=== PATIENT | male | born 1925 | race Caucasian/White ===

== ENCOUNTER 2016-03-18 15:04 | Inpatient (IN) | payer MEDICARE, OTHER ==
[~2016-03-18 15:04] MED LIST: ALLO300T; BABY81CH; LISI20TA5; METAMUCIL; NAMENDA
[2016-03-18 16:02] LABS: ABG DEVICE NASAL CANN; ABG HCO3 23.5 MEQ/L (22.0-26.0); ABG PARTIAL PRESSURE CO2 38.4 mmHg (35.0-45.0); ABG PARTIAL PRESSURE O2 69.5 mmHg (75.0-100.0); ABG STANDARD HCO3 23.6 MEQ/L (22.0-26.0); ABG TOTAL CO2 24.7 MEQ/L (23.0-31.0); ABG pH (ARTERIAL) 7.405 UNITS (7.350-7.450)
[2016-03-18 16:05] LABS: BASO % 0.5 % (0.0-1.0); EOS # 0.5 K/mm3 (0.0-0.50); EOS % 6.6 % (0.0-3.0); LARGE UNSTAINED CELL # 0.1 K/mm3 (0.0-0.4); LARGE UNSTAINED CELL % 1.5 % (0.0-4.0); LYMPH # 1.1 K/mm3 (1.5-4.5); LYMPH % 11.6 % (24.0-44.0); MEAN CORPUSCULAR HEMOGLOBIN 32.9 pg (27.0-33.0); MEAN CORPUSCULAR HGB CONC 31.8 g/dl (32.0-36.5); MEAN CORPUSCULAR VOLUME 103.4 fl (80.0-96.0); MONO # 0.4 K/mm3 (0.0-0.8); MONO % 4.9 % (0.0-5.0); NEUTROPHILS # 6.2 K/mm3 (1.8-7.7); PLATELET COUNT, AUTOMATED 210 k/mm3 (150-450); RED CELL DISTRIBUTION WIDTH 13.7 % (11.5-14.5); WHITE BLOOD COUNT 8.3 K/mm3 (4.0-10.0)
--- NOTE | 2016-03-18 16:06 | REP ---
PORTABLE CHEST: AP portable view of the chest is performed and compared to prior study of 09/15/2011. I see no evidence of acute infiltrate or pulmonary edema. There is mild left ventricular prominence. The mediastinal silhouette is unchanged. There appeared to mild interstitial fibrotic change in the lung bases. IMPRESSION: No acute pulmonary disease. Signed by Saul Plasencia MD 03/19/2016 04:48 P
--- NOTE | 2016-03-18 16:15 | REP ---
Head CT without contrast: History: Altered mental status. Comparison head CT study is from 08/02/2015. CT findings: Digital lateral supply chain design manager view is unremarkable. Bone window settings demonstrate an intact bony calvarium. No intraorbital abnormality is seen. Visualized paranasal sinuses are clear. There is mild vascular calcification. There is advanced diffuse cerebral atrophy and concordant ventricular enlargement. Moderate small vessel atherosclerotic changes are seen in the periventricular white matter bilaterally unchanged in pattern from the prior study. No evidence of infarct, hemorrhage, mass, extra-axial fluid collection or midline shift is seen. Impression: Advanced diffuse atrophy and small vessel changes. Mild vascular calcification. No acute intracranial lesion. Signed by Otto Bustamante MD 03/18/2016 05:12 P
[2016-03-18 16:28] LABS: ALBUMIN 2.8 GM/DL (3.2-5.2); ALBUMIN/GLOBULIN RATIO 0.78 (1.00-1.93); ALKALINE PHOSPHATASE 130 U/L (45-117); ALT/SGPT 34 U/L (12-78); ANION GAP 11 MEQ/L (8-16); AST/SGOT 42 U/L (15-37); BILIRUBIN,DIRECT < 0.1 MG/DL (0.0-0.2); BILIRUBIN,TOTAL 0.2 MG/DL (0.2-1.0); BLOOD UREA NITROGEN 31 MG/DL (7-18); CALCIUM LEVEL 8.6 MG/DL (8.8-10.2); CARBON DIOXIDE LEVEL 27 MEQ/L (21-32); CHLORIDE LEVEL 118 MEQ/L (98-107); GLOMERULAR FILTRATION RATE > 60.0 (>35); GLUCOSE, FASTING 125 MG/DL (83-110); POTASSIUM SERUM 4.1 MEQ/L (3.5-5.1); SODIUM LEVEL 156 MEQ/L (136-145); TOTAL PROTEIN 6.4 GM/DL (6.4-8.2)
[2016-03-18] MEDS ORDERED: NS 1,000 ML IV SCH (17:51)
[2016-03-18] MEDS ORDERED: [UNRECOGNIZED DRUG - CODE] PO (18:16)
[2016-03-18] MEDS ORDERED: ALLO100T PO (18:16)
[2016-03-18] MEDS ORDERED: COLA100C PO (18:16)
[2016-03-18] MEDS ORDERED: ASPI1TAB PO (18:16)
[2016-03-18] MEDS ORDERED: SERO1TAB PO (18:16)
[2016-03-18] MEDS ORDERED: SENN8.6T17 PO (18:16)
[2016-03-18] MEDS ORDERED: ACET650T2 PO (18:16)
[2016-03-18] MEDS ORDERED: NAME10TA PO (18:16)
[2016-03-18] MEDS ORDERED: VITMTA PO (18:16)
[2016-03-18] MEDS ORDERED: PANT40TA2 PO (18:16)
--- NOTE | 2016-03-18 18:44 | HPEPDOC ---
General Date of Admission 03-18-16 Primary Care Physician: AMIE GARDINER MD Chief Complaint The patient is a 89-year-old male admitted with a reason for visit of Weakness. Source: other (caregiver) Exam Limitations: Other (pt will not open his eyes or answer questions, seems very irritated after placement of moy cath., arousable to verbal and painful stimuli ) Severity: Mild History of Present Illness Mr. Rivera is an 89 y/o male with past medical history of advanced dementia, GERD, Gout and HTN, who presents to the ED this evening after his caregiver noticed that he had an episode of acute coughing and SOB when he "turned blue" in the face and became acutely very anxious, as per caregiver. Note that the pt., is unwilling to answer my questions, as he is very irritated about having the moy placed minutes prior to being seen, the caregiver said he is "being stubborn" and will not answer questions, thus she provided most of the information. As per child care centre manager, the patient has not been complaining of SOB , cough, CP, palpitations, abdominal pain, blurred vision, h/a, n/v, changes in BM or urinary habits, she has not noted any blood in his urine either, the pt has been eating well, no history of fevers, muscle aches or chills. The caregiver states that the pt., receives 24 hour nursing care with a caregiver. She also reports that two days ago another caregiver told her that the pt was acting strange, he was slumping over in his chair and bed, was having gait difficulty, decreased muscle tone b/l in his hands so that he could not hold his coffee cup or eating utensils and also had garbled speech. However, the caregiver tonight denies seeing any of these aforementioned symptioms and states that his cognition currently is baseline, she has not noticed a decline his his mental status. The pt does have an extensive alcohol history but has not drank alcohol as per caregiver in 8-9 years. Of note, the patient apparently has no family locally, his health care proxy is located in [place]. The pt does have documentation of advanced directive stating he wishes to be DNR. We don't have a MOLST form on file currently. Allergies Coded Allergies: No Known Drug Allergy (Verified Allergy, Unknown, 06/23/12) Past Medical History Medical History GERD advanced dementia HTN gout Surgical History none Family History Significant Family History: No pertinent family hx Social History * Smoker: non-smoker Alcohol: denies (past history of heavy alcohol use, stopped 8-9 years ago) Drugs: denies Recent Travel/Sick Contacts: Reports: Recent travel Psychosocial History: Dementia (advanced) Social History pt lives at home and has 24 hour caregiver Review of Symptoms General: Reports: ROS Unobtainable (pt is unwilling to answer questions at bedside, keeps his eyes closed, seems irritated at having moy cath placed minutes earlier. Thus ROS comes from health care provider at bedside. Pt will open eyes to verbal and painful stimuli but will not answer questions in interview. ), Denies: Chills, Fatigue, Night Sweats Constitutional: Denies: Chills, Fever, Malaise, Night Sweats Eyes: Denies: Conjunctivae inflammation, Eyelid inflammation, Pain, Vision change ENT: Denies: Head Aches Skin: Denies: Jaundice, Lesions, Rash Pulmonary: Denies: Cough, Dyspnea, Pleuritic Chest Pain Cardiovascular: Denies: Chest Pain, Orthopnea, Palpitations Gastrointestinal: Denies: Abdominal Pain, Constipation, Diarrhea, Nausea, Vomiting Genitourinary: Denies: Dysuria Neurological: Denies: Incoordination, Numbness, Weakness Psych: Reports: Other Psych (advanced dementia) Physical Examination Eye Exam: Positive: Conjunctiva & lids normal, PERRLA, Negative: Ptosis, Sclera icteric ENT Exam: Positive: Atraumatic, Mucous membr. moist/pink, Pharynx Normal, Tongue Midline Neck Exam: Positive: Supple Chest Exam: Positive: Clear to auscultation, Normal air movement, Negative: Rales, Rhonchi, Wheezing Heart Exam: Positive: Normal S1, Normal S2, Rate Normal, Negative: Gallops, Murmurs, Rubs Abdomen Exam: Positive: Normal bowel sounds, Soft, Negative: Hepatospenomegaly, Tenderness Extremity Exam: Negative: Clubbing, Cyanosis, Edema Skin Exam: Positive: Nl turgor and temperature, Negative: Breakdown, Rash Vital Signs bp 113/66 hr 76 rr 18 97% on room air temp 97.2 F Laboratory Data Labs 24H Laboratory Tests 2 03/18/16 15:49: Aspartate Amino Transf (AST/SGOT) 42H, Alanine Aminotransferase (ALT/SGPT) 34, Alkaline Phosphatase 130H, Total Bilirubin 0.2, Direct Bilirubin < 0.1, Albumin 2.8L, Albumin/Globulin Ratio 0.78L, Anion Gap 11, Calcium Level 8.6L, Creatine Kinase MB 1.4, Creatine Kinase MB Relative Index 1.50, Glomerular Filtration Rate > 60.0, Thyroid Stimulating Hormone (TSH) 1.200, Total Creatine Kinase 93, Total Protein 6.4, Troponin I 0.28H 03/18/16 15:50: Arterial Blood pH 7.405, Arterial Blood Partial Pressure CO2 38.4, Arterial Blood Partial Pressure O2 69.5L, Arterial Blood Total CO2 24.7, Arterial Blood HCO3 23.5, Arterial Blood Base Excess -1.0, Arterial Blood Oxygen Saturation 93.4L, White Blood Count 8.3, Red Blood Count 3.77L, Hemoglobin 12.4L, Hematocrit 39.0L, Mean Corpuscular Volume 103.4H, Mean Corpuscular Hemoglobin 32.9, Mean Corpuscular Hemoglobin Concent 31.8L, Red Cell Distribution Width 13.7, Platelet Count 210, Neutrophils (%) (Auto) 75.0H, Lymphocytes (%) (Auto) 11.6L, Monocytes (%) (Auto) 4.9, Eosinophils (%) (Auto) 6.6H, Basophils (%) ( Auto) 0.5, Neutrophils # (Auto) 6.2, Lymphocytes # (Auto) 1.1L, Monocytes # ( Auto) 0.4, Eosinophils # (Auto) 0.5, Basophils # (Auto) 0.0, Blood Gas Bicarbonate Standard 23.6, Lactic Acid Level 2.0, Large Unclassified Cells # 0.1 , Large Unclassified Cells % 1.5, Oxygen Delivery Device NASAL SABRINA CBC/BMP Laboratory Tests 03/18/16 15:49 03/18/16 15:50 Red Blood Count 3.77 L, Mean Corpuscular Volume 103.4 H, Mean Corpuscular Hemoglobin 32.9, Mean Corpuscular Hemoglobin Concent 31.8 L, Red Cell Distribution Width 13.7, Neutrophils (%) (Auto) 75.0 H, Lymphocytes (%) (Auto) 11.6 L, Monocytes (%) (Auto) 4.9, Eosinophils (%) (Auto) 6.6 H, Basophils (%) ( Auto) 0.5, Neutrophils # (Auto) 6.2, Lymphocytes # (Auto) 1.1 L, Monocytes # ( Auto) 0.4, Eosinophils # (Auto) 0.5, Basophils # (Auto) 0.0 Microbiology Microbiology 03/18/16 Blood Culture, Received Pending 03/18/16 Blood Culture, Received Pending Assessment/Plan Problems: (1) Generalized weakness Status: Acute Response to Treatment: Stable Problem Text: will consult PT continue to monitor will obtain quetiapine level begin gentle fluid hydration (2) Hypotension Status: Acute Response to Treatment: Stable Problem Text: will begin gentle fluid hydration continue to monitor (3) Elevated troponin Status: Acute Response to Treatment: Stable Problem Text: Will r/o ACS possibly 2/2 demand ischemia or hypotension will trend troponin repeat EKG in AM pt not complaining of CP EKG in ED does not show signs of infarct or ischemic changes (4) DVT prophylaxis Status: Chronic Response to Treatment: Stable Problem Text: Lovenox therapy Plan / VTE VTE Prophylaxis Ordered?: Yes GME ATTESTATION GME ATTESTATION My preceptor for this patient encounter was physically present in the building during the encounter and was fully available. As needed, all aspects of the patient interview, examination, medical decision making process, and medical care plan development were reviewed and approved by the preceptor. Preceptor is aware and concurs with the plan as stated in the body of this note and will attest to such by his/her cosignature. SARAH OTT DO Mar 18, 2016 18:44
[2016-03-18 20:03] LABS: ANION GAP 9 MEQ/L (8-16); BLOOD UREA NITROGEN 30 MG/DL (7-18); CALCIUM LEVEL 8.6 MG/DL (8.8-10.2); CARBON DIOXIDE LEVEL 27 MEQ/L (21-32); CHLORIDE LEVEL 121 MEQ/L (98-107); CREATININE FOR GFR 1.15 MG/DL (0.70-1.30); GLOMERULAR FILTRATION RATE > 60.0 (>35); GLUCOSE, FASTING 92 MG/DL (83-110); POTASSIUM SERUM 4.3 MEQ/L (3.5-5.1); SODIUM LEVEL 157 MEQ/L (136-145)
--- NOTE | 2016-03-18 20:19 | EDDOCDS ---
Physician Documentation [facility] Name: Pierre Rivera Age: 89 yrs Sex: Male : 1925 Arrival Date: 03/18/2016 Time: 15:04 Bed 10 Private MD: Disposition: 03/18/16 17:16 Hospitalization ordered by Marquise Pathak for Inpatient Admission. Preliminary diagnosis are Altered mental status, unspecified, Hyperosmolality and hypernatremia, Dehydration. - Bed requested for 4 [place]. - Status is Inpatient Admission. [id number] - Condition is Stable. - Problem is new. - Symptoms are unchanged. Historical: - Allergies: no known allergies; - Home Meds: 1. allopurinol 100 mg Oral tab once daily 2. aspirin 81 mg Oral cpDR 1 tab once daily 3. Namenda 10 mg oral tab 1 tab 2 times per day 4. Prilosec 40 mg Oral cpDR 1 cap once daily 5. Razadyne ER 8 mg oral TbER once daily 6. Seroquel 50 mg Oral tab 1 tab 2 times per day - PMHx: Alzheimers; GERD; Gout; - PSHx: none; - Social history: Smoking status: Patient states was never smoker of tobacco. Patient is speech impaired. - Family history: Not pertinent. - : The pt / caregiver states he / she is not on anticoagulants. Home medication list is obtained from the caregiver. - Exposure Risk Screening:: None identified. Vital Signs: 03/18 15:16 BP 90 / 57 RA Sitting (auto/reg); Pulse 76; Resp 18; Temp 97.2(O); Pulse Ox 97% on R/A; rs6 Weight 58.06 kg / 128 lbs (R); 16:58 BP 113 / 66 (auto/); nr1 16:58 Pulse 68 MON; Resp 18; Pulse Ox 95% on R/A; nr1 15:16 unable to obtain height and pain scale from patient. rs6 MDM: 15:25 Doughnut Maker/Pulse Ox/q 15 min VS ordered. le 15:25 Accucheck ordered. le 15:25 IV Saline Lock ordered. le 15:25 Oxygen at 4L/Min NC or Home dosage ordered. le 15:25 Rhythm Strip to chart ordered. le 15:25 -Blood Culture (Adults Only), peripheral from different site, or from device/port/PICC le etc. if present ordered. 15:25 -Blood Culture (Adults Only), peripheral from different site, or from device/port/PICC nazario etc. if present complete. 15:25 Call Respiratory ordered. le 15:26 Chest, 1 View Ordered. EDMS 15:26 CBC with Diff Ordered. EDMS 15:26 Cardiac Injury Profile Ordered. EDMS 15:26 Liver Profile Ordered. EDMS 15:26 MED Profile Ordered. EDMS 15:26 Thyroid Stimulating Hormone Ordered. EDMS 15:26 Troponin Ordered. EDMS 15:26 Urinalysis Ordered. EDMS 15:26 Urine Culture Ordered. EDMS 15:26 -Blood Culture Ordered. EDMS 15:26 CT Head Without Contrast Ordered. EDMS 15:26 ECG WITH READING ER PHYS+CARDIAG ordered. EDMS 15:26 Call Respiratory complete. nazario 15:27 Lactic Acid (Plasencia tube on ice) Ordered. EDMS 15:27 -Arterial Blood Gas Ordered. EDMS 15:27 BLOOD CULTURES Ordered. EDMS 16:42 CBC with Diff Reviewed. le 16:42 Liver Profile Reviewed. le 16:42 MED Profile Reviewed. le 16:42 Troponin Reviewed. le 16:42 -Arterial Blood Gas Reviewed. le 16:42 Cardiac Injury Profile Reviewed. le 16:42 Thyroid Stimulating Hormone Reviewed. le 16:42 Lactic Acid (Plasencia tube on ice) Reviewed. le 16:42 CT Head Without Contrast Reviewed. le 16:42 Chest, 1 View Reviewed. le 16:44 Redraw CIP &Troponin (put time in details section) ordered. le 16:50 Redraw CIP &Troponin (put time in details section) complete. mt4 16:51 NS 0.45 % 1000 ml IV at 190 mL/hr once ordered. le 16:51 Redraw Labs ordered. le 16:54 Mane ordered. le 16:54 Intake and Output Hourly ordered. le 16:54 Financial registration complete. gjb 17:06 Redraw Labs complete. mt4 17:07 BASIC METABOLIC PROFILE Ordered. EDMS 17:24 [facility] Payment Agreement was scanned into [employer] and attached to record. gjb 18:01 Admission / Observation Status ordered. EDMS 18:02 REGULAR DIET ordered. EDMS 18:03 PHYSICAL THERAPY EVAL & TREAT ordered. EDMS 18:12 TROPONIN Ordered. EDMS 18:35 CT Head Without Contrast Reviewed. le 18:48 ELECTROCARDIOGRAM ADULT ordered. EDMS 19:31 QUETIAPINE LEVEL (SEROQUEL) Ordered. EDMS 19:31 COMPLETE COMPHRENSIVE METABOLI Ordered. EDMS 19:32 CBC WITH DIFFERENTIAL Ordered. EDMS 19:32 TROPONIN Ordered. EDMS Administered Medications: 17:03 Drug: NS 1000 ml [sodium chloride 0.45 % intravenous solution] Route: IV; Rate: 190 nr1 mL/hr; Site: left antecubital; Signatures: Dispatcher [employer] EDMA Miley Benavides, Noemi Oden mt4 Linda Mahmood, BEST WORKER BEST WORKER Melany Alvarado, RN RN sls2 Marta Sadler,RN RN js15 Zohreh Gutierres,RN RN nr1 Jeanne Marsh The chart was reviewed and I authenticate all verbal orders and agree with the evaluation and treatment provided.Corrections: (The following items were deleted from the chart) 16:54 16:53 Straight cath ordered. le le 19:25 16:50 CARDIAC MARKER PANEL ordered. EDMS EDMS Attachments: 17:24 [facility] Payment Agreement mel MTDD
--- NOTE | 2016-03-18 20:19 | EDDOCDS ---
Nurse's Notes [facility] Name: Pierre Rivera Age: 89 yrs Sex: Male : 1925 Arrival Date: 03/18/2016 Time: 15:04 Bed 10 Private MD: Diagnosis: Altered mental status, unspecified;Hyperosmolality and hypernatremia;Dehydration Presentation: 03/18 15:12 Presenting complaint: EMS states: Per EMS "child care teacher called stating patient in nr1 respiratory distress." Caregiver believes patient might have had a mini stroke yesterday. 150cc bolus given by EMS. Per caregiver "patient is more non-verbal than yesterday. ". 17:07 The last date and time the patient was known to be well was was at an unknown time on nr1 an unknown date. No acute neurological deficit is noted. Pre-hospital glucose is not applicable to this patient. Adult Sepsis Screening: Patient has new or worsening altered mentation (1 point). Patient's respiratory rate is less than 22. Systolic blood pressure is greater than 100. Patient has a qSOFA score of 1- Negative Sepsis Screen. Suicide/Homicide risk assessment- the patient denies having any suicidal and/or homicidal ideations and does not present with any other emotional, behavioral or mental health complaints. Status: Patient is not a director of food and nutrition services or dependent. Transition of care: patient was not received from another setting of care. 17:07 Acuity: MICHELLE Level 3 nr1 17:07 Method Of Arrival: Ambulance nr1 Triage Assessment: 15:32 The onset of the patients symptoms was less than three hours ago. General: Appears in nr1 no apparent distress, comfortable, Behavior is cooperative, see history. Pain: Denies pain. The patient is triaged at the bedside. See Assessment in Nurses Notes section of ED record. Neurological: Level of Consciousness is awake, obeys commands, Oriented to person. Derm: Skin is pink, warm & dry. Historical: - Allergies: no known allergies; - Home Meds: 1. allopurinol 100 mg Oral tab once daily 2. aspirin 81 mg Oral cpDR 1 tab once daily 3. Namenda 10 mg oral tab 1 tab 2 times per day 4. Prilosec 40 mg Oral cpDR 1 cap once daily 5. Razadyne ER 8 mg oral TbER once daily 6. Seroquel 50 mg Oral tab 1 tab 2 times per day - PMHx: Alzheimers; GERD; Gout; - PSHx: none; - Social history: Smoking status: Patient states was never smoker of tobacco. Patient is speech impaired. - Family history: Not pertinent. - : The pt / caregiver states he / she is not on anticoagulants. Home medication list is obtained from the caregiver. - Exposure Risk Screening:: None identified. Screenin:00 Screening information is obtained from the caregiver. Fall risk: At risk due to age, js15 confusion, weakness. The following interventions are performed due to a positive Fall Risk Screen: Fall Risk is added to Special Handling on the patient Summary Screen. A Fall Risk Bracelet was applied to the patient. Side Rails are placed in the up position. A Call Matos is given with instruction to call for help when getting out of bed. Assistance ADL's: Requires assistance with bathing, assistance is provided by dressing, assistance is provided by toileting, assistance is provided by ambulation, assistance is provided by. Abuse/DV Screen: The patient / caregiver reports he/she is: not in a situation that causes fear, pain or injury. Nutritional screening: No deficits noted. Advance Directives:. home support is adequate. Assessment: 17:11 General: Attempted to obtain blood sugar. Patient became highly agitated, punching at nr1 air. Unable to obtain blood sugar. MD made aware. . Neurological: Level of Consciousness is confused, Oriented to person. Respiratory: Airway is patent Respiratory effort is even, unlabored, Respiratory pattern is regular, symmetrical. : Reports incontinence. Derm: Skin is intact, Skin is pink, warm & dry. 18:04 Reassessment: Mane catheter placed. Patient extremely agitated attempting to kick at nr1 staff and caregiver. Mane placed. No urine return. Will re-assess. . 19:00 General: Appears to be sleeping. Respiratory: Airway is patent Respiratory effort is js15 even, unlabored, Respiratory pattern is regular, symmetrical. Derm: Skin is pink, warm & dry. 20:00 Reassessment: Patient appears in no apparent distress at this time. Pt resting on js15 stretcher with eyes closed; caregiver at bedside; respirations even and unlabored; skin pink, warm, dry. Vital Signs: 15:16 BP 90 / 57 RA Sitting (auto/reg); Pulse 76; Resp 18; Temp 97.2(O); Pulse Ox 97% on R/A; rs6 Weight 58.06 kg (R); 16:58 BP 113 / 66 (auto/); nr1 16:58 Pulse 68 MON; Resp 18; Pulse Ox 95% on R/A; nr1 15:16 unable to obtain height and pain scale from patient. rs6 Vitals: 15:16 Log In Time N/A - ambulance arrival. rs6 ED Course: 15:05 Patient visited by Linda Mahmood PCA. nazario 15:05 Zohreh Gutierres,RN is Primary Nurse. nazario 15:05 Patient moved to Waiting nazario 15:05 Patient moved to 10 nazario 15:15 Patient visited by Zohreh Gutierres,PETE. nr1 15:16 Pt greeted and oriented to ED. Patient advised of names of staff involved in care, rs6 location of call matos, wait times and NPO status. Accompanied by Caregiver, Patient has correct armband on for positive identification. Placed in gown. Bed in low position. Call light in reach. Side rails up X2. senior test analyst on. Pulse ox on. NIBP on. 15:17 Patient visited by Maryanne Montalvo PCA. rs6 15:23 Miley Benavides FNP is PHCP. le 15:35 Patient visited by Zohreh Gutierres RN. nr1 15:53 Patient visited by Miley Benavides FNP. le 15:57 Patient visited by Miley Benavides FNP. le 15:58 -Arterial Blood Gas Sent. ac1 16:40 Chest, 1 View Returned. EDMS 16:40 CT Head Without Contrast Returned. EDMS 17:08 Triage Initiated nr1 17:12 Kristie Paul air dispatcher. ys2 17:16 Kristie Paul is Hospitalizing Provider. le 17:24 Patient visited by Jeanne Marsh. gjb 17:24 [facility] Payment Agreement was scanned into [employer] and attached to record. gjb 17:35 CT Head Without Contrast Returned. EDMS 18:25 Marquise Pathak is Hospitalizing Provider. sls2 20:00 The patient / caregiver is instructed regarding the plan of care and ED course. js15 20:16 Maintain field IV. maintain IV from previous shift in LAC. No procedures done that js15 require assistance. Administered Medications: 17:03 Drug: NS 1000 ml [sodium chloride 0.45 % intravenous solution] Route: IV; Rate: 190 nr1 mL/hr; Site: left antecubital; RT: 15:59 ABG's drawn from left radial artery allens test done and positive pressure held for 5 ac1 minutes no bleeding noted pressure bandage applied specimen sent pt. tolerated well. Order Results: Lab Order: CBC with Diff; SPEC'M 03/18/16 15:50 Test: WHITE BLOOD COUNT; Value: 8.3; Range: 4.0-10.0; Units: K/mm3; Status: F Test: RED BLOOD COUNT; Value: 3.77; Range: 4.30-6.10; Abnormal: Below low normal; Units: M/mm3; Status: F Test: HEMOGLOBIN; Value: 12.4; Range: 14.0-18.0; Abnormal: Below low normal; Units: g/dl; Status: F Test: HEMATOCRIT; Value: 39.0; Range: 42.0-52.0; Abnormal: Below low normal; Units: %; Status: F Test: MEAN CORPUSCULAR VOLUME; Value: 103.4; Range: 80.0-96.0; Abnormal: Above high normal; Units: fl; Status: F Test: MEAN CORPUSCULAR HEMOGLOBIN; Value: 32.9; Range: 27.0-33.0; Units: pg; Status: F Test: MEAN CORPUSCULAR HGB CONC; Value: 31.8; Range: 32.0-36.5; Abnormal: Below low normal; Units: g/dl; Status: F Test: RED CELL DISTRIBUTION WIDTH; Value: 13.7; Range: 11.5-14.5; Units: %; Status: F Test: PLATELET COUNT, AUTOMATED; Value: 210; Range: 150-450; Units: k/mm3; Status: F Test: NEUTROPHILS %; Value: 75.0; Range: 36.0-66.0; Abnormal: Above high normal; Units: %; Status: F Test: LYMPH %; Value: 11.6; Range: 24.0-44.0; Abnormal: Below low normal; Units: %; Status: F Test: MONO %; Value: 4.9; Range: 0.0-5.0; Units: %; Status: F Test: EOS %; Value: 6.6; Range: 0.0-3.0; Abnormal: Above high normal; Units: %; Status: F Test: BASO %; Value: 0.5; Range: 0.0-1.0; Units: %; Status: F Test: LARGE UNSTAINED CELL %; Value: 1.5; Range: 0.0-4.0; Units: %; Status: F Test: NEUTROPHILS #; Value: 6.2; Range: 1.8-7.7; Units: K/mm3; Status: F Test: LYMPH #; Value: 1.1; Range: 1.5-4.5; Abnormal: Below low normal; Units: K/mm3; Status: F Test: MONO #; Value: 0.4; Range: 0.0-0.8; Units: K/mm3; Status: F Test: EOS #; Value: 0.5; Range: 0.0-0.50; Units: K/mm3; Status: F Test: BASO #; Value: 0.0; Range: 0.0-0.2; Units: K/mm3; Status: F Test: LARGE UNSTAINED CELL #; Value: 0.1; Range: 0.0-0.4; Units: K/mm3; Status: F Lab Order: Cardiac Injury Profile; [facility]' 03/18/16 15:49 Test: CPK CREATINE PHOSPHOKINASE; Value: 93; Range: 39-308; Units: U/L; Status: F Test: CK-MB VALUE MASS; Value: 1.4; Range: 0.0-3.6; Units: NG/ML; Status: F Test: MB/CK RELATIVE INDEX; Value: 1.50; Range: < OR =4; Status: F Test Note: ; DIAGNOSIS CRITERIA MMB ng/ml Relative Index (RI) NON-AMI < or = 5 N/A PLASENCIA ZONE > 5 < or = 4 AMI > 5 > 4 Lab Order: Liver Profile; SPEC'M 03/18/16 15:49 Test: AST/SGOT; Value: 42; Range: 15-37; Abnormal: Above high normal; Units: U/L; Status: F Test: ALT/SGPT; Value: 34; Range: 12-78; Units: U/L; Status: F Test: ALKALINE PHOSPHATASE; Value: 130; Range: 45-117; Abnormal: Above high normal; Units: U/L; Status: F Test: BILIRUBIN,TOTAL; Value: 0.2; Range: 0.2-1.0; Units: MG/DL; Status: F Test: BILIRUBIN,DIRECT; Value: < 0.1; Range: 0.0-0.2; Units: MG/DL; Status: F Test: TOTAL PROTEIN; Value: 6.4; Range: 6.4-8.2; Units: GM/DL; Status: F Test: ALBUMIN; Value: 2.8; Range: 3.2-5.2; Abnormal: Below low normal; Units: GM/DL; Status: F Test: ALBUMIN/GLOBULIN RATIO; Value: 0.78; Range: 1.00-1.93; Abnormal: Below low normal; Status: F Lab Order: MED Profile; [facility] 03/18/16 15:49 Test: GLUCOSE, FASTING; Value: 125; Range: 83-110; Abnormal: Above high normal; Units: MG/DL; Status: F Test: BLOOD UREA NITROGEN; Value: 31; Range: 7-18; Abnormal: Above high normal; Units: MG/DL; Status: F Test: CREATININE FOR GFR; Value: 1.20; Range: 0.70-1.30; Units: MG/DL; Status: F Test: GLOMERULAR FILTRATION RATE; Value: > 60.0; Range: >35; Status: F Test: SODIUM LEVEL; Value: 156; Range: 136-145; Abnormal: Above high normal; Units: MEQ/L; Status: F Test: POTASSIUM SERUM; Value: 4.1; Range: 3.5-5.1; Units: MEQ/L; Status: F Test: CHLORIDE LEVEL; Value: 118; Range: 98-107; Abnormal: Above high normal; Units: MEQ/L; Status: F Test: CARBON DIOXIDE LEVEL; Value: 27; Range: 21-32; Units: MEQ/L; Status: F Test: ANION GAP; Value: 11; Range: 8-16; Units: MEQ/L; Status: F Test: CALCIUM LEVEL; Value: 8.6; Range: 8.8-10.2; Abnormal: Below low normal; Units: MG/DL; Status: F Test Note: ; Units are mL/min/1.73 m2 Chronic Kidney Disease Staging per NKF: Stage I & II GFR >=60 Normal to Mildly Decreased Stage III GFR 30-59 Moderately Decreased Stage IV GFR 15-29 Severely Decreased Stage V GFR <15 Very Little GFR Left ESRD GFR <15 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 0.10-1.50 ng/ml Increased Risk for Adverse Clinical Events. Evaluation of additional criterion and/or repeat testing in 2-6 hours is suggested to rule out myocardial damage. >= 1.50 ng/ml Indicative of Myocardial Injury. Lab Order: Lactic Acid (Plasencia tube on ice); [facility] 03/18/16 15:50 Test: LACTIC ACID LEVEL, LACTATE; Value: 2.0; Range: 0.4-2.0; Units: MMOL/L; Status: F Lab Order: -Arterial Blood Gas; [facility] 03/18/16 15:50 Test: ABG pH (ARTERIAL); Value: 7.405; Range: 7.350-7.450; Units: UNITS; Status: F Test: ABG PARTIAL PRESSURE CO2; Value: 38.4; Range: 35.0-45.0; Units: mmHg; Status: F Test: ABG PARTIAL PRESSURE O2; Value: 69.5; Range: 75.0-100.0; Abnormal: Below low normal; Units: mmHg; Status: F Test: ABG TOTAL CO2; Value: 24.7; Range: 23.0-31.0; Units: MEQ/L; Status: F Test: ABG HCO3; Value: 23.5; Range: 22.0-26.0; Units: MEQ/L; Status: F Test: ABG BASE EXCESS; Value: -1.0; Range: -2.0-2.0; Status: F Test: ABG STANDARD HCO3; Value: 23.6; Range: 22.0-26.0; Units: MEQ/L; Status: F Test: ABG O2 SATURATION; Value: 93.4; Range: 95.0-99.0; Abnormal: Below low normal; Units: %; Status: F Test: ABG DEVICE; Value: NASAL SABRINA; Status: F Lab Order: BASIC METABOLIC PROFILE; SPEC'M 03/18/16 19:27 Test: GLUCOSE, FASTING; Value: 92; Range: 83-110; Units: MG/DL; Status: F Test: BLOOD UREA NITROGEN; Value: 30; Range: 7-18; Abnormal: Above high normal; Units: MG/DL; Status: F Test: CREATININE FOR GFR; Value: 1.15; Range: 0.70-1.30; Units: MG/DL; Status: F Test: GLOMERULAR FILTRATION RATE; Value: > 60.0; Range: >35; Status: F Test: SODIUM LEVEL; Value: 157; Range: 136-145; Abnormal: Above high normal; Units: MEQ/L; Status: F Test: POTASSIUM SERUM; Value: 4.3; Range: 3.5-5.1; Units: MEQ/L; Status: F Test: CHLORIDE LEVEL; Value: 121; Range: 98-107; Abnormal: Above high normal; Units: MEQ/L; Status: F Test: CARBON DIOXIDE LEVEL; Value: 27; Range: 21-32; Units: MEQ/L; Status: F Test: ANION GAP; Value: 9; Range: 8-16; Units: MEQ/L; Status: F Test: CALCIUM LEVEL; Value: 8.6; Range: 8.8-10.2; Abnormal: Below low normal; Units: MG/DL; Status: F Test Note: ; Units are mL/min/1.73 m2 Chronic Kidney Disease Staging per NKF: Stage I & II GFR >=60 Normal to Mildly Decreased Stage III GFR 30-59 Moderately Decreased Stage IV GFR 15-29 Severely Decreased Stage V GFR <15 Very Little GFR Left ESRD GFR <15 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 Bone window settings; demonstrate an intact bony calvarium. No intraorbital abnormality is seen.; Visualized paranasal sinuses are clear. There is mild vascular calcification.; There is advanced diffuse cerebral atrophy and concordant ventricular; enlargement. Moderate small vessel atherosclerotic changes are seen in the; periventricular white matter bilaterally unchanged in pattern from the prior; study. No evidence of infarct, hemorrhage, mass, extra-axial fluid collection or; midline shift is seen.; ; Impression:; ; Advanced diffuse atrophy and small vessel changes. Mild vascular calcification.; No acute intracranial lesion.; ; ; Signed by; Otto Butsamante MD 03/18/2016 05:12 P; Radiology Order: Chest, 1 View Test: Chest, 1 View REASON FOR EXAMINATION: altered mental status; PORTABLE CHEST:; ; AP portable view of the chest is performed and compared to prior study of; 09/15/2011. I see no evidence of acute infiltrate or pulmonary edema. There is; mild left ventricular prominence. The mediastinal silhouette is unchanged. There; appeared to mild interstitial fibrotic change in the lung bases.; ; IMPRESSION:; No acute pulmonary disease.; ; Unreviewed; Outcome: 17:16 Decision to Hospitalize by Provider. le 20:16 Discharge Assessment: Patient drowsy but arouses easily. patient administered narcotics js15 - no. The following High Risk Discharge criteria are identified: None. Admitted to Med/Surg accompanied by tech, family with patient, via stretcher, with chart. Condition: unchanged. Property :Personal belongings accompany Pt. 20:17 CT Study completed. js15 20:18 Patient left the ED. js15 Signatures: Dispatcher [employer] EDMS Becky Segura,RT RT ac1 Miley Benavides, SEAMER ELASTIC BAND SEAMER ELASTIC BAND Linda Srinivasan, CLINICAL REVIEWER CLINICAL REVIEWER Melany Alvarado RN RN sls2 Maryanne Montalvo, CLINICAL REVIEWER CLINICAL REVIEWER rs6 Marta Sadler RN RN js15 Zohreh Gutierres,PETE RN [facility] Jeanne Marsh Yu 2 MTDD
[2016-03-18 20:30] VITALS: BP 131/72
[2016-03-18] MEDS: QUEtiapine FUMARATE 50 MG TAB PO SCH (21:13)
[2016-03-18] MEDS: MEMANTINE 5MG TABLET (NAMENDA) PO SCH (21:13)
[2016-03-18 22:00] VITALS: BP 135/73
[2016-03-19 06:00] VITALS: BP 125/60
[2016-03-19 06:06] LABS: BASO % 0.1 % (0.0-1.0); EOS # 0.7 K/mm3 (0.0-0.50); EOS % 7.8 % (0.0-3.0); LARGE UNSTAINED CELL # 0.1 K/mm3 (0.0-0.4); LARGE UNSTAINED CELL % 1.4 % (0.0-4.0); LYMPH # 0.9 K/mm3 (1.5-4.5); LYMPH % 9.7 % (24.0-44.0); MEAN CORPUSCULAR HEMOGLOBIN 32.7 pg (27.0-33.0); MEAN CORPUSCULAR HGB CONC 31.4 g/dl (32.0-36.5); MONO # 0.4 K/mm3 (0.0-0.8); MONO % 3.8 % (0.0-5.0); NEUTROPHILS # 7.1 K/mm3 (1.8-7.7); NEUTROPHILS % 77.2 % (36.0-66.0); PLATELET COUNT, AUTOMATED 182 k/mm3 (150-450); RED CELL DISTRIBUTION WIDTH 12.8 % (11.5-14.5); WHITE BLOOD COUNT 9.2 K/mm3 (4.0-10.0)
[2016-03-19 06:20] LABS: ALBUMIN 2.7 GM/DL (3.2-5.2); ALBUMIN/GLOBULIN RATIO 0.69 (1.00-1.93); ALKALINE PHOSPHATASE 130 U/L (45-117); ALT/SGPT 33 U/L (12-78); ANION GAP 7 MEQ/L (8-16); AST/SGOT 34 U/L (15-37); BILIRUBIN,TOTAL 0.4 MG/DL (0.2-1.0); BLOOD UREA NITROGEN 25 MG/DL (7-18); CALCIUM LEVEL 8.6 MG/DL (8.8-10.2); CARBON DIOXIDE LEVEL 26 MEQ/L (21-32); CHLORIDE LEVEL 117 MEQ/L (98-107); CREATININE FOR GFR 1.03 MG/DL (0.70-1.30); GLOMERULAR FILTRATION RATE > 60.0 (>35); GLUCOSE, FASTING 87 MG/DL (83-110); POTASSIUM SERUM 3.9 MEQ/L (3.5-5.1); SODIUM LEVEL 150 MEQ/L (136-145); TOTAL PROTEIN 6.6 GM/DL (6.4-8.2)
[2016-03-19] MEDS ORDERED: NS 0.45% 1,000 ML IV SCH (08:15)
[2016-03-19] MEDS ORDERED: NS 1,000 ML IV SCH (08:15)
[2016-03-19] MEDS ORDERED: LISINOPRIL 20 MG TAB PO SCH (09:00)
[2016-03-19] MEDS ORDERED: ALLOPURINOL 100 MG TAB PO SCH (09:00)
[2016-03-19] MEDS ORDERED: ASPIRIN 81 MG CHEW TABLET PO SCH (09:00)
[2016-03-19] MEDS ORDERED: ENOXAPARIN 40 MG/0.4 ML SYRINGE (J1650) SC SCH (09:00)
[2016-03-19] MEDS: MEMANTINE 5MG TABLET (NAMENDA) PO SCH ×3 (09:40→21:01)
[2016-03-19] MEDS: QUEtiapine FUMARATE 50 MG TAB PO SCH ×3 (09:40→21:01)
[2016-03-19] MEDS ORDERED: ACETAMINOPHEN TAB 650MG DOSE (2X325MG) PO PRN (11:15)
[2016-03-19 12:30] VITALS: BP 82/60
--- NOTE | 2016-03-19 12:30 | REP ---
MRI STUDY OF THE BRAIN WITHOUT CONTRAST: HISTORY: Question CVA. Comparison CT study March 18, 2016. Comparison MRI study September 16, 2011. TECHNIQUE: Axial and sagittal imaging planes are utilized for T1- and T2-weighted scans. Sequences include spin-echo, fast spin echo, FLAIR, and diffusion weighted sequences. MRI FINDINGS: Diffusion weighted scans show no evidence to suggest acute ischemia. There is no evidence of intracranial hemorrhage. Moderate diffuse atrophy and small vessel changes are noted. Concordant ventricular enlargement is seen as on CT. There is no evidence of intracranial mass lesion, extra-axial fluid collection, or midline shift. Craniocervical junction and upper cervical cord are normal in appearance. There is mild mucosal thickening in the ethmoid air cells and maxillary sinuses bilaterally. No intraorbital abnormality is seen. IMPRESSION: Diffuse moderate atrophy and small vessel changes. These findings are somewhat more pronounced than on the September 16, 2011 prior study but unchanged from the current CT. No acute intracranial abnormality. No evidence of infarct, hemorrhage or mass. Signed by Otto Bustamante MD 03/19/2016 03:14 P
[2016-03-19] MEDS: PIPERACILLIN/TAZOBACTAM SOD 3.375 GM in D5W MINI-BAG PLUS 50 ML IV SCH ×2 (13:14→18:13)
[2016-03-19 13:21] LABS: ABG pH (ARTERIAL) 7.494 UNITS (7.350-7.450)
[2016-03-19 13:22] LABS: ABG BASE EXCESS -2.8 (-2.0-2.0); ABG HCO3 19.1 MEQ/L (22.0-26.0); ABG PARTIAL PRESSURE CO2 25.4 mmHg (35.0-45.0); ABG PARTIAL PRESSURE O2 125.7 mmHg (75.0-100.0); ABG STANDARD HCO3 22.2 MEQ/L (22.0-26.0); ABG TOTAL CO2 19.9 MEQ/L (23.0-31.0)
[2016-03-19] MEDS ORDERED: FUROSEMIDE 40 MG/4 ML VIAL (J1940) IV ONE (13:45)
[2016-03-19 14:00] VITALS: BP 82/60
--- NOTE | 2016-03-19 14:33 | REP ---
PORTABLE CHEST: AP portable view of the chest is performed and compared to a prior study of 03/18/2016. There is no evidence of acute infiltrate or pulmonary edema. There is mild cardiomegaly. There is some tortuosity of the thoracic aorta. The mediastinal silhouette is unchanged. IMPRESSION: Cardiomegaly with no evidence of acute infiltrate. Signed by Saul Plasencia MD 03/19/2016 04:54 P
[2016-03-19] MEDS ORDERED: SODIUM CHLORIDE 0.9% 1000 ML IV ONE (15:00)
[2016-03-19] MEDS ORDERED: MORPHINE 2 MG/ML 1ML SYRINGE IV PRN (15:15)
--- NOTE | 2016-03-19 15:24 | ECGEPIP ---
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 Increased heart rate compared with 09/15/2011. Electronically Signed On 03-19-2016 15:23:30 EST by Paul Ivy
--- NOTE | 2016-03-19 17:15 | IPNPDOC ---
Text Note Date of Service The patient was seen on 03/19/16 at 1300. NOTE Subjective: Patient is very lethargic this morning. His baseline advanced dementia is noted, and his caregiver states that occasionally he has limited verbal communications. The patient was febrile this am and was started on Zosyn , with a UA pending as there was concern for a urinary source. I was called by nurse around noon, noting the patient has become increasingly hypoxic requiring a nonrebreather. Further workup is notable for sepsis likely secondary to a urinary tract infection as well as aspiration. The patient has previous been started on Zosyn which has been continued. Between noon and at 3 PM patient has been increasingly hypotensive and hypoxic. I spoke to the health proxy, Madelin Urban (health proxy at [phone], who was adamant that the patient would have wanted to be comfort care in the case that has clinical condition has deteriorated. She stated that the patient would not have wanted CPR/ intubation, and that he would not have wanted pressors. She also states that she does not want any aggressive treatments and that since he is deteriorating, she would like to make him comfort measures only. This was witnessed by nurse. MOLST form was updated. Objective: Vitals: (see below) General: No acute distress, laying comfortably in bed. HEENT: Moist mucous membranes. Neck: No JVD or lymphadenopathy Cardiac: RRR, No murmurs Pulm: Diminished breath sounds at the bases b/l. No wheezing, rhonchi Abd: NT/ND + BS Ext: No edema or cyanosis Not following commands. Responds to painful stimuli. GCS 11. Labs (see below) Images: MRI brain 03/19/16 IMPRESSION: Diffuse moderate atrophy and small vessel changes. These findings are somewhat more pronounced than on the September 16, 2011 prior study but unchanged from the current CT. No acute intracranial abnormality. No evidence of infarct, hemorrhage or mass. CXR 03/19/16 IMPRESSION: Cardiomegaly with no evidence of acute infiltrate. Assessment/Plan 1. Severe Sepsis secondary to urinary source as well as aspiration. The patient was started on Zosyn as well as IV fluids. Blood cultures were drawn. Urine cultures been drawn. Patient is hypotensive/hypoxic. Lactic acid of 4.1. Elevated troponin likely secondary to sepsis. 2. Acute hypoxic resp. failure on NRB 2/ to #1. Pt is a DNR 3. Hypernatremia on admission - Initiially treated with 1/2 NS 4. Baseline severe Alzheimer's dementia 5. GERD As per the healthcare proxy's request, which reflect the patient's advanced directive, the patient has been made comfort measures only. Friends and caregiver are bedside. VS,Fishbone, I+O VS, Fishbone, I+O Laboratory Tests 03/18/16 19:27 Calcium Level 8.6 L 03/19/16 05:35 Calcium Level 8.6 L, Aspartate Amino Transf (AST/SGOT) 34, Alanine Aminotransferase (ALT/SGPT) 33, Alkaline Phosphatase 130 H, Total Bilirubin 0.4 #, Total Protein 6.6, Albumin 2.7 L, Red Blood Count 3.52 L, Mean Corpuscular Volume 104.0 H, Mean Corpuscular Hemoglobin 32.7, Mean Corpuscular Hemoglobin Concent 31.4 L, Red Cell Distribution Width 12.8, Neutrophils (%) (Auto) 77.2 H , Lymphocytes (%) (Auto) 9.7 L, Monocytes (%) (Auto) 3.8, Eosinophils (%) (Auto ) 7.8 H, Basophils (%) (Auto) 0.1, Neutrophils # (Auto) 7.1, Lymphocytes # (Auto ) 0.9 L, Monocytes # (Auto) 0.4, Eosinophils # (Auto) 0.7 H, Basophils # (Auto) 0.0 Vital Signs Date Time Temp Pulse Resp B/P Pulse Ox O2 Delivery O2 Flow Rate FiO2 03/19/16 14:00 100.5 91 20 82/60 87 Non-Rebreather 03/19/16 12:30 2.0 I&O- Last 24 Hours up to 6 AM 03/19/16 05:59 Intake Total 720 ml Output Total 0 ml Balance 720 ml ZEHRA TUCKER MD Mar 19, 2016 17:15
--- NOTE | 2016-03-19 18:45 | ECGEPIP ---
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
[2016-03-20] VITALS (28 sets, daily range): BP systolic 58–98; BP diastolic 34–66
[2016-03-20] MEDS: PIPERACILLIN/TAZOBACTAM SOD 3.375 GM in D5W MINI-BAG PLUS 50 ML IV SCH ×2 (00:13→05:51)
[2016-03-20] MEDS ORDERED: SODIUM CHLORIDE 0.9% 1000 ML IV ONE ×5 (11:30→20:45)
[2016-03-20 11:49] LABS: VENOUS BASE EXCESS -2.8 (-2.0-2.0); VENOUS O2 SATURATION 98.5 % (60.0-80.0); VENOUS PARTIAL PRESSURE CO2 29.5 mmHg (38.0-50.0); VENOUS PARTIAL PRESSURE O2 134.9 mmHg (30.0-50.0); VENOUS STANDARD HCO3 22.2 MEQ/L
[2016-03-20 11:50] LABS: MEAN CORPUSCULAR HEMOGLOBIN 33.7 pg (27.0-33.0); MEAN CORPUSCULAR HGB CONC 33.5 g/dl (32.0-36.5); MEAN CORPUSCULAR VOLUME 100.6 fl (80.0-96.0)
[2016-03-20 11:57] LABS: WHITE BLOOD COUNT 21.3 K/mm3 (4.0-10.0)
[2016-03-20] MEDS ORDERED: PIPERACILLIN/TAZOBACTAM SOD 3.375 GM in D5W MINI-BAG PLUS 50 ML IV SCH (12:00)
[2016-03-20 12:14] LABS: ALBUMIN 2.2 GM/DL (3.2-5.2); ALBUMIN/GLOBULIN RATIO 0.56 (1.00-1.93); BILIRUBIN,TOTAL 0.6 MG/DL (0.2-1.0); CREATININE FOR GFR 2.42 MG/DL (0.70-1.30); POTASSIUM SERUM 4.2 MEQ/L (3.5-5.1); TOTAL PROTEIN 6.1 GM/DL (6.4-8.2)
[2016-03-20 12:21] LABS: BANDS 15 % (< 11)
[2016-03-20 12:22] LABS: TOXIC GRANULATION 1+
[2016-03-20 12:23] LABS: ANISOCYTOSIS 1+
--- NOTE | 2016-03-20 13:32 | IPNPDOC ---
Text Note Date of Service The patient was seen on 03/20/16 at 13:28. NOTE Subjective: Patient is more awake today. Improved oxygenation. 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 No pressors. Restart IVF and Abx. Will move pt to PCU. 2L NS bolus. Restarted Zosyn. Health proxy understands that the prognosis is very poor, and if no improvement, will decide on PINKING SEWING MACHINE OPERATOR again. Objective: Vitals: (see below) General: No acute distress, laying comfortably in bed. HEENT: Moist mucous membranes. Neck: No JVD or lymphadenopathy Cardiac: RRR, No murmurs Pulm: Diminished breath sounds at the bases b/l. No wheezing, rhonchi Abd: NT/ND + BS Ext: No edema or cyanosis Not following commands. Responds to painful stimuli. GCS 11. Labs (see below) Images: MRI brain 03/19/16 IMPRESSION: Diffuse moderate atrophy and small vessel changes. These findings are somewhat more pronounced than on the September 16, 2011 prior study but unchanged from the current CT. No acute intracranial abnormality. No evidence of infarct, hemorrhage or mass. CXR 03/19/16 IMPRESSION: Cardiomegaly with no evidence of acute infiltrate. Assessment/Plan 1. Severe Sepsis secondary to GNR bacteremia. Leukocytosis and hypoxia noted. The patient was restarted on Zosyn as well as IV fluids. 2L NS bolus, followed by maintenance fluids. Goal MAP >65. Blood cultures with GNR. Urine cultures been drawn. Patient is hypotensive/hypoxic. Lactic acid of 4.1-->2.2. Elevated troponin likely secondary to sepsis. 2. Acute hypoxic resp. failure on NRB 2/ to #1. Pt is a DNR 3. Hypernatremia on admission - 4. Baseline severe Alzheimer's dementia 5. 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 VS,Fishbone, I+O VS, Fishbone, I+O Laboratory Tests 03/20/16 11:40 Calcium Level 8.0 L, Aspartate Amino Transf (AST/SGOT) 55 H, Alanine Aminotransferase (ALT/SGPT) 39, Alkaline Phosphatase 100, Total Bilirubin 0.6, Total Protein 6.1 L, Albumin 2.2 L Vital Signs Date Time Temp Pulse Resp B/P Pulse Ox O2 Delivery O2 Flow Rate FiO2 03/20/16 12:30 85 18 77/53 100 Non-Rebreather 100 03/20/16 12:20 98.1 03/20/16 09:30 15.0 I&O- Last 24 Hours up to 6 AM 03/20/16 06:00 Intake Total 1370 ml Output Total 100 ml Balance 1270 ml ZEHRA TUCKER MD Mar 20, 2016 13:32
[2016-03-20] MEDS: ENOXAPARIN 40 MG/0.4 ML SYRINGE (J1650) SC SCH (13:35)
[2016-03-20] MEDS: NS 1,000 ML IV SCH ×2 (13:35→19:17)
[2016-03-20] MEDS: PIPERACILLIN/TAZOBACTAM SOD 2.25 GM in D5W MINI-BAG PLUS 50 ML IV SCH ×2 (13:35→18:10)
--- NOTE | 2016-03-20 21:19 | EDDOCDS ---
Physician Documentation [facility] Name: Pierre Rivera Age: 89 yrs Sex: Male : 1925 Arrival Date: 03/18/2016 Time: 15:04 Bed 10 Private MD: Disposition: 03/18/16 17:16 Hospitalization ordered by Marquise Pathak for Inpatient Admission. Preliminary diagnosis are Altered mental status, unspecified, Hyperosmolality and hypernatremia, Dehydration. - Bed requested for 4 [place]. - Status is Inpatient Admission. js15 - Condition is Stable. - Problem is new. - Symptoms are unchanged. Historical: - Allergies: no known allergies; - Home Meds: 1. allopurinol 100 mg Oral tab once daily 2. aspirin 81 mg Oral cpDR 1 tab once daily 3. Namenda 10 mg oral tab 1 tab 2 times per day 4. Prilosec 40 mg Oral cpDR 1 cap once daily 5. Razadyne ER 8 mg oral TbER once daily 6. Seroquel 50 mg Oral tab 1 tab 2 times per day - PMHx: Alzheimers; GERD; Gout; - PSHx: none; - Social history: Smoking status: Patient states was never smoker of tobacco. Patient is speech impaired. - Family history: Not pertinent. - : The pt / caregiver states he / she is not on anticoagulants. Home medication list is obtained from the caregiver. - Exposure Risk Screening:: None identified. Vital Signs: 03/18 15:16 BP 90 / 57 RA Sitting (auto/reg); Pulse 76; Resp 18; Temp 97.2(O); Pulse Ox 97% on R/A; rs6 Weight 58.06 kg / 128 lbs (R); 16:58 BP 113 / 66 (auto/); nr1 16:58 Pulse 68 MON; Resp 18; Pulse Ox 95% on R/A; nr1 15:16 unable to obtain height and pain scale from patient. rs6 MDM: 15:25 Management Tech/Pulse Ox/q 15 min VS ordered. le 15:25 Accucheck ordered. le 15:25 IV Saline Lock ordered. le 15:25 Oxygen at 4L/Min NC or Home dosage ordered. le 15:25 Rhythm Strip to chart ordered. le 15:25 -Blood Culture (Adults Only), peripheral from different site, or from device/port/PICC le etc. if present ordered. 15:25 -Blood Culture (Adults Only), peripheral from different site, or from device/port/PICC nazario etc. if present complete. 15:25 Call Respiratory ordered. le 15:26 Chest, 1 View Ordered. EDMS 15:26 CBC with Diff Ordered. EDMS 15:26 Cardiac Injury Profile Ordered. EDMS 15:26 Liver Profile Ordered. EDMS 15:26 MED Profile Ordered. EDMS 15:26 Thyroid Stimulating Hormone Ordered. EDMS 15:26 Troponin Ordered. EDMS 15:26 Urinalysis Ordered. EDMS 15:26 Urine Culture Ordered. EDMS 15:26 -Blood Culture Ordered. EDMS 15:26 CT Head Without Contrast Ordered. EDMS 15:26 ECG WITH READING ER PHYS+CARDIAG ordered. EDMS 15:26 Call Respiratory complete. nazario 15:27 Lactic Acid (Plasencia tube on ice) Ordered. EDMS 15:27 -Arterial Blood Gas Ordered. EDMS 15:27 BLOOD CULTURES Ordered. EDMS 16:42 CBC with Diff Reviewed. le 16:42 Liver Profile Reviewed. le 16:42 MED Profile Reviewed. le 16:42 Troponin Reviewed. le 16:42 -Arterial Blood Gas Reviewed. le 16:42 Cardiac Injury Profile Reviewed. le 16:42 Thyroid Stimulating Hormone Reviewed. le 16:42 Lactic Acid (Plasencia tube on ice) Reviewed. le 16:42 CT Head Without Contrast Reviewed. le 16:42 Chest, 1 View Reviewed. le 16:44 Redraw CIP &Troponin (put time in details section) ordered. le 16:50 Redraw CIP &Troponin (put time in details section) complete. mt4 16:51 NS 0.45 % 1000 ml IV at 190 mL/hr once ordered. le 16:51 Redraw Labs ordered. le 16:54 Mane ordered. le 16:54 Intake and Output Hourly ordered. le 16:54 Financial registration complete. gjb 17:06 Redraw Labs complete. mt4 17:07 BASIC METABOLIC PROFILE Ordered. EDMS 17:24 [facility] Payment Agreement was scanned into [employer] and attached to record. gjb 18:01 Admission / Observation Status ordered. EDMS 18:02 REGULAR DIET ordered. EDMS 18:03 PHYSICAL THERAPY EVAL & TREAT ordered. EDMS 18:12 TROPONIN Ordered. EDMS 18:35 CT Head Without Contrast Reviewed. le 18:48 ELECTROCARDIOGRAM ADULT ordered. EDMS 19:31 QUETIAPINE LEVEL (SEROQUEL) Ordered. EDMS 19:31 COMPLETE COMPHRENSIVE METABOLI Ordered. EDMS 19:32 CBC WITH DIFFERENTIAL Ordered. EDMS 19:32 TROPONIN Ordered. EDMS 03/19 03:20 T-Sheet-- Draft Copy was scanned into [employer] and attached to record. hs2 11:33 ECG/EKG was scanned into [employer] and attached to record. gb Administered Medications: 03/18 17:03 Drug: NS 1000 ml [sodium chloride 0.45 % intravenous solution] Route: IV; Rate: 190 nr1 mL/hr; Site: left antecubital; Signatures: Dispatcher [employer] EDMS Shereen Taylor, Reg Reg gb Miley Benavides, CSR CSR Noemi Boyce mt4 Linda aMhmood, EVANS BRANCH RENTAL MANAGER Melany Alvarado RN RN sls2 Marta SadlerRN RN js15 Zohreh GutierresRN RN nr1 Jeanne Marsh gjb Megan Martinez, Reg Reg hs2 The chart was reviewed and I authenticate all verbal orders and agree with the evaluation and treatment provided.Corrections: (The following items were deleted from the chart) 16:54 16:53 Straight cath ordered. ginna chacko 19:25 16:50 CARDIAC MARKER PANEL ordered. EDDC EDMS Attachments: 17:24 [facility] [place] banner 03/19 03:20 T-Sheet-- Draft Copy hs2 11:33 ECG/EKG gb Chart Complete MTDD
--- NOTE | 2016-03-20 21:19 | EDDOCDS ---
Nurse's Notes [facility] Name: Pierre Rivera Age: 89 yrs Sex: Male : 1925 Arrival Date: 03/18/2016 Time: 15:04 Bed 10 Private MD: Diagnosis: Altered mental status, unspecified;Hyperosmolality and hypernatremia;Dehydration Presentation: 03/18 15:12 Presenting complaint: EMS states: Per EMS "childcare worker called stating patient in nr1 respiratory distress." Caregiver believes patient might have had a mini stroke yesterday. 150cc bolus given by EMS. Per caregiver "patient is more non-verbal than yesterday. ". 17:07 The last date and time the patient was known to be well was was at an unknown time on nr1 an unknown date. No acute neurological deficit is noted. Pre-hospital glucose is not applicable to this patient. Adult Sepsis Screening: Patient has new or worsening altered mentation (1 point). Patient's respiratory rate is less than 22. Systolic blood pressure is greater than 100. Patient has a qSOFA score of 1- Negative Sepsis Screen. Suicide/Homicide risk assessment- the patient denies having any suicidal and/or homicidal ideations and does not present with any other emotional, behavioral or mental health complaints. Status: Patient is not a support services coordinator or dependent. Transition of care: patient was not received from another setting of care. 17:07 Acuity: MICHELLE Level 3 nr1 17:07 Method Of Arrival: Ambulance nr1 Triage Assessment: 15:32 The onset of the patients symptoms was less than three hours ago. General: Appears in nr1 no apparent distress, comfortable, Behavior is cooperative, see history. Pain: Denies pain. The patient is triaged at the bedside. See Assessment in Nurses Notes section of ED record. Neurological: Level of Consciousness is awake, obeys commands, Oriented to person. Derm: Skin is pink, warm & dry. Historical: - Allergies: no known allergies; - Home Meds: 1. allopurinol 100 mg Oral tab once daily 2. aspirin 81 mg Oral cpDR 1 tab once daily 3. Namenda 10 mg oral tab 1 tab 2 times per day 4. Prilosec 40 mg Oral cpDR 1 cap once daily 5. Razadyne ER 8 mg oral TbER once daily 6. Seroquel 50 mg Oral tab 1 tab 2 times per day - PMHx: Alzheimers; GERD; Gout; - PSHx: none; - Social history: Smoking status: Patient states was never smoker of tobacco. Patient is speech impaired. - Family history: Not pertinent. - : The pt / caregiver states he / she is not on anticoagulants. Home medication list is obtained from the caregiver. - Exposure Risk Screening:: None identified. Screenin:00 Screening information is obtained from the caregiver. Fall risk: At risk due to age, js15 confusion, weakness. The following interventions are performed due to a positive Fall Risk Screen: Fall Risk is added to Special Handling on the patient Summary Screen. A Fall Risk Bracelet was applied to the patient. Side Rails are placed in the up position. A Call Matos is given with instruction to call for help when getting out of bed. Assistance ADL's: Requires assistance with bathing, assistance is provided by dressing, assistance is provided by toileting, assistance is provided by ambulation, assistance is provided by. Abuse/DV Screen: The patient / caregiver reports he/she is: not in a situation that causes fear, pain or injury. Nutritional screening: No deficits noted. Advance Directives:. home support is adequate. Assessment: 17:11 General: Attempted to obtain blood sugar. Patient became highly agitated, punching at nr1 air. Unable to obtain blood sugar. MD made aware. . Neurological: Level of Consciousness is confused, Oriented to person. Respiratory: Airway is patent Respiratory effort is even, unlabored, Respiratory pattern is regular, symmetrical. : Reports incontinence. Derm: Skin is intact, Skin is pink, warm & dry. 18:04 Reassessment: Mane catheter placed. Patient extremely agitated attempting to kick at nr1 staff and caregiver. Mane placed. No urine return. Will re-assess. . 19:00 General: Appears to be sleeping. Respiratory: Airway is patent Respiratory effort is js15 even, unlabored, Respiratory pattern is regular, symmetrical. Derm: Skin is pink, warm & dry. 20:00 Reassessment: Patient appears in no apparent distress at this time. Pt resting on js15 stretcher with eyes closed; caregiver at bedside; respirations even and unlabored; skin pink, warm, dry. Vital Signs: 15:16 BP 90 / 57 RA Sitting (auto/reg); Pulse 76; Resp 18; Temp 97.2(O); Pulse Ox 97% on R/A; rs6 Weight 58.06 kg (R); 16:58 BP 113 / 66 (auto/); nr1 16:58 Pulse 68 MON; Resp 18; Pulse Ox 95% on R/A; nr1 15:16 unable to obtain height and pain scale from patient. rs6 Vitals: 15:16 Log In Time N/A - ambulance arrival. rs6 ED Course: 15:05 Patient visited by Linda Mahmood PCA. nazario 15:05 Zohreh Gutierres,RN is Primary Nurse. nazario 15:05 Patient moved to Waiting nazario 15:05 Patient moved to 10 nazario 15:15 Patient visited by Zohreh Gutierres,PETE. nr1 15:16 Pt greeted and oriented to ED. Patient advised of names of staff involved in care, rs6 location of call matos, wait times and NPO status. Accompanied by Caregiver, Patient has correct armband on for positive identification. Placed in gown. Bed in low position. Call light in reach. Side rails up X2. classified advertising supervisor on. Pulse ox on. NIBP on. 15:17 Patient visited by Maryanne Montalvo PCA. rs6 15:23 Miley Benavides FNP is PHCP. le 15:35 Patient visited by Zohreh Gutierres RN. nr1 15:53 Patient visited by Miley Benavides FNP. le 15:57 Patient visited by Miley Benavides FNP. le 15:58 -Arterial Blood Gas Sent. ac1 16:40 Chest, 1 View Returned. EDMS 16:40 CT Head Without Contrast Returned. EDMS 17:08 Triage Initiated nr1 17:12 Kristie Paul research nutritionist. ys2 17:16 Kristie Paul is Hospitalizing Provider. le 17:24 Patient visited by Jeanne Marsh. gjb 17:24 [facility] Payment Agreement was scanned into [employer] and attached to record. gjb 17:35 CT Head Without Contrast Returned. EDMS 18:25 Marquise Pathak is Hospitalizing Provider. sls2 20:00 The patient / caregiver is instructed regarding the plan of care and ED course. js15 20:16 Maintain field IV. maintain IV from previous shift in LAC. No procedures done that js15 require assistance. 03/19 03:20 T-Sheet-- Draft Copy was scanned into [employer] and attached to record. hs2 11:33 ECG/EKG was scanned into [employer] and attached to record. gb Administered Medications: 03/18 17:03 Drug: NS 1000 ml [sodium chloride 0.45 % intravenous solution] Route: IV; Rate: 190 nr1 mL/hr; Site: left antecubital; RT: 15:59 ABG's drawn from left radial artery allens test done and positive pressure held for 5 ac1 minutes no bleeding noted pressure bandage applied specimen sent pt. tolerated well. Order Results: Lab Order: CBC with Diff; SPEC'M 03/18/16 15:50 Test: WHITE BLOOD COUNT; Value: 8.3; Range: 4.0-10.0; Units: K/mm3; Status: F Test: RED BLOOD COUNT; Value: 3.77; Range: 4.30-6.10; Abnormal: Below low normal; Units: M/mm3; Status: F Test: HEMOGLOBIN; Value: 12.4; Range: 14.0-18.0; Abnormal: Below low normal; Units: g/dl; Status: F Test: HEMATOCRIT; Value: 39.0; Range: 42.0-52.0; Abnormal: Below low normal; Units: %; Status: F Test: MEAN CORPUSCULAR VOLUME; Value: 103.4; Range: 80.0-96.0; Abnormal: Above high normal; Units: fl; Status: F Test: MEAN CORPUSCULAR HEMOGLOBIN; Value: 32.9; Range: 27.0-33.0; Units: pg; Status: F Test: MEAN CORPUSCULAR HGB CONC; Value: 31.8; Range: 32.0-36.5; Abnormal: Below low normal; Units: g/dl; Status: F Test: RED CELL DISTRIBUTION WIDTH; Value: 13.7; Range: 11.5-14.5; Units: %; Status: F Test: PLATELET COUNT, AUTOMATED; Value: 210; Range: 150-450; Units: k/mm3; Status: F Test: NEUTROPHILS %; Value: 75.0; Range: 36.0-66.0; Abnormal: Above high normal; Units: %; Status: F Test: LYMPH %; Value: 11.6; Range: 24.0-44.0; Abnormal: Below low normal; Units: %; Status: F Test: MONO %; Value: 4.9; Range: 0.0-5.0; Units: %; Status: F Test: EOS %; Value: 6.6; Range: 0.0-3.0; Abnormal: Above high normal; Units: %; Status: F Test: BASO %; Value: 0.5; Range: 0.0-1.0; Units: %; Status: F Test: LARGE UNSTAINED CELL %; Value: 1.5; Range: 0.0-4.0; Units: %; Status: F Test: NEUTROPHILS #; Value: 6.2; Range: 1.8-7.7; Units: K/mm3; Status: F Test: LYMPH #; Value: 1.1; Range: 1.5-4.5; Abnormal: Below low normal; Units: K/mm3; Status: F Test: MONO #; Value: 0.4; Range: 0.0-0.8; Units: K/mm3; Status: F Test: EOS #; Value: 0.5; Range: 0.0-0.50; Units: K/mm3; Status: F Test: BASO #; Value: 0.0; Range: 0.0-0.2; Units: K/mm3; Status: F Test: LARGE UNSTAINED CELL #; Value: 0.1; Range: 0.0-0.4; Units: K/mm3; Status: F Lab Order: Cardiac Injury Profile; SPEC' 03/18/16 15:49 Test: CPK CREATINE PHOSPHOKINASE; Value: 93; Range: 39-308; Units: U/L; Status: F Test: CK-MB VALUE MASS; Value: 1.4; Range: 0.0-3.6; Units: NG/ML; Status: F Test: MB/CK RELATIVE INDEX; Value: 1.50; Range: < OR =4; Status: F Test Note: ; DIAGNOSIS CRITERIA MMB ng/ml Relative Index (RI) NON-AMI < or = 5 N/A PLASENCIA ZONE > 5 < or = 4 AMI > 5 > 4 Lab Order: Liver Profile; SPEC' 03/18/16 15:49 Test: AST/SGOT; Value: 42; Range: 15-37; Abnormal: Above high normal; Units: U/L; Status: F Test: ALT/SGPT; Value: 34; Range: 12-78; Units: U/L; Status: F Test: ALKALINE PHOSPHATASE; Value: 130; Range: 45-117; Abnormal: Above high normal; Units: U/L; Status: F Test: BILIRUBIN,TOTAL; Value: 0.2; Range: 0.2-1.0; Units: MG/DL; Status: F Test: BILIRUBIN,DIRECT; Value: < 0.1; Range: 0.0-0.2; Units: MG/DL; Status: F Test: TOTAL PROTEIN; Value: 6.4; Range: 6.4-8.2; Units: GM/DL; Status: F Test: ALBUMIN; Value: 2.8; Range: 3.2-5.2; Abnormal: Below low normal; Units: GM/DL; Status: F Test: ALBUMIN/GLOBULIN RATIO; Value: 0.78; Range: 1.00-1.93; Abnormal: Below low normal; Status: F Lab Order: MED Profile; [facility] 03/18/16 15:49 Test: GLUCOSE, FASTING; Value: 125; Range: 83-110; Abnormal: Above high normal; Units: MG/DL; Status: F Test: BLOOD UREA NITROGEN; Value: 31; Range: 7-18; Abnormal: Above high normal; Units: MG/DL; Status: F Test: CREATININE FOR GFR; Value: 1.20; Range: 0.70-1.30; Units: MG/DL; Status: F Test: GLOMERULAR FILTRATION RATE; Value: > 60.0; Range: >35; Status: F Test: SODIUM LEVEL; Value: 156; Range: 136-145; Abnormal: Above high normal; Units: MEQ/L; Status: F Test: POTASSIUM SERUM; Value: 4.1; Range: 3.5-5.1; Units: MEQ/L; Status: F Test: CHLORIDE LEVEL; Value: 118; Range: 98-107; Abnormal: Above high normal; Units: MEQ/L; Status: F Test: CARBON DIOXIDE LEVEL; Value: 27; Range: 21-32; Units: MEQ/L; Status: F Test: ANION GAP; Value: 11; Range: 8-16; Units: MEQ/L; Status: F Test: CALCIUM LEVEL; Value: 8.6; Range: 8.8-10.2; Abnormal: Below low normal; Units: MG/DL; Status: F Test Note: ; Units are mL/min/1.73 m2 Chronic Kidney Disease Staging per NKF: Stage I & II GFR >=60 Normal to Mildly Decreased Stage III GFR 30-59 Moderately Decreased Stage IV GFR 15-29 Severely Decreased Stage V GFR <15 Very Little GFR Left ESRD GFR <15 on BILLET BED OPERATOR Lab Order: Thyroid Stimulating Hormone; [facility] 03/18/16 15:49 Test: THYROID STIMULATING HORMONE; Value: 1.200; Range: 0.358-3.740; Units: uIU/ML; Status: F Lab Order: Troponin; [facility] 03/18/16 15:49 Test: TROPONIN I; Value: 0.28; Range: < 0.10; Abnormal: Above high normal; Units: NG/ML; Status: F Test Note: ; Troponin I Reference Interval for [place] LOCI: 99th Percentile= 0.00-0.045 ng/ml Risk Stratification: <= 0.10 ng/ml Decreased Risk for Adverse Clinical Events. 0.10-1.50 ng/ml Increased Risk for Adverse Clinical Events. Evaluation of additional criterion and/or repeat testing in 2-6 hours is suggested to rule out myocardial damage. >= 1.50 ng/ml Indicative of Myocardial Injury. Lab Order: Lactic Acid (Plasencia tube on ice); [facility] 03/18/16 15:50 Test: LACTIC ACID LEVEL, LACTATE; Value: 2.0; Range: 0.4-2.0; Units: MMOL/L; Status: F Lab Order: -Arterial Blood Gas; [facility] 03/18/16 15:50 Test: ABG pH (ARTERIAL); Value: 7.405; Range: 7.350-7.450; Units: UNITS; Status: F Test: ABG PARTIAL PRESSURE CO2; Value: 38.4; Range: 35.0-45.0; Units: mmHg; Status: F Test: ABG PARTIAL PRESSURE O2; Value: 69.5; Range: 75.0-100.0; Abnormal: Below low normal; Units: mmHg; Status: F Test: ABG TOTAL CO2; Value: 24.7; Range: 23.0-31.0; Units: MEQ/L; Status: F Test: ABG HCO3; Value: 23.5; Range: 22.0-26.0; Units: MEQ/L; Status: F Test: ABG BASE EXCESS; Value: -1.0; Range: -2.0-2.0; Status: F Test: ABG STANDARD HCO3; Value: 23.6; Range: 22.0-26.0; Units: MEQ/L; Status: F Test: ABG O2 SATURATION; Value: 93.4; Range: 95.0-99.0; Abnormal: Below low normal; Units: %; Status: F Test: ABG DEVICE; Value: NASAL SABRINA; Status: F Lab Order: BASIC METABOLIC PROFILE; SPEC'M 03/18/16 19:27 Test: GLUCOSE, FASTING; Value: 92; Range: 83-110; Units: MG/DL; Status: F Test: BLOOD UREA NITROGEN; Value: 30; Range: 7-18; Abnormal: Above high normal; Units: MG/DL; Status: F Test: CREATININE FOR GFR; Value: 1.15; Range: 0.70-1.30; Units: MG/DL; Status: F Test: GLOMERULAR FILTRATION RATE; Value: > 60.0; Range: >35; Status: F Test: SODIUM LEVEL; Value: 157; Range: 136-145; Abnormal: Above high normal; Units: MEQ/L; Status: F Test: POTASSIUM SERUM; Value: 4.3; Range: 3.5-5.1; Units: MEQ/L; Status: F Test: CHLORIDE LEVEL; Value: 121; Range: 98-107; Abnormal: Above high normal; Units: MEQ/L; Status: F Test: CARBON DIOXIDE LEVEL; Value: 27; Range: 21-32; Units: MEQ/L; Status: F Test: ANION GAP; Value: 9; Range: 8-16; Units: MEQ/L; Status: F Test: CALCIUM LEVEL; Value: 8.6; Range: 8.8-10.2; Abnormal: Below low normal; Units: MG/DL; Status: F Test Note: ; Units are mL/min/1.73 m2 Chronic Kidney Disease Staging per NKF: Stage I & II GFR >=60 Normal to Mildly Decreased Stage III GFR 30-59 Moderately Decreased Stage IV GFR 15-29 Severely Decreased Stage V GFR <15 Very Little GFR Left ESRD GFR <15 on BILLET BED OPERATOR Radiology Order: CT Head Without Contrast Test: CT Head Without Contrast REASON FOR EXAMINATION: altered mental status; Head CT without contrast:; ; History: Altered mental status.; ; Comparison head CT study is from 08/02/2015.; ; CT findings: Digital lateral bleach maker view is unremarkable. Bone window settings; demonstrate an intact bony calvarium. No intraorbital abnormality is seen.; Visualized paranasal sinuses are clear. There is mild vascular calcification.; There is advanced diffuse cerebral atrophy and concordant ventricular; enlargement. Moderate small vessel atherosclerotic changes are seen in the; periventricular white matter bilaterally unchanged in pattern from the prior; study. No evidence of infarct, hemorrhage, mass, extra-axial fluid collection or; midline shift is seen.; ; Impression:; ; Advanced diffuse atrophy and small vessel changes. Mild vascular calcification.; No acute intracranial lesion.; ; ; Signed by; Otto Bustamante MD 03/18/2016 05:12 P; Radiology Order: Chest, 1 View Test: Chest, 1 View REASON FOR EXAMINATION: altered mental status; PORTABLE CHEST:; ; AP portable view of the chest is performed and compared to prior study of; 09/15/2011. I see no evidence of acute infiltrate or pulmonary edema. There is; mild left ventricular prominence. The mediastinal silhouette is unchanged. There; appeared to mild interstitial fibrotic change in the lung bases.; ; IMPRESSION:; No acute pulmonary disease.; ; Unreviewed; Outcome: 17:16 Decision to Hospitalize by Provider. le 20:16 Discharge Assessment: Patient drowsy but arouses easily. patient administered narcotics js15 - no. The following High Risk Discharge criteria are identified: None. Admitted to Med/Surg accompanied by tech, family with patient, via stretcher, with chart. Condition: unchanged. Property :Personal belongings accompany Pt. 20:17 CT Study completed. 15 20:18 Patient left the ED. js15 Signatures: Dispatcher [employer] EDMS Shereen Taylor, Reg Reg gb Imelda,Becky,RT RT ac1 Miley Benavides, PROGRAM OR PROJECT ADMINISTRATOR PROGRAM OR PROJECT ADMINISTRATOR Linda Srinivasan, EVANS ACCT EXEC Melany Alvarado RN RN sls2 Maryanne Montalvo, ACCT EXEC ACCT EXEC rs6 Marta Sadler,RN RN js15 Zohreh Gutierres,RN RN nr1 Jeanne Marshb Humberto, Flowers ys2 Megan Martinez, Reg Reg hs2 Chart Complete MTDD
--- NOTE | 2016-03-20 21:19 | EDDOCDS ---
Physician Documentation [facility] Name: Pierre Rivera Age: 89 yrs Sex: Male : 1925 Arrival Date: 03/18/2016 Time: 15:04 Bed 10 Private MD: Disposition: 03/18/16 17:16 Hospitalization ordered by Marquise Pathak for Inpatient Admission. Preliminary diagnosis are Altered mental status, unspecified, Hyperosmolality and hypernatremia, Dehydration. - Bed requested for 4 [place]. - Status is Inpatient Admission. [id number] - Condition is Stable. - Problem is new. - Symptoms are unchanged. Historical: - Allergies: no known allergies; - Home Meds: 1. allopurinol 100 mg Oral tab once daily 2. aspirin 81 mg Oral cpDR 1 tab once daily 3. Namenda 10 mg oral tab 1 tab 2 times per day 4. Prilosec 40 mg Oral cpDR 1 cap once daily 5. Razadyne ER 8 mg oral TbER once daily 6. Seroquel 50 mg Oral tab 1 tab 2 times per day - PMHx: Alzheimers; GERD; Gout; - PSHx: none; - Social history: Smoking status: Patient states was never smoker of tobacco. Patient is speech impaired. - Family history: Not pertinent. - : The pt / caregiver states he / she is not on anticoagulants. Home medication list is obtained from the caregiver. - Exposure Risk Screening:: None identified. Vital Signs: 03/18 15:16 BP 90 / 57 RA Sitting (auto/reg); Pulse 76; Resp 18; Temp 97.2(O); Pulse Ox 97% on R/A; rs6 Weight 58.06 kg / 128 lbs (R); 16:58 BP 113 / 66 (auto/); nr1 16:58 Pulse 68 MON; Resp 18; Pulse Ox 95% on R/A; nr1 15:16 unable to obtain height and pain scale from patient. rs6 MDM: 15:25 Caustic Mixer/Pulse Ox/q 15 min VS ordered. le 15:25 Accucheck ordered. le 15:25 IV Saline Lock ordered. le 15:25 Oxygen at 4L/Min NC or Home dosage ordered. le 15:25 Rhythm Strip to chart ordered. le 15:25 -Blood Culture (Adults Only), peripheral from different site, or from device/port/PICC le etc. if present ordered. 15:25 -Blood Culture (Adults Only), peripheral from different site, or from device/port/PICC nazario etc. if present complete. 15:25 Call Respiratory ordered. le 15:26 Chest, 1 View Ordered. EDMS 15:26 CBC with Diff Ordered. EDMS 15:26 Cardiac Injury Profile Ordered. EDMS 15:26 Liver Profile Ordered. EDMS 15:26 MED Profile Ordered. EDMS 15:26 Thyroid Stimulating Hormone Ordered. EDMS 15:26 Troponin Ordered. EDMS 15:26 Urinalysis Ordered. EDMS 15:26 Urine Culture Ordered. EDMS 15:26 -Blood Culture Ordered. EDMS 15:26 CT Head Without Contrast Ordered. EDMS 15:26 ECG WITH READING ER PHYS+CARDIAG ordered. EDMS 15:26 Call Respiratory complete. nazario 15:27 Lactic Acid (Plasencia tube on ice) Ordered. EDMS 15:27 -Arterial Blood Gas Ordered. EDMS 15:27 BLOOD CULTURES Ordered. EDMS 16:42 CBC with Diff Reviewed. le 16:42 Liver Profile Reviewed. le 16:42 MED Profile Reviewed. le 16:42 Troponin Reviewed. le 16:42 -Arterial Blood Gas Reviewed. le 16:42 Cardiac Injury Profile Reviewed. le 16:42 Thyroid Stimulating Hormone Reviewed. le 16:42 Lactic Acid (Plasencia tube on ice) Reviewed. le 16:42 CT Head Without Contrast Reviewed. le 16:42 Chest, 1 View Reviewed. le 16:44 Redraw CIP &Troponin (put time in details section) ordered. le 16:50 Redraw CIP &Troponin (put time in details section) complete. mt4 16:51 NS 0.45 % 1000 ml IV at 190 mL/hr once ordered. le 16:51 Redraw Labs ordered. le 16:54 Mane ordered. le 16:54 Intake and Output Hourly ordered. le 16:54 Financial registration complete. gjb 17:06 Redraw Labs complete. mt4 17:07 BASIC METABOLIC PROFILE Ordered. EDMS 17:24 [facility] Payment Agreement was scanned into H2020 and attached to record. gjb 18:01 Admission / Observation Status ordered. EDMS 18:02 REGULAR DIET ordered. EDMS 18:03 PHYSICAL THERAPY EVAL & TREAT ordered. EDMS 18:12 TROPONIN Ordered. EDMS 18:35 CT Head Without Contrast Reviewed. le 18:48 ELECTROCARDIOGRAM ADULT ordered. EDMS 19:31 QUETIAPINE LEVEL (SEROQUEL) Ordered. EDMS 19:31 COMPLETE COMPHRENSIVE METABOLI Ordered. EDMS 19:32 CBC WITH DIFFERENTIAL Ordered. EDMS 19:32 TROPONIN Ordered. EDMS 03/19 03:20 T-Sheet-- Draft Copy was scanned into H2020 and attached to record. hs2 11:33 ECG/EKG was scanned into [employer] and attached to record. gb Administered Medications: 03/18 17:03 Drug: NS 1000 ml [sodium chloride 0.45 % intravenous solution] Route: IV; Rate: 190 nr1 mL/hr; Site: left antecubital; Signatures: Dispatcher [employer] EDMS Shereen Taylor, Reg Reg gb Miley Benavides, DISTRICT EXTENSION SERVICE AGENT DISTRICT EXTENSION SERVICE AGENT Noemi Boyce mt4 Linda Mahmood, EVANS MANAGER OF ORGANIZATIONAL DEVELOPMENT Melany Alvarado RN RN sls2 Marta SadlerRN RN js15 Zohreh GutierresRN RN nr1 Jeanne Marsh gjb Megan Martinez, Reg Reg hs2 The chart was reviewed and I authenticate all verbal orders and agree with the evaluation and treatment provided.Corrections: (The following items were deleted from the chart) 16:54 16:53 Straight cath ordered. ginna chacko 19:25 16:50 CARDIAC MARKER PANEL ordered. EDNE EDMS Attachments: 17:24 [facility] Payment Agreement [facility] 03/19 03:20 T-Sheet-- Draft Copy hs2 11:33 ECG/EKG gb Chart Complete MTDD
[2016-03-21] VITALS (32 sets, daily range): BP systolic 84–123; BP diastolic 50–75
[2016-03-21] MEDS: NS 1,000 ML IV SCH (04:02)
[2016-03-21 04:36] LABS: VENOUS BASE EXCESS -8.2 (-2.0-2.0); VENOUS O2 SATURATION 73.4 % (60.0-80.0); VENOUS PARTIAL PRESSURE CO2 38.7 mmHg (38.0-50.0); VENOUS PARTIAL PRESSURE O2 43.2 mmHg (30.0-50.0); VENOUS STANDARD HCO3 17.4 MEQ/L
[2016-03-21 04:47] LABS: MEAN CORPUSCULAR HEMOGLOBIN 33.7 pg (27.0-33.0); MEAN CORPUSCULAR HGB CONC 32.5 g/dl (32.0-36.5); MEAN CORPUSCULAR VOLUME 103.6 fl (80.0-96.0); RED CELL DISTRIBUTION WIDTH 14.1 % (11.5-14.5); WHITE BLOOD COUNT 23.7 K/mm3 (4.0-10.0)
[2016-03-21 04:57] LABS: ALBUMIN 1.9 GM/DL (3.2-5.2); ALBUMIN/GLOBULIN RATIO 0.53 (1.00-1.93); BILIRUBIN,TOTAL 0.5 MG/DL (0.2-1.0); CALCIUM LEVEL 7.2 MG/DL (8.8-10.2); CREATININE FOR GFR 1.82 MG/DL (0.70-1.30); GLOMERULAR FILTRATION RATE 37.5 (>35); POTASSIUM SERUM 3.8 MEQ/L (3.5-5.1); TOTAL PROTEIN 5.5 GM/DL (6.4-8.2)
[2016-03-21] MEDS: PIPERACILLIN/TAZOBACTAM SOD 2.25 GM in D5W MINI-BAG PLUS 50 ML IV SCH ×6 (05:18→23:31)
[2016-03-21 05:24] LABS: BANDS 2 % (< 11)
[2016-03-21] MEDS: ENOXAPARIN 40 MG/0.4 ML SYRINGE (J1650) SC SCH (09:39)
[2016-03-21] MEDS: D5W/0.9% SODIUM CHLORIDE 1,000 ML IV SCH ×3 (10:40→23:31)
[2016-03-21] MEDS ORDERED: DEXTROSE 50% 50 ML SYRINGE IV PRN (10:45)
[2016-03-21] MEDS ORDERED: GLUCAGON FOR INJ 1 MG VIAL (J1610) SC PRN (10:45)
[2016-03-21] MEDS ORDERED: GLUCOSE 4 GM CHEW TABLET PO PRN (10:45)
--- NOTE | 2016-03-21 11:23 | IPNPDOC ---
Text Note Date of Service The patient was seen on 03/21/16 at 11:21. NOTE Subjective: Patient's mentation has improved this morning. No acute changes overnight. Objective: Vitals: (see below) General: No acute distress, laying comfortably in bed. Baseline advanced dementia and not oriented, however is more awake today and attempts to be conversive. States he is doing well. HEENT: Moist mucous membranes. Neck: No JVD or lymphadenopathy Cardiac: RRR, No murmurs Pulm: Diminished breath sounds at the bases b/l. No wheezing, rhonchi Abd: NT/ND + BS Ext: No edema or cyanosis Labs (see below) Images: MRI brain 03/19/16 IMPRESSION: Diffuse moderate atrophy and small vessel changes. These findings are somewhat more pronounced than on the September 16, 2011 prior study but unchanged from the current CT. No acute intracranial abnormality. No evidence of infarct, hemorrhage or mass. CXR 03/19/16 IMPRESSION: Cardiomegaly with no evidence of acute infiltrate. Assessment/Plan 1. Severe Sepsis secondary to GNR bacteremia. Leukocytosis and hypoxia noted. Hypoxia is much improved. The patient was restarted on Zosyn as well as IV fluids. 2L NS bolus, followed by maintenance fluids. Goal MAP >65. Blood cultures with GNR. Blood pressure is much improved. Lactic acid of 4.1-->2.2--> 2.1. Elevated troponin likely secondary to sepsis. 2. Acute hypoxic resp. failure on NRB 2/2 to #1. Pt is a DNR 3. Hypernatremia on admission - on IVF 4. ARF - 2/2 #1, improving with IVF. 4. Baseline severe Alzheimer's dementia 5. GERD DVT prophylaxis heparin subcutaneous VS,Fishbone, I+O VS, Fishbone, I+O Laboratory Tests 03/20/16 11:40 Calcium Level 8.0 L, Aspartate Amino Transf (AST/SGOT) 55 H, Alanine Aminotransferase (ALT/SGPT) 39, Alkaline Phosphatase 100, Total Bilirubin 0.6, Total Protein 6.1 L, Albumin 2.2 L 03/21/16 04:13 Calcium Level 7.2 L, Aspartate Amino Transf (AST/SGOT) 48 H, Alanine Aminotransferase (ALT/SGPT) 33, Alkaline Phosphatase 74, Total Bilirubin 0.5, Total Protein 5.5 L, Albumin 1.9 L Vital Signs Date Time Temp Pulse Resp B/P Pulse Ox O2 Delivery O2 Flow Rate FiO2 03/21/16 10:30 74 16 92/53 86 Nasal Cannula 2.0 03/21/16 08:00 96.6 03/20/16 12:30 100 I&O- Last 24 Hours up to 6 AM 03/21/16 06:00 Intake Total 7095 ml Output Total 1605 ml Balance 5490 ml ZEHRA TUCKER MD Mar 21, 2016 11:23
[2016-03-22] VITALS (11 sets, daily range): BP systolic 110–131; BP diastolic 63–93
--- NOTE | 2016-03-22 03:30 | REPUSA ---
CLINICAL HISTORY: PUPIL CHANGES, TECHNIQUE: Multiple axial CT images were obtained through the brain without IV contrast material. COMMENTS: There is normal configuration of sella turcica. There are no intra or extra-axial collections. There is no mass effect or midline shift. There is no evidence of hematoma formation. No hydrocephalus is p resent. The ventricles are symmetrical. No abnormal calcifications are present. There is diffuse age-appropriate cerebellar and cerebral atrophy with proportionally dilated ventricl es and cortical sulci. There are bilateral confluent periventricular and subcortical white matter hypolucencies compatible w ith severe chronic microvascular disease. Otherwise, no significant focal abnormalities are seen either in the posterior fossa or supratentoria l compartment. IMPRESSION: 1. Severe cerebellar and cerebral atrophy. 2. Severe chronic microvascular disease. 3. No evidence of acute intracranial pathology. Thank you for your kind referral of this patient.
[2016-03-22 05:05] LABS: MEAN CORPUSCULAR HEMOGLOBIN 33.6 pg (27.0-33.0); MEAN CORPUSCULAR HGB CONC 32.6 g/dl (32.0-36.5); MEAN CORPUSCULAR VOLUME 103.1 fl (80.0-96.0); RED CELL DISTRIBUTION WIDTH 13.1 % (11.5-14.5); WHITE BLOOD COUNT 14.2 K/mm3 (4.0-10.0)
[2016-03-22] MEDS: HEPARIN SOD (PORCINE) 5000 UNITS/ML VIAL SQ SCH ×3 (05:05→13:45)
[2016-03-22] MEDS: PIPERACILLIN/TAZOBACTAM SOD 2.25 GM in D5W MINI-BAG PLUS 50 ML IV SCH ×4 (05:05→23:34)
[2016-03-22 05:12] LABS: ALBUMIN 1.8 GM/DL (3.2-5.2); ALBUMIN/GLOBULIN RATIO 0.51 (1.00-1.93); ALKALINE PHOSPHATASE 90 U/L (45-117); ALT/SGPT 31 U/L (12-78); ANION GAP 9 MEQ/L (8-16); AST/SGOT 55 U/L (15-37); BILIRUBIN,TOTAL 0.3 MG/DL (0.2-1.0); BLOOD UREA NITROGEN 34 MG/DL (7-18); CALCIUM LEVEL 7.4 MG/DL (8.8-10.2); CARBON DIOXIDE LEVEL 21 MEQ/L (21-32); CHLORIDE LEVEL 122 MEQ/L (98-107); CREATININE FOR GFR 1.18 MG/DL (0.70-1.30); GLOMERULAR FILTRATION RATE > 60.0 (>35); GLUCOSE, FASTING 128 MG/DL (83-110); POTASSIUM SERUM 3.8 MEQ/L (3.5-5.1); SODIUM LEVEL 152 MEQ/L (136-145); TOTAL PROTEIN 5.3 GM/DL (6.4-8.2)
[2016-03-22 06:03] LABS: BANDS 1 % (< 11)
[2016-03-22 06:04] LABS: POIKILOCYTOSIS 1+
--- NOTE | 2016-03-22 08:54 | REP ---
Clinical: Congestion. Comparison: 03/19/2016. Findings: Increased interstitial markings mild pulmonary vascular prominence along with trace right basilar atelectasis may reflect underlying congestion. Cardiac silhouette is upper limits of normal for portable technique. No definite effusion. No pneumothorax. Skeletal structures demonstrate age-related changes. Impression: Cannot exclude mild pulmonary vascular congestion. Signed by Teddy Jean Baptiste MD 03/22/2016 08:45 A
[2016-03-22] MEDS: D5W/0.9% SODIUM CHLORIDE 1,000 ML IV SCH ×3 (09:34→19:52)
--- NOTE | 2016-03-22 14:12 | IPNPDOC ---
Text Note Date of Service The patient was seen on 03/22/16 at 14:10. NOTE Subjective: Patient is awake and watching TV this am. No acute changes overnight. Objective: Vitals: (see below) General: No acute distress, laying comfortably in bed. Baseline advanced dementia and not oriented, however is more awake today and attempts to be conversive. States he is doing well. HEENT: Moist mucous membranes. Neck: No JVD or lymphadenopathy Cardiac: RRR, No murmurs Pulm: Diminished breath sounds at the bases b/l. No wheezing, rhonchi Abd: NT/ND + BS Ext: No edema or cyanosis Labs (see below) Images: MRI brain 03/19/16 IMPRESSION: Diffuse moderate atrophy and small vessel changes. These findings are somewhat more pronounced than on the September 16, 2011 prior study but unchanged from the current CT. No acute intracranial abnormality. No evidence of infarct, hemorrhage or mass. CXR 03/19/16 IMPRESSION: Cardiomegaly with no evidence of acute infiltrate. Assessment/Plan 1. Severe Sepsis secondary to GNR bacteremia. Leukocytosis and hypoxia noted. Hypoxia is much improved. Continue on Zosyn as well as NS IV fluids. Goal MAP > 65. Blood cultures with E.coli. Blood pressure is much improved. Lactic acid improving. Elevated troponin likely secondary to sepsis. 2. Acute hypoxic resp. failure on NRB 2/2 to #1. Pt is a DNR 3. Hypernatremia on admission - on IVF 4. ARF - 2/2 #1, improving with IVF. 4. Baseline severe Alzheimer's dementia 5. GERD 6. thrombocytopenia - likely 2/2 sepsis. Hold Heparin SQ. VS,Fishbone, I+O VS, Fishbone, I+O Laboratory Tests 03/22/16 04:26 Calcium Level 7.4 L, Aspartate Amino Transf (AST/SGOT) 55 H, Alanine Aminotransferase (ALT/SGPT) 31, Alkaline Phosphatase 90, Total Bilirubin 0.3, Total Protein 5.3 L, Albumin 1.8 L Vital Signs Date Time Temp Pulse Resp B/P Pulse Ox O2 Delivery O2 Flow Rate FiO2 03/22/16 13:41 Room Air 03/22/16 09:43 97.9 64 18 116/79 100 03/22/16 02:00 2.0 03/20/16 12:30 100 I&O- Last 24 Hours up to 6 AM 03/22/16 06:00 Intake Total 5510 ml Output Total 1395 ml Balance 4115 ml ZEHRA TUCKER MD Mar 22, 2016 14:12
[2016-03-22 14:44] LABS: VENOUS BASE EXCESS -6.4 (-2.0-2.0); VENOUS O2 SATURATION 99.3 % (60.0-80.0); VENOUS PARTIAL PRESSURE CO2 31.1 mmHg (38.0-50.0); VENOUS PARTIAL PRESSURE O2 202.4 mmHg (30.0-50.0); VENOUS STANDARD HCO3 19.2 MEQ/L; VENOUS TOTAL CO2 18.7 MEQ/L (24.0-28.0)
[2016-03-23 05:20] VITALS: BP 114/74
[2016-03-23] MEDS: D5W/0.9% SODIUM CHLORIDE 1,000 ML IV SCH (05:23)
[2016-03-23] MEDS: PIPERACILLIN/TAZOBACTAM SOD 2.25 GM in D5W MINI-BAG PLUS 50 ML IV SCH ×4 (05:24→23:31)
[2016-03-23 06:21] LABS: MEAN CORPUSCULAR HEMOGLOBIN 34.1 pg (27.0-33.0); MEAN CORPUSCULAR HGB CONC 33.4 g/dl (32.0-36.5); MEAN CORPUSCULAR VOLUME 102.1 fl (80.0-96.0); RED CELL DISTRIBUTION WIDTH 13.3 % (11.5-14.5); WHITE BLOOD COUNT 9.2 K/mm3 (4.0-10.0)
[2016-03-23 06:34] LABS: ALBUMIN 1.7 GM/DL (3.2-5.2); ALKALINE PHOSPHATASE 102 U/L (45-117); ALT/SGPT 33 U/L (12-78); ANION GAP 10 MEQ/L (8-16); AST/SGOT 46 U/L (15-37); BILIRUBIN,TOTAL 0.3 MG/DL (0.2-1.0); BLOOD UREA NITROGEN 24 MG/DL (7-18); CALCIUM LEVEL 7.5 MG/DL (8.8-10.2); CARBON DIOXIDE LEVEL 19 MEQ/L (21-32); CHLORIDE LEVEL 121 MEQ/L (98-107); CREATININE FOR GFR 0.95 MG/DL (0.70-1.30); GLOMERULAR FILTRATION RATE > 60.0 (>35); GLUCOSE, FASTING 104 MG/DL (83-110); POTASSIUM SERUM 3.4 MEQ/L (3.5-5.1); SODIUM LEVEL 150 MEQ/L (136-145); TOTAL PROTEIN 5.1 GM/DL (6.4-8.2)
[2016-03-23 07:06] LABS: EOSINOPHILS 3 % (0-5)
[2016-03-23] MEDS ORDERED: POTASSIUM CHLORIDE 10 MEQ SR TABLET PO ONE (08:15)
[2016-03-23] MEDS: D5W 1,000 ML IV SCH ×2 (09:20→18:01)
[2016-03-23 14:00] VITALS: BP 112/70
--- NOTE | 2016-03-23 14:15 | IPNPDOC ---
Text Note Date of Service The patient was seen on 03/23/16 at 14:14. NOTE Subjective: Patient is awake and watching TV this am. No acute changes overnight. Denies any complaints Objective: Vitals: (see below) General: No acute distress, laying comfortably in bed. Baseline advanced dementia and not oriented, however is more awake today and attempts to be conversive. States he is doing well. HEENT: Moist mucous membranes. Neck: No JVD or lymphadenopathy Cardiac: RRR, No murmurs Pulm: Diminished breath sounds at the bases b/l. No wheezing, rhonchi Abd: NT/ND + BS Ext: No edema or cyanosis Labs (see below) Images: MRI brain 03/19/16 IMPRESSION: Diffuse moderate atrophy and small vessel changes. These findings are somewhat more pronounced than on the September 16, 2011 prior study but unchanged from the current CT. No acute intracranial abnormality. No evidence of infarct, hemorrhage or mass. CXR 03/19/16 IMPRESSION: Cardiomegaly with no evidence of acute infiltrate. Assessment/Plan 1. Severe Sepsis secondary to GNR bacteremia. Leukocytosis and hypoxia noted. Hypoxia is much improved. Continue on Zosyn as well as NS IV fluids. Goal MAP > 65. Blood cultures with E.coli. Blood pressure is much improved. 2. Acute hypoxic resp. failure on NRB 2/2 to #1. Pt is a DNR 3. Hypernatremia on admission - on IVF, which have been changed to D5W. 4. ARF - 2/2 #1, improving with IVF. 4. Baseline severe Alzheimer's dementia 5. GERD 6. thrombocytopenia - likely 2/2 sepsis. Hold Heparin SQ. Cont to monitor. No bleeding noted. Updated Madelin Urban (PRINCESS) on status. VS,Fishbone, I+O VS, Fishbone, I+O Laboratory Tests 03/23/16 05:16 Calcium Level 7.5 L, Aspartate Amino Transf (AST/SGOT) 46 H, Alanine Aminotransferase (ALT/SGPT) 33, Alkaline Phosphatase 102, Total Bilirubin 0.3, Total Protein 5.1 L, Albumin 1.7 L Vital Signs Date Time Temp Pulse Resp B/P Pulse Ox O2 Delivery O2 Flow Rate FiO2 03/23/16 10:43 Room Air 03/23/16 05:20 97.9 60 18 114/74 97 03/22/16 02:00 2.0 03/20/16 12:30 100 I&O- Last 24 Hours up to 6 AM 03/23/16 05:59 Intake Total 3325 ml Output Total 1345 ml Balance 1980 ml ZEHRA TUCKER MD Mar 23, 2016 14:15
[2016-03-23 22:00] VITALS: BP 117/85
[2016-03-24] MEDS: D5W 1,000 ML IV SCH ×2 (04:15→15:21)
[2016-03-24] MEDS: PIPERACILLIN/TAZOBACTAM SOD 2.25 GM in D5W MINI-BAG PLUS 50 ML IV SCH ×3 (05:04→17:34)
[2016-03-24 06:00] VITALS: BP 135/74
[2016-03-24 06:03] LABS: MEAN CORPUSCULAR HEMOGLOBIN 32.6 pg (27.0-33.0); MEAN CORPUSCULAR HGB CONC 32.3 g/dl (32.0-36.5); RED CELL DISTRIBUTION WIDTH 13.9 % (11.5-14.5); WHITE BLOOD COUNT 7.3 K/mm3 (4.0-10.0)
[2016-03-24 06:17] LABS: ALBUMIN 1.9 GM/DL (3.2-5.2); ALBUMIN/GLOBULIN RATIO 0.56 (1.00-1.93); ALKALINE PHOSPHATASE 106 U/L (45-117); ALT/SGPT 35 U/L (12-78); ANION GAP 6 MEQ/L (8-16); AST/SGOT 42 U/L (15-37); BILIRUBIN,TOTAL 0.6 MG/DL (0.2-1.0); BLOOD UREA NITROGEN 16 MG/DL (7-18); CALCIUM LEVEL 7.8 MG/DL (8.8-10.2); CARBON DIOXIDE LEVEL 24 MEQ/L (21-32); CHLORIDE LEVEL 117 MEQ/L (98-107); CREATININE FOR GFR 0.87 MG/DL (0.70-1.30); GLOMERULAR FILTRATION RATE > 60.0 (>35); GLUCOSE, FASTING 93 MG/DL (83-110); POTASSIUM SERUM 3.5 MEQ/L (3.5-5.1); SODIUM LEVEL 147 MEQ/L (136-145); TOTAL PROTEIN 5.3 GM/DL (6.4-8.2)
[2016-03-24 07:12] LABS: EOSINOPHILS 9 % (0-5)
--- NOTE | 2016-03-24 12:09 | IPNPDOC ---
Text Note Date of Service The patient was seen on 03/24/16 at 11:59. NOTE Subjective: Patient is an 89 year old male with a PMHx of advanced dementia, GERD , Gout, and HTN who presented to the ER with confusion and lethargy. He was found to have sepsis 2/2 E. coli bacteremia from a urinary tract infection. 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 Patient is still a DNR / DNI. Patient was seen and examined at the bedside. Clinically he is awake and alert. However not oriented and not able to make any comprehendible sentences. No acute events overnight. Objective: Vitals: (see below) General: No acute distress, laying comfortably in bed, Awake + Alert, Oriented x 0 (appears to be baseline_ HEENT: NC, AT CVS: RRR, +S1S2 Lungs: Fair air entry b/l, -w/r/r Abdomen: Soft, ND, NT, +BSx4 Extremities: - edema, - calf tenderness Assessment and plan: 1. Severe Sepsis 2/2 Gram negative bacteremia 2/2 Urinary tract infection - Clinically his mental status appears to have returned back to baseline - Remains hemodynamically stable - Leukocytosis has resolved; CRP has trended down - Blood cultures 03/19 positive for E. Coli - Urine cultures 03/19 positive for E. coli - All sensitive to Levaquin - Will repeat blood cultures today; if negative in 24 hours will discharge home with levaquin PO - c/w Zosyn and IV fluid hydration 2. Acute hypoxic respiratory failure - likely 2/2 #1 - Patient is a DNR / DNI 3. Hypernatremia - Sodium of 147; continues to trend down with D5W - Free water deficit of 1.9 Liters (Target of 140) - will c/w D5W 4. s/p Acute kidney failure 5. Severe Alzheimer's dementia 6. Thrombocytopenia - likely 2/2 sepsis - Platelet count remains stable 6. GERD 7. DVT prophylaxis - c/w SCD VS,Fishbone, I+O VS, Fishbone, I+O Laboratory Tests 03/24/16 05:19 Calcium Level 7.8 L, Aspartate Amino Transf (AST/SGOT) 42 H, Alanine Aminotransferase (ALT/SGPT) 35, Alkaline Phosphatase 106, Total Bilirubin 0.6 # , Total Protein 5.3 L, Albumin 1.9 L Vital Signs Date Time Temp Pulse Resp B/P Pulse Ox O2 Delivery O2 Flow Rate FiO2 03/24/16 09:30 Room Air 03/24/16 06:00 97.3 62 16 135/74 97 03/22/16 02:00 2.0 03/20/16 12:30 100 I&O- Last 24 Hours up to 6 AM 03/24/16 06:00 Intake Total 1540 ml Output Total 2175 ml Balance -635 ml EVELYN HOWARD MD Mar 24, 2016 12:09
[2016-03-24 14:00] VITALS: BP 117/76
[2016-03-24 22:00] VITALS: BP 142/80
[2016-03-25] MEDS: PIPERACILLIN/TAZOBACTAM SOD 2.25 GM in D5W MINI-BAG PLUS 50 ML IV SCH ×4 (00:03→17:37)
[2016-03-25] MEDS: D5W 1,000 ML IV SCH ×2 (01:15→10:15)
[2016-03-25 06:00] VITALS: BP 122/76
[2016-03-25 06:27] LABS: BASO % 0.3 % (0.0-1.0); EOS # 0.3 K/mm3 (0.0-0.50); EOS % 4.6 % (0.0-3.0); LARGE UNSTAINED CELL # 0.3 K/mm3 (0.0-0.4); LARGE UNSTAINED CELL % 3.9 % (0.0-4.0); LYMPH # 1.1 K/mm3 (1.5-4.5); LYMPH % 16.1 % (24.0-44.0); MEAN CORPUSCULAR HEMOGLOBIN 33.2 pg (27.0-33.0); MEAN CORPUSCULAR VOLUME 100.7 fl (80.0-96.0); MONO # 0.5 K/mm3 (0.0-0.8); MONO % 7.9 % (0.0-5.0); NEUTROPHILS # 4.6 K/mm3 (1.8-7.7); NEUTROPHILS % 67.3 % (36.0-66.0); RED CELL DISTRIBUTION WIDTH 12.8 % (11.5-14.5); WHITE BLOOD COUNT 6.9 K/mm3 (4.0-10.0)
[2016-03-25 06:32] LABS: PLATELET COUNT, AUTOMATED 85 k/mm3 (150-450)
[2016-03-25 06:43] LABS: ALBUMIN/GLOBULIN RATIO 0.51 (1.00-1.93); ALKALINE PHOSPHATASE 104 U/L (45-117); ALT/SGPT 39 U/L (12-78); ANION GAP 9 MEQ/L (8-16); AST/SGOT 50 U/L (15-37); BILIRUBIN,TOTAL 0.6 MG/DL (0.2-1.0); BLOOD UREA NITROGEN 12 MG/DL (7-18); CALCIUM LEVEL 7.9 MG/DL (8.8-10.2); CARBON DIOXIDE LEVEL 21 MEQ/L (21-32); CHLORIDE LEVEL 115 MEQ/L (98-107); CREATININE FOR GFR 0.97 MG/DL (0.70-1.30); GLOMERULAR FILTRATION RATE > 60.0 (>35); GLUCOSE, FASTING 98 MG/DL (83-110); POTASSIUM SERUM 3.6 MEQ/L (3.5-5.1); SODIUM LEVEL 145 MEQ/L (136-145); TOTAL PROTEIN 5.9 GM/DL (6.4-8.2)
[2016-03-25] MEDS ORDERED: LEVA750T PO ×2 (10:30→16:58)
--- NOTE | 2016-03-25 17:39 | DSES ---
DATE OF ADMISSION: 03/19/2016 DATE OF DISCHARGE: 03/25/2016 PRIMARY CARE PROVIDER: Unknown CURRENT PHYSICIANS: None. CONSULTING PHYSICIANS: None. CONDITION ON DISCHARGE: Guarded. FINAL DIAGNOSIS: Severe sepsis secondary to Gram-negative bacteremia secondary to urinary tract infection. PROCEDURES: None. HISTORY OF PRESENT ILLNESS: The patient is an 89-year-old male with a past medical history of advanced Alzheimer's dementia, gastroesophageal reflux disease (GERD), gout, and hypertension who presented to the emergency room with confusion and lethargy. He was found to have sepsis secondary to Escherichia (E) coli bacteremia and a urinary tract infection. 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 However, it was reversed and aggressive measures were instituted. The patient still is DO NOT RESUSCITATE (DNR)/DO NOT INTUBATE (DNI). HOSPITAL COURSE: 1. Acute metabolic encephalopathy, likely secondary to severe sepsis, secondary to Gram-negative bacteremia, secondary to urinary tract infection. Clinically, his mental status appears to be returned back to baseline. Baseline is awake and alert, not oriented at all. He remains hemodynamically stable. Leukocytosis has resolved. C-reactive protein (CRP) has trended down. Blood cultures on 03/19/2016 were positive for Escherichia coli and urine cultures from 03/19/2016 were positive for Escherichia coli. Blood cultures on 03/24/2016 have been negative. All blood cultures were sensitive to Levaquin. The patient will be discharged home with Levaquin by mouth for the completion over the next five days. The patient was initially put on Zosyn and IV fluid hydration. However, that has been discontinued upon discharge. The patient has 24-hour care at home. He is being discharged home with hospital bed rental and air mattress for home. 2. Acute hypoxic respiratory failure, likely secondary to number one. The patient is DO NOT RESUSCITATE/DO NOT INTUBATE. 3. Hypernatremia. Sodium 147. Continue to trend down with D5W. Target around 140. Continue with D5W. 4. Status post acute kidney failure. 5. Severe Alzheimer's dementia. 6. Thrombocytopenia, likely secondary to sepsis. Platelet count remains stable and has improved. 7. Gastroesophageal reflux disease (GERD). 8. Deep vein thrombosis (DVT) prophylaxis. Sequential compression devices. DISCHARGE MEDICATIONS: The patient will be discharged home with: - acetaminophen 650 mg by mouth every eight hours as needed for pain - allopurinol 100 mg by mouth daily - aspirin 81 mg by mouth daily - docusate sodium 100 mg by mouth daily - galantamine 8 mg by mouth daily - memantine 10 mg by mouth twice a day - multivitamin one tablet by mouth daily - Protonix 40 mg by mouth daily New medications include: Levofloxacin 750 mg by mouth daily for the next five days. DISCHARGE INSTRUCTIONS: The patient has been advised to followup with his primary care provider within the next seven days. He has been advised to remain compliant with the treatment plan and medications. He has been advised to call and confirm/schedule appointment. He has been advised to remain compliant with his antibiotic regimen and take it to completion. He has been advised to return to the emergency room if he experiences any difficulties. CODE STATUS: DO NOT RESUSCITATE (DNR)/DO NOT INTUBATE (DNI).
== END 2016-03-25 17:59 | disposition home health service (06) | DRG 871 ==
LOC: M ED 15:04 → M ED INP 17:58 → M MSPAV 20:30 → OBSVTOIN 03-19 16:11 → M ICU 03-20 12:14 → M MSPAV 03-22 09:53
PROVIDERS: ADMIT Internal Medicine; ATTEND Internal Medicine
DX: A41.51 Sepsis due to Escherichia coli [E. coli] (principal); G93.41 Metabolic encephalopathy; J96.01 Acute respiratory failure with hypoxia; N39.0 Urinary tract infection, site not specified; N17.9 Acute kidney failure, unspecified; E87.0 Hyperosmolality and hypernatremia; Z66 Do not resuscitate; R65.20 Severe sepsis without septic shock; B96.20 Unspecified Escherichia coli [E. coli] as the cause of diseases classified elsewhere; I95.9 Hypotension, unspecified; R53.1 Weakness; G30.9 Alzheimer's disease, unspecified; F02.80 Dementia in other diseases classified elsewhere, unspecified severity, without behavioral disturbance, psychotic disturbance, mood disturbance, and anxiety; D69.6 Thrombocytopenia, unspecified; K21.9 Gastro-esophageal reflux disease without esophagitis; Z79.82 Long term (current) use of aspirin; Z79.899 Other long term (current) drug therapy; Z74.3 Need for continuous supervision

== ENCOUNTER 2016-04-09 14:20 | Inpatient (IN) | payer MEDICARE, OTHER ==
[~2016-04-09] VITALS: Ht 165.1 cm; Wt 55.4 kg
[~2016-04-09 14:20] MED LIST changes: +ACET650T2 PO; +ALLO100T PO; +ASPI1TAB PO; +COLA100C PO; +LEVA750T PO; +NAME10TA PO; +PANT40TA2 PO; +SENN8.6T17 PO; +SERO1TAB PO; +VITMTA PO; +[UNRECOGNIZED DRUG - CODE] PO
[2016-04-09 16:21] LABS: BASO % 0.6 % (0.0-1.0); EOS # 0.3 K/mm3 (0.0-0.50); EOS % 2.9 % (0.0-3.0); LARGE UNSTAINED CELL # 0.1 K/mm3 (0.0-0.4); LARGE UNSTAINED CELL % 1.6 % (0.0-4.0); LYMPH # 1.4 K/mm3 (1.5-4.5); LYMPH % 13.1 % (24.0-44.0); MEAN CORPUSCULAR HEMOGLOBIN 31.7 pg (27.0-33.0); MEAN CORPUSCULAR HGB CONC 30.1 g/dl (32.0-36.5); MEAN CORPUSCULAR VOLUME 105.2 fl (80.0-96.0); MONO # 0.4 K/mm3 (0.0-0.8); MONO % 4.2 % (0.0-5.0); NEUTROPHILS # 7.2 K/mm3 (1.8-7.7); NEUTROPHILS % 77.7 % (36.0-66.0); PLATELET COUNT, AUTOMATED 158 k/mm3 (150-450); WHITE BLOOD COUNT 9.2 K/mm3 (4.0-10.0)
--- NOTE | 2016-04-09 16:28 | REP ---
ABDOMEN, FLAT UPRIGHT PA CHEST, THREE VIEWS: HISTORY: Right lower quadrant mass. Air is present in the small and large intestine. Several air fluid levels are present. There are no dilated loops of intestine. There is no pneumoperitoneum. The lungs are clear. The cardiac silhouette is enlarged. IMPRESSION: Nonspecific bowel gas pattern. Signed by Tony Clay MD 04/09/2016 04:38 P
[2016-04-09 16:40] LABS: ALBUMIN 2.4 GM/DL (3.2-5.2); ALBUMIN/GLOBULIN RATIO 0.56 (1.00-1.93); BILIRUBIN,DIRECT 0.1 MG/DL (0.0-0.2); BILIRUBIN,TOTAL 0.2 MG/DL (0.2-1.0); CALCIUM LEVEL 8.6 MG/DL (8.8-10.2); CREATININE FOR GFR 4.72 MG/DL (0.70-1.30); GLOMERULAR FILTRATION RATE 12.5 (>35); TOTAL PROTEIN 6.7 GM/DL (6.4-8.2)
[2016-04-09 16:42] LABS: POTASSIUM SERUM 5.4 MEQ/L (3.5-5.1)
[2016-04-09] MEDS ORDERED: GASTROGRAFIN SOLUTION 30ML (Q9963) As Ordered ONE (17:18)
[2016-04-09] MEDS ORDERED: SOD POLYSTYRENE SULFONATE SUSP 15 GM/60 ML UD As Ordered ONE (17:59)
[2016-04-09] MEDS ORDERED: AMOX500C PO (18:19)
--- NOTE | 2016-04-09 20:00 | REPUSA ---
CLINICAL HISTORY: ? Large obstructive mass right lower quadrant. TECHNIQUE: Multiple axial CT images were obtained through the abdomen and pelvis after administratio n of oral contrast material only. COMMENTS: The liver is of uniform attenuation without mass or defect. There is no intra or extrahepatic biliar y ductal dilatation. The spleen is normal. The gallbladder is distended. No evidence of gallstones . The pancreas is of normal contour and attenuation characteristics. There is no evidence of adrena l mass. The kidneys are normal in size, shape and configuration. No renal or ureteral calculi are identified . There is moderate bilateral hydroureteronephrosis likely due to bladder distention. There is no evidence for appendicitis. Diffuse sigmoid diverticulosis is present. There is no bowel wall thickening. No evidence for small or large bowel obstruction. There is no evidence of abdomina l ascites or lymphadenopathy. There is evidence of mid abdominal aortic aneurysm which measures up t o 5.5 cm in cross-section. The bladder is massively distended. There are several bladder diverticula noted. There is no pelvic ascites or lymphadenopathy. Prostate gland is mildly enalrged containing calcifications. Bladder distention is probably due to b ladder outlet obstruction. There is a smal left inguinal henia containing fat and fluid. Images of the lung bases show no evidence of pleural or parenchymal mass. There are no pleural effus ions. Small right pleural effusion is seen. Scarring is seen at both lung bases. Heart is enlarged . There is pericardial effusion noted. The bony structures are free of lytic or blastic lesions. Multilevel degenerative changes are seen i nvolving the thoracolumbar spine. There are moderate compression fracture deformities noted involvin g T12, L1 and L2 vertebral body. Scattered calcifications are seen involving the aorta and major branches compatible with atherosclero sis. IMPRESSION: 1. Small right pleural effusion is seen. Scarring is seen at both lung bases. 2. Heart is enlarged. There is pericardial effusion noted. 3. The gallbladder is distended. 4. There is evidence of mid abdominal aortic aneurysm which measures up to 5.5 cm in cross-section. 5. The bladder is massively distended probably due to bladder outlet obstruction. . There are sever al bladder diverticula noted. 6. There is moderate bilateral hydroureteronephrosis likely due to bladder distention. 7. Prostate gland is mildly enalrged containing calcifications. 8. There is a smal left inguinal henia containing fat and fluid. 9. There are moderate compression fracture deformities noted involving T12, L1 and L2 vertebral body . Thank you for your kind referral of this patient. We appreciate the opportunity to participate in thi s patient's care.
[2016-04-09] MEDS ORDERED: ONDANSETRON 4MG/2ML VIAL (J2405) IV PRN (21:00)
[2016-04-09] MEDS ORDERED: ACETAMINOPHEN TAB 650MG DOSE (2X325MG) PO PRN (21:00)
--- NOTE | 2016-04-09 21:27 | ECGEPIP ---
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
--- NOTE | 2016-04-09 23:27 | EDDOCDS ---
Nurse's Notes [facility] Name: Pierre Rodríguez Age: 89 yrs Sex: Male : 1925 Arrival Date: 04/09/2016 Time: 14:20 Bed 6 Private MD: Diagnosis: Acute kidney failure;Retention of urine;Hyperosmolality and hypernatremia Presentation: 04/09 14:26 Presenting complaint: EMS states: swelling to right side abdomen since this morning kc3 noticed by home health aid. Aid also reports pt with mild fever at home of 99.5. Aid also reports pt with bilateral feet swelling x 1 week. Adult Sepsis Screening: The patient does not have new or worsening altered mentation. Patient has a respiratory rate of greater than or equal to 22 (1 point). Systolic blood pressure is greater than 100. Patient has a qSOFA score of 1- Negative Sepsis Screen. Suicide/Homicide risk assessment- the patient denies having any suicidal and/or homicidal ideations and does not present with any other emotional, behavioral or mental health complaints. Status: Patient is not a servicenow administrator or dependent. Transition of care: patient was not received from another setting of care. 14:26 Acuity: MICHELLE Level 3 kc3 14:26 Method Of Arrival: Ambulance kc3 Triage Assessment: 14:46 General: Appears in no apparent distress, comfortable, Behavior is appropriate for age, kc3 cooperative. General: Behavior is drowsy. Pain: Unable to use pain scale. does not understand r/t alzheimers. The patient is triaged at the bedside. See Assessment in Nurses Notes section of ED record. Neurological: Level of Consciousness is awake. Cardiovascular: Capillary refill < 3 seconds. Respiratory: Respiratory effort is even, unlabored. GI: Abdomen is distended, noted to have ascites, Bowel sounds present X 4 quads. Abd is rigid in right upper quadrant and right lower quadrant. Derm: Skin is pink, warm & dry. Derm: Swollen area noted on right foot and left foot. Musculoskeletal: Circulation, motion, and sensation intact. Historical: - Allergies: no known allergies; - Home Meds: 1. allopurinol 100 mg Oral tab once daily 2. aspirin 81 mg Oral cpDR 1 tab once daily 3. Namenda 10 mg oral tab 1 tab 2 times per day 4. Razadyne ER 8 mg oral TbER once daily 5. Colace 100 mg oral cap 1 cap once daily 6. Protonix 40 mg Oral TbEC 1 tab once daily 7. acetaminophen 325 mg Oral tab 2 tabs every 4 hours as needed 8. multivitamin Oral tab daily - PMHx: Alzheimers; GERD; Gout; Aortic Valve Disorder; AV block 1st degree; Hypertension; - Social history: Smoking status: Patient states former smoker of tobacco. No barriers to communication noted, The patient speaks fluent Congolese, Speaks appropriately for age. - Family history: Not pertinent. - : The pt / caregiver states he / she is not on anticoagulants. Home medication list is obtained from the caregiver. - Exposure Risk Screening:: None identified. Screenin:49 Screening information is obtained from the caregiver. Fall risk: At risk due to gait kc3 disturbance, The following interventions are performed due to a positive Fall Risk Screen: Fall Risk is added to Special Handling on the patient Summary Screen. A Fall Risk Bracelet was applied to the patient. Side Rails are placed in the up position. A Call Matos is given with instruction to call for help when getting out of bed. Fall Alert bracelet is placed on the patient. Assistance ADL's: Requires assistance with meal preparation, this assistance is provided by Home Health Aides, bathing, assistance is provided by Home Health Aides, dressing, assistance is provided by Home Health Aides, toileting, assistance is provided by Home Health Aides, ambulation, assistance is provided by Home Health Aides, housework, assistance is provided by Home Health Aides, medication administration, assistance is provided by Public Health nurses. Abuse/DV Screen: The patient / caregiver reports he/she is: not in a situation that causes fear, pain or injury. Nutritional screening: No deficits noted. Advance Directives: Currently, there is a health care proxy, nghia Rodriguezsin. There is an active DNR order and the pt has a copy here at this time. home support is adequate. Assessment: 14:51 General: See triage for initial assessment. . kc3 16:18 General: Appears in no apparent distress, comfortable, Behavior is cooperative. Pain: jf3 Unable to use pain scale. Does not appear to understand pain scale. r/t alzheimers. Neurological: Level of Consciousness is awake, alert. Cardiovascular: Capillary refill < 3 seconds Heart tones S1 S2 present. Respiratory: Airway is patent Respiratory effort is even, unlabored, Respiratory pattern is regular, symmetrical, Breath sounds are diminished bilaterally. GI: Abdomen is distended on RLQ. abdomen is firm in this location, soft in other quadrants. Pt does not appear to be in pain when palpating firm area of abdomen or other areas of abdomen. : Parent/caregiver report the patient having incontinence Pt with large rash covering entire genital area. Several small open areas noted around and on genitals. Derm: Skin is pale. Musculoskeletal: 17:11 General: Appears in no apparent distress, comfortable, Behavior is cooperative, Pt jf3 resting supine on stretcher with caregiver at bedside. incontinent with stool x1, cleaned and changed. Stool brown, formed, hard, moderate size. 18:15 General: Appears in no apparent distress, comfortable, Behavior is cooperative, Pt jf3 resting supine on stretcher with caregiver at bedside. Respirations easy and unlabored. Will continue to monitor. 19:30 General: Appears in no apparent distress, comfortable, Behavior is cooperative, Pt jf3 resting side lying on stretcher. Incontinent of stool. Large soft BM. Respirations easy and unlabored. manager film at bedside. Will continue to monitor. 20:30 General: Appears in no apparent distress, comfortable, Behavior is cooperative. jf3 Neurological: Level of Consciousness is awake, alert. Cardiovascular: Capillary refill < 3 seconds. Respiratory: Airway is patent Respiratory effort is even, unlabored, Respiratory pattern is regular, symmetrical. 21:23 General: Appears in no apparent distress, comfortable, Behavior is agitated, Pt jf3 becoming agitated and uncooperative when attempting any type of nursing care. Neurological: Level of Consciousness is awake, alert. Cardiovascular: Capillary refill < 3 seconds. Respiratory: Airway is patent Respiratory effort is even, unlabored, Respiratory pattern is regular, symmetrical. GI: other Pt with copius amount of soft and liquid stool, incontinent. Derm: Skin is pale. 22:30 General: Appears in no apparent distress, comfortable, Behavior is cooperative, Pt jf3 resting supine on stretcher with caregiver at bedside. respirations easy and unlabored. Will continue to monitor. 23:22 General: Appears in no apparent distress, comfortable, Behavior is agitated, jf3 incontinent with copius liquid stool. Neurological: Level of Consciousness is awake, alert. Cardiovascular: Capillary refill < 3 seconds. Respiratory: Airway is patent Respiratory effort is even, unlabored, Respiratory pattern is regular, symmetrical. GI: Abdomen is abdomen is now soft and non distended after release of urine. Derm: Skin is pale. Vital Signs: 14:33 BP 139 / 92; Pulse 74; Resp 24; Temp 97.8(TE); Pulse Ox 96% on R/A; Weight 58.97 kg; kc3 Height 5 ft. 5 in. (165.10 cm); 15:01 Pulse 74 MON; Pulse Ox 91% ; jf3 15:02 BP 124 / 79 (auto/); jf3 15:31 Pulse 74 MON; Pulse Ox 99% ; jf3 15:32 BP 149 / 83 (auto/); jf3 16:09 Pulse 80 MON; Pulse Ox 97% ; jf3 16:10 BP 143 / 89 (auto/); jf3 16:16 Pulse 78 MON; Pulse Ox 97% ; jf3 16:17 BP 150 / 92 (auto/); jf3 16:31 Pulse 78 MON; Pulse Ox 97% ; jf3 16:32 BP 149 / 92 (auto/); jf3 16:46 Pulse 80 MON; Pulse Ox 93% ; jf3 16:47 BP 147 / 99 (auto/); jf3 17:02 BP 148 / 80 (auto/); jf3 17:07 Pulse 84 MON; Pulse Ox 95% ; jf3 17:17 BP 149 / 93 (auto/); jf3 17:22 Pulse 76 MON; Pulse Ox 94% ; jf3 17:29 Pulse 80 MON; Pulse Ox 96% ; jf3 17:32 BP 138 / 81 (auto/); jf3 17:41 Pulse 106 MON; Pulse Ox 91% ; jf3 17:47 BP 129 / 99 (auto/); jf3 17:53 Pulse 84 MON; Pulse Ox 91% ; jf3 18:02 BP 136 / 91 (auto/); jf3 18:17 BP 141 / 111 (auto/); jf3 18:32 BP 131 / 89 (auto/); jf3 18:32 Pulse 86 MON; Pulse Ox 95% ; jf3 18:45 Pulse 82 MON; Pulse Ox 98% ; jf3 18:47 BP 139 / 87 (auto/); jf3 19:02 BP 174 / 84 (auto/); jf3 19:02 Pulse 80 MON; jf3 19:17 BP 139 / 92 (auto/); jf3 19:36 Pulse 86 MON; Pulse Ox 98% ; jf3 19:42 BP 136 / 92 (auto/); jf3 19:42 Pulse 80 MON; Pulse Ox 98% ; jf3 19:47 BP 128 / 96 (auto/); jf3 19:47 Pulse 82 MON; Pulse Ox 97% ; jf3 20:02 BP 149 / 97 (auto/); jf3 20:02 Pulse 82 MON; Pulse Ox 95% ; jf3 20:16 Pulse 82 MON; Pulse Ox 98% ; jf3 20:17 BP 140 / 94 (auto/); jf3 20:31 Pulse 76 MON; Pulse Ox 100% ; jf3 20:32 BP 156 / 101 (auto/); jf3 20:47 BP 150 / 93 (auto/); jf3 20:47 Pulse 84 MON; Pulse Ox 99% ; jf3 21:22 BP 157 / 93; Pulse 96; Resp 18; Temp 98.3; Pulse Ox 96% on R/A; jf3 23:22 BP 150 / 90; Pulse 82; Resp 18; Temp 98.2(TE); Pulse Ox 97% on R/A; jf3 14:33 Body Mass Index 21.63 (58.97 kg, 165.10 cm) 3 Vitals: 14:33 Log In Time N/A - ambulance arrival. 3 ED Course: 14:21 Patient visited by Janet Sharp, Government Sales Manager. deg 14:21 Patient moved to Waiting deg 14:22 Patient moved to 6 deg 14:33 Triage Initiated kc3 14:51 The patient / caregiver is instructed regarding the plan of care and ED course. kc3 14:56 [facility] Benavides FNP [facility]. le 15:06 Patient visited by Miley Benavides FNP. le 15:18 Patient visited by Miley Benavides FNP. le 16:17 Patient visited by Alexander Jennings PCA. jl 16:18 Inserted saline lock: 20 gauge in right forearm placed by Casandra Urbina RN. No jf3 procedures done that require assistance. 16:53 Patient visited by Alexander Jennings PCA. jlf 16:58 Straight cath inserted 16 Fr. returned lyndsey urine. Patient tolerated well. jf3 17:13 Patient visited by Timothy Thomas RN. jf3 17:14 Abdomen, Flat\E\Upright,PA Chest Returned. EDMS 18:27 Patient visited by Alexander Jennings PCA. jlf 18:27 Patient visited by Alexander Jennings PCA. jlf 18:27 EKG done. (by ED staff). Reviewed by Miley BENAVIDEZ. jlf 18:30 [facility] Payment Agreement was scanned into [employer] and attached to record. gjb 18:39 Patient visited by Timothy Thomas RN. jf3 19:58 Patient visited by Timothy Thomas RN. jf3 20:06 CT ABD & PELVIS: Oral Contrast Only Returned. EDMS 20:10 Patient visited by Timothy Thomas RN. jf3 20:15 Paul Wright MD is Hospitalizing Provider. le 21:22 Patient visited by Brittney Conner, Government Sales Manager. jlm 21:23 Mane cath inserted 16 Fr. Balloon inflated. To gravity drainage. returned bloody jf3 urine. Patient tolerated well. 21:58 EKG-ADULT Returned. EDMS 22:31 Patient visited by Timothy Thomas RN. jf3 Administered Medications: 16:15 Drug: NS 0.9% 1000 ml [sodium chloride 0.9 % injection solution] Route: IV; Rate: 100 jf3 mL/hr; Site: right forearm; 17:20 Drug: Diatrizoate Meglumine & Sodium 10 ml [diatrizoate meglumine and diat.sodium 66 jf3 %-10 % oral solution (10 mL)] Route: PO; 17:28 CANCELLED (Other Intervention Used): NS 0.9% 1000 ml IV at bolus once le 17:50 Drug: Diatrizoate Meglumine & Sodium 10 ml [diatrizoate meglumine and diat.sodium 66 jf3 %-10 % oral solution (10 mL)] Route: PO; 18:07 Drug: Polystyrene 30 grams [sodium polystyrene sulfonate 15 gram/60 mL oral suspension jf3 (120 mL)] Route: PO; 18:48 Drug: D5W 1000 ml [dextrose 5 % in water (D5W) intravenous solution] Route: IV; Rate: rs3 120 mL/hr; Site: right forearm; Output: 22:30 Urine: 2475.00ml (Mane); Total: 2475.00ml. jf3 Order Results: Lab Order: Basic Metabolic Profile; SPEC'M 04/09/16 16:08 Test: GLUCOSE, FASTING; Value: 99; Range: 83-110; Units: MG/DL; Status: F Test: BLOOD UREA NITROGEN; Value: 61; Range: 7-18; Abnormal: Above high normal; Units: MG/DL; Status: F Test: CREATININE FOR GFR; Value: 4.72; Range: 0.70-1.30; Abnormal: Above high normal; Units: MG/DL; Status: F Test: GLOMERULAR FILTRATION RATE; Value: 12.5; Range: >35; Abnormal: Below low normal; Status: F Test: SODIUM LEVEL; Value: 155; Range: 136-145; Abnormal: Above high normal; Units: MEQ/L; Status: F Test: POTASSIUM SERUM; Value: 5.4; Range: 3.5-5.1; Abnormal: Above high normal; Units: MEQ/L; Status: F Test: CHLORIDE LEVEL; Value: 125; Range: 98-107; Abnormal: Above high normal; Units: MEQ/L; Status: F Test: CARBON DIOXIDE LEVEL; Value: 22; Range: 21-32; Units: MEQ/L; Status: F Test: ANION GAP; Value: 8; Range: 8-16; Units: MEQ/L; Status: F Test: CALCIUM LEVEL; Value: 8.6; Range: 8.8-10.2; Abnormal: Below low normal; Units: MG/DL; Status: F Test Note: ; Units are mL/min/1.73 m2 Chronic Kidney Disease Staging per NKF: Stage I & II GFR >=60 Normal to Mildly Decreased Stage III GFR 30-59 Moderately Decreased Stage IV GFR 15-29 Severely Decreased Stage V GFR <15 Very Little GFR Left ESRD GFR <15 on ENVIRONMENTAL ENGINEER Lab Order: CBC with Diff; SPEC'M 04/09/16 16:08 Test: WHITE BLOOD COUNT; Value: 9.2; Range: 4.0-10.0; Units: K/mm3; Status: F Test: RED BLOOD COUNT; Value: 3.43; Range: 4.30-6.10; Abnormal: Below low normal; Units: M/mm3; Status: F Test: HEMOGLOBIN; Value: 10.9; Range: 14.0-18.0; Abnormal: Below low normal; Units: g/dl; Status: F Test: HEMATOCRIT; Value: 36.1; Range: 42.0-52.0; Abnormal: Below low normal; Units: %; Status: F Test: MEAN CORPUSCULAR VOLUME; Value: 105.2; Range: 80.0-96.0; Abnormal: Above high normal; Units: fl; Status: F Test: MEAN CORPUSCULAR HEMOGLOBIN; Value: 31.7; Range: 27.0-33.0; Units: pg; Status: F Test: MEAN CORPUSCULAR HGB CONC; Value: 30.1; Range: 32.0-36.5; Abnormal: Below low normal; Units: g/dl; Status: F Test: RED CELL DISTRIBUTION WIDTH; Value: 14.0; Range: 11.5-14.5; Units: %; Status: F Test: PLATELET COUNT, AUTOMATED; Value: 158; Range: 150-450; Units: k/mm3; Status: F Test: NEUTROPHILS %; Value: 77.7; Range: 36.0-66.0; Abnormal: Above high normal; Units: %; Status: F Test: LYMPH %; Value: 13.1; Range: 24.0-44.0; Abnormal: Below low normal; Units: %; Status: F Test: MONO %; Value: 4.2; Range: 0.0-5.0; Units: %; Status: F Test: EOS %; Value: 2.9; Range: 0.0-3.0; Units: %; Status: F Test: BASO %; Value: 0.6; Range: 0.0-1.0; Units: %; Status: F Test: LARGE UNSTAINED CELL %; Value: 1.6; Range: 0.0-4.0; Units: %; Status: F Test: NEUTROPHILS #; Value: 7.2; Range: 1.8-7.7; Units: K/mm3; Status: F Test: LYMPH #; Value: 1.4; Range: 1.5-4.5; Abnormal: Below low normal; Units: K/mm3; Status: F Test: MONO #; Value: 0.4; Range: 0.0-0.8; Units: K/mm3; Status: F Test: EOS #; Value: 0.3; Range: 0.0-0.50; Units: K/mm3; Status: F Test: BASO #; Value: 0.0; Range: 0.0-0.2; Units: K/mm3; Status: F Test: LARGE UNSTAINED CELL #; Value: 0.1; Range: 0.0-0.4; Units: K/mm3; Status: F Lab Order: Lipase; SPEC' 04/09/16 16:08 Test: LIPASE; Value: 109; Range: 73-393; Units: U/L; Status: F Lab Order: Liver Profile; SPEC' 04/09/16 16:08 Test: AST/SGOT; Value: 25; Range: 15-37; Units: U/L; Status: F Test: ALT/SGPT; Value: 18; Range: 12-78; Units: U/L; Status: F Test: ALKALINE PHOSPHATASE; Value: 106; Range: 45-117; Units: U/L; Status: F Test: BILIRUBIN,TOTAL; Value: 0.2; Range: 0.2-1.0; Units: MG/DL; Status: F Test: BILIRUBIN,DIRECT; Value: 0.1; Range: 0.0-0.2; Units: MG/DL; Status: F Test: TOTAL PROTEIN; Value: 6.7; Range: 6.4-8.2; Units: GM/DL; Status: F Test: ALBUMIN; Value: 2.4; Range: 3.2-5.2; Abnormal: Below low normal; Units: GM/DL; Status: F Test: ALBUMIN/GLOBULIN RATIO; Value: 0.56; Range: 1.00-1.93; Abnormal: Below low normal; Status: F Lab Order: Urinalysis; SPEC' 04/09/16 16:08 Test: APPEARANCE, URINE; Value: HAZY; Range: CLEAR; Status: F Test: COLOR, URINE; Value: YELLOW; Range: YELLOW; Status: F Test: PH,URINE; Value: 6.0; Range: 5.0-9.0; Units: UNITS; Status: F Test: SPECIFIC GRAVITY URINE AUTO; Value: 1.010; Range: 1.002-1.035; Status: F Test: PROTEIN, URINE AUTO; Value: NEGATIVE; Range: NEGATIVE; Units: mg/dL; Status: F Test: GLUCOSE, URINE (UA) AUTO; Value: NEGATIVE; Range: NEGATIVE; Units: mg/dL; Status: F Test: KETONE, URINE AUTO; Value: NEGATIVE; Range: NEGATIVE; Units: mg/dL; Status: F Test: UROBILINOGEN, URINE AUTO; Value: 0.2; Range: 0.0-2.0; Units: mg/dL; Status: F Test: BILIRUBIN, URINE AUTO; Value: NEGATIVE; Range: NEGATIVE; Status: F Test: NITRITE, URINE AUTO; Value: NEGATIVE; Range: NEGATIVE; Status: F Test: LEUKOCYTE ESTERASE, URINE AUTO; Value: NEGATIVE; Range: NEGATIVE; Status: F Test: BLOOD, URINE BLOOD; Value: 3+; Range: NEGATIVE; Abnormal: Above high normal; Status: F Test: WBC, URINE AUTO; Value: 16; Range: 0-3; Abnormal: Above high normal; Units: /HPF; Status: F Test: RBC, URINE AUTO; Value: TNTC; Range: 0-3; Abnormal: Above high normal; Units: /HPF; Status: F Test: BACTERIA, URINE AUTO; Value: NEGATIVE; Range: NEGATIVE; Status: F Test: SQUAMOUS EPITHELIAL CELL UR AU; Value: 0; Range: 0-6; Units: /HPF; Status: F Test: MUCUS, URINE; Value: SMALL; Range: NEGATIVE; Status: F Test: HYALINE CAST, URINE AUTO; Value: 0; Range: 0-1; Units: /LPF; Status: F Test: AMORPHOUS SEDIMENT; Value: SMALL; Range: NEGATIVE; Abnormal: Above high normal; Status: F Radiology Order: Abdomen, Flat\E\Upright,PA Chest Test: Abdomen, Flat\E\Upright,PA Chest REASON FOR EXAMINATION: large mass RLQ, ? stool burden; ABDOMEN, FLAT UPRIGHT PA CHEST, THREE VIEWS:; ; HISTORY: Right lower quadrant mass.; ; Air is present in the small and large intestine. Several air fluid levels are; present. There are no dilated loops of intestine. There is no pneumoperitoneum.; The lungs are clear. The cardiac silhouette is enlarged.; ; IMPRESSION:; ; Nonspecific bowel gas pattern.; ; ; Signed by; Tony Clay MD 04/09/2016 04:38 P; Radiology Order: EKG-ADULT Test: EKG-ADULT REASON FOR EXAMINATION: hyperkalemia; Stationary ECG Study; [facility] - ED; ; Test Date: 2016-04-09; Pat Name: PIERRE RODRÍGUEZ Department:; Room: -; Gender: M Carpenter Prototype: alisa; : 1925 Requested By: MILEY BENAVIDEZ; Order Number: [id number] Reading MD: Adria Long; Measurements; Intervals [place]; Rate: 86 P:; CO: 0 QRS: -86; QRSD: 120 T: 60; QT: 369; QTc: 444; Interpretive Statements; REGULAR RHYTHM, SUSPECT SINUS WITH SINUS ARRHYTHMIA; BASELINE ARTIFACT AFFECTS INTERPRETATION; RIGHT BUNDLE BRANCH BLOCK; ; Electronically Signed On 04-09-2016 21:27:37 EST by Adria Long; Radiology Order: CT ABD & PELVIS: Oral Contrast Only Test: CT ABD & PELVIS: Oral Contrast Only REASON FOR EXAMINATION: ? large obstructive mass RLQ; ; CLINICAL HISTORY: ? Large obstructive mass right lower quadrant.; ; TECHNIQUE: Multiple axial CT images were obtained through the abdomen and pelvis after administratio; n of oral contrast material only.; ; COMMENTS:; The liver is of uniform attenuation without mass or defect. There is no intra or extrahepatic biliar; y ductal dilatation. The spleen is normal. The gallbladder is distended. No evidence of gallstones; . The pancreas is of normal contour and attenuation characteristics. There is no evidence of adrena; l mass.; ; The kidneys are normal in size, shape and configuration. No renal or ureteral calculi are identified; . There is moderate bilateral hydroureteronephrosis likely due to bladder distention.; ; There is no evidence for appendicitis. Diffuse sigmoid diverticulosis is present. There is no bowel; wall thickening. No evidence for small or large bowel obstruction. There is no evidence of abdomina; l ascites or lymphadenopathy. There is evidence of mid abdominal aortic aneurysm which measures up t; o 5.5 cm in cross-section.; ; The bladder is massively distended. There are several bladder diverticula noted. There is no pelvic; ascites or lymphadenopathy.; ; Prostate gland is mildly enalrged containing calcifications. Bladder distention is probably due to b; ladder outlet obstruction. There is a smal left inguinal henia containing fat and fluid.; ; Images of the lung bases show no evidence of pleural or parenchymal mass. There are no pleural effus; ions. Small right pleural effusion is seen. Scarring is seen at both lung bases. Heart is enlarged; . There is pericardial effusion noted.; ; The bony structures are free of lytic or blastic lesions. Multilevel degenerative changes are seen i; nvolving the thoracolumbar spine. There are moderate compression fracture deformities noted involvin; g T12, L1 and L2 vertebral body.; ; Scattered calcifications are seen involving the aorta and major branches compatible with atherosclero; sis.; ; IMPRESSION:; 1. Small right pleural effusion is seen. Scarring is seen at both lung bases.; 2. Heart is enlarged. There is pericardial effusion noted.; 3. The gallbladder is distended.; 4. There is evidence of mid abdominal aortic aneurysm which measures up to 5.5 cm in cross-section.; 5. The bladder is massively distended probably due to bladder outlet obstruction. . There are sever; al bladder diverticula noted.; 6. There is moderate bilateral hydroureteronephrosis likely due to bladder distention.; 7. Prostate gland is mildly enalrged containing calcifications.; 8. There is a smal left inguinal henia containing fat and fluid.; 9. There are moderate compression fracture deformities noted involving T12, L1 and L2 vertebral body; .; ; ; Thank you for your kind referral of this patient. We appreciate the opportunity to participate in [facility]; s patient's care.; ; ; Outcome: 20:16 Decision to Hospitalize by Provider. le 23:24 Discharge Assessment: patient administered narcotics - no. The following High Risk jf3 Discharge criteria are identified: None. Admitted to PCU accompanied by nurse, accompanied by tech, via stretcher, on monitor, with chart. Condition: good. CT Study completed. Property :Personal belongings accompany Pt. 23:26 Patient left the ED. jf3 Signatures: Dispatcher [employer] EDJanet Shelby, Government Sales Manager Unit deg Miley Benavides, INTEGRATED CIRCUIT LAYOUT DESIGNER INTEGRATED CIRCUIT LAYOUT DESIGNERKavya Haridn RN RN rs3 Alexander Jennings, SECRET CODE EXPERT SECRET CODE EXPERT jlf Brittney Conner, Government Sales Manager Unit jlm Heide UrbinaRN RN kc3 Timothy Thomas,RN RN jf3 Jeanne Marsh Corrections: (The following items were deleted from the chart) 16:18 : Parent/caregiver report the patient having incontinence jf3 jf3 21:22 Temp 98.3F; jorge jf3 MTDD
--- NOTE | 2016-04-09 23:27 | EDDOCDS ---
Physician Documentation [facility] Name: Pierre Rivera Age: 89 yrs Sex: Male : 1925 Arrival Date: 04/09/2016 Time: 14:20 Bed 6 Private MD: Disposition: 04/09/16 20:16 Hospitalization ordered by Paul Wright for Inpatient Admission. Preliminary diagnosis are Acute kidney failure, Retention of urine, Hyperosmolality and hypernatremia. - [facility] - Status is Inpatient Admission. jf3 - Condition is Stable. - Problem is new. - Symptoms are unchanged. Historical: - Allergies: no known allergies; - Home Meds: 1. allopurinol 100 mg Oral tab once daily 2. aspirin 81 mg Oral cpDR 1 tab once daily 3. Namenda 10 mg oral tab 1 tab 2 times per day 4. Razadyne ER 8 mg oral TbER once daily 5. Colace 100 mg oral cap 1 cap once daily 6. Protonix 40 mg Oral TbEC 1 tab once daily 7. acetaminophen 325 mg Oral tab 2 tabs every 4 hours as needed 8. multivitamin Oral tab daily - PMHx: Alzheimers; GERD; Gout; Aortic Valve Disorder; AV block 1st degree; Hypertension; - Social history: Smoking status: Patient states former smoker of tobacco. No barriers to communication noted, The patient speaks fluent Ukrainian, Speaks appropriately for age. - Family history: Not pertinent. - : The pt / caregiver states he / she is not on anticoagulants. Home medication list is obtained from the caregiver. - Exposure Risk Screening:: None identified. Vital Signs: 04/09 14:33 BP 139 / 92; Pulse 74; Resp 24; Temp 97.8(TE); Pulse Ox 96% on R/A; Weight 58.97 kg / kc3 130.01 lbs; Height 5 ft. 5 in. (165.10 cm); 15:01 Pulse 74 MON; Pulse Ox 91% ; jf3 15:02 BP 124 / 79 (auto/); jf3 15:31 Pulse 74 MON; Pulse Ox 99% ; jf3 15:32 BP 149 / 83 (auto/); jf3 16:09 Pulse 80 MON; Pulse Ox 97% ; jf3 16:10 BP 143 / 89 (auto/); jf3 16:16 Pulse 78 MON; Pulse Ox 97% ; jf3 16:17 BP 150 / 92 (auto/); jf3 16:31 Pulse 78 MON; Pulse Ox 97% ; jf3 16:32 BP 149 / 92 (auto/); jf3 16:46 Pulse 80 MON; Pulse Ox 93% ; jf3 16:47 BP 147 / 99 (auto/); jf3 17:02 BP 148 / 80 (auto/); jf3 17:07 Pulse 84 MON; Pulse Ox 95% ; jf3 17:17 BP 149 / 93 (auto/); jf3 17:22 Pulse 76 MON; Pulse Ox 94% ; jf3 17:29 Pulse 80 MON; Pulse Ox 96% ; jf3 17:32 BP 138 / 81 (auto/); jf3 17:41 Pulse 106 MON; Pulse Ox 91% ; jf3 17:47 BP 129 / 99 (auto/); jf3 17:53 Pulse 84 MON; Pulse Ox 91% ; jf3 18:02 BP 136 / 91 (auto/); jf3 18:17 BP 141 / 111 (auto/); jf3 18:32 BP 131 / 89 (auto/); jf3 18:32 Pulse 86 MON; Pulse Ox 95% ; jf3 18:45 Pulse 82 MON; Pulse Ox 98% ; jf3 18:47 BP 139 / 87 (auto/); jf3 19:02 BP 174 / 84 (auto/); jf3 19:02 Pulse 80 MON; jf3 19:17 BP 139 / 92 (auto/); jf3 19:36 Pulse 86 MON; Pulse Ox 98% ; jf3 19:42 BP 136 / 92 (auto/); jf3 19:42 Pulse 80 MON; Pulse Ox 98% ; jf3 19:47 BP 128 / 96 (auto/); jf3 19:47 Pulse 82 MON; Pulse Ox 97% ; jf3 20:02 BP 149 / 97 (auto/); jf3 20:02 Pulse 82 MON; Pulse Ox 95% ; jf3 20:16 Pulse 82 MON; Pulse Ox 98% ; jf3 20:17 BP 140 / 94 (auto/); jf3 20:31 Pulse 76 MON; Pulse Ox 100% ; jf3 20:32 BP 156 / 101 (auto/); jf3 20:47 BP 150 / 93 (auto/); jf3 20:47 Pulse 84 MON; Pulse Ox 99% ; jf3 21:22 BP 157 / 93; Pulse 96; Resp 18; Temp 98.3; Pulse Ox 96% on R/A; jf3 23:22 BP 150 / 90; Pulse 82; Resp 18; Temp 98.2(TE); Pulse Ox 97% on R/A; jf3 14:33 Body Mass Index 21.63 (58.97 kg, 165.10 cm) kc3 MDM: 15:14 NS 0.9% 1000 ml IV at 100 mL/hr continuous ordered. le 15:14 IV Saline Lock ordered. le 15:14 Undress patient appropriately for examination ordered. le 15:15 Basic Metabolic Profile Ordered. EDMS 15:15 CBC with Diff Ordered. EDMS 15:15 Lipase Ordered. EDMS 15:15 Liver Profile Ordered. EDMS 15:15 Urinalysis Ordered. EDMS 15:15 Urine Culture Ordered. EDMS 15:15 Abdomen, Flat\E\Upright,PA Chest Ordered. EDMS 15:15 NOTHING BY MOUTH+DIET ordered. EDMS 16:40 CBC with Diff Reviewed. le 17:21 Basic Metabolic Profile Reviewed. le 17:21 Liver Profile Reviewed. le 17:21 Urinalysis Reviewed. le 17:21 Lipase Reviewed. le 17:21 Abdomen, Flat\E\Upright,PA Chest Reviewed. le 17:24 Polystyrene Suspension 30 grams PO once ordered. le 17:25 BED REQUEST+ADM ordered. EDMS 17:27 Diatrizoate Meglumine & Sodium Liquid 10 ml PO once; mix in 290cc of water \T\ 1720 jf3 ordered. 17:27 Diatrizoate Meglumine & Sodium Liquid 10 ml PO once; mix in 290cc of water \T\ 1750 jf3 ordered. 17:29 D5W 1000 ml IV at 120 mL/hr once ordered. le 17:29 Misc. Nursing Order ordered. le 17:59 ECG WITH READING ER PHYS+CARDIAG ordered. EDMS 18:30 [facility] was scanned into [employer] and attached to record. gjb 18:30 Financial registration complete. gjb 18:44 CT ABD & PELVIS: Oral Contrast Only Ordered. EDMS 20:01 Mane ordered. le 20:50 URINALYSIS Ordered. EDMS 20:50 COMPLETE BLOOD COUNT Ordered. EDMS 20:50 RENAL PROFILE Ordered. EDMS 20:51 Admission / Observation Status ordered. EDMS 21:29 ELECTROCARDIOGRAM ADULT ordered. EDMS 21:29 CLEAR LIQUIDS DIET ordered. EDMS 21:33 CDIFF PCR Ordered. EDMS Administered Medications: 16:15 Drug: NS 0.9% 1000 ml [sodium chloride 0.9 % injection solution] Route: IV; Rate: 100 jf3 mL/hr; Site: right forearm; 17:20 Drug: Diatrizoate Meglumine & Sodium 10 ml [diatrizoate meglumine and diat.sodium 66 jf3 %-10 % oral solution (10 mL)] Route: PO; 17:28 CANCELLED (Other Intervention Used): NS 0.9% 1000 ml IV at bolus once le 17:50 Drug: Diatrizoate Meglumine & Sodium 10 ml [diatrizoate meglumine and diat.sodium 66 jf3 %-10 % oral solution (10 mL)] Route: PO; 18:07 Drug: Polystyrene 30 grams [sodium polystyrene sulfonate 15 gram/60 mL oral suspension jf3 (120 mL)] Route: PO; 18:48 Drug: D5W 1000 ml [dextrose 5 % in water (D5W) intravenous solution] Route: IV; Rate: rs3 120 mL/hr; Site: right forearm; Signatures: Dispatcher [employer] EDMS Miley Benavides, POLYMERIZATION HELPER POLYMERIZATION HELPER Natalie London, ELECTRICAL LINE WORKER ELECTRICAL LINE WORKER tmm1 Heide Urbina,RN RN kc3 Timothy ThomasRN RN jf3 Jeanne Marsh Lisa RN RN lmg Kavya Mina RN rs3 The chart was reviewed and I authenticate all verbal orders and agree with the evaluation and treatment provided.Corrections: (The following items were deleted from the chart) 17:28 17:24 NS 0.9% 1000 ml IV at bolus once ordered. le le 18:57 16:41 CT ABD & PELVIS WITH CONTRAST+CT ordered. EDMS EDMS 21:29 20:51 NPO DIET ordered. EDMS EDMS Attachments: 18:30 [facility] [place] Agreement mel MTDD
[2016-04-09 23:45] VITALS: BP 126/80
[2016-04-09] MEDS: D5W/0.45% SODIUM CHLORIDE 1,000 ML IV SCH (23:59)
[2016-04-10] MEDS ORDERED: HALOPERIDOL 5 MG/ML VIAL (J1630) IV PRN (01:30)
[2016-04-10 04:00] VITALS: BP 103/45
[2016-04-10 06:17] LABS: MEAN CORPUSCULAR HEMOGLOBIN 32.1 pg (27.0-33.0); MEAN CORPUSCULAR HGB CONC 30.4 g/dl (32.0-36.5); MEAN CORPUSCULAR VOLUME 105.4 fl (80.0-96.0); RED CELL DISTRIBUTION WIDTH 14.3 % (11.5-14.5); WHITE BLOOD COUNT 7.3 K/mm3 (4.0-10.0)
[2016-04-10 06:33] LABS: ALBUMIN 2.1 GM/DL (3.2-5.2); CALCIUM LEVEL 8.1 MG/DL (8.8-10.2); CREATININE FOR GFR 3.15 MG/DL (0.70-1.30); GLOMERULAR FILTRATION RATE 19.9 (>35); MAGNESIUM LEVEL 1.7 MG/DL (1.8-2.4); PHOSPHORUS LEVEL 3.1 MG/DL (2.5-4.9); POTASSIUM SERUM 3.9 MEQ/L (3.5-5.1)
[2016-04-10] MEDS ORDERED: MAG SULF 1GM/100ML (MAG RUN) 1 GM in APPROPRIATE DILUENT 1 EA IV ONE (07:30)
[2016-04-10 08:00] VITALS: BP 123/72
[2016-04-10] MEDS: NYSTATIN 100,000 UNITS/GM TOPICAL PWD 15 GM TOP SCH ×2 (09:17→20:00)
[2016-04-10] MEDS: MULTIVITAMINS/MINERALS THERAP 1 TAB PO SCH (09:18)
[2016-04-10] MEDS: PANTOPRAZOLE 40MG TAB (PROTONIX) PO SCH (09:18)
[2016-04-10] MEDS: MEMANTINE 5MG TABLET (NAMENDA) PO SCH ×2 (09:18→20:00)
[2016-04-10] MEDS: D5W/0.45% SODIUM CHLORIDE 1,000 ML IV SCH ×2 (11:54→19:59)
[2016-04-10] MEDS ORDERED: POTASSIUM CHLORIDE 10% LIQ 20 MEQ/15 ML UDC PO ONE (12:00)
[2016-04-10 13:12] LABS: BASO # 0.1 K/mm3 (0.0-0.2); BASO % 1.4 % (0.0-1.0); EOS # 0.3 K/mm3 (0.0-0.50); EOS % 4.2 % (0.0-3.0); LARGE UNSTAINED CELL # 0.1 K/mm3 (0.0-0.4); LARGE UNSTAINED CELL % 1.6 % (0.0-4.0); LYMPH # 1.3 K/mm3 (1.5-4.5); LYMPH % 14.2 % (24.0-44.0); MEAN CORPUSCULAR HEMOGLOBIN 32.6 pg (27.0-33.0); MEAN CORPUSCULAR HGB CONC 30.9 g/dl (32.0-36.5); MEAN CORPUSCULAR VOLUME 105.6 fl (80.0-96.0); MONO # 0.4 K/mm3 (0.0-0.8); MONO % 5.1 % (0.0-5.0); NEUTROPHILS % 73.5 % (36.0-66.0); PLATELET COUNT, AUTOMATED 155 k/mm3 (150-450); RED CELL DISTRIBUTION WIDTH 14.3 % (11.5-14.5); WHITE BLOOD COUNT 8.2 K/mm3 (4.0-10.0)
[2016-04-10] MEDS: KCL 10MEQ IN 100ML SWI (KRUN) 10 MEQ in APPROPRIATE DILUENT 1 EA IV SCH ×8 (13:13→16:52)
--- NOTE | 2016-04-10 13:25 | IPNPDOC ---
Text Note Date of Service The patient was seen on 04/10/16 at 13:09. NOTE Subjective: Patient is an 89 year old male with PMHx of Advanced dementia, HTN, Diverticulosis, Schatzki rings, Gout, and GERD who presented to the ED with abdominal distension and pain. Patient was recently at [facility] for urinary tract infection and bacteremia. In the ER the family was concerned for constipation, but patient was found to have urinary retention, GAUDENCIO and hyperkalemia. Patient was seen and examined at the bedside. Clinically he is non-verbal. He does appear to be comfortable. Objective: Vitals (See below) General: Lying in bed, no acute distress, comfortable, Awake + alert HEENT: NC, AT CVS: RRR, +S1S2 Lungs: Fair air entry b/l, -w/r/r Abdomen: Soft, ND, NT, +BSx4 Extremities: -edema, -calf tenderness Assessment and plan: 1. Acute renal failure - likely 2/2 post-renal etiology 2/2 obstruction - Presented with abdominal pain - Found to have distended bladder, large volume diuresis after urinary catheter was placed - Cr baseline of 0.8-1.0 - c/w IV hydration with D5 1/2 NS (re: Hypernatremia + GAUDENCIO) - Has had some hematuria - possibly 2/2 bladder over distention vs traumatic Mane insertion - Will consult urology for hematuria and bladder irrigation - Nephrology (Dr. Maldonado) has been consulted - appreciate their input 2. s/p Hyperkalemia with EKG changes - EKG with initial peaked T waves - s/p Kayexylate 30 grams 3. Hypernatremia - Free water defecit of 3.7 liters (Assuming target of 140) - Fluids have been changed to D5 1/2 NS from NS - Nephrology (Dr. Maldonado) has been consulted - appreciate their input 4. Thrombocytopenia - unknown etiology at this time - will continue to monitor 5. Macrocytic anemia - will check B12, Foalte and reticulocyte count - Will follow Hg 6. Hypomagnesemia - will supplement 7. Gout - allopurinol on hold 8. Advanced dementia - c/w Memantine 9. GI prophylaxis - c/w protonix 10. DVT prophylaxis - c/w SCD VS,Fishbone, I+O VS, Fishbone, I+O Laboratory Tests 04/09/16 16:08 Red Blood Count 3.43 L, Mean Corpuscular Volume 105.2 H, Mean Corpuscular Hemoglobin 31.7, Mean Corpuscular Hemoglobin Concent 30.1 L, Red Cell Distribution Width 14.0, Neutrophils (%) (Auto) 77.7 H, Lymphocytes (%) (Auto) 13.1 L, Monocytes (%) (Auto) 4.2, Eosinophils (%) (Auto) 2.9, Basophils (%) ( Auto) 0.6, Neutrophils # (Auto) 7.2, Lymphocytes # (Auto) 1.4 L, Monocytes # ( Auto) 0.4, Eosinophils # (Auto) 0.3, Basophils # (Auto) 0.0 04/10/16 06:01 Red Blood Count 2.90 L, Mean Corpuscular Volume 105.4 H, Mean Corpuscular Hemoglobin 32.1, Mean Corpuscular Hemoglobin Concent 30.4 L, Red Cell Distribution Width 14.3, Anion Gap 9 Vital Signs Date Time Temp Pulse Resp B/P Pulse Ox O2 Delivery O2 Flow Rate FiO2 04/10/16 12:00 95.9 04/10/16 08:00 86 20 123/72 98 Room Air I&O- Last 24 Hours up to 6 AM 04/10/16 06:00 Intake Total 480 ml Output Total 1100 ml Balance -620 ml EVELYN HOWARD MD Apr 10, 2016 13:25
[2016-04-10 13:57] LABS: RETIC HEMOGLOBIN CONTENT CHr 34.5 PG (24-36); RETICULOCYTE % ADVIA2120 1.5 % (0.5-1.5)
[2016-04-10] MEDS ORDERED: LIDOCAINE 2% 5ML JELLY UROJET TOP PRN (14:00)
[2016-04-10 14:42] LABS: FOLATE 23.4 NG/ML (>5.4)
--- NOTE | 2016-04-10 14:53 | CR.PDOC ---
[facility] Consultation Consultation DATE OF ADMISSION: 04/09/2016 DATE OF CONSULTATION: 04/10/2016 REQUESTING PROVIDER: Dr. Paul Wright ATTENDING PHYSICIAN: Dr. Suze Ivan REASON FOR CONSULTATION/CHIEF COMPLAINT: Acute renal failure HISTORY OF PRESENT ILLNESS: Mr. Rivera is an 89-year-old male with past medical history significant for hypertension, GERD, advanced dementia, gout , diverticulosis, Schatzki's ring, and recent urinary tract infection with sepsis and bacteremia admitted to [facility] from March 19 to March 25 who presents to the hospital once again due to concern of him not having regular bowel movements and increased abdominal distention. Patient is nonverbal and no history could be obtained. Most of the history was obtained from his records. During evaluation in the emergency department, patient was found to have markedly distended bladder with acute renal failure and hyperkalemia. He was admitted into the hospital and started on IV fluids. Nephrology was consulted for assistance in management. PAST MEDICAL HISTORY: 1. Recent admission for sepsis and bacteremia secondary to urinary tract infection 2. Hypertension 3. Gastroesophageal reflux disease 4. Advanced dementia 5. History of gout 6. History of diverticulosis 7. History of Schatzki's ring PAST SURGICAL HISTORY: None ALLERGIES: No known drug allergies HOME MEDICATIONS: Please see below. FAMILY HISTORY: Unobtainable. SOCIAL HISTORY: Per records, he is nonsmoker. Stopped using alcohol several years ago. No illicit drugs. He lives at home and has a 24-hour caregiver. REVIEW OF SYSTEMS: Unobtainable due to patient being nonverbal. PHYSICAL EXAMINATION: VITAL SIGNS: Temperature 96.0, pulse 86, respiratory rate 20, blood pressure 123 /72, pulse ox 98% on room air, weight 57.7 kg, height 65.1 cm GENERAL APPEARANCE: Patient is awake and alert. Does not appear to be in any acute distress. HEENT: Normocephalic, atraumatic. Extraocular muscles are intact. Pupils are unequal but reactive to light. NECK: Supple. No thyromegaly. Trachea is midline. No jugular venous distention appreciated. HEART: Normal S1, S2. Heart sounds regular. Positive for systolic ejection murmur. LUNGS: Clear to auscultation bilaterally. No rales, rhonchi or wheezing. ABDOMEN: Soft. Nontender. Bowel sounds are present. No rebound, guarding or rigidity. EXTREMITIES: No cyanosis or edema. Positive pedal pulses bilaterally. NEUROLOGICAL: No gross focal deficit. Moving all extremities. LABORATORY DATA: 04/10/16 06:01 Red Blood Count 2.90 L, Mean Corpuscular Volume 105.4 H, Mean Corpuscular Hemoglobin 32.1, Mean Corpuscular Hemoglobin Concent 30.4 L, Red Cell Distribution Width 14.3, Anion Gap 9, Albumin 2.1L, Magnesium Level 1.7L, Phosphorus Level 3.1 MICROBIOLOGY: Urine culture pending. IMAGING: Abdominal xray on 04/09 revealed nonspecific bowel gas pattern. Abdomen/ pelvis CT done on 04/09 revealed massively distended bladder probably due to bladder outlet obstruction, several bladder diverticula, moderate bilateral hydroureteronephrosis, prostate gland is mildly enlarged containing calcifications, small left inguinal hernia, small right pleural effusion, enlarged heart, pericardial effusion noted, gallbladder is distended, made abdominal aortic aneurysm which measures up to 5.5 cm, moderate compression fracture deformity. ASSESSMENT/PLAN: 1. Acute renal failure with moderate bilateral hydroureteronephrosis secondary to likely bladder outlet obstruction. His creatinine on March 25 was 0.97. Patient had a Mane inserted and produced a significant amount of urinary output. He was started on D5/half-normal saline at a rate of 80 mL/h. We have increased the rate to 125 mL/h. His creatinine has already improved and we anticipate continued improvement. Given his postobstructive diuresis, it is anticipated that potassium will continue to decrease and supplementation has been provided. 2. Hypernatremia. Patient's sodium increased to 158. This is likely due to postobstructive diuresis. We have already increased the rate of his fluids. His electrolytes will continue to be monitored. 3. Hypomagnesemia. This has already been repleted. 4. Hematuria. He had bladder obstruction causing significant distention of the bladder which is probably the reason for his hematuria. Order has been placed for continuous bladder irrigations. It appears that primary team has already consulted urology. 5. Epistaxis. Patient had one episode this morning which resolved with pressure. This needs to be monitored. 6. Macrocytic anemia. Continue to monitor given hematuria. It is currently 9.3. 7. Hypertension. Blood pressure is currently stable. He does not appear to be on any antihypertensives at home. 8. History of gout. Allopurinol was held on admission secondary to his acute kidney injury. 9. Advanced dementia. Patient is on Namenda. He also takes Razadyne at home. 10. GERD. Continue with Protonix. Thank you for the consultation and allowing us to participate in the care of Mr. Rivera. We will continue to follow along with you. Allergies Coded Allergies: No Known Drug Allergy (Verified Allergy, Unknown, 06/23/12) Home Medications Scheduled Allopurinol (Allopurinol) 100 Mg Tab 100 MG PO DAILY (Reported) Amoxicillin (Amoxicillin) 500 Mg Cap 500 MG PO BID (Reported) STARTED 04/02/16 FOR 7 DAYS Aspirin (Aspirin 81) 81 Mg Tab 81 MG PO DAILY (Reported) Docusate Sodium (Colace) 100 Mg Cap 100 MG PO QHS (Reported) Galantamine Hydrobromide (Razadyne ER) 8 Mg Cap 8 MG PO DAILY (Reported) Memantine Hydrochloride (Namenda) 10 Mg Tab 10 MG PO BID (Reported) Multivitamins *[facility]C STOCKED* (Thera M Plus *[facility] STOCKED*) 1 Tab Tab 1 TAB PO DAILY (Reported) Pantoprazole Sodium (Pantoprazole Sodium) 40 Mg Tab 40 MG PO DAILY (Reported) Scheduled PRN Acetaminophen (Acetaminophen ER) 650 Mg Tab 650 MG PO Q8H PRN PRN PAIN (Reported ) GME ATTESTATION GME ATTESTATION My preceptor for this patient encounter was physically present in the building during the encounter and was fully available. As needed, all aspects of the patient interview, examination, medical decision making process, and medical care plan development were reviewed and approved by the preceptor. Preceptor is aware and concurs with the plan as stated in the body of this note and will attest to such by his/her cosignature. ATTENDING NOTE Nephrology: Pt was seen and examined with the resident this AM. Cont D5 0.45% @125ml/hr for post obstructive diuresis. Will monitor the urine output and adjust the IV fluid rate accordingly. Renal function is improving. Hematuria to be managed by Urology. RAMIRO GARCIA DO Apr 10, 2016 14:53 ALONA LAWSON MD Apr 10, 2016 20:36
[2016-04-10 16:00] VITALS: BP 121/77
[2016-04-10] MEDS: DOCUSATE SODIUM 100 MG CAP PO SCH (20:00)
[2016-04-10 20:24] VITALS: BP 122/79
[2016-04-11] VITALS (8 sets, daily range): BP systolic 94–149; BP diastolic 56–79
[2016-04-11] MEDS: D5W/0.45% SODIUM CHLORIDE 1,000 ML IV SCH ×2 (01:56→08:08)
[2016-04-11 05:18] LABS: MEAN CORPUSCULAR HEMOGLOBIN 32.2 pg (27.0-33.0); MEAN CORPUSCULAR VOLUME 107.2 fl (80.0-96.0); RED CELL DISTRIBUTION WIDTH 14.4 % (11.5-14.5); WHITE BLOOD COUNT 10.8 K/mm3 (4.0-10.0)
[2016-04-11 05:31] LABS: ALBUMIN 2.1 GM/DL (3.2-5.2); CALCIUM LEVEL 7.7 MG/DL (8.8-10.2); CREATININE FOR GFR 1.68 MG/DL (0.70-1.30); GLOMERULAR FILTRATION RATE 41.2 (>35); POTASSIUM SERUM 3.9 MEQ/L (3.5-5.1)
[2016-04-11 05:57] LABS: PHOSPHORUS LEVEL 2.4 MG/DL (2.5-4.9)
[2016-04-11] MEDS: NYSTATIN 100,000 UNITS/GM TOPICAL PWD 15 GM TOP SCH ×2 (08:07→21:39)
[2016-04-11] MEDS: MEMANTINE 5MG TABLET (NAMENDA) PO SCH ×2 (08:07→21:40)
[2016-04-11] MEDS: MULTIVITAMINS/MINERALS THERAP 1 TAB PO SCH (08:07)
[2016-04-11] MEDS: PANTOPRAZOLE 40MG TAB (PROTONIX) PO SCH (08:07)
[2016-04-11 08:15] LABS: MAGNESIUM LEVEL 1.5 MG/DL (1.8-2.4)
--- NOTE | 2016-04-11 09:01 | ECGEPIP ---
Stationary ECG Study [facility] Test Date: 2016-04-10 Pat Name: ISAAC RODRÍGUEZ Department: Room: [place] [address] Gender: M [employer]: : 1925 Requested By: FELIX Howell Order Number: [id number] Reading MD: Dmitry Pace Measurements Intervals [place] Rate: 77 P: [place]: 0 QRS: 268 QRSD: 136 T: 120 QT: 390 QTc: 441 Interpretive Statements Atrial fibrillation with controlled ventricular response Left anterior fascicular block Right bundle branch block Nonspecific T wave abnormality Consider prior anterolateral WI, age indeterminate No significant change when compared to prior tracing of 04/09/2016 Electronically Signed On 04-11-2016 9:01:13 EST by Dmitry Pace
[2016-04-11] MEDS ORDERED: MAG SULF 1GM/100ML (MAG RUN) 1 GM in APPROPRIATE DILUENT 1 EA IV ONE (10:00)
--- NOTE | 2016-04-11 10:46 | CR ---
DATE OF CONSULTATION: 04/11/2016 REASON FOR CONSULTATION: Acute renal failure secondary to urinary obstruction complicated by gross hematuria. HISTORY OF PRESENT ILLNESS: The patient is an 89-year-old gentleman who was admitted to [facility] on 04/09/2016 after his caregivers noticed an abdominal mass. He had been hospitalized from March 19 to March 25 with E. coli sepsis. After going home, he had been walking, eating, and drinking normally, but there was some concern that he was not moving his bowels. He does have fairly advanced dementia and has 24-hour 7-day care at home by caregivers. I was able to obtain most of the history by one of his caregivers today. Prior to the E. coli urosepsis the caregiver does not believe that he has had any urinary issues except for a prostate problem many years ago. I was able to find a urology consultation from 2010 where he had an elevated PSA level of 5.36 and it sounds as though he had several prostate biopsies which were negative. He denied any significant irritative or obstructive voiding symptoms. On good days he is able to urinate in the bathroom when he feels the need to urinate, but he always wears a diaper. On the days where his dementia is very bad, he just urinates into the diaper. He is quite thin and they have never noticed suprapubic distension prior. During his admission, a Mane catheter was placed and according to the nurses there was some gross hematuria and this is why I was called. They started him on continuous bladder irrigation and today the urine is completely clear. It sounds like when he was having gross hematuria that he was also having bleeding from the nose and mouth of questionable etiology. The caregiver denies any previous history of gross hematuria. PAST MEDICAL HISTORY: Advanced dementia. Gastroesophageal reflux disease (GERD). High blood pressure. Gout. Recent urosepsis with E. Coli. History of an elevated PSA level with negative prostate biopsies back in 2010. Diverticulosis. Schatzki's ring. PAST SURGICAL HISTORY: None. FAMILY HISTORY: Not pertinent. SOCIAL HISTORY: He is a nonsmoker. He stopped using alcohol several years ago. He lives at home and has 24-hour caregivers. He has a cousin who lives far away who makes medical decisions for him and no family nearby, but one of his caregivers has been a very close friend for a long time. REVIEW OF SYSTEMS: Not obtainable because the patient is dementia, but what was gotten from the caregiver is in the history of present illness. MEDICATIONS AT HOME: aspirin, allopurinol, Namenda, Colace, Protonix, Razadyne, multivitamin and Tylenol. ALLERGIES: No known drug allergies are listed. PHYSICAL EXAMINATION: This is an elderly gentleman lying in a hospital bed in no apparent respiratory distress. He is not alert to person, place or time, but he does follow some instructions. He is afebrile at 96.1. His pulse was 70. His respiratory rate is 18. His blood pressure is 115/59. His pulse oximetry is 98%. His head is normocephalic, atraumatic. His neck was supple. His lungs were clear to auscultation and percussion. His heart had a regular rate and rhythm. He had no CVA tenderness. His abdomen at this time was soft and nontender. He had a Mane catheter in place and was off continuous bladder irrigation, and it was now completely yellow. He does have significant erythema , especially on his right lower side, which appears to be a yeast infection, but this is not affecting the penis at this point and his testicles are bilaterally descended. His extremities show no cyanosis, clubbing or edema. LABORATORY DATA: His white blood count is 10.8 today. Hemoglobin and hematocrit is 9.8/32.5. His platelets are 152. They were as low as 139. A urinalysis from 04/09 [id number] white blood cells per high powered field and too numerous to count red blood cells. His urine culture showed no growth. His BUN is 10 and his creatinine is 1.68. His creatinine was 4.72 on this admission, but on his previous admission it was 0.97. A CT scan from 04/09/2016 showed a massively distended bladder with mildly enlarged prostate gland with calcifications. Other findings were an enlarged heart. A 5.5 cm triple abdominal aortic aneurysm (AAA) and a small left inguinal hernia with compression fractures in his spine. IMPRESSION 1. Recent episode of E. coli urosepsis followed by external yeast and severe irritation, discharged from the hospital on 03/25, now found to be in acute renal failure with an admission creatinine of 4.72 secondary to urinary retention which was complicated after a Mane catheter was placed with gross hematuria. Creatinine is now 1.68 with Mane catheter drainage. 2. Advanced dementia in a patient who lives at home with 24-hour caregivers. 3. History of an elevated PSA level back in 05/30 of 5.36 with a negative prostate biopsy and CT scan does show a mildly enlarged prostate gland with calcifications, but the caregivers deny any significant irritative or obstructive voiding symptoms that they know of prior to this episode of retention. PLAN: 1. Discontinue CBI at this time since the urine is completely clear and we will restart as needed. 2. Send a PSA level just to make sure that it is not very significantly elevated since this could be the reason for his urinary retention. 3. Continue Mane catheter drainage for at least 7-10 days and then at some point a voiding trial can probably be restarted. 4. Recommend an outpatient cystoscopy to rule out any other significant abnormalities for the bleeding, but at the time he was also having bleeding from the nose and mouth so most likely this was just catheter irritation and some sort of coagulopathy. Thank you for allowing me to participate in the care of this patient. Please let me know if I can be of any further assistance in the future. BENJAMÍN
--- NOTE | 2016-04-11 12:37 | IPNPDOC ---
Date/Time Seen The patient was seen on 04/11/16 at 12:24. Progress Note DATE OF ENCOUNTER: 04/11/2016 SUBJECTIVE: Mr. Rivera was seen this morning at bedside. No acute overnight issues. His friend and caregiver were present in the room and all questions were addressed. His friend was feeding him some apple sauce. He appeared comfortable. Review of systems is unobtainable secondary to patient having advanced dementia. OBJECTIVE: Vital Signs Date Time Temp Pulse Resp B/P Pulse Ox O2 Delivery O2 Flow Rate FiO2 04/11/16 12:00 96.0 72 18 98/60 95 Room Air I&O- Last 24 Hours up to 6 AM 04/11/16 06:00 Intake Total 4380 ml Output Total 3385 ml Balance 995 ml PHYSICAL EXAMINATION: GENERAL: Patient is awake and alert. Does not appear to be in any acute distress. HEENT: Normocephalic, atraumatic. Extraocular muscles are intact. Moist mucosa. NECK: Supple. No thyromegaly. Trachea is midline. No jugular venous distention appreciated. HEART: Normal S1, S2. Heart sounds regular. Positive for systolic ejection murmur. LUNGS: Clear to auscultation bilaterally. No rales, rhonchi or wheezing. ABDOMEN: Soft. Nontender. Bowel sounds are present. No rebound, guarding or rigidity. EXTREMITIES: No cyanosis or edema. Positive pedal pulses bilaterally. NEUROLOGICAL: No focal deficit. Moving all extremities. LABORATORY DATA: 04/11/16 04:46 Red Blood Count 3.03 L, Mean Corpuscular Volume 107.2 H, Mean Corpuscular Hemoglobin 32.2, Mean Corpuscular Hemoglobin Concentration 30.0 L, Red Cell Distribution Width 14.4, Anion Gap 10, Albumin 2.1L, Anion Gap 10, Calcium Level 7.7L, Glomerular Filtration Rate 41.2, Magnesium Level 1.5L, Phosphorus Level 2.4L MICROBIOLOGY: Urine culture negative. IMAGING: Abdominal xray on 04/09 revealed nonspecific bowel gas pattern. Abdomen/ pelvis CT done on 04/09 revealed massively distended bladder probably due to bladder outlet obstruction, several bladder diverticula, moderate bilateral hydroureteronephrosis, prostate gland is mildly enlarged containing calcifications, small left inguinal hernia, small right pleural effusion, enlarged heart, pericardial effusion noted, gallbladder is distended, made abdominal aortic aneurysm which measures up to 5.5 cm, moderate compression fracture deformity. ASSESSMENT/PLAN: 1. Acute renal failure with moderate bilateral hydroureteronephrosis secondary to bladder outlet obstruction. His creatinine on March 25 was 0.97. Patient had a Mane inserted and produced a significant amount of urine. His creatinine has significantly improved. Fluids have been changed to D5W at 100 mL/h. Given his postobstructive diuresis, potassium was added to his fluids. Repeat renal profile at 1600. 2. Hypernatremia, likely secondary to postobstructive diuresis. Patient's sodium has improved to 152. We anticipate continued improvement with changing his fluids over to D5W. 3. Hypomagnesemia. This is being repleted. 4. Hyperchloremic metabolic acidosis. Patient has been initiated on Bicitra three times daily to assist with resolution of his acidosis. 5. Hematuria. Patient's urine has cleared up. Urology was consulted and they have recommended to continue with his Mane catheter and he will need outpatient cystoscopy. They have also check a PSA level. 6. Epistaxis. Had one episode yesterday. No recurrence. 7. Macrocytic anemia. Hemoglobin is currently stable. No intervention needed at this time. 8. Hypertension. Blood pressure is currently stable. He does not appear to be on any antihypertensives at home. 9. History of gout. Allopurinol was held on admission secondary to his acute kidney injury. 10. Advanced dementia. Patient is on Namenda and [place]. GME ATTESTATION GME ATTESTATION My preceptor for this patient encounter was physically present in the building during the encounter and was fully available. As needed, all aspects of the patient interview, examination, medical decision making process, and medical care plan development were reviewed and approved by the preceptor. Preceptor is aware and concurs with the plan as stated in the body of this note and will attest to such by his/her cosignature. ATTENDING NOTE Nephrology: Pt examined at bedside during rounds. IV D5W for Hypernatremia. cont to encourage oral intake. Renal function improving. Hematuria improved.Pt to go home with Mane and follow up with urology as outpatient. RAMIRO GARCIA DO Apr 11, 2016 12:37 ALONA LAWSON MD Apr 12, 2016 12:07
[2016-04-11] MEDS: POTASSIUM CHLORIDE INJ 40 MEQ in D5W 1,000 ML IV SCH (12:56)
[2016-04-11] MEDS: BICITRA 30ML SOLN UDC PO SCH ×3 (12:57→21:39)
--- NOTE | 2016-04-11 13:22 | IPNPDOC ---
Text Note Date of Service The patient was seen on 04/11/16 at 13:16. NOTE Subjective: Patient is an 89 year old male with PMHx of Advanced dementia, HTN, Diverticulosis, Schatzki rings, Gout, and GERD who presented to the ED with abdominal distension and pain. Patient was recently at [facility] for urinary tract infection and bacteremia. In the ER the family was concerned for constipation, but patient was found to have urinary retention, GAUDENCIO and hyperkalemia. Patient was seen and examined at the bedside. He is able to make a few understandable words. Objective: Vitals (See below) General: Lying in bed, no acute distress, comfortable, Awake + alert HEENT: NC, AT CVS: RRR, +S1S2 Lungs: Fair air entry b/l, -w/r/r Abdomen: Soft, ND, NT, +BSx4 Extremities: -edema, -calf tenderness Assessment and plan: 1. Acute renal failure - likely 2/2 post-renal etiology 2/2 obstruction - possibly 2/2 BPH - Presented with abdominal pain - Found to have distended bladder, large volume diuresis after urinary catheter was placed - Cr baseline of 0.8-1.0 - CT abdomen: 04/09: small R pleural effusion, mid AAA at 5.5 cm, bladder distention, b/l hydroureteronephrosis, prostate enlargement with calcification - c/w IV hydration - Urology following - will discontinue bladder irrigation, check PSA, voiding trial in 7-10 days from admission, outpatient cystoscopy - Nephrology (Dr. Maldonado) has been consulted - appreciate their input 2. Hematuria - possibly 2/2 bladder over distention vs traumatic Mane insertion - resolved - s/p bladder irrigation - will monitor for now 3. s/p Hyperkalemia with EKG changes - EKG with initial peaked T waves - s/p Kayexylate 30 grams 4. Hypernatremia - Free water defect of 2.4 liters (Assuming target of 140) - Fluids have been changed to D5 1/2 NS from NS - Nephrology (Dr. Maldonado) has been consulted - appreciate their input 5. s/p Thrombocytopenia - will continue to monitor 6. AAA - Size of 5.[address] abdomen 04/09 - Will discuss with primary care provider about prior imaging - Will need outpatient referral to vascular surgery 7. Macrocytic anemia - Reticulocyte index of 0.8 - hypoproliferative - B12 and Folate normal - Will follow Hg 8. Hypomagnesemia - s/p supplementation 9. Gout - allopurinol on hold 10. Advanced dementia - c/w Memantine 11. GI prophylaxis - c/w protonix 12. DVT prophylaxis - c/w SCD VS,Fishbone, I+O VS, Fishbone, I+O Laboratory Tests 04/11/16 04:46 Anion Gap 10, Red Blood Count 3.03 L, Mean Corpuscular Volume 107.2 H, Mean Corpuscular Hemoglobin 32.2, Mean Corpuscular Hemoglobin Concent 30.0 L, Red Cell Distribution Width 14.4 Vital Signs Date Time Temp Pulse Resp B/P Pulse Ox O2 Delivery O2 Flow Rate FiO2 04/11/16 12:00 96.0 72 18 98/60 95 Room Air I&O- Last 24 Hours up to 6 AM 04/11/16 06:00 Intake Total 4380 ml Output Total 3385 ml Balance 995 ml EVELYN HOWARD MD Apr 11, 2016 13:22
[2016-04-11 16:38] LABS: ALBUMIN 2.1 GM/DL (3.2-5.2); CALCIUM LEVEL 7.6 MG/DL (8.8-10.2); CREATININE FOR GFR 1.32 MG/DL (0.70-1.30); GLOMERULAR FILTRATION RATE 54.4 (>35); PHOSPHORUS LEVEL 2.1 MG/DL (2.5-4.9); POTASSIUM SERUM 3.7 MEQ/L (3.5-5.1)
[2016-04-11] MEDS: DOCUSATE SODIUM 100 MG CAP PO SCH (21:40)
--- NOTE | 2016-04-12 00:27 | EDDOCDS ---
Nurse's Notes [facility] Name: Pierre Rodríguez Age: 89 yrs Sex: Male : 1925 Arrival Date: 04/09/2016 Time: 14:20 Bed 6 Private MD: Diagnosis: Acute kidney failure;Retention of urine;Hyperosmolality and hypernatremia Presentation: 04/09 14:26 Presenting complaint: EMS states: swelling to right side abdomen since this morning kc3 noticed by home health aid. Aid also reports pt with mild fever at home of 99.5. Aid also reports pt with bilateral feet swelling x 1 week. Adult Sepsis Screening: The patient does not have new or worsening altered mentation. Patient has a respiratory rate of greater than or equal to 22 (1 point). Systolic blood pressure is greater than 100. Patient has a qSOFA score of 1- Negative Sepsis Screen. Suicide/Homicide risk assessment- the patient denies having any suicidal and/or homicidal ideations and does not present with any other emotional, behavioral or mental health complaints. 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 Transition of care: patient was not received from another setting of care. 14:26 Acuity: MICHELLE Level 3 kc3 14:26 Method Of Arrival: Ambulance kc3 Triage Assessment: 14:46 General: Appears in no apparent distress, comfortable, Behavior is appropriate for age, kc3 cooperative. General: Behavior is drowsy. Pain: Unable to use pain scale. does not understand r/t alzheimers. The patient is triaged at the bedside. See Assessment in Nurses Notes section of ED record. Neurological: Level of Consciousness is awake. Cardiovascular: Capillary refill < 3 seconds. Respiratory: Respiratory effort is even, unlabored. GI: Abdomen is distended, noted to have ascites, Bowel sounds present X 4 quads. Abd is rigid in right upper quadrant and right lower quadrant. Derm: Skin is pink, warm & dry. Derm: Swollen area noted on right foot and left foot. Musculoskeletal: Circulation, motion, and sensation intact. Historical: - Allergies: no known allergies; - Home Meds: 1. allopurinol 100 mg Oral tab once daily 2. aspirin 81 mg Oral cpDR 1 tab once daily 3. Namenda 10 mg oral tab 1 tab 2 times per day 4. Razadyne ER 8 mg oral TbER once daily 5. Colace 100 mg oral cap 1 cap once daily 6. Protonix 40 mg Oral TbEC 1 tab once daily 7. acetaminophen 325 mg Oral tab 2 tabs every 4 hours as needed 8. multivitamin Oral tab daily - PMHx: Alzheimers; GERD; Gout; Aortic Valve Disorder; AV block 1st degree; Hypertension; - Social history: Smoking status: Patient states former smoker of tobacco. No barriers to communication noted, The patient speaks fluent [place]araguan, Speaks appropriately for age. - Family history: Not pertinent. - : The pt / caregiver states he / she is not on anticoagulants. Home medication list is obtained from the caregiver. - Exposure Risk Screening:: None identified. Screenin:49 Screening information is obtained from the caregiver. Fall risk: At risk due to gait kc3 disturbance, The following interventions are performed due to a positive Fall Risk Screen: Fall Risk is added to Special Handling on the patient Summary Screen. A Fall Risk Bracelet was applied to the patient. Side Rails are placed in the up position. A Call Matos is given with instruction to call for help when getting out of bed. Fall Alert bracelet is placed on the patient. Assistance ADL's: Requires assistance with meal preparation, this assistance is provided by Home Health Aides, bathing, assistance is provided by Home Health Aides, dressing, assistance is provided by Home Health Aides, toileting, assistance is provided by Home Health Aides, ambulation, assistance is provided by Home Health Aides, housework, assistance is provided by Home Health Aides, medication administration, assistance is provided by Public Health nurses. Abuse/DV Screen: The patient / caregiver reports he/she is: not in a situation that causes fear, pain or injury. Nutritional screening: No deficits noted. Advance Directives: Currently, there is a health care proxy, nghia Rodriguezsin. There is an active DNR order and the pt has a copy here at this time. home support is adequate. Assessment: 14:51 General: See triage for initial assessment. . kc3 16:18 General: Appears in no apparent distress, comfortable, Behavior is cooperative. Pain: jf3 Unable to use pain scale. Does not appear to understand pain scale. r/t alzheimers. Neurological: Level of Consciousness is awake, alert. Cardiovascular: Capillary refill < 3 seconds Heart tones S1 S2 present. Respiratory: Airway is patent Respiratory effort is even, unlabored, Respiratory pattern is regular, symmetrical, Breath sounds are diminished bilaterally. GI: Abdomen is distended on RLQ. abdomen is firm in this location, soft in other quadrants. Pt does not appear to be in pain when palpating firm area of abdomen or other areas of abdomen. : Parent/caregiver report the patient having incontinence Pt with large rash covering entire genital area. Several small open areas noted around and on genitals. Derm: Skin is pale. Musculoskeletal: 17:11 General: Appears in no apparent distress, comfortable, Behavior is cooperative, Pt jf3 resting supine on stretcher with caregiver at bedside. incontinent with stool x1, cleaned and changed. Stool brown, formed, hard, moderate size. 18:15 General: Appears in no apparent distress, comfortable, Behavior is cooperative, Pt jf3 resting supine on stretcher with caregiver at bedside. Respirations easy and unlabored. Will continue to monitor. 19:30 General: Appears in no apparent distress, comfortable, Behavior is cooperative, Pt jf3 resting side lying on stretcher. Incontinent of stool. Large soft BM. Respirations easy and unlabored. personal caregiver at bedside. Will continue to monitor. 20:30 General: Appears in no apparent distress, comfortable, Behavior is cooperative. jf3 Neurological: Level of Consciousness is awake, alert. Cardiovascular: Capillary refill < 3 seconds. Respiratory: Airway is patent Respiratory effort is even, unlabored, Respiratory pattern is regular, symmetrical. 21:23 General: Appears in no apparent distress, comfortable, Behavior is agitated, Pt jf3 becoming agitated and uncooperative when attempting any type of nursing care. Neurological: Level of Consciousness is awake, alert. Cardiovascular: Capillary refill < 3 seconds. Respiratory: Airway is patent Respiratory effort is even, unlabored, Respiratory pattern is regular, symmetrical. GI: other Pt with copius amount of soft and liquid stool, incontinent. Derm: Skin is pale. 22:30 General: Appears in no apparent distress, comfortable, Behavior is cooperative, Pt jf3 resting supine on stretcher with caregiver at bedside. respirations easy and unlabored. Will continue to monitor. 23:22 General: Appears in no apparent distress, comfortable, Behavior is agitated, jf3 incontinent with copius liquid stool. Neurological: Level of Consciousness is awake, alert. Cardiovascular: Capillary refill < 3 seconds. Respiratory: Airway is patent Respiratory effort is even, unlabored, Respiratory pattern is regular, symmetrical. GI: Abdomen is abdomen is now soft and non distended after release of urine. Derm: Skin is pale. Vital Signs: 14:33 BP 139 / 92; Pulse 74; Resp 24; Temp 97.8(TE); Pulse Ox 96% on R/A; Weight 58.97 kg; kc3 Height 5 ft. 5 in. (165.10 cm); 15:01 Pulse 74 MON; Pulse Ox 91% ; jf3 15:02 BP 124 / 79 (auto/); jf3 15:31 Pulse 74 MON; Pulse Ox 99% ; jf3 15:32 BP 149 / 83 (auto/); jf3 16:09 Pulse 80 MON; Pulse Ox 97% ; jf3 16:10 BP 143 / 89 (auto/); jf3 16:16 Pulse 78 MON; Pulse Ox 97% ; jf3 16:17 BP 150 / 92 (auto/); jf3 16:31 Pulse 78 MON; Pulse Ox 97% ; jf3 16:32 BP 149 / 92 (auto/); jf3 16:46 Pulse 80 MON; Pulse Ox 93% ; jf3 16:47 BP 147 / 99 (auto/); jf3 17:02 BP 148 / 80 (auto/); jf3 17:07 Pulse 84 MON; Pulse Ox 95% ; jf3 17:17 BP 149 / 93 (auto/); jf3 17:22 Pulse 76 MON; Pulse Ox 94% ; jf3 17:29 Pulse 80 MON; Pulse Ox 96% ; jf3 17:32 BP 138 / 81 (auto/); jf3 17:41 Pulse 106 MON; Pulse Ox 91% ; jf3 17:47 BP 129 / 99 (auto/); jf3 17:53 Pulse 84 MON; Pulse Ox 91% ; jf3 18:02 BP 136 / 91 (auto/); jf3 18:17 BP 141 / 111 (auto/); jf3 18:32 BP 131 / 89 (auto/); jf3 18:32 Pulse 86 MON; Pulse Ox 95% ; jf3 18:45 Pulse 82 MON; Pulse Ox 98% ; jf3 18:47 BP 139 / 87 (auto/); jf3 19:02 BP 174 / 84 (auto/); jf3 19:02 Pulse 80 MON; jf3 19:17 BP 139 / 92 (auto/); jf3 19:36 Pulse 86 MON; Pulse Ox 98% ; jf3 19:42 BP 136 / 92 (auto/); jf3 19:42 Pulse 80 MON; Pulse Ox 98% ; jf3 19:47 BP 128 / 96 (auto/); jf3 19:47 Pulse 82 MON; Pulse Ox 97% ; jf3 20:02 BP 149 / 97 (auto/); jf3 20:02 Pulse 82 MON; Pulse Ox 95% ; jf3 20:16 Pulse 82 MON; Pulse Ox 98% ; jf3 20:17 BP 140 / 94 (auto/); jf3 20:31 Pulse 76 MON; Pulse Ox 100% ; jf3 20:32 BP 156 / 101 (auto/); jf3 20:47 BP 150 / 93 (auto/); jf3 20:47 Pulse 84 MON; Pulse Ox 99% ; jf3 21:22 BP 157 / 93; Pulse 96; Resp 18; Temp 98.3; Pulse Ox 96% on R/A; jf3 23:22 BP 150 / 90; Pulse 82; Resp 18; Temp 98.2(TE); Pulse Ox 97% on R/A; jf3 14:33 Body Mass Index 21.63 (58.97 kg, 165.10 cm) 3 Vitals: 14:33 Log In Time N/A - ambulance arrival. 3 ED Course: 14:21 Patient visited by Janet Sharp, Web Applications Administrator. deg 14:21 Patient moved to Waiting deg 14:22 Patient moved to 6 deg 14:33 Triage Initiated kc3 14:51 The patient / caregiver is instructed regarding the plan of care and ED course. kc3 14:56 [facility] Benavides FNP is [facility]. le 15:06 Patient visited by Miley Benavides FNP. le 15:18 Patient visited by Miley Benavides FNP. le 16:17 Patient visited by Alexander Jennings PCA. jl 16:18 Inserted saline lock: 20 gauge in right forearm placed by Casandra Urbina RN. No jf3 procedures done that require assistance. 16:53 Patient visited by Alexander Jennings PCA. jlf 16:58 Straight cath inserted 16 Fr. returned lyndsey urine. Patient tolerated well. jf3 17:13 Patient visited by Timothy Thomas RN. jf3 17:14 Abdomen, Flat\E\Upright,PA Chest Returned. EDMS 18:27 Patient visited by Alexander Jennings PCA. jlf 18:27 Patient visited by Alexander Jennings PCA. jlf 18:27 EKG done. (by ED staff). Reviewed by Miley BENAVIDEZ. jlf 18:30 [facility] [place] Agreement was scanned into [employer] and attached to record. gjb 18:39 Patient visited by Timothy Thomas RN. jf3 19:58 Patient visited by Timothy Thomas RN. jf3 20:06 CT ABD & PELVIS: Oral Contrast Only Returned. EDMS 20:10 Patient visited by Timothy Thomas RN. jf3 20:15 Paul Wright MD is Hospitalizing Provider. le 21:22 Patient visited by Brittney Conner, Web Applications Administrator. jlm 21:23 Mane cath inserted 16 Fr. Balloon inflated. To gravity drainage. returned bloody jf3 urine. Patient tolerated well. 21:58 EKG-ADULT Returned. EDMS 22:31 Patient visited by Timothy Thomas RN. jf3 04/10 10:36 T-Sheet-- Draft Copy was scanned into [employer] and attached to record. gb 10:36 ECG/EKG was scanned into [employer] and attached to record. gb 10:37 Radiology Report was scanned into [employer] and attached to record. gb 10:37 Other: MOLST was scanned into [employer] and attached to record. gb Administered Medications: 04/09 16:15 Drug: NS 0.9% 1000 ml [sodium chloride 0.9 % injection solution] Route: IV; Rate: 100 jf3 mL/hr; Site: right forearm; 17:20 Drug: Diatrizoate Meglumine & Sodium 10 ml [diatrizoate meglumine and diat.sodium 66 jf3 %-10 % oral solution (10 mL)] Route: PO; 17:28 CANCELLED (Other Intervention Used): NS 0.9% 1000 ml IV at bolus once le 17:50 Drug: Diatrizoate Meglumine & Sodium 10 ml [diatrizoate meglumine and diat.sodium 66 jf3 %-10 % oral solution (10 mL)] Route: PO; 18:07 Drug: Polystyrene 30 grams [sodium polystyrene sulfonate 15 gram/60 mL oral suspension jf3 (120 mL)] Route: PO; 18:48 Drug: D5W 1000 ml [dextrose 5 % in water (D5W) intravenous solution] Route: IV; Rate: rs3 120 mL/hr; Site: right forearm; Output: 22:30 Urine: 2475.00ml (Mane); Total: 2475.00ml. jf3 Order Results: Lab Order: Basic Metabolic Profile; SPEC'M 04/09/16 16:08 Test: GLUCOSE, FASTING; Value: 99; Range: 83-110; Units: MG/DL; Status: F Test: BLOOD UREA NITROGEN; Value: 61; Range: 7-18; Abnormal: Above high normal; Units: MG/DL; Status: F Test: CREATININE FOR GFR; Value: 4.72; Range: 0.70-1.30; Abnormal: Above high normal; Units: MG/DL; Status: F Test: GLOMERULAR FILTRATION RATE; Value: 12.5; Range: >35; Abnormal: Below low normal; Status: F Test: SODIUM LEVEL; Value: 155; Range: 136-145; Abnormal: Above high normal; Units: MEQ/L; Status: F Test: POTASSIUM SERUM; Value: 5.4; Range: 3.5-5.1; Abnormal: Above high normal; Units: MEQ/L; Status: F Test: CHLORIDE LEVEL; Value: 125; Range: 98-107; Abnormal: Above high normal; Units: MEQ/L; Status: F Test: CARBON DIOXIDE LEVEL; Value: 22; Range: 21-32; Units: MEQ/L; Status: F Test: ANION GAP; Value: 8; Range: 8-16; Units: MEQ/L; Status: F Test: CALCIUM LEVEL; Value: 8.6; Range: 8.8-10.2; Abnormal: Below low normal; Units: MG/DL; Status: F Test Note: ; Units are mL/min/1.73 m2 Chronic Kidney Disease Staging per NKF: Stage I & II GFR >=60 Normal to Mildly Decreased Stage III GFR 30-59 Moderately Decreased Stage IV GFR 15-29 Severely Decreased Stage V GFR <15 Very Little GFR Left ESRD GFR <15 on CAR FRAMER Lab Order: CBC with Diff; SPEC'M 01/19/17 16:08 Test: WHITE BLOOD COUNT; Value: 9.2; Range: 4.0-10.0; Units: K/mm3; Status: F Test: RED BLOOD COUNT; Value: 3.43; Range: 4.30-6.10; Abnormal: Below low normal; Units: M/mm3; Status: F Test: HEMOGLOBIN; Value: 10.9; Range: 14.0-18.0; Abnormal: Below low normal; Units: g/dl; Status: F Test: HEMATOCRIT; Value: 36.1; Range: 42.0-52.0; Abnormal: Below low normal; Units: %; Status: F Test: MEAN CORPUSCULAR VOLUME; Value: 105.2; Range: 80.0-96.0; Abnormal: Above high normal; Units: fl; Status: F Test: MEAN CORPUSCULAR HEMOGLOBIN; Value: 31.7; Range: 27.0-33.0; Units: pg; Status: F Test: MEAN CORPUSCULAR HGB CONC; Value: 30.1; Range: 32.0-36.5; Abnormal: Below low normal; Units: g/dl; Status: F Test: RED CELL DISTRIBUTION WIDTH; Value: 14.0; Range: 11.5-14.5; Units: %; Status: F Test: PLATELET COUNT, AUTOMATED; Value: 158; Range: 150-450; Units: k/mm3; Status: F Test: NEUTROPHILS %; Value: 77.7; Range: 36.0-66.0; Abnormal: Above high normal; Units: %; Status: F Test: LYMPH %; Value: 13.1; Range: 24.0-44.0; Abnormal: Below low normal; Units: %; Status: F Test: MONO %; Value: 4.2; Range: 0.0-5.0; Units: %; Status: F Test: EOS %; Value: 2.9; Range: 0.0-3.0; Units: %; Status: F Test: BASO %; Value: 0.6; Range: 0.0-1.0; Units: %; Status: F Test: LARGE UNSTAINED CELL %; Value: 1.6; Range: 0.0-4.0; Units: %; Status: F Test: NEUTROPHILS #; Value: 7.2; Range: 1.8-7.7; Units: K/mm3; Status: F Test: LYMPH #; Value: 1.4; Range: 1.5-4.5; Abnormal: Below low normal; Units: K/mm3; Status: F Test: MONO #; Value: 0.4; Range: 0.0-0.8; Units: K/mm3; Status: F Test: EOS #; Value: 0.3; Range: 0.0-0.50; Units: K/mm3; Status: F Test: BASO #; Value: 0.0; Range: 0.0-0.2; Units: K/mm3; Status: F Test: LARGE UNSTAINED CELL #; Value: 0.1; Range: 0.0-0.4; Units: K/mm3; Status: F Lab Order: Lipase; [facility] 04/09/16 16:08 Test: LIPASE; Value: 109; Range: 73-393; Units: U/L; Status: F Lab Order: Liver Profile; [facility] 04/09/16 16:08 Test: AST/SGOT; Value: 25; Range: 15-37; Units: U/L; Status: F Test: ALT/SGPT; Value: 18; Range: 12-78; Units: U/L; Status: F Test: ALKALINE PHOSPHATASE; Value: 106; Range: 45-117; Units: U/L; Status: F Test: BILIRUBIN,TOTAL; Value: 0.2; Range: 0.2-1.0; Units: MG/DL; Status: F Test: BILIRUBIN,DIRECT; Value: 0.1; Range: 0.0-0.2; Units: MG/DL; Status: F Test: TOTAL PROTEIN; Value: 6.7; Range: 6.4-8.2; Units: GM/DL; Status: F Test: ALBUMIN; Value: 2.4; Range: 3.2-5.2; Abnormal: Below low normal; Units: GM/DL; Status: F Test: ALBUMIN/GLOBULIN RATIO; Value: 0.56; Range: 1.00-1.93; Abnormal: Below low normal; Status: F Lab Order: Urinalysis; [facility] 04/09/16 16:08 Test: APPEARANCE, URINE; Value: HAZY; Range: CLEAR; Status: F Test: COLOR, URINE; Value: YELLOW; Range: YELLOW; Status: F Test: PH,URINE; Value: 6.0; Range: 5.0-9.0; Units: UNITS; Status: F Test: SPECIFIC GRAVITY URINE AUTO; Value: 1.010; Range: 1.002-1.035; Status: F Test: PROTEIN, URINE AUTO; Value: NEGATIVE; Range: NEGATIVE; Units: mg/dL; Status: F Test: GLUCOSE, URINE (UA) AUTO; Value: NEGATIVE; Range: NEGATIVE; Units: mg/dL; Status: F Test: KETONE, URINE AUTO; Value: NEGATIVE; Range: NEGATIVE; Units: mg/dL; Status: F Test: UROBILINOGEN, URINE AUTO; Value: 0.2; Range: 0.0-2.0; Units: mg/dL; Status: F Test: BILIRUBIN, URINE AUTO; Value: NEGATIVE; Range: NEGATIVE; Status: F Test: NITRITE, URINE AUTO; Value: NEGATIVE; Range: NEGATIVE; Status: F Test: LEUKOCYTE ESTERASE, URINE AUTO; Value: NEGATIVE; Range: NEGATIVE; Status: F Test: BLOOD, URINE BLOOD; Value: 3+; Range: NEGATIVE; Abnormal: Above high normal; Status: F Test: WBC, URINE AUTO; Value: 16; Range: 0-3; Abnormal: Above high normal; Units: /HPF; Status: F Test: RBC, URINE AUTO; Value: TNTC; Range: 0-3; Abnormal: Above high normal; Units: /HPF; Status: F Test: BACTERIA, URINE AUTO; Value: NEGATIVE; Range: NEGATIVE; Status: F Test: SQUAMOUS EPITHELIAL CELL UR AU; Value: 0; Range: 0-6; Units: /HPF; Status: F Test: MUCUS, URINE; Value: SMALL; Range: NEGATIVE; Status: F Test: HYALINE CAST, URINE AUTO; Value: 0; Range: 0-1; Units: /LPF; Status: F Test: AMORPHOUS SEDIMENT; Value: SMALL; Range: NEGATIVE; Abnormal: Above high normal; Status: F Radiology Order: Abdomen, Flat\E\Upright,PA Chest Test: Abdomen, Flat\E\Upright,PA Chest REASON FOR EXAMINATION: large mass RLQ, ? stool burden; ABDOMEN, FLAT UPRIGHT PA CHEST, THREE VIEWS:; ; HISTORY: Right lower quadrant mass.; ; Air is present in the small and large intestine. Several air fluid levels are; present. There are no dilated loops of intestine. There is no pneumoperitoneum.; The lungs are clear. 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 large obstructive mass RLQ; ; CLINICAL HISTORY: ? Large obstructive mass right lower quadrant.; ; TECHNIQUE: Multiple axial CT images were obtained through the abdomen and pelvis after administratio; n of oral contrast material only.; ; COMMENTS:; The liver is of uniform attenuation without mass or defect. There is no intra or extrahepatic biliar; y ductal dilatation. The spleen is normal. The gallbladder is distended. No evidence of gallstones; . The pancreas is of normal contour and attenuation characteristics. There is no evidence of adrena; l mass.; ; The kidneys are normal in size, shape and configuration. No renal or ureteral calculi are identified; . There is moderate bilateral hydroureteronephrosis likely due to bladder distention.; ; There is no evidence for appendicitis. Diffuse sigmoid diverticulosis is present. There is no bowel; wall thickening. No evidence for small or large bowel obstruction. There is no evidence of abdomina; l ascites or lymphadenopathy. There is evidence of mid abdominal aortic aneurysm which measures up t; o 5.5 cm in cross-section.; ; The bladder is massively distended. There are several bladder diverticula noted. There is no pelvic; ascites or lymphadenopathy.; ; Prostate gland is mildly enalrged containing calcifications. Bladder distention is probably due to b; ladder outlet obstruction. There is a smal left inguinal henia containing fat and fluid.; ; Images of the lung bases show no evidence of pleural or parenchymal mass. There are no pleural effus; ions. Small right pleural effusion is seen. Scarring is seen at both lung bases. Heart is enlarged; . There is pericardial effusion noted.; ; The bony structures are free of lytic or blastic lesions. Multilevel degenerative changes are seen i; nvolving the thoracolumbar spine. There are moderate compression fracture deformities noted involvin; g T12, L1 and L2 vertebral body.; ; Scattered calcifications are seen involving the aorta and major branches compatible with atherosclero; sis.; ; IMPRESSION:; 1. Small right pleural effusion is seen. Scarring is seen at both lung bases.; 2. Heart is enlarged. There is pericardial effusion noted.; 3. The gallbladder is distended.; 4. There is evidence of mid abdominal aortic aneurysm which measures up to 5.5 cm in cross-section.; 5. The bladder is massively distended probably due to bladder outlet obstruction. . There are sever; al bladder diverticula noted.; 6. There is moderate bilateral hydroureteronephrosis likely due to bladder distention.; 7. Prostate gland is mildly enalrged containing calcifications.; 8. There is a smal left inguinal henia containing fat and fluid.; 9. There are moderate compression fracture deformities noted involving T12, L1 and L2 vertebral body; .; ; ; Thank you for your kind referral of this patient. We appreciate the opportunity to participate in [facility]; s patient's care.; ; ; Outcome: 20:16 Decision to Hospitalize by Provider. le 23:24 Discharge Assessment: patient administered narcotics - no. The following High Risk jf3 Discharge criteria are identified: None. Admitted to PCU accompanied by nurse, accompanied by tech, via stretcher, on monitor, with chart. Condition: good. CT Study completed. Property :Personal belongings accompany Pt. 23:26 Patient left the ED. jf3 Signatures: Dispatcher [employer] EDMS Janet Sharp, Web Applications Administrator Unit deg Shereen Taylor, Reg Reg gb Miley Benavides, VETERINARY MEDICAL OFFICER VETERINARY MEDICAL OFFICER Kavya Bloom,RN RN rs3 Alexander Jennings, COMMUNICATION SPEC COMMUNICATION SPEC jlf Brittney Conner, Web Applications Administrator Unit jlm Heide Urbina,RN RN kc3 Timothy Thomas RN RN jf3 Jeanne Marsh Corrections: (The following items were deleted from the chart) 21: 16:18 : Parent/caregiver report the patient having incontinence jf3 jf3 21:28 21:22 Temp 98.3F; jorge jf3 Chart Complete MTDD
--- NOTE | 2016-04-12 00:27 | EDDOCDS ---
Physician Documentation [facility] Name: Pierre Rivera Age: 89 yrs Sex: Male : 1925 Arrival Date: 04/09/2016 Time: 14:20 Bed 6 Private MD: Disposition: 04/09/16 20:16 Hospitalization ordered by Paul Wright for Inpatient Admission. Preliminary diagnosis are Acute kidney failure, Retention of urine, Hyperosmolality and hypernatremia. - [facility] - Status is Inpatient Admission. jf3 - Condition is Stable. - Problem is new. - Symptoms are unchanged. Historical: - Allergies: no known allergies; - Home Meds: 1. allopurinol 100 mg Oral tab once daily 2. aspirin 81 mg Oral cpDR 1 tab once daily 3. Namenda 10 mg oral tab 1 tab 2 times per day 4. Razadyne ER 8 mg oral TbER once daily 5. Colace 100 mg oral cap 1 cap once daily 6. Protonix 40 mg Oral TbEC 1 tab once daily 7. acetaminophen 325 mg Oral tab 2 tabs every 4 hours as needed 8. multivitamin Oral tab daily - PMHx: Alzheimers; GERD; Gout; Aortic Valve Disorder; AV block 1st degree; Hypertension; - Social history: Smoking status: Patient states former smoker of tobacco. No barriers to communication noted, The patient speaks fluent Italian, Speaks appropriately for age. - Family history: Not pertinent. - : The pt / caregiver states he / she is not on anticoagulants. Home medication list is obtained from the caregiver. - Exposure Risk Screening:: None identified. Vital Signs: 04/09 14:33 BP 139 / 92; Pulse 74; Resp 24; Temp 97.8(TE); Pulse Ox 96% on R/A; Weight 58.97 kg / kc3 130.01 lbs; Height 5 ft. 5 in. (165.10 cm); 15:01 Pulse 74 MON; Pulse Ox 91% ; jf3 15:02 BP 124 / 79 (auto/); jf3 15:31 Pulse 74 MON; Pulse Ox 99% ; jf3 15:32 BP 149 / 83 (auto/); jf3 16:09 Pulse 80 MON; Pulse Ox 97% ; jf3 16:10 BP 143 / 89 (auto/); jf3 16:16 Pulse 78 MON; Pulse Ox 97% ; jf3 16:17 BP 150 / 92 (auto/); jf3 16:31 Pulse 78 MON; Pulse Ox 97% ; jf3 16:32 BP 149 / 92 (auto/); jf3 16:46 Pulse 80 MON; Pulse Ox 93% ; jf3 16:47 BP 147 / 99 (auto/); jf3 17:02 BP 148 / 80 (auto/); jf3 17:07 Pulse 84 MON; Pulse Ox 95% ; jf3 17:17 BP 149 / 93 (auto/); jf3 17:22 Pulse 76 MON; Pulse Ox 94% ; jf3 17:29 Pulse 80 MON; Pulse Ox 96% ; jf3 17:32 BP 138 / 81 (auto/); jf3 17:41 Pulse 106 MON; Pulse Ox 91% ; jf3 17:47 BP 129 / 99 (auto/); jf3 17:53 Pulse 84 MON; Pulse Ox 91% ; jf3 18:02 BP 136 / 91 (auto/); jf3 18:17 BP 141 / 111 (auto/); jf3 18:32 BP 131 / 89 (auto/); jf3 18:32 Pulse 86 MON; Pulse Ox 95% ; jf3 18:45 Pulse 82 MON; Pulse Ox 98% ; jf3 18:47 BP 139 / 87 (auto/); jf3 19:02 BP 174 / 84 (auto/); jf3 19:02 Pulse 80 MON; jf3 19:17 BP 139 / 92 (auto/); jf3 19:36 Pulse 86 MON; Pulse Ox 98% ; jf3 19:42 BP 136 / 92 (auto/); jf3 19:42 Pulse 80 MON; Pulse Ox 98% ; jf3 19:47 BP 128 / 96 (auto/); jf3 19:47 Pulse 82 MON; Pulse Ox 97% ; jf3 20:02 BP 149 / 97 (auto/); jf3 20:02 Pulse 82 MON; Pulse Ox 95% ; jf3 20:16 Pulse 82 MON; Pulse Ox 98% ; jf3 20:17 BP 140 / 94 (auto/); jf3 20:31 Pulse 76 MON; Pulse Ox 100% ; jf3 20:32 BP 156 / 101 (auto/); jf3 20:47 BP 150 / 93 (auto/); jf3 20:47 Pulse 84 MON; Pulse Ox 99% ; jf3 21:22 BP 157 / 93; Pulse 96; Resp 18; Temp 98.3; Pulse Ox 96% on R/A; jf3 23:22 BP 150 / 90; Pulse 82; Resp 18; Temp 98.2(TE); Pulse Ox 97% on R/A; jf3 14:33 Body Mass Index 21.63 (58.97 kg, 165.10 cm) kc3 MDM: 15:14 NS 0.9% 1000 ml IV at 100 mL/hr continuous ordered. le 15:14 IV Saline Lock ordered. le 15:14 Undress patient appropriately for examination ordered. le 15:15 Basic Metabolic Profile Ordered. EDMS 15:15 CBC with Diff Ordered. EDMS 15:15 Lipase Ordered. EDMS 15:15 Liver Profile Ordered. EDMS 15:15 Urinalysis Ordered. EDMS 15:15 Urine Culture Ordered. EDMS 15:15 Abdomen, Flat\E\Upright,PA Chest Ordered. EDMS 15:15 NOTHING BY MOUTH+DIET ordered. EDMS 16:40 CBC with Diff Reviewed. le 17:21 Basic Metabolic Profile Reviewed. le 17:21 Liver Profile Reviewed. le 17:21 Urinalysis Reviewed. le 17:21 Lipase Reviewed. le 17:21 Abdomen, Flat\E\Upright,PA Chest Reviewed. le 17:24 Polystyrene Suspension 30 grams PO once ordered. le 17:25 BED REQUEST+ADM ordered. EDMS 17:27 Diatrizoate Meglumine & Sodium Liquid 10 ml PO once; mix in 290cc of water \T\ 1720 jf3 ordered. 17:27 Diatrizoate Meglumine & Sodium Liquid 10 ml PO once; mix in 290cc of water \T\ 1750 jf3 ordered. 17:29 D5W 1000 ml IV at 120 mL/hr once ordered. le 17:29 Misc. Nursing Order ordered. le 17:59 ECG WITH READING ER PHYS+CARDIAG ordered. EDMS 18:30 [facility] [place] Agreement was scanned into [employer] and attached to record. gjb 18:30 Financial registration complete. gjb 18:44 CT ABD & PELVIS: Oral Contrast Only Ordered. EDMS 20:01 Mane ordered. le 20:50 URINALYSIS Ordered. EDMS 20:50 COMPLETE BLOOD COUNT Ordered. EDMS 20:50 RENAL PROFILE Ordered. EDMS 20:51 Admission / Observation Status ordered. EDMS 21:29 ELECTROCARDIOGRAM ADULT ordered. EDMS 21:29 CLEAR LIQUIDS DIET ordered. EDMS 21:33 CDIFF PCR Ordered. EDMS 04/10 10:36 T-Sheet-- Draft Copy was scanned into [employer] and attached to record. gb 10:36 ECG/EKG was scanned into [employer] and attached to record. gb 10:37 Radiology Report was scanned into [employer] and attached to record. gb 10:37 Other: MOLST was scanned into [employer] and attached to record. gb Administered Medications: 04/09 16:15 Drug: NS 0.9% 1000 ml [sodium chloride 0.9 % injection solution] Route: IV; Rate: 100 jf3 mL/hr; Site: right forearm; 17:20 Drug: Diatrizoate Meglumine & Sodium 10 ml [diatrizoate meglumine and diat.sodium 66 jf3 %-10 % oral solution (10 mL)] Route: PO; 17:28 CANCELLED (Other Intervention Used): NS 0.9% 1000 ml IV at bolus once le 17:50 Drug: Diatrizoate Meglumine & Sodium 10 ml [diatrizoate meglumine and diat.sodium 66 jf3 %-10 % oral solution (10 mL)] Route: PO; 18:07 Drug: Polystyrene 30 grams [sodium polystyrene sulfonate 15 gram/60 mL oral suspension jf3 (120 mL)] Route: PO; 18:48 Drug: D5W 1000 ml [dextrose 5 % in water (D5W) intravenous solution] Route: IV; Rate: rs3 120 mL/hr; Site: right forearm; Signatures: Dispatcher [employer] EDMS Shereen Taylor, Reg Reg gb Miley Benavides, CASE AIDE CASE AIDE le McLsiri, Natalie, FORENSIC DNA ANALYST FORENSIC DNA ANALYST tmm1 Heide UrbinaRN RN kc3 Timothy Thomas,PETE RN jf3 Jeanne Marshb Miley Wright RN RN Kavya Major RN rs3 The chart was reviewed and I authenticate all verbal orders and agree with the evaluation and treatment provided.Corrections: (The following items were deleted from the chart) 17:28 17:24 NS 0.9% 1000 ml IV at bolus once ordered. le le 18:57 16:41 CT ABD & PELVIS WITH CONTRAST+CT ordered. EDMS EDMS : 20:51 NPO DIET ordered. EDMS EDMS Attachments: 18:30 [facility] [place] Agreement gjb 04/10 10:36 T-Sheet-- Draft Copy gb 10:36 ECG/EKG gb Chart Complete MTDD
--- NOTE | 2016-04-12 00:27 | EDDOCDS ---
Physician Documentation [facility] Name: Pierre Rivera Age: 89 yrs Sex: Male : 1925 Arrival Date: 04/09/2016 Time: 14:20 Bed 6 Private MD: Disposition: 04/09/16 20:16 Hospitalization ordered by Paul Wright for Inpatient Admission. Preliminary diagnosis are Acute kidney failure, Retention of urine, Hyperosmolality and hypernatremia. - [facility] - Status is Inpatient Admission. jf3 - Condition is Stable. - Problem is new. - Symptoms are unchanged. Historical: - Allergies: no known allergies; - Home Meds: 1. allopurinol 100 mg Oral tab once daily 2. aspirin 81 mg Oral cpDR 1 tab once daily 3. Namenda 10 mg oral tab 1 tab 2 times per day 4. Razadyne ER 8 mg oral TbER once daily 5. Colace 100 mg oral cap 1 cap once daily 6. Protonix 40 mg Oral TbEC 1 tab once daily 7. acetaminophen 325 mg Oral tab 2 tabs every 4 hours as needed 8. multivitamin Oral tab daily - PMHx: Alzheimers; GERD; Gout; Aortic Valve Disorder; AV block 1st degree; Hypertension; - Social history: Smoking status: Patient states former smoker of tobacco. No barriers to communication noted, The patient speaks fluent Bulgarian, Speaks appropriately for age. - Family history: Not pertinent. - : The pt / caregiver states he / she is not on anticoagulants. Home medication list is obtained from the caregiver. - Exposure Risk Screening:: None identified. Vital Signs: 04/09 14:33 BP 139 / 92; Pulse 74; Resp 24; Temp 97.8(TE); Pulse Ox 96% on R/A; Weight 58.97 kg / kc3 130.01 lbs; Height 5 ft. 5 in. (165.10 cm); 15:01 Pulse 74 MON; Pulse Ox 91% ; jf3 15:02 BP 124 / 79 (auto/); jf3 15:31 Pulse 74 MON; Pulse Ox 99% ; jf3 15:32 BP 149 / 83 (auto/); jf3 16:09 Pulse 80 MON; Pulse Ox 97% ; jf3 16:10 BP 143 / 89 (auto/); jf3 16:16 Pulse 78 MON; Pulse Ox 97% ; jf3 16:17 BP 150 / 92 (auto/); jf3 16:31 Pulse 78 MON; Pulse Ox 97% ; jf3 16:32 BP 149 / 92 (auto/); jf3 16:46 Pulse 80 MON; Pulse Ox 93% ; jf3 16:47 BP 147 / 99 (auto/); jf3 17:02 BP 148 / 80 (auto/); jf3 17:07 Pulse 84 MON; Pulse Ox 95% ; jf3 17:17 BP 149 / 93 (auto/); jf3 17:22 Pulse 76 MON; Pulse Ox 94% ; jf3 17:29 Pulse 80 MON; Pulse Ox 96% ; jf3 17:32 BP 138 / 81 (auto/); jf3 17:41 Pulse 106 MON; Pulse Ox 91% ; jf3 17:47 BP 129 / 99 (auto/); jf3 17:53 Pulse 84 MON; Pulse Ox 91% ; jf3 18:02 BP 136 / 91 (auto/); jf3 18:17 BP 141 / 111 (auto/); jf3 18:32 BP 131 / 89 (auto/); jf3 18:32 Pulse 86 MON; Pulse Ox 95% ; jf3 18:45 Pulse 82 MON; Pulse Ox 98% ; jf3 18:47 BP 139 / 87 (auto/); jf3 19:02 BP 174 / 84 (auto/); jf3 19:02 Pulse 80 MON; jf3 19:17 BP 139 / 92 (auto/); jf3 19:36 Pulse 86 MON; Pulse Ox 98% ; jf3 19:42 BP 136 / 92 (auto/); jf3 19:42 Pulse 80 MON; Pulse Ox 98% ; jf3 19:47 BP 128 / 96 (auto/); jf3 19:47 Pulse 82 MON; Pulse Ox 97% ; jf3 20:02 BP 149 / 97 (auto/); jf3 20:02 Pulse 82 MON; Pulse Ox 95% ; jf3 20:16 Pulse 82 MON; Pulse Ox 98% ; jf3 20:17 BP 140 / 94 (auto/); jf3 20:31 Pulse 76 MON; Pulse Ox 100% ; jf3 20:32 BP 156 / 101 (auto/); jf3 20:47 BP 150 / 93 (auto/); jf3 20:47 Pulse 84 MON; Pulse Ox 99% ; jf3 21:22 BP 157 / 93; Pulse 96; Resp 18; Temp 98.3; Pulse Ox 96% on R/A; jf3 23:22 BP 150 / 90; Pulse 82; Resp 18; Temp 98.2(TE); Pulse Ox 97% on R/A; jf3 14:33 Body Mass Index 21.63 (58.97 kg, 165.10 cm) kc3 MDM: 15:14 NS 0.9% 1000 ml IV at 100 mL/hr continuous ordered. le 15:14 IV Saline Lock ordered. le 15:14 Undress patient appropriately for examination ordered. le 15:15 Basic Metabolic Profile Ordered. EDMS 15:15 CBC with Diff Ordered. EDMS 15:15 Lipase Ordered. EDMS 15:15 Liver Profile Ordered. EDMS 15:15 Urinalysis Ordered. EDMS 15:15 Urine Culture Ordered. EDMS 15:15 Abdomen, Flat\E\Upright,PA Chest Ordered. EDMS 15:15 NOTHING BY MOUTH+DIET ordered. EDMS 16:40 CBC with Diff Reviewed. le 17:21 Basic Metabolic Profile Reviewed. le 17:21 Liver Profile Reviewed. le 17:21 Urinalysis Reviewed. le 17:21 Lipase Reviewed. le 17:21 Abdomen, Flat\E\Upright,PA Chest Reviewed. le 17:24 Polystyrene Suspension 30 grams PO once ordered. le 17:25 BED REQUEST+ADM ordered. EDMS 17:27 Diatrizoate Meglumine & Sodium Liquid 10 ml PO once; mix in 290cc of water \T\ 1720 jf3 ordered. 17:27 Diatrizoate Meglumine & Sodium Liquid 10 ml PO once; mix in 290cc of water \T\ 1750 jf3 ordered. 17:29 D5W 1000 ml IV at 120 mL/hr once ordered. le 17:29 Misc. Nursing Order ordered. le 17:59 ECG WITH READING ER PHYS+CARDIAG ordered. EDMS 18:30 [facility] Payment Agreement was scanned into [employer] and attached to record. gjb 18:30 Financial registration complete. gjb 18:44 CT ABD & PELVIS: Oral Contrast Only Ordered. EDMS 20:01 Mane ordered. le 20:50 URINALYSIS Ordered. EDMS 20:50 COMPLETE BLOOD COUNT Ordered. EDMS 20:50 RENAL PROFILE Ordered. EDMS 20:51 Admission / Observation Status ordered. EDMS 21:29 ELECTROCARDIOGRAM ADULT ordered. EDMS 21:29 CLEAR LIQUIDS DIET ordered. EDMS 21:33 CDIFF PCR Ordered. EDMS 04/10 10:36 T-Sheet-- Draft Copy was scanned into [employer] and attached to record. gb 10:36 ECG/EKG was scanned into [employer] and attached to record. gb 10:37 Radiology Report was scanned into [employer] and attached to record. gb 10:37 Other: MOLST was scanned into [employer] and attached to record. gb Administered Medications: 04/09 16:15 Drug: NS 0.9% 1000 ml [sodium chloride 0.9 % injection solution] Route: IV; Rate: 100 jf3 mL/hr; Site: right forearm; 17:20 Drug: Diatrizoate Meglumine & Sodium 10 ml [diatrizoate meglumine and diat.sodium 66 jf3 %-10 % oral solution (10 mL)] Route: PO; 17:28 CANCELLED (Other Intervention Used): NS 0.9% 1000 ml IV at bolus once le 17:50 Drug: Diatrizoate Meglumine & Sodium 10 ml [diatrizoate meglumine and diat.sodium 66 jf3 %-10 % oral solution (10 mL)] Route: PO; 18:07 Drug: Polystyrene 30 grams [sodium polystyrene sulfonate 15 gram/60 mL oral suspension jf3 (120 mL)] Route: PO; 18:48 Drug: D5W 1000 ml [dextrose 5 % in water (D5W) intravenous solution] Route: IV; Rate: rs3 120 mL/hr; Site: right forearm; Signatures: Dispatcher MedHo EDMS Shereen Taylor, Reg Reg gb Miley Benavides, PHYSICIAN OFFICE ASSISTANT PHYSICIAN OFFICE ASSISTANT le McLsiri, Natalie, PREP COOK PREP COOK tmm1 Heide UrbinaRN RN kc3 Timothy Thomas,PETE RN jf3 Jeanne Marshb Miley Wright RN RN Kavya Major RN rs3 The chart was reviewed and I authenticate all verbal orders and agree with the evaluation and treatment provided.Corrections: (The following items were deleted from the chart) 17:28 17:24 NS 0.9% 1000 ml IV at bolus once ordered. le le 18:57 16:41 CT ABD & PELVIS WITH CONTRAST+CT ordered. EDMS EDMS : 20:51 NPO DIET ordered. EDMS EDMS Attachments: 18:30 [facility] Payment Agreement gjb 04/10 10:36 T-Sheet-- Draft Copy gb 10:36 ECG/EKG gb Chart Complete MTDD
[2016-04-12] MEDS: POTASSIUM CHLORIDE INJ 40 MEQ in D5W 1,000 ML IV SCH (02:30)
[2016-04-12 05:01] VITALS: BP 108/68
[2016-04-12 05:40] LABS: MEAN CORPUSCULAR HEMOGLOBIN 32.6 pg (27.0-33.0); MEAN CORPUSCULAR VOLUME 105.3 fl (80.0-96.0); RED CELL DISTRIBUTION WIDTH 14.4 % (11.5-14.5); WHITE BLOOD COUNT 7.9 K/mm3 (4.0-10.0)
[2016-04-12 05:48] LABS: ALBUMIN 2.1 GM/DL (3.2-5.2); ANION GAP 8 MEQ/L (8-16); BLOOD UREA NITROGEN 12 MG/DL (7-18); CALCIUM LEVEL 7.8 MG/DL (8.8-10.2); CARBON DIOXIDE LEVEL 23 MEQ/L (21-32); CHLORIDE LEVEL 112 MEQ/L (98-107); CREATININE FOR GFR 1.15 MG/DL (0.70-1.30); GLOMERULAR FILTRATION RATE > 60.0 (>35); GLUCOSE, FASTING 83 MG/DL (83-110); POTASSIUM SERUM 3.8 MEQ/L (3.5-5.1); SODIUM LEVEL 143 MEQ/L (136-145)
[2016-04-12 08:00] VITALS: BP 119/55
[2016-04-12] MEDS: NYSTATIN 100,000 UNITS/GM TOPICAL PWD 15 GM TOP SCH ×2 (09:00→22:02)
[2016-04-12] MEDS: MULTIVITAMINS/MINERALS THERAP 1 TAB PO SCH (09:00)
[2016-04-12] MEDS: MEMANTINE 5MG TABLET (NAMENDA) PO SCH ×2 (09:00→22:02)
[2016-04-12] MEDS ORDERED: PREVNAR 13 VACCINE SYRINGE (CPT CODE:90670) IM ONE (09:00)
[2016-04-12] MEDS ORDERED: SODIUM PHOSPHATE INJ 20 MMOL in D5W 250 ML IV ONE (09:00)
[2016-04-12] MEDS: PANTOPRAZOLE 40MG TAB (PROTONIX) PO SCH (09:00)
[2016-04-12] MEDS: BICITRA 30ML SOLN UDC PO SCH (09:00)
[2016-04-12 09:06] LABS: MAGNESIUM LEVEL 1.5 MG/DL (1.8-2.4)
[2016-04-12] MEDS ORDERED: MAG SULF 1GM/100ML (MAG RUN) 1 GM in APPROPRIATE DILUENT 1 EA IV ONE (10:00)
[2016-04-12 12:00] VITALS: BP 110/68
[2016-04-12] MEDS: GALANTAMINE 8 MG PO SCH (12:14)
--- NOTE | 2016-04-12 13:54 | IPNPDOC ---
Text Note Date of Service The patient was seen on 04/12/16 at 13:49. NOTE Subjective: Patient is an 89 year old male with PMHx of Advanced dementia, HTN, Diverticulosis, Schatzki rings, Gout, and GERD who presented to the ED with abdominal distension and pain. Patient was recently at [facility] for urinary tract infection and bacteremia. In the ER the family was concerned for constipation, but patient was found to have urinary retention, GAUDENCIO and hyperkalemia. Patient was seen and examined at the bedside. He is awake and alert. Objective: Vitals (See below) General: Lying in bed, no acute distress, comfortable, Awake + Alert HEENT: NC, AT CVS: RRR, +S1S2 Lungs: Fair air entry b/l, -w/r/r Abdomen: Soft, ND, NT, +BSx4 Extremities: -edema, -calf tenderness Assessment and plan: 1. Acute renal failure - likely 2/2 post-renal etiology 2/2 obstruction - possibly 2/2 BPH - Presented with abdominal pain and found to have distended bladder, large volume diuresis after urinary catheter was placed - Cr baseline of 0.8-1.0 - CT abdomen: 04/09: small R pleural effusion, mid AAA at 5.5 cm, bladder distention, b/l hydroureteronephrosis, prostate enlargement with calcification - Urology (Dr. Leyva) following - recommend outpatient cystoscopy - Nephrology (Dr. Maldonado) has been consulted - appreciate their input - PSA pending - c/w IV hydration 2. Hematuria - possibly 2/2 bladder over distention vs traumatic Mane insertion - resolved - s/p bladder irrigation - will monitor for now 3. s/p Hyperkalemia with EKG changes - EKG with initial peaked T waves - s/p Kayexylate 30 grams 4. s/p Hypernatremia - Nephrology (Dr. Maldonado) has been consulted - appreciate their input 5. s/p Thrombocytopenia - will continue to monitor 6. AAA - Size of 5.[address] abdomen 04/09 - Will discuss with primary care provider about prior imaging - Will need outpatient referral to vascular surgery 7. Macrocytic anemia - Reticulocyte index of 0.8 - hypoproliferative - B12 and Folate normal - Hg stable 8. Hypomagnesemia - s/p supplementation 9. Gout - allopurinol on hold 10. Advanced dementia - c/w Memantine 11. GI prophylaxis - c/w protonix 12. DVT prophylaxis - c/w SCD VS,Fishbone, I+O VS, Fishbone, I+O Laboratory Tests 04/11/16 15:53 Anion Gap 8 04/12/16 04:53 Anion Gap 8, Red Blood Count 2.88 L, Mean Corpuscular Volume 105.3 H, Mean Corpuscular Hemoglobin 32.6, Mean Corpuscular Hemoglobin Concent 31.0 L, Red Cell Distribution Width 14.4 Vital Signs Date Time Temp Pulse Resp B/P Pulse Ox O2 Delivery O2 Flow Rate FiO2 04/12/16 12:00 96.4 67 18 110/68 100 Room Air I&O- Last 24 Hours up to 6 AM 04/12/16 06:00 Intake Total 3590 ml Output Total 2075 ml Balance 1515 ml EVELYN HOWARD MD Apr 12, 2016 13:50
[2016-04-12 16:00] VITALS: BP 101/52
[2016-04-12] MEDS: ALLOPURINOL 100 MG TAB PO SCH (16:38)
[2016-04-12 21:03] VITALS: BP 134/70
[2016-04-12] MEDS: DOCUSATE SODIUM 100 MG CAP PO SCH (22:02)
[2016-04-13 00:30] VITALS: BP 115/73
[2016-04-13 05:19] VITALS: BP 101/57
[2016-04-13 05:43] LABS: MEAN CORPUSCULAR HEMOGLOBIN 33.3 pg (27.0-33.0); MEAN CORPUSCULAR HGB CONC 32.6 g/dl (32.0-36.5); MEAN CORPUSCULAR VOLUME 102.1 fl (80.0-96.0); RED CELL DISTRIBUTION WIDTH 13.4 % (11.5-14.5); WHITE BLOOD COUNT 8.2 K/mm3 (4.0-10.0)
[2016-04-13 06:07] LABS: ALBUMIN 2.3 GM/DL (3.2-5.2); ANION GAP 8 MEQ/L (8-16); BLOOD UREA NITROGEN 13 MG/DL (7-18); CALCIUM LEVEL 7.9 MG/DL (8.8-10.2); CARBON DIOXIDE LEVEL 23 MEQ/L (21-32); CHLORIDE LEVEL 112 MEQ/L (98-107); CREATININE FOR GFR 1.11 MG/DL (0.70-1.30); GLOMERULAR FILTRATION RATE > 60.0 (>35); GLUCOSE, FASTING 76 MG/DL (83-110); PHOSPHORUS LEVEL 2.4 MG/DL (2.5-4.9); POTASSIUM SERUM 3.8 MEQ/L (3.5-5.1); SODIUM LEVEL 143 MEQ/L (136-145)
--- NOTE | 2016-04-13 06:51 | IPN ---
DATE: 04/12/2016 SUBJECTIVE: The patient was seen and examined at the bedside today in the morning. He is awake. He is pleasant. Caregiver was also present at the bedside. His sodium level is improved. His renal function is almost close to normal as well. However, he does have hypophosphatemia and hypomagnesemia at this time which is being managed. REVIEW OF SYSTEMS: Patient unable to provide any review of systems. He has dementia and he is unable to communicate with us. OBJECTIVE: VITAL SIGNS: Temperature 96.4 degrees Fahrenheit. Blood pressure 110/68. Pulse 67. Respiratory rate 18. Saturating 100% on room air. INTAKE AND OUTPUT: Urine output recorded as 2.2 liters yesterday and 1 liter so far today since overnight. PHYSICAL EXAMINATION: GENERAL: Patient is awake and alert. Has pleasant dementia, laying in bed. No apparent distress. HEAD AND NECK EXAM: Extraocular muscles intact. Pupils equally round and reactive to light. Mucous membranes are moist. Neck is supple. There is no jugular venous distention (JVD). CARDIOVASCULAR: S1, S2. Regular rate. No murmur, rub or gallop. RESPIRATORY: Chest is clear to auscultation bilaterally. Bilateral equal air entry. No rales or rhonchi. ABDOMEN: Soft. Positive bowel sounds. Nontender. No ascites. The patient has an indwelling Mane catheter with clear urine in the bag. EXTREMITIES: No clubbing or cyanosis. Trace pedal edema of the bilateral lower extremities. CENTRAL NERVOUS SYSTEM (BAG HANGER): Patient moves all extremities on painful stimuli. Otherwise, he is unable to communicate with us. He follows very few commands. LAB REVIEW: CBC showed a WBC of 7.9, hemoglobin 9.4, and platelets of 156. BMP showed sodium 143, potassium 3.8, chloride 112, bicarbonate 23, BUN 12, creatinine 1.15, phosphorus 2, magnesium 1.5. CURRENT MEDICATIONS: Patient's medications were all reviewed by me. His IV fluids have been stopped. His Bicitra has also been stopped at this time. ASSESSMENT: 89-year-old male with normal renal function who has baseline admitted at this time because of acute renal failure secondary to urinary retention status post Mane catheterization, nephrology service following the patient for management of acute renal failure and electrolyte abnormalities. PLAN: 1. Acute renal failure secondary to bladder outlet obstruction. Patient continues to have Mane catheter as recommended by urology. He needs to be discharged with the Mane catheter and he will need to followup as an outpatient for a voiding trial. His renal function has improved back to baseline. I have stopped the IV fluids today. 2. Metabolic acidosis. The patient's acidosis has improved. His renal function is back to normal. I have stopped the Bicitra as well. 3. Hyponatremia. Hyponatremia is improved to a sodium of 143 today. 4. Patient has dementia. He is unable to ask for water. Continue to offer water with food. Caregiver was instructed about giving water to the patient. 5. Hypophosphatemia. The patient was given a dose of sodium phosphate 20 mmol IV today. 6. Hypomagnesemia. Magnesium sulfate 1 gram IV ordered today morning. 7. Hematuria. Hematuria has improved. At this time urine is clear. 8. History of gout. Continue home dose of allopurinol.
[2016-04-13 08:00] VITALS: BP 105/57
[2016-04-13] MEDS: ALLOPURINOL 100 MG TAB PO SCH (09:14)
[2016-04-13] MEDS: MEMANTINE 5MG TABLET (NAMENDA) PO SCH (09:14)
[2016-04-13] MEDS: MULTIVITAMINS/MINERALS THERAP 1 TAB PO SCH (09:14)
[2016-04-13] MEDS: NYSTATIN 100,000 UNITS/GM TOPICAL PWD 15 GM TOP SCH (09:14)
[2016-04-13] MEDS: PANTOPRAZOLE 40MG TAB (PROTONIX) PO SCH (09:14)
[2016-04-13] MEDS: GALANTAMINE 8 MG PO SCH (09:15)
[2016-04-13 09:23] LABS: MAGNESIUM LEVEL 1.7 MG/DL (1.8-2.4)
--- NOTE | 2016-04-13 11:06 | IPN ---
DATE: 04/13/2016 SUBJECTIVE: The patient is lying in a hospital bed. He is still not alert and oriented. He is wearing a urine bag and has clear yellow urine. He is off continuous bladder irrigation (CBI). OBJECTIVE: He is afebrile. His blood pressure is 105/57. His pulse is 69. His respiratory rate is 18. He does not seem to have costovertebral angle (CVA) tenderness and his abdomen feels soft and nontender. Again, the Mane catheter had clear yellow urine off continuous bladder irrigation. LABORATORY DATA: His creatinine today is down to 1.11 and his BUN is 13. His hemoglobin and hematocrit (H and H) is 9.6 over 29.6, which is fairly stable for him and his white blood count is 8.2. Urine cultures have been negative to date. A total PSA level is still pending. IMPRESSION: 1. Acute urinary retention leading to acute renal failure, now with a Mane catheter in place and creatinine is down to 1.21. 2. Gross hematuria with catheterization, but he was also bleeding from his nose and his mout. 3. History of an elevated PSA level in the past, so we are going to need to repeat this just to make sure that this is not an issue. 4. Recent E-coli urosepsis followed by an external yeast infection with severe irritation, discharged from the hospital on 03/25/2016. 5. Advanced dementia in a patient who lives at home with 24-hour caregivers. PLAN: Continue Mane catheter. We will plan a voiding trial since it is possible this retention was after an episode of urosepsis with E-coli last month and then an external yeast infection with severe irritation. Await final PSA level.
[2016-04-13] MEDS ORDERED: MAG SULF 1GM/100ML (MAG RUN) 1 GM in APPROPRIATE DILUENT 1 EA IV ONE (11:30)
--- NOTE | 2016-04-13 11:39 | IPNPDOC ---
Date/Time Seen The patient was seen on 04/13/16 at 11:29. Progress Note DATE OF ENCOUNTER: 04/13/2016 SUBJECTIVE: Mr. Rivera was seen this morning at bedside. No acute overnight issues. His caregiver was present in the front. She states that he had a good day yesterday. He did not sleep very much last night. He did respond no when asked him if he was tired. She feed him some apple sauce and ben ken this morning without any issues. He appears comfortable. Review of systems is unobtainable and unreliable secondary to patient having advanced dementia. OBJECTIVE: Vital Signs Date Time Temp Pulse Resp B/P Pulse Ox O2 Delivery O2 Flow Rate FiO2 04/13/16 08:00 96.0 69 18 105/57 98 Room Air I&O- Last 24 Hours up to 6 AM 04/13/16 06:00 Intake Total 1436 ml Output Total 2675 ml Balance -1239 ml PHYSICAL EXAMINATION: GENERAL: Patient is awake and alert. Does not appear to be in any acute distress. HEENT: Normocephalic, atraumatic. Extraocular muscles are intact. Moist mucosa. NECK: Supple. No thyromegaly. Trachea is midline. No jugular venous distention appreciated. HEART: Normal S1, S2. Heart sounds regular. Positive for systolic ejection murmur. LUNGS: Clear to auscultation bilaterally. No rales, rhonchi or wheezing. ABDOMEN: Soft. Nontender. Bowel sounds are present. No rebound, guarding or rigidity. Mane catheter in place draining clear urine. EXTREMITIES: No cyanosis or edema. Positive pedal pulses bilaterally. NEUROLOGICAL: No focal deficit. Moving all extremities. LABORATORY DATA: 04/13/16 04:57 MICROBIOLOGY: Urine culture negative. ASSESSMENT/PLAN: 1. Acute renal failure with moderate bilateral hydroureteronephrosis secondary to bladder outlet obstruction. Patient's renal function has normalized. He continues to have a Mane in place and will need outpatient urology follow-up for voiding trial, PSA level and any further workup that is deemed necessary. The choice are stable. 2. Hypernatremia secondary to postobstructive diuresis, now resolved. Sodium level is within normal at 143. 3. Hypomagnesemia, improved. Another mag run being given today. 4. Hypophosphatemia, improved with a dose of sodium phosphate. 5. Metabolic acidosis, resolved. Bicitra has been discontinued. 6. Hematuria, resolved. He will have outpatient follow-up with urology for voiding trial and repeat PSA level. 7. Anemia. Hemoglobin is currently stable. No intervention needed at this time. 8. Hypertension. Blood pressure is currently stable. He does not appear to be on any antihypertensives at home. 9. History of gout. His home medication allopurinol was resumed. 10. Advanced dementia. Patient is on Namenda and Razadyne. DISPOSITION: On a renal standpoint, he is stable. He will need follow-up with urology. 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 GME ATTESTATION GME ATTESTATION My preceptor for this patient encounter was physically present in the building during the encounter and was fully available. As needed, all aspects of the patient interview, examination, medical decision making process, and medical care plan development were reviewed and approved by the preceptor. Preceptor is aware and concurs with the plan as stated in the body of this note and will attest to such by his/her cosignature. RAMIRO GARCIA DO Apr 13, 2016 11:39
[2016-04-13 12:00] VITALS: BP 104/65
[2016-04-13] MEDS ORDERED: PREVNAR 13 VACCINE SYRINGE (CPT CODE:90670) IM ONE (12:00)
--- NOTE | 2016-04-13 16:06 | DSES ---
DATE OF ADMISSION: 04/09/2016 DATE OF DISCHARGE: 04/13/2016 ATTENDING PHYSICIAN: Dr. Suze Ivan DICTATING PROVIDER: Dr. Suze Ivan PRIMARY CARE PHYSICIAN: Dr. Fabricio Chao REFERRING PHYSICIAN: None. CONSULTING PHYSICIAN: Dr. Joel Mary. CONDITION ON DISCHARGE: Stable. FINAL DIAGNOSIS: Acute renal failure, likely secondary to postobstructive etiology secondary to urinary retention, possibly from benign prostatic hypertrophy (BPH). PROCEDURES: None. HISTORY OF PRESENT ILLNESS: The patient is an 89-year-old male with a past medical history of advanced dementia, hypertension, diverticulosis, Schatzki ring, gout, gastroesophageal reflux disease (GERD) who presented to the emergency department with abdominal distention and pain. The patient was recently at [facility] for a urinary tract infection and bacteremia. In the emergency room, the family was concerned for constipation, but the patient was found to have urinary retention and acute kidney injury and hyperkalemia. HOSPITAL COURSE: 1. Acute renal failure, likely secondary to renal etiology secondary to obstruction, possibly secondary to benign prostatic hypertrophy (BPH), presented with abdominal pain and found to have a distended bladder, large volume diuresis after urinary catheter was placed, creatinine 0.8. CT abdomen on 04/09/2016 revealed a small right pleural effusion, mid abdominal aortic aneurysm at 5.7 cm, bladder distention, bilateral hydroureteronephrosis, prostate enlargement. Urology, Dr. Leyva, was consulted, who recommended outpatient cystoscopy. Nephrology, Dr. Maldonado, has been consulted. The patient's creatinine has been gradually trending down and is now back to baseline. KCL was ordered by urology. The patient will followup with urology as an outpatient to have Mane catheter removed. He will be discharged home with Mane catheter in place. Urology will follow the patient up and do a voiding trial. 2. Hematuria. Possibly secondary to bladder overdistention versus traumatic Mane insertion. Hematuria is resolved. He is status post bladder irrigation. 3. Status post hypokalemia with EKG changes. EKG initially revealed peaked T waves. He is status post Kayexalate. His potassium has remained within normal limits. 4. Status post hypernatremia. Nephrology, Dr. Maldonado, has been consulted. Hypernatremia is resolved with D5W. 5. Status post thrombocytopenia. 6. Abdominal aortic aneurysm, size of [address] of the abdomen on 04/09/2016. The patient will have outpatient referral to vascular surgery. 7. Microcytic anemia. Reticulocyte index was 0.8. Hypoproliferative, B12 and folate levels are normal. Hemoglobin is stable. 8. Hypomagnesemia, supplemented. 9. Gout. Allopurinol on hold. 10. Advanced dementia. Continue with amantadine. 11. GI prophylaxis. Continue Protonix. 12. Deep vein thrombosis (DVT) prophylaxis. Sequential compression device (SCD). DISCHARGE MEDICATIONS: The patient will be discharged home with the following medications: - acetaminophen 650 mg by mouth every 8 hours - allopurinol 100 mg by mouth daily - aspirin 81 mg by mouth daily - docusate sodium 100 mg by mouth at night - galantamine 8 mg by mouth daily - amantadine 10 mg by mouth twice a day - multivitamin one tablet by mouth daily - Protonix 40 mg by mouth daily Medications to be stopped include: - amoxicillin 500 mg by mouth twice a day DISCHARGE INSTRUCTIONS: The patient was advised to followup with his primary care provider, urology, and vascular surgery within the next 7 days. He has been advised to remain compliant with treatment plan and medications and return to the emergency room if he experiences any problems. Time spent on discharge: 30 minutes.
[2016-04-14 14:14] LABS: PSA % FREE 11.8 % (.); PSA FREE 0.71 ng/mL
== END 2016-04-13 13:49 | disposition home health service (06) | DRG 683 ==
LOC: M ED 14:20 → M ED INP 20:47 → M PCU 23:29
PROVIDERS: ADMIT Internal Medicine; ATTEND Internal Medicine
DX: N17.9 Acute kidney failure, unspecified (principal); E87.0 Hyperosmolality and hypernatremia; E87.2 Acidosis; N32.0 Bladder-neck obstruction; N40.0 Benign prostatic hyperplasia without lower urinary tract symptoms; E87.5 Hyperkalemia; E83.42 Hypomagnesemia; E83.39 Other disorders of phosphorus metabolism; K22.2 Esophageal obstruction; N13.1 Hydronephrosis with ureteral stricture, not elsewhere classified; M10.9 Gout, unspecified; F03.90 Unspecified dementia, unspecified severity, without behavioral disturbance, psychotic disturbance, mood disturbance, and anxiety; I71.4 Abdominal aortic aneurysm, without rupture; D69.6 Thrombocytopenia, unspecified; D50.9 Iron deficiency anemia, unspecified; R31.9 Hematuria, unspecified; Z79.82 Long term (current) use of aspirin; Z79.899 Other long term (current) drug therapy

== ENCOUNTER → 2016-04-21 | Outpatient (REF) | payer MEDICARE, OTHER ==
[~2016-04-21] MED LIST changes: +ACET25TA5 PO; +AMOX500C PO; +CEPH500C PO; +DOXY-278 PO; +FLOM5CAP PO; +HYDR10T PO
== END ==
LOC: EEVIPCON 16:52 → M SMT 16:52
PROVIDERS: ATTEND Nurse Practitioner Family
DX: R33.9 Retention of urine, unspecified (principal)
CPT/HCPCS: 51703; 87088; 87186; G0463

== ENCOUNTER → 2016-05-05 | Outpatient (REF) | payer MEDICARE ==
[~2016-05-05] MED LIST changes: -DOXY-278 PO
== END | disposition home or self-care (01) ==
LOC: M SMT 13:24
PROVIDERS: ATTEND Nurse Practitioner Family
DX: R33.9 Retention of urine, unspecified (principal)

== ENCOUNTER 2016-05-09 14:19 | Emergency (ER) | payer MEDICARE, OTHER ==
[~2016-05-09 14:19] MED LIST changes: -ACET25TA5 PO; -CEPH500C PO; -FLOM5CAP PO; -HYDR10T PO
[2016-05-09] MEDS ORDERED: LIDOCAINE 2% JELLY 30 ML As Ordered ONE (14:54)
[2016-05-09 15:33] LABS: YEAST LIKE CELL URINE AUTO LARGE
[2016-05-09] MEDS ORDERED: CEPHALEXIN 250 MG CAP As Ordered ONE (16:00)
[2016-05-09] MEDS ORDERED: FLUCONAZOLE 100 MG TAB As Ordered ONE (16:01)
--- NOTE | 2016-05-09 16:24 | EDDOCDS ---
Physician Documentation [facility] Name: Pierre Rivera Age: 89 yrs Sex: Male : 1925 Arrival Date: 05/09/2016 Time: 14:19 Bed 9 Private MD: Fabricio Chao P. Disposition: 05/09/16 15:59 Discharged to Home/Self Care. Impression: Breakdown (mechanical) of urinary (indwelling) catheter, Urinary tract infection, site not specified. - Condition is Stable. - Discharge Instructions: Urinary Tract Infection, Antibiotic Medication. - Prescriptions for Keflex 500 mg Oral Capsule - take 1 capsule by ORAL route every 8 hours for 10 days; 30 capsule. - Medication Reconciliation, Local Pharmacy Hours form. - Follow up: Fabricio Chao; When: Call to arrange an appointment; Reason: Recheck today's complaints, Continuance of care. - Problem is new. - Symptoms have improved. - Notes: Continue to keep hydrated to clear up urine Return to the ED for worsening symptoms Historical: - Allergies: No known drug Allergies; - Home Meds: 1. allopurinol 100 mg Oral tab once daily 2. aspirin 81 mg Oral cpDR 1 tab once daily 3. Protonix 40 mg Oral TbEC 1 tab once daily 4. Razadyne ER 8 mg oral TbER once daily 5. multivitamin Oral tab daily 6. Namenda 10 mg oral tab 1 tab 2 times per day 7. Colace 100 mg oral cap 1 cap once daily 8. Flomax 0.4 mg Oral cp24 1 cap once daily 9. acetaminophen 325 mg Oral tab 2 tabs every 4 hours as needed 10. hydroxyzine HCl 10 mg Oral tab daily - PMHx: Alzheimers; AORTIC VALVE DISORDER; AV Block 1st Degree; GERD; Gout; Hypertension; Acute Renal Failure; - Social history: Smoking status: unknown if patient ever smoked tobacco. No barriers to communication noted, The patient speaks fluent Bulgarian, Speaks appropriately for age. - Family history: No immediate family members are acutely ill. - : The pt / caregiver states he / she is not on anticoagulants. Home medication list is obtained from the caregiver. - Exposure Risk Screening:: None identified. Vital Signs: 05/09 14:21 BP 131 / 76; Pulse 62; Resp 16; Temp 97.4(O); Pulse Ox 100% on R/A; Weight 59.42 kg / lr2 131 lbs (R); Height 5 ft. 6 in. (167.64 cm) (R); Pain 0/10; 16:17 BP 132 / 86; Pulse 64; Resp 16; Temp 97(O); Pulse Ox 95% on R/A; Pain 0/10; bcj 14:21 Body Mass Index 21.14 (59.42 kg, 167.64 cm) lr2 MDM: 14:31 Bladder Scan please ordered. le 15:01 UA Ordered. EDMS 15:49 Financial registration complete. gb 15:55 UA Reviewed. le 15:56 Fluconazole 200 mg PO once ordered. le 15:56 Cephalexin 500 mg PO once ordered. le 15:57 Urine Culture Ordered. EDVT 16:08 [facility] Payment Agreement was scanned into [employer] and attached to record. Administered Medications: 16:13 Drug: Fluconazole 200 mg [fluconazole 100 mg tablet (2 tabs)] Route: PO; ja5 16:13 Drug: Cephalexin 500 mg [cephalexin 250 mg capsule (2 caps)] Route: PO; ja5 Signatures: Dispatcher [employer] EDVT Sukhjinder Stewart RN RN Orin Cervantes, PETE RN srm Shereen Taylor, Reg Reg Miley Parsons, BRICKLAYER APPRENTICE BRICKLAYER APPRENTICEMelani Mcintosh RN5 The chart was reviewed and I authenticate all verbal orders and agree with the evaluation and treatment provided.Attachments: 16:08 [facility] Payment Agreement gb MTDD
--- NOTE | 2016-05-09 16:24 | EDDOCDS ---
Nurse's Notes [facility] Name: Pierre Rivera Age: 89 yrs Sex: Male : 1925 Arrival Date: 05/09/2016 Time: 14:19 Bed 9 Private MD: Fabricio Chao P. Diagnosis: Breakdown (mechanical) of urinary (indwelling) catheter;Urinary tract infection, site not specified Presentation: 05/09 14:24 Presenting complaint: Patient states: hasnt had any urine pass in 17 hours. home health srm aid came in a flushed cath- everything went in but nothing came out. Adult Sepsis Screening: The patient does not have new or worsening altered mentation. Patient's respiratory rate is less than 22. Systolic blood pressure is greater than 100. Patient has a qSOFA score of 0- Negative Sepsis Screen. Suicide/Homicide risk assessment- the patient denies having any suicidal and/or homicidal ideations and does not present with any other emotional, behavioral or mental health complaints. Status: Patient is not a field services director or dependent. Transition of care: patient was not received from another setting of care. 14:24 Acuity: MICHELLE Level 3 srm 14:24 Method Of Arrival: Wheelchair srm Triage Assessment: 14:29 General: Appears in no apparent distress, Behavior is appropriate for age, cooperative. srm Pain: Unable to use pain scale. Does not appear to understand pain scale. FLACC scale score is 0 out of 10. Historical: - Allergies: No known drug Allergies; - Home Meds: 1. allopurinol 100 mg Oral tab once daily 2. aspirin 81 mg Oral cpDR 1 tab once daily 3. Protonix 40 mg Oral TbEC 1 tab once daily 4. Razadyne ER 8 mg oral TbER once daily 5. multivitamin Oral tab daily 6. Namenda 10 mg oral tab 1 tab 2 times per day 7. Colace 100 mg oral cap 1 cap once daily 8. Flomax 0.4 mg Oral cp24 1 cap once daily 9. acetaminophen 325 mg Oral tab 2 tabs every 4 hours as needed 10. hydroxyzine HCl 10 mg Oral tab daily - PMHx: Alzheimers; AORTIC VALVE DISORDER; AV Block 1st Degree; GERD; Gout; Hypertension; Acute Renal Failure; - Social history: Smoking status: unknown if patient ever smoked tobacco. No barriers to communication noted, The patient speaks fluent Greenlandic, Speaks appropriately for age. - Family history: No immediate family members are acutely ill. - : The pt / caregiver states he / she is not on anticoagulants. Home medication list is obtained from the caregiver. - Exposure Risk Screening:: None identified. Screenin:21 Screening information is obtained from residence staff. Fall risk: At risk due to j apparent cognitive impairment, The following interventions are performed due to a positive Fall Risk Screen: Fall Risk is added to Special Handling on the patient Summary Screen. A Fall Risk Bracelet was applied to the patient. Side Rails are placed in the up position. A Call Matos is given with instruction to call for help when getting out of bed. Fall Alert bracelet is placed on the patient. Assistance ADL's: Requires assistance with medication administration, assistance is provided by Public Health nurses. Abuse/DV Screen: The patient / caregiver reports he/she is: not in a situation that causes fear, pain or injury. Nutritional screening: No deficits noted. Advance Directives: There is an active DNR order but there is no copy available at this time. home support is adequate. Assessment: 15:21 General: Appears in no apparent distress, comfortable, Behavior is cooperative. Pain: bcj Denies pain. : Mane in place to gravity drainage no drainage in bag. Derm: Skin is pink, warm & dry. 16:17 General: Appears in no apparent distress, comfortable, Behavior is cooperative. Pain: bcj Denies pain. : Mane in place to gravity drainage Urine is blood tinged. Derm: Skin is pink, warm & dry. Vital Signs: 14:21 BP 131 / 76; Pulse 62; Resp 16; Temp 97.4(O); Pulse Ox 100% on R/A; Weight 59.42 kg lr2 (R); Height 5 ft. 6 in. (167.64 cm) (R); Pain 0/10; 16:17 BP 132 / 86; Pulse 64; Resp 16; Temp 97(O); Pulse Ox 95% on R/A; Pain 0/10; bcj 14:21 Body Mass Index 21.14 (59.42 kg, 167.64 cm) lr2 Vitals: 14:21 Log In Time: May 09, 2016 at 14:19. lr2 ED Course: 14:20 Patient visited by Shanna Willis. lr2 14:20 Patient moved to Waiting lr2 14:21 Fabricio Chao is Private Physician. lr2 14:23 Patient moved to Pre RCE lr2 14:25 Triage Initiated srm 14:29 Melani Pineda,RN is Primary Nurse. srm 14:29 Patient moved to 9 srm 14:31 [facility] Benavides [facility] le 14:40 Patient visited by Duglas Mcgee. dem1 14:40 Patient has correct armband on for positive identification. Bed in low position. Call dem1 light in reach. Side rails up X2. 14:52 Patient visited by Miley Benavides FNP. le 14:52 Patient visited by Miley Benavides FNP. le 15:20 UA Sent. bcj 15:21 No apparent distress. Resting quietly. Awaiting disposition. bcj 15:21 The patient / caregiver is instructed regarding the plan of care and ED course. bcj 15:21 deflated ballon and reinserted catheter to hub with immediate return of dark brown / bcj blood tinged urine. pt. fredo. well. balloon. 15:24 Patient visited by Sukhjinder Stewart RN. bcj 15:27 Patient visited by Sukhjinder Stewart RN. bcj 15:27 Urine collected. Clean catch specimen. Urine specimen sent to lab. bcj 15:58 Fabricio Chao is Referral Physician. le 16:08 [facility] Payment Agreement was scanned into [employer] and attached to record. gb 16:17 No IV's were initiated during this patient's visit. No procedures done that require bcj assistance. 16:23 Patient visited by Sukhjinder Stewart RN. bcj Administered Medications: 16:13 Drug: Fluconazole 200 mg [fluconazole 100 mg tablet (2 tabs)] Route: PO; ja5 16:13 Drug: Cephalexin 500 mg [cephalexin 250 mg capsule (2 caps)] Route: PO; ja5 Order Results: Lab Order: UA; SPEC'M 05/09/16 15:17 Test: APPEARANCE, URINE; Value: TURBID; Range: CLEAR; Abnormal: Above high normal; Status: F Test: COLOR, URINE; Value: EULALIA; Range: YELLOW; Status: F Test: PH,URINE; Value: 5.0; Range: 5.0-9.0; Units: UNITS; Status: F Test: SPECIFIC GRAVITY URINE AUTO; Value: 1.014; Range: 1.002-1.035; Status: F Test: PROTEIN, URINE AUTO; Value: 2+; Range: NEGATIVE; Abnormal: Above high normal; Units: mg/dL; Status: F Test: GLUCOSE, URINE (UA) AUTO; Value: NEGATIVE; Range: NEGATIVE; Units: mg/dL; Status: F Test: KETONE, URINE AUTO; Value: NEGATIVE; Range: NEGATIVE; Units: mg/dL; Status: F Test: UROBILINOGEN, URINE AUTO; Value: 0.2; Range: 0.0-2.0; Units: mg/dL; Status: F Test: BILIRUBIN, URINE AUTO; Value: NEGATIVE; Range: NEGATIVE; Status: F Test: NITRITE, URINE AUTO; Value: NEGATIVE; Range: NEGATIVE; Status: F Test: LEUKOCYTE ESTERASE, URINE AUTO; Value: 3+; Range: NEGATIVE; Abnormal: Above high normal; Status: F Test: BLOOD, URINE BLOOD; Value: 3+; Range: NEGATIVE; Abnormal: Above high normal; Status: F Test: WBC, URINE AUTO; Value: TNTC; Range: 0-3; Abnormal: Above high normal; Units: /HPF; Status: F Test: RBC, URINE AUTO; Value: TNTC; Range: 0-3; Abnormal: Above high normal; Units: /HPF; Status: F Test: BACTERIA, URINE AUTO; Value: 2+; Range: NEGATIVE; Abnormal: Above high normal; Status: F Test: YEAST LIKE CELL URINE AUTO; Value: LARGE; Range: NONE; Abnormal: Above high normal; Status: F Test: SQUAMOUS EPITHELIAL CELL UR AU; Value: 0; Range: 0-6; Units: /HPF; Status: F Test: HYALINE CAST, URINE AUTO; Value: 0; Range: 0-1; Units: /LPF; Status: F Outcome: 15:59 Discharge ordered by Provider. le 16:17 Discharge Assessment: patient administered narcotics - no. The following High Risk j Discharge criteria are identified: None. Discharged to home via ambulance, with family. Condition: stable. Discharge instructions given to hand tire trimmer, Instructed on discharge instructions, follow up and referral plans. medication usage. No special radiology studies were completed. Property :Personal belongings accompany Pt. 16:23 Patient left the ED. bcj Signatures: Sukhjinder Stewart, RN RN bcOrin Mills, RN RN srm Shereen Taylor, Reg Reg gb Miley Benavides, TECHNICAL REP TECHNICAL REP Duglas Mehta JessicaRN RN [id number] Shanna Willis2 MTDD
--- NOTE | 2016-05-11 17:24 | EDDOCDS ---
Nurse's Notes [facility] Name: Pierre Rivera Age: 89 yrs Sex: Male : 1925 Arrival Date: 05/09/2016 Time: 14:19 Bed 9 Private MD: Fabricio Chao P. Diagnosis: Breakdown (mechanical) of urinary (indwelling) catheter;Urinary tract infection, site not specified Presentation: 05/09 14:24 Presenting complaint: Patient states: hasnt had any urine pass in 17 hours. home health srm aid came in a flushed cath- everything went in but nothing came out. Adult Sepsis Screening: The patient does not have new or worsening altered mentation. Patient's respiratory rate is less than 22. Systolic blood pressure is greater than 100. Patient has a qSOFA score of 0- Negative Sepsis Screen. Suicide/Homicide risk assessment- the patient denies having any suicidal and/or homicidal ideations and does not present with any other emotional, behavioral or mental health complaints. 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 Transition of care: patient was not received from another setting of care. 14:24 Acuity: MICHELLE Level 3 srm 14:24 Method Of Arrival: Wheelchair srm Triage Assessment: 14:29 General: Appears in no apparent distress, Behavior is appropriate for age, cooperative. srm Pain: Unable to use pain scale. Does not appear to understand pain scale. FLACC scale score is 0 out of 10. Historical: - Allergies: No known drug Allergies; - Home Meds: 1. allopurinol 100 mg Oral tab once daily 2. aspirin 81 mg Oral cpDR 1 tab once daily 3. Protonix 40 mg Oral TbEC 1 tab once daily 4. Razadyne ER 8 mg oral TbER once daily 5. multivitamin Oral tab daily 6. Namenda 10 mg oral tab 1 tab 2 times per day 7. Colace 100 mg oral cap 1 cap once daily 8. Flomax 0.4 mg Oral cp24 1 cap once daily 9. acetaminophen 325 mg Oral tab 2 tabs every 4 hours as needed 10. hydroxyzine HCl 10 mg Oral tab daily - PMHx: Alzheimers; AORTIC VALVE DISORDER; AV Block 1st Degree; GERD; Gout; Hypertension; Acute Renal Failure; - Social history: Smoking status: unknown if patient ever smoked tobacco. No barriers to communication noted, The patient speaks fluent Turkish, Speaks appropriately for age. - Family history: No immediate family members are acutely ill. - : The pt / caregiver states he / she is not on anticoagulants. Home medication list is obtained from the caregiver. - Exposure Risk Screening:: None identified. Screenin:21 Screening information is obtained from residence staff. Fall risk: At risk due to j apparent cognitive impairment, The following interventions are performed due to a positive Fall Risk Screen: Fall Risk is added to Special Handling on the patient Summary Screen. A Fall Risk Bracelet was applied to the patient. Side Rails are placed in the up position. A Call Matos is given with instruction to call for help when getting out of bed. Fall Alert bracelet is placed on the patient. Assistance ADL's: Requires assistance with medication administration, assistance is provided by Public Health nurses. Abuse/DV Screen: The patient / caregiver reports he/she is: not in a situation that causes fear, pain or injury. Nutritional screening: No deficits noted. Advance Directives: There is an active DNR order but there is no copy available at this time. home support is adequate. Assessment: 15:21 General: Appears in no apparent distress, comfortable, Behavior is cooperative. Pain: bcj Denies pain. : Mane in place to gravity drainage no drainage in bag. Derm: Skin is pink, warm & dry. 16:17 General: Appears in no apparent distress, comfortable, Behavior is cooperative. Pain: bcj Denies pain. : Mane in place to gravity drainage Urine is blood tinged. Derm: Skin is pink, warm & dry. Vital Signs: 14:21 BP 131 / 76; Pulse 62; Resp 16; Temp 97.4(O); Pulse Ox 100% on R/A; Weight 59.42 kg lr2 (R); Height 5 ft. 6 in. (167.64 cm) (R); Pain 0/10; 16:17 BP 132 / 86; Pulse 64; Resp 16; Temp 97(O); Pulse Ox 95% on R/A; Pain 0/10; bcj 14:21 Body Mass Index 21.14 (59.42 kg, 167.64 cm) lr2 Vitals: 14:21 Log In Time: May 09, 2016 at 14:19. lr2 ED Course: 14:20 Patient visited by Shanna Willis. lr2 14:20 Patient moved to Waiting lr2 14:21 Fabricio Chao is Private Physician. lr2 14:23 Patient moved to Pre RCE lr2 14:25 Triage Initiated srm 14:29 Melani Pineda,RN is Primary Nurse. srm 14:29 Patient moved to 9 srm 14:31 [facility]. le 14:40 Patient visited by Duglas Mcgee. dem1 14:40 Patient has correct armband on for positive identification. Bed in low position. Call dem1 light in reach. Side rails up X2. 14:52 Patient visited by Miley Benavides FNP. le 14:52 Patient visited by Miley Benavides FNP. le 15:20 UA Sent. bcj 15:21 No apparent distress. Resting quietly. Awaiting disposition. bcj 15:21 The patient / caregiver is instructed regarding the plan of care and ED course. bcj 15:21 deflated ballon and reinserted catheter to hub with immediate return of dark brown / bcj blood tinged urine. pt. frdeo. well. balloon. 15:24 Patient visited by Sukhjinder Stewart RN. bcj 15:27 Patient visited by Sukhjinder Stewart RN. bcj 15:27 Urine collected. Clean catch specimen. Urine specimen sent to lab. bcj 15:58 Fabricio Chao is Referral Physician. le 16:08 [facility] Payment Agreement was scanned into [employer] and attached to record. gb 16:17 No IV's were initiated during this patient's visit. No procedures done that require bcj assistance. 16:23 Patient visited by Sukhjinder Stewart RN. bcj 17:51 T-Sheet-- Draft Copy was scanned into [employer] and attached to record. klr 02 10:43 Lab / Xray Callback was scanned into [employer] and attached to record. mt4 Administered Medications: 05/09 16:13 Drug: Fluconazole 200 mg [fluconazole 100 mg tablet (2 tabs)] Route: PO; ja5 16:13 Drug: Cephalexin 500 mg [cephalexin 250 mg capsule (2 caps)] Route: PO; ja5 Order Results: Lab Order: UA; SPEC'M 05/09/16 15:17 Test: APPEARANCE, URINE; Value: TURBID; Range: CLEAR; Abnormal: Above high normal; Status: F Test: COLOR, URINE; Value: EULALIA; Range: YELLOW; Status: F Test: PH,URINE; Value: 5.0; Range: 5.0-9.0; Units: UNITS; Status: F Test: SPECIFIC GRAVITY URINE AUTO; Value: 1.014; Range: 1.002-1.035; Status: F Test: PROTEIN, URINE AUTO; Value: 2+; Range: NEGATIVE; Abnormal: Above high normal; Units: mg/dL; Status: F Test: GLUCOSE, URINE (UA) AUTO; Value: NEGATIVE; Range: NEGATIVE; Units: mg/dL; Status: F Test: KETONE, URINE AUTO; Value: NEGATIVE; Range: NEGATIVE; Units: mg/dL; Status: F Test: UROBILINOGEN, URINE AUTO; Value: 0.2; Range: 0.0-2.0; Units: mg/dL; Status: F Test: BILIRUBIN, URINE AUTO; Value: NEGATIVE; Range: NEGATIVE; Status: F Test: NITRITE, URINE AUTO; Value: NEGATIVE; Range: NEGATIVE; Status: F Test: LEUKOCYTE ESTERASE, URINE AUTO; Value: 3+; Range: NEGATIVE; Abnormal: Above high normal; Status: F Test: BLOOD, URINE BLOOD; Value: 3+; Range: NEGATIVE; Abnormal: Above high normal; Status: F Test: WBC, URINE AUTO; Value: TNTC; Range: 0-3; Abnormal: Above high normal; Units: /HPF; Status: F Test: RBC, URINE AUTO; Value: TNTC; Range: 0-3; Abnormal: Above high normal; Units: /HPF; Status: F Test: BACTERIA, URINE AUTO; Value: 2+; Range: NEGATIVE; Abnormal: Above high normal; Status: F Test: YEAST LIKE CELL URINE AUTO; Value: LARGE; Range: NONE; Abnormal: Above high normal; Status: F Test: SQUAMOUS EPITHELIAL CELL UR AU; Value: 0; Range: 0-6; Units: /HPF; Status: F Test: HYALINE CAST, URINE AUTO; Value: 0; Range: 0-1; Units: /LPF; Status: F Lab Order: Urine Culture; SPEC'M 05/09/16 15:17 Test: URINE CULTURE; Value: <EXTERNAL COMMENT eCWMed> FULL REPORT IN LAB NOTES (eCW and Medent).; Status: F Test: URINE CULTURE; Value: ORGANISM 1: STAPHYLOCOCCUS SPECIES; Status: F Test: URINE CULTURE; Value: STAPHYLOCOCCUS SPECIES; Status: F Test: URINE CULTURE; Value: COLONY COUNT CFU/ml >100,000; Status: F Test: URINE CULTURE; Value: YEAST LIKE ORGANISM; Status: F Test: URINE CULTURE; Value: COLONY COUNT CFU/ml >100,000; Status: F Test: URINE CULTURE; Value: ORGANISM 2: YEAST LIKE ORGANISM; Status: F Test: URINE CULTURE; Value: STAPHYLOCOCCUS SPECIES; Status: F Test: URINE CULTURE; Value: COLONY COUNT CFU/ml >100,000; Status: F Test: URINE CULTURE; Value: YEAST LIKE ORGANISM; Status: F Test: URINE CULTURE; Value: COLONY COUNT CFU/ml >100,000; Status: F Outcome: 15:59 Discharge ordered by Provider. le 16:17 Discharge Assessment: patient administered narcotics - no. The following High Risk [facility] Discharge criteria are identified: None. Discharged to home via ambulance, with family. Condition: stable. Discharge instructions given to lav crewman, Instructed on discharge instructions, follow up and referral plans. medication usage. No special radiology studies were completed. Property :Personal belongings accompany Pt. 16:23 Patient left the ED. [facility] 05/11 10:12 Lab/X-ray follow up: Urine culture results reviewed with Dr. Ortez and report to be kcs faxed to PCP. Signatures: Yajaira Barroso RN Sukhjinder Delgado RN RN bcj Michelson, Staci, RN RN srm Claudia, Shereen, Reg Reg gb Kennedy, Miley, SALES AND RETAIL MANAGEMENT RECRUITER SALES AND RETAIL MANAGEMENT RECRUITER Noemi Boyce Demeishia dem1 Redder, Kathie klr Anderson, Jessica, RN RN ja5 Ross, Laura lr2 Chart Complete MTDD
--- NOTE | 2016-05-11 17:24 | EDDOCDS ---
Physician Documentation [facility] Name: Pierre Rivera Age: 89 yrs Sex: Male : 1925 Arrival Date: 05/09/2016 Time: 14:19 Bed 9 Private MD: Fabricio Chao P. Disposition: 05/09/16 15:59 Discharged to Home/Self Care. Impression: Breakdown (mechanical) of urinary (indwelling) catheter, Urinary tract infection, site not specified. - Condition is Stable. - Discharge Instructions: Urinary Tract Infection, Antibiotic Medication. - Prescriptions for Keflex 500 mg Oral Capsule - take 1 capsule by ORAL route every 8 hours for 10 days; 30 capsule. - Medication Reconciliation, Local Pharmacy Hours form. - Follow up: Fabricio Chao; When: Call to arrange an appointment; Reason: Recheck today's complaints, Continuance of care. - Problem is new. - Symptoms have improved. - Notes: Continue to keep hydrated to clear up urine Return to the ED for worsening symptoms Historical: - Allergies: No known drug Allergies; - Home Meds: 1. allopurinol 100 mg Oral tab once daily 2. aspirin 81 mg Oral cpDR 1 tab once daily 3. Protonix 40 mg Oral TbEC 1 tab once daily 4. Razadyne ER 8 mg oral TbER once daily 5. multivitamin Oral tab daily 6. Namenda 10 mg oral tab 1 tab 2 times per day 7. Colace 100 mg oral cap 1 cap once daily 8. Flomax 0.4 mg Oral cp24 1 cap once daily 9. acetaminophen 325 mg Oral tab 2 tabs every 4 hours as needed 10. hydroxyzine HCl 10 mg Oral tab daily - PMHx: Alzheimers; AORTIC VALVE DISORDER; AV Block 1st Degree; GERD; Gout; Hypertension; Acute Renal Failure; - Social history: Smoking status: unknown if patient ever smoked tobacco. No barriers to communication noted, The patient speaks fluent Welsh, Speaks appropriately for age. - Family history: No immediate family members are acutely ill. - : The pt / caregiver states he / she is not on anticoagulants. Home medication list is obtained from the caregiver. - Exposure Risk Screening:: None identified. Vital Signs: 05/09 14:21 BP 131 / 76; Pulse 62; Resp 16; Temp 97.4(O); Pulse Ox 100% on R/A; Weight 59.42 kg / lr2 131 lbs (R); Height 5 ft. 6 in. (167.64 cm) (R); Pain 0/10; 16:17 BP 132 / 86; Pulse 64; Resp 16; Temp 97(O); Pulse Ox 95% on R/A; Pain 0/10; bcj 14:21 Body Mass Index 21.14 (59.42 kg, 167.64 cm) lr2 MDM: 14:31 Bladder Scan please ordered. le 15:01 UA Ordered. EDMS 15:49 Financial registration complete. gb 15:55 UA Reviewed. le 15:56 Fluconazole 200 mg PO once ordered. le 15:56 Cephalexin 500 mg PO once ordered. le 15:57 Urine Culture Ordered. EDMS 16:08 [facility] Payment Agreement was scanned into [employer] and attached to record. gb 17:51 T-Sheet-- Draft Copy was scanned into [employer] and attached to record. klr 05/11 10:43 Lab / Xray Callback was scanned into [employer] and attached to record. mt4 Administered Medications: 05/09 16:13 Drug: Fluconazole 200 mg [fluconazole 100 mg tablet (2 tabs)] Route: PO; ja5 16:13 Drug: Cephalexin 500 mg [cephalexin 250 mg capsule (2 caps)] Route: PO; ja5 Signatures: Dispatcher [employer] Sukhjinder Claros RN RN bcj Michelson, Staci, RN RN srm Shereen Taylor, Reg Reg Miley Parsons, RECRUITING AND SELECTION CONSULTANT RECRUITING AND SELECTION CONSULTANTNoemi Ybarra mt4 Mildred Joy Jessica RN ja5 The chart was reviewed and I authenticate all verbal orders and agree with the evaluation and treatment provided.Attachments: 16:08 [facility] Payment Agreement gb 17:51 T-Sheet-- Draft Copy klr Chart Complete MTDD
--- NOTE | 2016-05-11 17:24 | EDDOCDS ---
Physician Documentation [facility] Name: Pierre Rivera Age: 89 yrs Sex: Male : 1925 Arrival Date: 05/09/2016 Time: 14:19 Bed 9 Private MD: Fabricio Chao P. Disposition: 05/09/16 15:59 Discharged to Home/Self Care. Impression: Breakdown (mechanical) of urinary (indwelling) catheter, Urinary tract infection, site not specified. - Condition is Stable. - Discharge Instructions: Urinary Tract Infection, Antibiotic Medication. - Prescriptions for Keflex 500 mg Oral Capsule - take 1 capsule by ORAL route every 8 hours for 10 days; 30 capsule. - Medication Reconciliation, Local Pharmacy Hours form. - Follow up: Fabricio Chao; When: Call to arrange an appointment; Reason: Recheck today's complaints, Continuance of care. - Problem is new. - Symptoms have improved. - Notes: Continue to keep hydrated to clear up urine Return to the ED for worsening symptoms Historical: - Allergies: No known drug Allergies; - Home Meds: 1. allopurinol 100 mg Oral tab once daily 2. aspirin 81 mg Oral cpDR 1 tab once daily 3. Protonix 40 mg Oral TbEC 1 tab once daily 4. Razadyne ER 8 mg oral TbER once daily 5. multivitamin Oral tab daily 6. Namenda 10 mg oral tab 1 tab 2 times per day 7. Colace 100 mg oral cap 1 cap once daily 8. Flomax 0.4 mg Oral cp24 1 cap once daily 9. acetaminophen 325 mg Oral tab 2 tabs every 4 hours as needed 10. hydroxyzine HCl 10 mg Oral tab daily - PMHx: Alzheimers; AORTIC VALVE DISORDER; AV Block 1st Degree; GERD; Gout; Hypertension; Acute Renal Failure; - Social history: Smoking status: unknown if patient ever smoked tobacco. No barriers to communication noted, The patient speaks fluent Indonesian, Speaks appropriately for age. - Family history: No immediate family members are acutely ill. - : The pt / caregiver states he / she is not on anticoagulants. Home medication list is obtained from the caregiver. - Exposure Risk Screening:: None identified. Vital Signs: 05/09 14:21 BP 131 / 76; Pulse 62; Resp 16; Temp 97.4(O); Pulse Ox 100% on R/A; Weight 59.42 kg / lr2 131 lbs (R); Height 5 ft. 6 in. (167.64 cm) (R); Pain 0/10; 16:17 BP 132 / 86; Pulse 64; Resp 16; Temp 97(O); Pulse Ox 95% on R/A; Pain 0/10; bcj 14:21 Body Mass Index 21.14 (59.42 kg, 167.64 cm) lr2 MDM: 14:31 Bladder Scan please ordered. le 15:01 UA Ordered. EDMS 15:49 Financial registration complete. gb 15:55 UA Reviewed. le 15:56 Fluconazole 200 mg PO once ordered. le 15:56 Cephalexin 500 mg PO once ordered. le 15:57 Urine Culture Ordered. EDMS 16:08 [facility] Payment Agreement was scanned into [employer] and attached to record. gb 17:51 T-Sheet-- Draft Copy was scanned into [employer] and attached to record. klr 05/11 10:43 Lab / Xray Callback was scanned into [employer] and attached to record. mt4 Administered Medications: 05/09 16:13 Drug: Fluconazole 200 mg [fluconazole 100 mg tablet (2 tabs)] Route: PO; ja5 16:13 Drug: Cephalexin 500 mg [cephalexin 250 mg capsule (2 caps)] Route: PO; ja5 Signatures: Dispatcher [employer] Sukhjinder Claros RN RN bcj Michelson, Staci, RN RN srm Shereen Taylor, Reg Reg Miley Parsons, AEROGRAPHER AEROGRAPHERNoemi Ybarra mt4 Mildred Joy Jessica RN ja5 The chart was reviewed and I authenticate all verbal orders and agree with the evaluation and treatment provided.Attachments: 16:08 [facility] Payment Agreement gb 17:51 T-Sheet-- Draft Copy klr Chart Complete MTDD
--- NOTE | 2016-05-12 09:48 | EDDOCDS ---
Nurse's Notes [facility] Name: Pierre Rivera Age: 89 yrs Sex: Male : 1925 Arrival Date: 05/09/2016 Time: 14:19 Bed 9 Private MD: Fabricio Chao P. Diagnosis: Breakdown (mechanical) of urinary (indwelling) catheter;Urinary tract infection, site not specified Presentation: 05/09 14:24 Presenting complaint: Patient states: hasnt had any urine pass in 17 hours. home health srm aid came in a flushed cath- everything went in but nothing came out. Adult Sepsis Screening: The patient does not have new or worsening altered mentation. Patient's respiratory rate is less than 22. Systolic blood pressure is greater than 100. Patient has a qSOFA score of 0- Negative Sepsis Screen. Suicide/Homicide risk assessment- the patient denies having any suicidal and/or homicidal ideations and does not present with any other emotional, behavioral or mental health complaints. Status: Patient is not a commissioner of relocation services or dependent. Transition of care: patient was not received from another setting of care. 14:24 Acuity: MICHELLE Level 3 srm 14:24 Method Of Arrival: Wheelchair srm Triage Assessment: 14:29 General: Appears in no apparent distress, Behavior is appropriate for age, cooperative. srm Pain: Unable to use pain scale. Does not appear to understand pain scale. FLACC scale score is 0 out of 10. Historical: - Allergies: No known drug Allergies; - Home Meds: 1. allopurinol 100 mg Oral tab once daily 2. aspirin 81 mg Oral cpDR 1 tab once daily 3. Protonix 40 mg Oral TbEC 1 tab once daily 4. Razadyne ER 8 mg oral TbER once daily 5. multivitamin Oral tab daily 6. Namenda 10 mg oral tab 1 tab 2 times per day 7. Colace 100 mg oral cap 1 cap once daily 8. Flomax 0.4 mg Oral cp24 1 cap once daily 9. acetaminophen 325 mg Oral tab 2 tabs every 4 hours as needed 10. hydroxyzine HCl 10 mg Oral tab daily - PMHx: Alzheimers; AORTIC VALVE DISORDER; AV Block 1st Degree; GERD; Gout; Hypertension; Acute Renal Failure; - Social history: Smoking status: unknown if patient ever smoked tobacco. No barriers to communication noted, The patient speaks fluent Lao, Speaks appropriately for age. - Family history: No immediate family members are acutely ill. - : The pt / caregiver states he / she is not on anticoagulants. Home medication list is obtained from the caregiver. - Exposure Risk Screening:: None identified. Screenin:21 Screening information is obtained from residence staff. Fall risk: At risk due to j apparent cognitive impairment, The following interventions are performed due to a positive Fall Risk Screen: Fall Risk is added to Special Handling on the patient Summary Screen. A Fall Risk Bracelet was applied to the patient. Side Rails are placed in the up position. A Call Matos is given with instruction to call for help when getting out of bed. Fall Alert bracelet is placed on the patient. Assistance ADL's: Requires assistance with medication administration, assistance is provided by Public Health nurses. Abuse/DV Screen: The patient / caregiver reports he/she is: not in a situation that causes fear, pain or injury. Nutritional screening: No deficits noted. Advance Directives: There is an active DNR order but there is no copy available at this time. home support is adequate. Assessment: 15:21 General: Appears in no apparent distress, comfortable, Behavior is cooperative. Pain: bcj Denies pain. : Mane in place to gravity drainage no drainage in bag. Derm: Skin is pink, warm & dry. 16:17 General: Appears in no apparent distress, comfortable, Behavior is cooperative. Pain: bcj Denies pain. : Mane in place to gravity drainage Urine is blood tinged. Derm: Skin is pink, warm & dry. Vital Signs: 14:21 BP 131 / 76; Pulse 62; Resp 16; Temp 97.4(O); Pulse Ox 100% on R/A; Weight 59.42 kg lr2 (R); Height 5 ft. 6 in. (167.64 cm) (R); Pain 0/10; 16:17 BP 132 / 86; Pulse 64; Resp 16; Temp 97(O); Pulse Ox 95% on R/A; Pain 0/10; bcj 14:21 Body Mass Index 21.14 (59.42 kg, 167.64 cm) lr2 Vitals: 14:21 Log In Time: May 09, 2016 at 14:19. lr2 ED Course: 14:20 Patient visited by Shanna Willis. lr2 14:20 Patient moved to Waiting lr2 14:21 Fabricio Chao is Private Physician. lr2 14:23 Patient moved to Pre RCE lr2 14:25 Triage Initiated srm 14:29 Melani Pineda,RN is Primary Nurse. srm 14:29 Patient moved to 9 srm 14:31 [facility] le 14:40 Patient visited by Duglas Mcgee. dem1 14:40 Patient has correct armband on for positive identification. Bed in low position. Call dem1 light in reach. Side rails up X2. 14:52 Patient visited by Miley Benavides FNP. le 14:52 Patient visited by Miley Benavides FNP. le 15:20 UA Sent. bcj 15:21 No apparent distress. Resting quietly. Awaiting disposition. bcj 15:21 The patient / caregiver is instructed regarding the plan of care and ED course. bcj 15:21 deflated ballon and reinserted catheter to hub with immediate return of dark brown / bcj blood tinged urine. pt. fredo. well. balloon. 15:24 Patient visited by Sukhjinder Stewart RN. bcj 15:27 Patient visited by Sukhjinder tSewart RN. bcj 15:27 Urine collected. Clean catch specimen. Urine specimen sent to lab. bcj 15:58 Fabricio Chao is Referral Physician. le 16:08 [facility] Payment Agreement was scanned into [employer] and attached to record. gb 16:17 No IV's were initiated during this patient's visit. No procedures done that require bcj assistance. 16:23 Patient visited by Sukhjinder Stewart RN. bcj 17:51 T-Sheet-- Draft Copy was scanned into [employer] and attached to record. klr 02 10:43 Lab / Xray Callback was scanned into [employer] and attached to record. mt4 Administered Medications: 05/09 16:13 Drug: Fluconazole 200 mg [fluconazole 100 mg tablet (2 tabs)] Route: PO; ja5 16:13 Drug: Cephalexin 500 mg [cephalexin 250 mg capsule (2 caps)] Route: PO; ja5 Order Results: Lab Order: UA; SPEC'M 05/09/16 15:17 Test: APPEARANCE, URINE; Value: TURBID; Range: CLEAR; Abnormal: Above high normal; Status: F Test: COLOR, URINE; Value: EULALIA; Range: YELLOW; Status: F Test: PH,URINE; Value: 5.0; Range: 5.0-9.0; Units: UNITS; Status: F Test: SPECIFIC GRAVITY URINE AUTO; Value: 1.014; Range: 1.002-1.035; Status: F Test: PROTEIN, URINE AUTO; Value: 2+; Range: NEGATIVE; Abnormal: Above high normal; Units: mg/dL; Status: F Test: GLUCOSE, URINE (UA) AUTO; Value: NEGATIVE; Range: NEGATIVE; Units: mg/dL; Status: F Test: KETONE, URINE AUTO; Value: NEGATIVE; Range: NEGATIVE; Units: mg/dL; Status: F Test: UROBILINOGEN, URINE AUTO; Value: 0.2; Range: 0.0-2.0; Units: mg/dL; Status: F Test: BILIRUBIN, URINE AUTO; Value: NEGATIVE; Range: NEGATIVE; Status: F Test: NITRITE, URINE AUTO; Value: NEGATIVE; Range: NEGATIVE; Status: F Test: LEUKOCYTE ESTERASE, URINE AUTO; Value: 3+; Range: NEGATIVE; Abnormal: Above high normal; Status: F Test: BLOOD, URINE BLOOD; Value: 3+; Range: NEGATIVE; Abnormal: Above high normal; Status: F Test: WBC, URINE AUTO; Value: TNTC; Range: 0-3; Abnormal: Above high normal; Units: /HPF; Status: F Test: RBC, URINE AUTO; Value: TNTC; Range: 0-3; Abnormal: Above high normal; Units: /HPF; Status: F Test: BACTERIA, URINE AUTO; Value: 2+; Range: NEGATIVE; Abnormal: Above high normal; Status: F Test: YEAST LIKE CELL URINE AUTO; Value: LARGE; Range: NONE; Abnormal: Above high normal; Status: F Test: SQUAMOUS EPITHELIAL CELL UR AU; Value: 0; Range: 0-6; Units: /HPF; Status: F Test: HYALINE CAST, URINE AUTO; Value: 0; Range: 0-1; Units: /LPF; Status: F Lab Order: Urine Culture; SPEC'M 05/09/16 15:17 Test: URINE CULTURE; Value: <EXTERNAL COMMENT eCWMed> FULL REPORT IN LAB NOTES (eCW and Medent).; Status: F Test: URINE CULTURE; Value: ORGANISM 1: STAPHYLOCOCCUS EPIDERMIDIS; Status: F Test: URINE CULTURE; Value: STAPHYLOCOCCUS EPIDERMIDIS; Status: F Test: URINE CULTURE; Value: COLONY COUNT CFU/ml >100,000; Status: F Test: URINE CULTURE; Value: YEAST LIKE ORGANISM; Status: F Test: URINE CULTURE; Value: COLONY COUNT CFU/ml >100,000; Status: F Test: URINE CULTURE; Value: ORGANISM 2: YEAST LIKE ORGANISM; Status: F Test: URINE CULTURE; Value: STAPHYLOCOCCUS EPIDERMIDIS; Status: F Test: URINE CULTURE; Value: COLONY COUNT CFU/ml >100,000; Status: F Test: URINE CULTURE; Value: YEAST LIKE ORGANISM; Status: F Test: URINE CULTURE; Value: COLONY COUNT CFU/ml >100,000; Status: F Test: URINE CULTURE; Value: GRAM POS SENSI - VITEK 67; Status: F Test: URINE CULTURE; Value: Method: VIT2; Status: F Test: URINE CULTURE; Value: TETRACYCLINE 2 S; Status: F Test: URINE CULTURE; Value: PENICILLIN G 0.25 R; Status: F Test: URINE CULTURE; Value: TRIMETHOPRIM/SULFAMETHOXAZOLE 80 R; Status: F Test: URINE CULTURE; Value: ERYTHROMYCIN <=0.25 S; Status: F Test: URINE CULTURE; Value: GENTAMICIN 8 I; Status: F Test: URINE CULTURE; Value: CLINDAMYCIN <=0.25 S; Status: F Test: URINE CULTURE; Value: NITROFURANTOIN <=16 S; Status: F Test: URINE CULTURE; Value: OXACILLIN >=4 R; Status: F Test: URINE CULTURE; Value: VANCOMYCIN 2 S; Status: F Test: URINE CULTURE; Value: LINEZOLID (ZYVOX) 1 S; Status: F Outcome: 15:59 Discharge ordered by Provider. le 16:17 Discharge Assessment: patient administered narcotics - no. The following [facility] Discharge criteria are identified: None. Discharged to home via ambulance, with family. Condition: stable. 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 medication usage. No special radiology studies were completed. Property :Personal belongings accompany Pt. 16:23 Patient left the ED. j 05/11 10:12 Lab/X-ray follow up: Urine culture results reviewed with Dr. Ortez and report to be kcs faxed to PCP. Signatures: Yajaira Barroso, RN RN Sukhjinder Cuevas RN RN bcj Michelson, Staci, RN RN srm Shereen Taylor, Reg Reg Miley Parsons, DEPUTY PROGRAM MANAGER DEPUTY PROGRAM MANAGER ginna Armstrong, Noemi mt4 uDglas Mcgee1 Mildred Joy Jessica, RN RN ja5 Shanna Willis2 Chart Complete MTDD
--- NOTE | 2016-05-12 09:48 | EDDOCDS ---
Physician Documentation [facility] Name: Pierre Rivera Age: 89 yrs Sex: Male : 1925 Arrival Date: 05/09/2016 Time: 14:19 Bed 9 Private MD: Fabricio Chao P. Disposition: 05/09/16 15:59 Discharged to Home/Self Care. Impression: Breakdown (mechanical) of urinary (indwelling) catheter, Urinary tract infection, site not specified. - Condition is Stable. - Discharge Instructions: Urinary Tract Infection, Antibiotic Medication. - Prescriptions for Keflex 500 mg Oral Capsule - take 1 capsule by ORAL route every 8 hours for 10 days; 30 capsule. - Medication Reconciliation, Local Pharmacy Hours form. - Follow up: Fabricio Chao; When: Call to arrange an appointment; Reason: Recheck today's complaints, Continuance of care. - Problem is new. - Symptoms have improved. - Notes: Continue to keep hydrated to clear up urine Return to the ED for worsening symptoms Historical: - Allergies: No known drug Allergies; - Home Meds: 1. allopurinol 100 mg Oral tab once daily 2. aspirin 81 mg Oral cpDR 1 tab once daily 3. Protonix 40 mg Oral TbEC 1 tab once daily 4. Razadyne ER 8 mg oral TbER once daily 5. multivitamin Oral tab daily 6. Namenda 10 mg oral tab 1 tab 2 times per day 7. Colace 100 mg oral cap 1 cap once daily 8. Flomax 0.4 mg Oral cp24 1 cap once daily 9. acetaminophen 325 mg Oral tab 2 tabs every 4 hours as needed 10. hydroxyzine HCl 10 mg Oral tab daily - PMHx: Alzheimers; AORTIC VALVE DISORDER; AV Block 1st Degree; GERD; Gout; Hypertension; Acute Renal Failure; - Social history: Smoking status: unknown if patient ever smoked tobacco. No barriers to communication noted, The patient speaks fluent Belarusian, Speaks appropriately for age. - Family history: No immediate family members are acutely ill. - : The pt / caregiver states he / she is not on anticoagulants. Home medication list is obtained from the caregiver. - Exposure Risk Screening:: None identified. Vital Signs: 05/09 14:21 BP 131 / 76; Pulse 62; Resp 16; Temp 97.4(O); Pulse Ox 100% on R/A; Weight 59.42 kg / lr2 131 lbs (R); Height 5 ft. 6 in. (167.64 cm) (R); Pain 0/10; 16:17 BP 132 / 86; Pulse 64; Resp 16; Temp 97(O); Pulse Ox 95% on R/A; Pain 0/10; bcj 14:21 Body Mass Index 21.14 (59.42 kg, 167.64 cm) lr2 MDM: 14:31 Bladder Scan please ordered. le 15:01 UA Ordered. EDMS 15:49 Financial registration complete. gb 15:55 UA Reviewed. le 15:56 Fluconazole 200 mg PO once ordered. le 15:56 Cephalexin 500 mg PO once ordered. le 15:57 Urine Culture Ordered. EDMS 16:08 [facility] Payment Agreement was scanned into [employer] and attached to record. gb 17:51 T-Sheet-- Draft Copy was scanned into [employer] and attached to record. klr 05/11 10:43 Lab / Xray Callback was scanned into [employer] and attached to record. mt4 Administered Medications: 05/09 16:13 Drug: Fluconazole 200 mg [fluconazole 100 mg tablet (2 tabs)] Route: PO; ja5 16:13 Drug: Cephalexin 500 mg [cephalexin 250 mg capsule (2 caps)] Route: PO; ja5 Signatures: Dispatcher [employer] Sukhjinder Claros RN RN bcj Michelson, Staci, RN RN srm Shereen Taylor, Reg Reg Miley Parsons, SAND WORKER SAND WORKERNoemi Ybarra mt4 Mildred Joy Jessica RN ja5 The chart was reviewed and I authenticate all verbal orders and agree with the evaluation and treatment provided.Attachments: 16:08 [facility] Payment Agreement gb 17:51 T-Sheet-- Draft Copy klr Chart Complete MTDD
--- NOTE | 2016-05-12 09:48 | EDDOCDS ---
Physician Documentation [facility] Name: Pierre Rivera Age: 89 yrs Sex: Male : 1925 Arrival Date: 05/09/2016 Time: 14:19 Bed 9 Private MD: Fabricio Chao P. Disposition: 05/09/16 15:59 Discharged to Home/Self Care. Impression: Breakdown (mechanical) of urinary (indwelling) catheter, Urinary tract infection, site not specified. - Condition is Stable. - Discharge Instructions: Urinary Tract Infection, Antibiotic Medication. - Prescriptions for Keflex 500 mg Oral Capsule - take 1 capsule by ORAL route every 8 hours for 10 days; 30 capsule. - Medication Reconciliation, Local Pharmacy Hours form. - Follow up: Fabricio Chao; When: Call to arrange an appointment; Reason: Recheck today's complaints, Continuance of care. - Problem is new. - Symptoms have improved. - Notes: Continue to keep hydrated to clear up urine Return to the ED for worsening symptoms Historical: - Allergies: No known drug Allergies; - Home Meds: 1. allopurinol 100 mg Oral tab once daily 2. aspirin 81 mg Oral cpDR 1 tab once daily 3. Protonix 40 mg Oral TbEC 1 tab once daily 4. Razadyne ER 8 mg oral TbER once daily 5. multivitamin Oral tab daily 6. Namenda 10 mg oral tab 1 tab 2 times per day 7. Colace 100 mg oral cap 1 cap once daily 8. Flomax 0.4 mg Oral cp24 1 cap once daily 9. acetaminophen 325 mg Oral tab 2 tabs every 4 hours as needed 10. hydroxyzine HCl 10 mg Oral tab daily - PMHx: Alzheimers; AORTIC VALVE DISORDER; AV Block 1st Degree; GERD; Gout; Hypertension; Acute Renal Failure; - Social history: Smoking status: unknown if patient ever smoked tobacco. No barriers to communication noted, The patient speaks fluent Faroese, Speaks appropriately for age. - Family history: No immediate family members are acutely ill. - : The pt / caregiver states he / she is not on anticoagulants. Home medication list is obtained from the caregiver. - Exposure Risk Screening:: None identified. Vital Signs: 05/09 14:21 BP 131 / 76; Pulse 62; Resp 16; Temp 97.4(O); Pulse Ox 100% on R/A; Weight 59.42 kg / lr2 131 lbs (R); Height 5 ft. 6 in. (167.64 cm) (R); Pain 0/10; 16:17 BP 132 / 86; Pulse 64; Resp 16; Temp 97(O); Pulse Ox 95% on R/A; Pain 0/10; bcj 14:21 Body Mass Index 21.14 (59.42 kg, 167.64 cm) lr2 MDM: 14:31 Bladder Scan please ordered. le 15:01 UA Ordered. EDMS 15:49 Financial registration complete. gb 15:55 UA Reviewed. le 15:56 Fluconazole 200 mg PO once ordered. le 15:56 Cephalexin 500 mg PO once ordered. le 15:57 Urine Culture Ordered. EDMS 16:08 [facility] Payment Agreement was scanned into [employer] and attached to record. gb 17:51 T-Sheet-- Draft Copy was scanned into [employer] and attached to record. klr 05/11 10:43 Lab / Xray Callback was scanned into [employer] and attached to record. mt4 Administered Medications: 05/09 16:13 Drug: Fluconazole 200 mg [fluconazole 100 mg tablet (2 tabs)] Route: PO; ja5 16:13 Drug: Cephalexin 500 mg [cephalexin 250 mg capsule (2 caps)] Route: PO; ja5 Signatures: Dispatcher [employer] Sukhjinder Claros RN RN bcj Michelson, Staci, RN RN srm Shereen Taylor, Reg Reg Miley Parsons, SALES DIRECTOR SALES DIRECTORNoemi Ybarra mt4 Mildred Joy Jessica RN ja5 The chart was reviewed and I authenticate all verbal orders and agree with the evaluation and treatment provided.Attachments: 16:08 [facility] Payment Agreement gb 17:51 T-Sheet-- Draft Copy klr Chart Complete MTDD
--- NOTE | 2016-05-12 10:02 | EDDOCDS ---
Physician Documentation [facility] Name: Pierre Rivera Age: 89 yrs Sex: Male : 1925 Arrival Date: 05/09/2016 Time: 14:19 Bed 9 Private MD: Fabricio Chao P. Disposition: 05/09/16 15:59 Discharged to Home/Self Care. Impression: Breakdown (mechanical) of urinary (indwelling) catheter, Urinary tract infection, site not specified. - Condition is Stable. - Discharge Instructions: Urinary Tract Infection, Antibiotic Medication. - Prescriptions for Keflex 500 mg Oral Capsule - take 1 capsule by ORAL route every 8 hours for 10 days; 30 capsule. - Medication Reconciliation, Local Pharmacy Hours form. - Follow up: Fabricio Chao; When: Call to arrange an appointment; Reason: Recheck today's complaints, Continuance of care. - Problem is new. - Symptoms have improved. - Notes: Continue to keep hydrated to clear up urine Return to the ED for worsening symptoms Historical: - Allergies: No known drug Allergies; - Home Meds: 1. allopurinol 100 mg Oral tab once daily 2. aspirin 81 mg Oral cpDR 1 tab once daily 3. Protonix 40 mg Oral TbEC 1 tab once daily 4. Razadyne ER 8 mg oral TbER once daily 5. multivitamin Oral tab daily 6. Namenda 10 mg oral tab 1 tab 2 times per day 7. Colace 100 mg oral cap 1 cap once daily 8. Flomax 0.4 mg Oral cp24 1 cap once daily 9. acetaminophen 325 mg Oral tab 2 tabs every 4 hours as needed 10. hydroxyzine HCl 10 mg Oral tab daily - PMHx: Alzheimers; AORTIC VALVE DISORDER; AV Block 1st Degree; GERD; Gout; Hypertension; Acute Renal Failure; - Social history: Smoking status: unknown if patient ever smoked tobacco. No barriers to communication noted, The patient speaks fluent Malay, Speaks appropriately for age. - Family history: No immediate family members are acutely ill. - : The pt / caregiver states he / she is not on anticoagulants. Home medication list is obtained from the caregiver. - Exposure Risk Screening:: None identified. Vital Signs: 05/09 14:21 BP 131 / 76; Pulse 62; Resp 16; Temp 97.4(O); Pulse Ox 100% on R/A; Weight 59.42 kg / lr2 131 lbs (R); Height 5 ft. 6 in. (167.64 cm) (R); Pain 0/10; 16:17 BP 132 / 86; Pulse 64; Resp 16; Temp 97(O); Pulse Ox 95% on R/A; Pain 0/10; bcj 14:21 Body Mass Index 21.14 (59.42 kg, 167.64 cm) lr2 MDM: 14:31 Bladder Scan please ordered. le 15:01 UA Ordered. EDMS 15:49 Financial registration complete. gb 15:55 UA Reviewed. le 15:56 Fluconazole 200 mg PO once ordered. le 15:56 Cephalexin 500 mg PO once ordered. le 15:57 Urine Culture Ordered. EDMS 16:08 [facility] Payment Agreement was scanned into [employer] and attached to record. gb 17:51 T-Sheet-- Draft Copy was scanned into [employer] and attached to record. klr 05/11 10:43 Lab / Xray Callback was scanned into [employer] and attached to record. mt4 Administered Medications: 05/09 16:13 Drug: Fluconazole 200 mg [fluconazole 100 mg tablet (2 tabs)] Route: PO; ja5 16:13 Drug: Cephalexin 500 mg [cephalexin 250 mg capsule (2 caps)] Route: PO; ja5 Signatures: Dispatcher [employer] Sukhjinder Claros RN RN bcj Michelson, Staci, RN RN srm Shereen Taylor, Reg Reg Miley Parsons, ASSISTIVE TECHNOLOGY TRAINER ASSISTIVE TECHNOLOGY TRAINERNoemi Ybarra mt4 Mildred Joy Jessica RN ja5 The chart was reviewed and I authenticate all verbal orders and agree with the evaluation and treatment provided.Attachments: 16:08 [facility] Payment Agreement gb 17:51 T-Sheet-- Draft Copy klr MTDD
--- NOTE | 2016-05-12 10:02 | EDDOCDS ---
Nurse's Notes [facility] Name: Pierre Rivera Age: 89 yrs Sex: Male : 1925 Arrival Date: 05/09/2016 Time: 14:19 Bed 9 Private MD: Fabricio Chao P. Diagnosis: Breakdown (mechanical) of urinary (indwelling) catheter;Urinary tract infection, site not specified Presentation: 05/09 14:24 Presenting complaint: Patient states: hasnt had any urine pass in 17 hours. home health srm aid came in a flushed cath- everything went in but nothing came out. Adult Sepsis Screening: The patient does not have new or worsening altered mentation. Patient's respiratory rate is less than 22. Systolic blood pressure is greater than 100. Patient has a qSOFA score of 0- Negative Sepsis Screen. Suicide/Homicide risk assessment- the patient denies having any suicidal and/or homicidal ideations and does not present with any other emotional, behavioral or mental health complaints. Status: Patient is not a assessment services manager or dependent. Transition of care: patient was not received from another setting of care. 14:24 Acuity: MICHELLE Level 3 srm 14:24 Method Of Arrival: Wheelchair srm Triage Assessment: 14:29 General: Appears in no apparent distress, Behavior is appropriate for age, cooperative. srm Pain: Unable to use pain scale. Does not appear to understand pain scale. FLACC scale score is 0 out of 10. Historical: - Allergies: No known drug Allergies; - Home Meds: 1. allopurinol 100 mg Oral tab once daily 2. aspirin 81 mg Oral cpDR 1 tab once daily 3. Protonix 40 mg Oral TbEC 1 tab once daily 4. Razadyne ER 8 mg oral TbER once daily 5. multivitamin Oral tab daily 6. Namenda 10 mg oral tab 1 tab 2 times per day 7. Colace 100 mg oral cap 1 cap once daily 8. Flomax 0.4 mg Oral cp24 1 cap once daily 9. acetaminophen 325 mg Oral tab 2 tabs every 4 hours as needed 10. hydroxyzine HCl 10 mg Oral tab daily - PMHx: Alzheimers; AORTIC VALVE DISORDER; AV Block 1st Degree; GERD; Gout; Hypertension; Acute Renal Failure; - Social history: Smoking status: unknown if patient ever smoked tobacco. No barriers to communication noted, The patient speaks fluent Chinese, Speaks appropriately for age. - Family history: No immediate family members are acutely ill. - : The pt / caregiver states he / she is not on anticoagulants. Home medication list is obtained from the caregiver. - Exposure Risk Screening:: None identified. Screenin:21 Screening information is obtained from residence staff. Fall risk: At risk due to j apparent cognitive impairment, The following interventions are performed due to a positive Fall Risk Screen: Fall Risk is added to Special Handling on the patient Summary Screen. A Fall Risk Bracelet was applied to the patient. Side Rails are placed in the up position. A Call Matos is given with instruction to call for help when getting out of bed. Fall Alert bracelet is placed on the patient. Assistance ADL's: Requires assistance with medication administration, assistance is provided by Public Health nurses. Abuse/DV Screen: The patient / caregiver reports he/she is: not in a situation that causes fear, pain or injury. Nutritional screening: No deficits noted. Advance Directives: There is an active DNR order but there is no copy available at this time. home support is adequate. Assessment: 15:21 General: Appears in no apparent distress, comfortable, Behavior is cooperative. Pain: bcj Denies pain. : Mane in place to gravity drainage no drainage in bag. Derm: Skin is pink, warm & dry. 16:17 General: Appears in no apparent distress, comfortable, Behavior is cooperative. Pain: bcj Denies pain. : Mane in place to gravity drainage Urine is blood tinged. Derm: Skin is pink, warm & dry. Vital Signs: 14:21 BP 131 / 76; Pulse 62; Resp 16; Temp 97.4(O); Pulse Ox 100% on R/A; Weight 59.42 kg lr2 (R); Height 5 ft. 6 in. (167.64 cm) (R); Pain 0/10; 16:17 BP 132 / 86; Pulse 64; Resp 16; Temp 97(O); Pulse Ox 95% on R/A; Pain 0/10; bcj 14:21 Body Mass Index 21.14 (59.42 kg, 167.64 cm) lr2 Vitals: 14:21 Log In Time: May 09, 2016 at 14:19. lr2 ED Course: 14:20 Patient visited by Shanna Willis. lr2 14:20 Patient moved to Waiting lr2 14:21 Fabricio Chao is Private Physician. lr2 14:23 Patient moved to Pre RCE lr2 14:25 Triage Initiated srm 14:29 Melani Pineda,RN is Primary Nurse. srm 14:29 Patient moved to 9 srm 14:31 Miley Benavides FNP is [facility]. le 14:40 Patient visited by Duglas Mcgee. dem1 14:40 Patient has correct armband on for positive identification. Bed in low position. Call dem1 light in reach. Side rails up X2. 14:52 Patient visited by Miley Benavides FNP. le 14:52 Patient visited by Miley Benavides FNP. le 15:20 UA Sent. bcj 15:21 No apparent distress. Resting quietly. Awaiting disposition. bcj 15:21 The patient / caregiver is instructed regarding the plan of care and ED course. bcj 15:21 deflated ballon and reinserted catheter to hub with immediate return of dark brown / bcj blood tinged urine. pt. fredo. well. balloon. 15:24 Patient visited by Sukhjinder Stewart RN. bcj 15:27 Patient visited by Sukhjinder Stewart RN. bcj 15:27 Urine collected. Clean catch specimen. Urine specimen sent to lab. bcj 15:58 Fabricio Chao is Referral Physician. le 16:08 [facility] Payment Agreement was scanned into [employer] and attached to record. gb 16:17 No IV's were initiated during this patient's visit. No procedures done that require bcj assistance. 16:23 Patient visited by Sukhjinder Stewart RN. bcj 17:51 T-Sheet-- Draft Copy was scanned into [employer] and attached to record. klr 02 10:43 Lab / Xray Callback was scanned into [employer] and attached to record. mt4 Administered Medications: 05/09 16:13 Drug: Fluconazole 200 mg [fluconazole 100 mg tablet (2 tabs)] Route: PO; ja5 16:13 Drug: Cephalexin 500 mg [cephalexin 250 mg capsule (2 caps)] Route: PO; ja5 Order Results: Lab Order: UA; SPEC'M 05/09/16 15:17 Test: APPEARANCE, URINE; Value: TURBID; Range: CLEAR; Abnormal: Above high normal; Status: F Test: COLOR, URINE; Value: EULALIA; Range: YELLOW; Status: F Test: PH,URINE; Value: 5.0; Range: 5.0-9.0; Units: UNITS; Status: F Test: SPECIFIC GRAVITY URINE AUTO; Value: 1.014; Range: 1.002-1.035; Status: F Test: PROTEIN, URINE AUTO; Value: 2+; Range: NEGATIVE; Abnormal: Above high normal; Units: mg/dL; Status: F Test: GLUCOSE, URINE (UA) AUTO; Value: NEGATIVE; Range: NEGATIVE; Units: mg/dL; Status: F Test: KETONE, URINE AUTO; Value: NEGATIVE; Range: NEGATIVE; Units: mg/dL; Status: F Test: UROBILINOGEN, URINE AUTO; Value: 0.2; Range: 0.0-2.0; Units: mg/dL; Status: F Test: BILIRUBIN, URINE AUTO; Value: NEGATIVE; Range: NEGATIVE; Status: F Test: NITRITE, URINE AUTO; Value: NEGATIVE; Range: NEGATIVE; Status: F Test: LEUKOCYTE ESTERASE, URINE AUTO; Value: 3+; Range: NEGATIVE; Abnormal: Above high normal; Status: F Test: BLOOD, URINE BLOOD; Value: 3+; Range: NEGATIVE; Abnormal: Above high normal; Status: F Test: WBC, URINE AUTO; Value: TNTC; Range: 0-3; Abnormal: Above high normal; Units: /HPF; Status: F Test: RBC, URINE AUTO; Value: TNTC; Range: 0-3; Abnormal: Above high normal; Units: /HPF; Status: F Test: BACTERIA, URINE AUTO; Value: 2+; Range: NEGATIVE; Abnormal: Above high normal; Status: F Test: YEAST LIKE CELL URINE AUTO; Value: LARGE; Range: NONE; Abnormal: Above high normal; Status: F Test: SQUAMOUS EPITHELIAL CELL UR AU; Value: 0; Range: 0-6; Units: /HPF; Status: F Test: HYALINE CAST, URINE AUTO; Value: 0; Range: 0-1; Units: /LPF; Status: F Lab Order: Urine Culture; SPEC'M 05/09/16 15:17 Test: URINE CULTURE; Value: <EXTERNAL COMMENT eCWMed> FULL REPORT IN LAB NOTES (eCW and Medent).; Status: F Test: URINE CULTURE; Value: ORGANISM 1: STAPHYLOCOCCUS EPIDERMIDIS; Status: F Test: URINE CULTURE; Value: STAPHYLOCOCCUS EPIDERMIDIS; Status: F Test: URINE CULTURE; Value: COLONY COUNT CFU/ml >100,000; Status: F Test: URINE CULTURE; Value: YEAST LIKE ORGANISM; Status: F Test: URINE CULTURE; Value: COLONY COUNT CFU/ml >100,000; Status: F Test: URINE CULTURE; Value: ORGANISM 2: YEAST LIKE ORGANISM; Status: F Test: URINE CULTURE; Value: STAPHYLOCOCCUS EPIDERMIDIS; Status: F Test: URINE CULTURE; Value: COLONY COUNT CFU/ml >100,000; Status: F Test: URINE CULTURE; Value: YEAST LIKE ORGANISM; Status: F Test: URINE CULTURE; Value: COLONY COUNT CFU/ml >100,000; Status: F Test: URINE CULTURE; Value: GRAM POS SENSI - VITEK 67; Status: F Test: URINE CULTURE; Value: Method: VIT2; Status: F Test: URINE CULTURE; Value: TETRACYCLINE 2 S; Status: F Test: URINE CULTURE; Value: PENICILLIN G 0.25 R; Status: F Test: URINE CULTURE; Value: TRIMETHOPRIM/SULFAMETHOXAZOLE 80 R; Status: F Test: URINE CULTURE; Value: ERYTHROMYCIN <=0.25 S; Status: F Test: URINE CULTURE; Value: GENTAMICIN 8 I; Status: F Test: URINE CULTURE; Value: CLINDAMYCIN <=0.25 S; Status: F Test: URINE CULTURE; Value: NITROFURANTOIN <=16 S; Status: F Test: URINE CULTURE; Value: OXACILLIN >=4 R; Status: F Test: URINE CULTURE; Value: VANCOMYCIN 2 S; Status: F Test: URINE CULTURE; Value: LINEZOLID (ZYVOX) 1 S; Status: F Outcome: 15:59 Discharge ordered by Provider. le 16:17 Discharge Assessment: patient administered narcotics - no. The following High Risk [facility] Discharge criteria are identified: None. Discharged to home via ambulance, with family. Condition: stable. Discharge instructions given to director of coding, Instructed on discharge instructions, follow up and referral plans. medication usage. No special radiology studies were completed. Property :Personal belongings accompany Pt. 16:23 Patient left the ED. j 05/11 10:12 Lab/X-ray follow up: Urine culture results reviewed with Dr. Ortez and report to be kcs faxed to PCP. Addendum: 05/12/2016 10:00 Narrative: Urine culture results reviewed by Dr Ortez and results faxed to Dr Chao's mcp office. Signatures: Yajaira Barroso, RN RN Sukhjinder Cuevas, RN RN Orin Cervantes RN RN Kateryna Zapata, RN RN [facility] Shereen Taylor, Reg Reg gb Kennedy, Miley, CERTIFIED ALCOHOL DRUG COUNSELOR CERTIFIED ALCOHOL DRUG COUNSELOR Noemi Boyce mt4 Duglas Mcgee Kathie klr Anderson, Jessica, RN RN Shanna Morales2 MTDD
--- NOTE | 2016-05-12 10:02 | EDDOCDS ---
Physician Documentation [facility] Name: Pierre Rivera Age: 89 yrs Sex: Male : 1925 Arrival Date: 05/09/2016 Time: 14:19 Bed 9 Private MD: Fabricio Chao P. Disposition: 05/09/16 15:59 Discharged to Home/Self Care. Impression: Breakdown (mechanical) of urinary (indwelling) catheter, Urinary tract infection, site not specified. - Condition is Stable. - Discharge Instructions: Urinary Tract Infection, Antibiotic Medication. - Prescriptions for Keflex 500 mg Oral Capsule - take 1 capsule by ORAL route every 8 hours for 10 days; 30 capsule. - Medication Reconciliation, Local Pharmacy Hours form. - Follow up: Fabricio Chao; When: Call to arrange an appointment; Reason: Recheck today's complaints, Continuance of care. - Problem is new. - Symptoms have improved. - Notes: Continue to keep hydrated to clear up urine Return to the ED for worsening symptoms Historical: - Allergies: No known drug Allergies; - Home Meds: 1. allopurinol 100 mg Oral tab once daily 2. aspirin 81 mg Oral cpDR 1 tab once daily 3. Protonix 40 mg Oral TbEC 1 tab once daily 4. Razadyne ER 8 mg oral TbER once daily 5. multivitamin Oral tab daily 6. Namenda 10 mg oral tab 1 tab 2 times per day 7. Colace 100 mg oral cap 1 cap once daily 8. Flomax 0.4 mg Oral cp24 1 cap once daily 9. acetaminophen 325 mg Oral tab 2 tabs every 4 hours as needed 10. hydroxyzine HCl 10 mg Oral tab daily - PMHx: Alzheimers; AORTIC VALVE DISORDER; AV Block 1st Degree; GERD; Gout; Hypertension; Acute Renal Failure; - Social history: Smoking status: unknown if patient ever smoked tobacco. No barriers to communication noted, The patient speaks fluent Vietnamese, Speaks appropriately for age. - Family history: No immediate family members are acutely ill. - : The pt / caregiver states he / she is not on anticoagulants. Home medication list is obtained from the caregiver. - Exposure Risk Screening:: None identified. Vital Signs: 05/09 14:21 BP 131 / 76; Pulse 62; Resp 16; Temp 97.4(O); Pulse Ox 100% on R/A; Weight 59.42 kg / lr2 131 lbs (R); Height 5 ft. 6 in. (167.64 cm) (R); Pain 0/10; 16:17 BP 132 / 86; Pulse 64; Resp 16; Temp 97(O); Pulse Ox 95% on R/A; Pain 0/10; bcj 14:21 Body Mass Index 21.14 (59.42 kg, 167.64 cm) lr2 MDM: 14:31 Bladder Scan please ordered. le 15:01 UA Ordered. EDMS 15:49 Financial registration complete. gb 15:55 UA Reviewed. le 15:56 Fluconazole 200 mg PO once ordered. le 15:56 Cephalexin 500 mg PO once ordered. le 15:57 Urine Culture Ordered. EDMS 16:08 [facility] Payment Agreement was scanned into [employer] and attached to record. gb 17:51 T-Sheet-- Draft Copy was scanned into [employer] and attached to record. klr 05/11 10:43 Lab / Xray Callback was scanned into [employer] and attached to record. mt4 Administered Medications: 05/09 16:13 Drug: Fluconazole 200 mg [fluconazole 100 mg tablet (2 tabs)] Route: PO; ja5 16:13 Drug: Cephalexin 500 mg [cephalexin 250 mg capsule (2 caps)] Route: PO; ja5 Signatures: Dispatcher [employer] Sukhjinder Claros RN RN bcj Michelson, Staci, RN RN srm Shereen Taylor, Reg Reg Miley Parsons, CHEST PAINTING LEADER CHEST PAINTING LEADERNoemi Ybarra mt4 Mildred Joy Jessica RN ja5 The chart was reviewed and I authenticate all verbal orders and agree with the evaluation and treatment provided.Attachments: 16:08 [facility] Payment Agreement gb 17:51 T-Sheet-- Draft Copy klr MTDD
--- NOTE | 2016-05-12 10:03 | EDDOCDS ---
Nurse's Notes [facility] Name: Pierre Rivera Age: 89 yrs Sex: Male : 1925 Arrival Date: 05/09/2016 Time: 14:19 Bed 9 Private MD: Fabricio Chao P. Diagnosis: Breakdown (mechanical) of urinary (indwelling) catheter;Urinary tract infection, site not specified Presentation: 05/09 14:24 Presenting complaint: Patient states: hasnt had any urine pass in 17 hours. home health srm aid came in a flushed cath- everything went in but nothing came out. Adult Sepsis Screening: The patient does not have new or worsening altered mentation. Patient's respiratory rate is less than 22. Systolic blood pressure is greater than 100. Patient has a qSOFA score of 0- Negative Sepsis Screen. Suicide/Homicide risk assessment- the patient denies having any suicidal and/or homicidal ideations and does not present with any other emotional, behavioral or mental health complaints. Status: Patient is not a chief service dispatcher or dependent. Transition of care: patient was not received from another setting of care. 14:24 Acuity: MICHELLE Level 3 srm 14:24 Method Of Arrival: Wheelchair srm Triage Assessment: 14:29 General: Appears in no apparent distress, Behavior is appropriate for age, cooperative. srm Pain: Unable to use pain scale. Does not appear to understand pain scale. FLACC scale score is 0 out of 10. Historical: - Allergies: No known drug Allergies; - Home Meds: 1. allopurinol 100 mg Oral tab once daily 2. aspirin 81 mg Oral cpDR 1 tab once daily 3. Protonix 40 mg Oral TbEC 1 tab once daily 4. Razadyne ER 8 mg oral TbER once daily 5. multivitamin Oral tab daily 6. Namenda 10 mg oral tab 1 tab 2 times per day 7. Colace 100 mg oral cap 1 cap once daily 8. Flomax 0.4 mg Oral cp24 1 cap once daily 9. acetaminophen 325 mg Oral tab 2 tabs every 4 hours as needed 10. hydroxyzine HCl 10 mg Oral tab daily - PMHx: Alzheimers; AORTIC VALVE DISORDER; AV Block 1st Degree; GERD; Gout; Hypertension; Acute Renal Failure; - Social history: Smoking status: unknown if patient ever smoked tobacco. No barriers to communication noted, The patient speaks fluent Kinyarwanda, Speaks appropriately for age. - Family history: No immediate family members are acutely ill. - : The pt / caregiver states he / she is not on anticoagulants. Home medication list is obtained from the caregiver. - Exposure Risk Screening:: None identified. Screenin:21 Screening information is obtained from residence staff. Fall risk: At risk due to j apparent cognitive impairment, The following interventions are performed due to a positive Fall Risk Screen: Fall Risk is added to Special Handling on the patient Summary Screen. A Fall Risk Bracelet was applied to the patient. Side Rails are placed in the up position. A Call Matos is given with instruction to call for help when getting out of bed. Fall Alert bracelet is placed on the patient. Assistance ADL's: Requires assistance with medication administration, assistance is provided by Public Health nurses. Abuse/DV Screen: The patient / caregiver reports he/she is: not in a situation that causes fear, pain or injury. Nutritional screening: No deficits noted. Advance Directives: There is an active DNR order but there is no copy available at this time. home support is adequate. Assessment: 15:21 General: Appears in no apparent distress, comfortable, Behavior is cooperative. Pain: bcj Denies pain. : Mane in place to gravity drainage no drainage in bag. Derm: Skin is pink, warm & dry. 16:17 General: Appears in no apparent distress, comfortable, Behavior is cooperative. Pain: bcj Denies pain. : Mane in place to gravity drainage Urine is blood tinged. Derm: Skin is pink, warm & dry. Vital Signs: 14:21 BP 131 / 76; Pulse 62; Resp 16; Temp 97.4(O); Pulse Ox 100% on R/A; Weight 59.42 kg lr2 (R); Height 5 ft. 6 in. (167.64 cm) (R); Pain 0/10; 16:17 BP 132 / 86; Pulse 64; Resp 16; Temp 97(O); Pulse Ox 95% on R/A; Pain 0/10; bcj 14:21 Body Mass Index 21.14 (59.42 kg, 167.64 cm) lr2 Vitals: 14:21 Log In Time: May 09, 2016 at 14:19. lr2 ED Course: 14:20 Patient visited by Shanna Willis. lr2 14:20 Patient moved to Waiting lr2 14:21 Fabricio Chao is Private Physician. lr2 14:23 Patient moved to Pre RCE lr2 14:25 Triage Initiated srm 14:29 Melani Pineda,RN is Primary Nurse. srm 14:29 Patient moved to 9 srm 14:31 Miley Benavides FNP [facility]. le 14:40 Patient visited by Duglas Mcgee. dem1 14:40 Patient has correct armband on for positive identification. Bed in low position. Call dem1 light in reach. Side rails up X2. 14:52 Patient visited by Miley Benavides FNP. le 14:52 Patient visited by Miley Benavides FNP. le 15:20 UA Sent. bcj 15:21 No apparent distress. Resting quietly. Awaiting disposition. bcj 15:21 The patient / caregiver is instructed regarding the plan of care and ED course. bcj 15:21 deflated ballon and reinserted catheter to hub with immediate return of dark brown / bcj blood tinged urine. pt. fredo. well. balloon. 15:24 Patient visited by Sukhjinder Stewart RN. bcj 15:27 Patient visited by Sukhjinder Stewart RN. bcj 15:27 Urine collected. Clean catch specimen. Urine specimen sent to lab. bcj 15:58 Fabricio Chao is Referral Physician. le 16:08 [facility] Payment Agreement was scanned into [employer] and attached to record. gb 16:17 No IV's were initiated during this patient's visit. No procedures done that require bcj assistance. 16:23 Patient visited by Sukhjinder Stewart RN. bcj 17:51 T-Sheet-- Draft Copy was scanned into [employer] and attached to record. klr 02 10:43 Lab / Xray Callback was scanned into [employer] and attached to record. mt4 Administered Medications: 05/09 16:13 Drug: Fluconazole 200 mg [fluconazole 100 mg tablet (2 tabs)] Route: PO; ja5 16:13 Drug: Cephalexin 500 mg [cephalexin 250 mg capsule (2 caps)] Route: PO; ja5 Order Results: Lab Order: UA; SPEC'M 05/09/16 15:17 Test: APPEARANCE, URINE; Value: TURBID; Range: CLEAR; Abnormal: Above high normal; Status: F Test: COLOR, URINE; Value: EULALIA; Range: YELLOW; Status: F Test: PH,URINE; Value: 5.0; Range: 5.0-9.0; Units: UNITS; Status: F Test: SPECIFIC GRAVITY URINE AUTO; Value: 1.014; Range: 1.002-1.035; Status: F Test: PROTEIN, URINE AUTO; Value: 2+; Range: NEGATIVE; Abnormal: Above high normal; Units: mg/dL; Status: F Test: GLUCOSE, URINE (UA) AUTO; Value: NEGATIVE; Range: NEGATIVE; Units: mg/dL; Status: F Test: KETONE, URINE AUTO; Value: NEGATIVE; Range: NEGATIVE; Units: mg/dL; Status: F Test: UROBILINOGEN, URINE AUTO; Value: 0.2; Range: 0.0-2.0; Units: mg/dL; Status: F Test: BILIRUBIN, URINE AUTO; Value: NEGATIVE; Range: NEGATIVE; Status: F Test: NITRITE, URINE AUTO; Value: NEGATIVE; Range: NEGATIVE; Status: F Test: LEUKOCYTE ESTERASE, URINE AUTO; Value: 3+; Range: NEGATIVE; Abnormal: Above high normal; Status: F Test: BLOOD, URINE BLOOD; Value: 3+; Range: NEGATIVE; Abnormal: Above high normal; Status: F Test: WBC, URINE AUTO; Value: TNTC; Range: 0-3; Abnormal: Above high normal; Units: /HPF; Status: F Test: RBC, URINE AUTO; Value: TNTC; Range: 0-3; Abnormal: Above high normal; Units: /HPF; Status: F Test: BACTERIA, URINE AUTO; Value: 2+; Range: NEGATIVE; Abnormal: Above high normal; Status: F Test: YEAST LIKE CELL URINE AUTO; Value: LARGE; Range: NONE; Abnormal: Above high normal; Status: F Test: SQUAMOUS EPITHELIAL CELL UR AU; Value: 0; Range: 0-6; Units: /HPF; Status: F Test: HYALINE CAST, URINE AUTO; Value: 0; Range: 0-1; Units: /LPF; Status: F Lab Order: Urine Culture; SPEC'M 05/09/16 15:17 Test: URINE CULTURE; Value: <EXTERNAL COMMENT eCWMed> FULL REPORT IN LAB NOTES (eCW and Medent).; Status: F Test: URINE CULTURE; Value: ORGANISM 1: STAPHYLOCOCCUS EPIDERMIDIS; Status: F Test: URINE CULTURE; Value: STAPHYLOCOCCUS EPIDERMIDIS; Status: F Test: URINE CULTURE; Value: COLONY COUNT CFU/ml >100,000; Status: F Test: URINE CULTURE; Value: YEAST LIKE ORGANISM; Status: F Test: URINE CULTURE; Value: COLONY COUNT CFU/ml >100,000; Status: F Test: URINE CULTURE; Value: ORGANISM 2: YEAST LIKE ORGANISM; Status: F Test: URINE CULTURE; Value: STAPHYLOCOCCUS EPIDERMIDIS; Status: F Test: URINE CULTURE; Value: COLONY COUNT CFU/ml >100,000; Status: F Test: URINE CULTURE; Value: YEAST LIKE ORGANISM; Status: F Test: URINE CULTURE; Value: COLONY COUNT CFU/ml >100,000; Status: F Test: URINE CULTURE; Value: GRAM POS SENSI - VITEK 67; Status: F Test: URINE CULTURE; Value: Method: VIT2; Status: F Test: URINE CULTURE; Value: TETRACYCLINE 2 S; Status: F Test: URINE CULTURE; Value: PENICILLIN G 0.25 R; Status: F Test: URINE CULTURE; Value: TRIMETHOPRIM/SULFAMETHOXAZOLE 80 R; Status: F Test: URINE CULTURE; Value: ERYTHROMYCIN <=0.25 S; Status: F Test: URINE CULTURE; Value: GENTAMICIN 8 I; Status: F Test: URINE CULTURE; Value: CLINDAMYCIN <=0.25 S; Status: F Test: URINE CULTURE; Value: NITROFURANTOIN <=16 S; Status: F Test: URINE CULTURE; Value: OXACILLIN >=4 R; Status: F Test: URINE CULTURE; Value: VANCOMYCIN 2 S; Status: F Test: URINE CULTURE; Value: LINEZOLID (ZYVOX) 1 S; Status: F Outcome: 15:59 Discharge ordered by Provider. le 16:17 Discharge Assessment: patient administered narcotics - no. The following High Risk [facility] Discharge criteria are identified: None. Discharged to home via ambulance, with family. Condition: stable. Discharge instructions given to director on air, Instructed on discharge instructions, follow up and referral plans. medication usage. No special radiology studies were completed. Property :Personal belongings accompany Pt. 16:23 Patient left the ED. j 05/11 10:12 Lab/X-ray follow up: Urine culture results reviewed with Dr. Ortez and report to be kcs faxed to PCP. Addendum: 05/12/2016 10:00 Narrative: Urine culture results reviewed by Dr Ortez and results faxed to Dr Chao's mcp office. Signatures: Yajaira Barroso, RN RN Sukhjinder Cuevas, RN RN Orin Cervantes RN RN Kateryna Zapata, RN RN [facility] Shereen Taylor, Reg Reg blaine Benavides, Miley, DYE MACHINE OPERATOR DYE MACHINE OPERATOR Noemi Boyce mt4 Duglas Mcgee Kathie klr Anderson, Jessica, RN RN Shanna Morales2 Chart Complete MTDD
--- NOTE | 2016-05-12 10:03 | EDDOCDS ---
Physician Documentation [facility] Name: Pierre Rivera Age: 89 yrs Sex: Male : 1925 Arrival Date: 05/09/2016 Time: 14:19 Bed 9 Private MD: Fabricio Chao P. Disposition: 05/09/16 15:59 Discharged to Home/Self Care. Impression: Breakdown (mechanical) of urinary (indwelling) catheter, Urinary tract infection, site not specified. - Condition is Stable. - Discharge Instructions: Urinary Tract Infection, Antibiotic Medication. - Prescriptions for Keflex 500 mg Oral Capsule - take 1 capsule by ORAL route every 8 hours for 10 days; 30 capsule. - Medication Reconciliation, Local Pharmacy Hours form. - Follow up: Fabricio Chao; When: Call to arrange an appointment; Reason: Recheck today's complaints, Continuance of care. - Problem is new. - Symptoms have improved. - Notes: Continue to keep hydrated to clear up urine Return to the ED for worsening symptoms Historical: - Allergies: No known drug Allergies; - Home Meds: 1. allopurinol 100 mg Oral tab once daily 2. aspirin 81 mg Oral cpDR 1 tab once daily 3. Protonix 40 mg Oral TbEC 1 tab once daily 4. Razadyne ER 8 mg oral TbER once daily 5. multivitamin Oral tab daily 6. Namenda 10 mg oral tab 1 tab 2 times per day 7. Colace 100 mg oral cap 1 cap once daily 8. Flomax 0.4 mg Oral cp24 1 cap once daily 9. acetaminophen 325 mg Oral tab 2 tabs every 4 hours as needed 10. hydroxyzine HCl 10 mg Oral tab daily - PMHx: Alzheimers; AORTIC VALVE DISORDER; AV Block 1st Degree; GERD; Gout; Hypertension; Acute Renal Failure; - Social history: Smoking status: unknown if patient ever smoked tobacco. No barriers to communication noted, The patient speaks fluent Lithuanian, Speaks appropriately for age. - Family history: No immediate family members are acutely ill. - : The pt / caregiver states he / she is not on anticoagulants. Home medication list is obtained from the caregiver. - Exposure Risk Screening:: None identified. Vital Signs: 05/09 14:21 BP 131 / 76; Pulse 62; Resp 16; Temp 97.4(O); Pulse Ox 100% on R/A; Weight 59.42 kg / lr2 131 lbs (R); Height 5 ft. 6 in. (167.64 cm) (R); Pain 0/10; 16:17 BP 132 / 86; Pulse 64; Resp 16; Temp 97(O); Pulse Ox 95% on R/A; Pain 0/10; bcj 14:21 Body Mass Index 21.14 (59.42 kg, 167.64 cm) lr2 MDM: 14:31 Bladder Scan please ordered. le 15:01 UA Ordered. EDMS 15:49 Financial registration complete. gb 15:55 UA Reviewed. le 15:56 Fluconazole 200 mg PO once ordered. le 15:56 Cephalexin 500 mg PO once ordered. le 15:57 Urine Culture Ordered. EDMS 16:08 [facility] Payment Agreement was scanned into [employer] and attached to record. gb 17:51 T-Sheet-- Draft Copy was scanned into [employer] and attached to record. klr 05/11 10:43 Lab / Xray Callback was scanned into [employer] and attached to record. mt4 Administered Medications: 05/09 16:13 Drug: Fluconazole 200 mg [fluconazole 100 mg tablet (2 tabs)] Route: PO; ja5 16:13 Drug: Cephalexin 500 mg [cephalexin 250 mg capsule (2 caps)] Route: PO; ja5 Signatures: Dispatcher [employer] Sukhjinder Claros RN RN bcj Michelson, Staci, RN RN srm Shereen Taylor, Reg Reg Miley Parsons, MS SQL DEVELOPER MS SQL DEVELOPERNoemi Ybarra mt4 Mildred Joy Jessica RN ja5 The chart was reviewed and I authenticate all verbal orders and agree with the evaluation and treatment provided.Attachments: 16:08 [facility] Payment Agreement gb 17:51 T-Sheet-- Draft Copy klr Chart Complete MTDD
--- NOTE | 2016-05-12 10:03 | EDDOCDS ---
Physician Documentation [facility] Name: Pierre Rivera Age: 89 yrs Sex: Male : 1925 Arrival Date: 05/09/2016 Time: 14:19 Bed 9 Private MD: Fabricio Chao P. Disposition: 05/09/16 15:59 Discharged to Home/Self Care. Impression: Breakdown (mechanical) of urinary (indwelling) catheter, Urinary tract infection, site not specified. - Condition is Stable. - Discharge Instructions: Urinary Tract Infection, Antibiotic Medication. - Prescriptions for Keflex 500 mg Oral Capsule - take 1 capsule by ORAL route every 8 hours for 10 days; 30 capsule. - Medication Reconciliation, Local Pharmacy Hours form. - Follow up: Fabricio Chao; When: Call to arrange an appointment; Reason: Recheck today's complaints, Continuance of care. - Problem is new. - Symptoms have improved. - Notes: Continue to keep hydrated to clear up urine Return to the ED for worsening symptoms Historical: - Allergies: No known drug Allergies; - Home Meds: 1. allopurinol 100 mg Oral tab once daily 2. aspirin 81 mg Oral cpDR 1 tab once daily 3. Protonix 40 mg Oral TbEC 1 tab once daily 4. Razadyne ER 8 mg oral TbER once daily 5. multivitamin Oral tab daily 6. Namenda 10 mg oral tab 1 tab 2 times per day 7. Colace 100 mg oral cap 1 cap once daily 8. Flomax 0.4 mg Oral cp24 1 cap once daily 9. acetaminophen 325 mg Oral tab 2 tabs every 4 hours as needed 10. hydroxyzine HCl 10 mg Oral tab daily - PMHx: Alzheimers; AORTIC VALVE DISORDER; AV Block 1st Degree; GERD; Gout; Hypertension; Acute Renal Failure; - Social history: Smoking status: unknown if patient ever smoked tobacco. No barriers to communication noted, The patient speaks fluent Slovenian, Speaks appropriately for age. - Family history: No immediate family members are acutely ill. - : The pt / caregiver states he / she is not on anticoagulants. Home medication list is obtained from the caregiver. - Exposure Risk Screening:: None identified. Vital Signs: 05/09 14:21 BP 131 / 76; Pulse 62; Resp 16; Temp 97.4(O); Pulse Ox 100% on R/A; Weight 59.42 kg / lr2 131 lbs (R); Height 5 ft. 6 in. (167.64 cm) (R); Pain 0/10; 16:17 BP 132 / 86; Pulse 64; Resp 16; Temp 97(O); Pulse Ox 95% on R/A; Pain 0/10; bcj 14:21 Body Mass Index 21.14 (59.42 kg, 167.64 cm) lr2 MDM: 14:31 Bladder Scan please ordered. le 15:01 UA Ordered. EDMS 15:49 Financial registration complete. gb 15:55 UA Reviewed. le 15:56 Fluconazole 200 mg PO once ordered. le 15:56 Cephalexin 500 mg PO once ordered. le 15:57 Urine Culture Ordered. EDMS 16:08 [facility] Payment Agreement was scanned into [employer] and attached to record. gb 17:51 T-Sheet-- Draft Copy was scanned into [employer] and attached to record. klr 05/11 10:43 Lab / Xray Callback was scanned into [employer] and attached to record. mt4 Administered Medications: 05/09 16:13 Drug: Fluconazole 200 mg [fluconazole 100 mg tablet (2 tabs)] Route: PO; ja5 16:13 Drug: Cephalexin 500 mg [cephalexin 250 mg capsule (2 caps)] Route: PO; ja5 Signatures: Dispatcher [employer] Sukhjinder Claros RN RN bcj Michelson, Staci, RN RN srm Shereen Taylor, Reg Reg Miley Parsons, HOME DESIGNER HOME DESIGNERNoemi Ybarra mt4 Mildred Joy Jessica RN ja5 The chart was reviewed and I authenticate all verbal orders and agree with the evaluation and treatment provided.Attachments: 16:08 [facility] Payment Agreement gb 17:51 T-Sheet-- Draft Copy klr Chart Complete MTDD
== END 2016-05-09 16:23 | disposition home or self-care (01) ==
LOC: M ED 14:19
DX: T83.018A Breakdown (mechanical) of other urinary catheter, initial encounter (principal); I10 Essential (primary) hypertension; K21.9 Gastro-esophageal reflux disease without esophagitis; M10.9 Gout, unspecified; I44.0 Atrioventricular block, first degree; G30.9 Alzheimer's disease, unspecified; N17.9 Acute kidney failure, unspecified; I35.8 Other nonrheumatic aortic valve disorders; Z79.899 Other long term (current) drug therapy; Z79.82 Long term (current) use of aspirin

== ENCOUNTER 2016-05-13 11:17 | Inpatient (IN) | payer MEDICARE, OTHER ==
[~2016-05-13] VITALS: Ht 172.7 cm; Wt 56.2 kg
[2016-05-13 11:45] LABS: BASO % 0.2 % (0.0-1.0); EOS # 0.1 K/mm3 (0.0-0.50); EOS % 1.4 % (0.0-3.0); LARGE UNSTAINED CELL # 0.1 K/mm3 (0.0-0.4); LARGE UNSTAINED CELL % 1.3 % (0.0-4.0); LYMPH # 1.2 K/mm3 (1.5-4.5); LYMPH % 15.1 % (24.0-44.0); MEAN CORPUSCULAR HEMOGLOBIN 32.6 pg (27.0-33.0); MEAN CORPUSCULAR HGB CONC 31.8 g/dl (32.0-36.5); MEAN CORPUSCULAR VOLUME 102.5 fl (80.0-96.0); MONO # 0.5 K/mm3 (0.0-0.8); NEUTROPHILS # 5.3 K/mm3 (1.8-7.7); PLATELET COUNT, AUTOMATED 211 k/mm3 (150-450); RED CELL DISTRIBUTION WIDTH 13.8 % (11.5-14.5); WHITE BLOOD COUNT 7.1 K/mm3 (4.0-10.0)
[2016-05-13 11:57] LABS: ALBUMIN 2.5 GM/DL (3.2-5.2); ALBUMIN/GLOBULIN RATIO 0.66 (1.00-1.93); ALKALINE PHOSPHATASE 95 U/L (45-117); ALT/SGPT 20 U/L (12-78); AMYLASE 58 U/L (25-115); ANION GAP 7 MEQ/L (8-16); AST/SGOT 28 U/L (15-37); BILIRUBIN,DIRECT < 0.1 MG/DL (0.0-0.2); BILIRUBIN,TOTAL 0.1 MG/DL (0.2-1.0); BLOOD UREA NITROGEN 24 MG/DL (7-18); CALCIUM LEVEL 8.2 MG/DL (8.8-10.2); CARBON DIOXIDE LEVEL 25 MEQ/L (21-32); CHLORIDE LEVEL 115 MEQ/L (98-107); CREATININE FOR GFR 0.98 MG/DL (0.70-1.30); GLOMERULAR FILTRATION RATE > 60.0 (>35); GLUCOSE, FASTING 104 MG/DL (83-110); MAGNESIUM LEVEL 1.6 MG/DL (1.8-2.4); POTASSIUM SERUM 4.2 MEQ/L (3.5-5.1); SODIUM LEVEL 147 MEQ/L (136-145); TOTAL PROTEIN 6.3 GM/DL (6.4-8.2)
[2016-05-13 12:06] LABS: INR 1.03
[2016-05-13] MEDS ORDERED: CEPH500C PO (12:08)
[2016-05-13] MEDS ORDERED: FLOM5CAP PO (12:08)
[2016-05-13] MEDS ORDERED: ACET25TA5 PO (12:08)
[2016-05-13] MEDS ORDERED: HYDR10T PO (12:09)
--- NOTE | 2016-05-13 12:13 | REP ---
Clinical: Chest pain. Hypotension. Comparison: 04/09/2016. Findings: Examination is limited by portable technique, underpenetration, and poor inspiratory effort. Mediastinum and cardiac silhouette stable. Lung diggs demonstrate pulmonary vascular congestion and possible basilar atelectasis. No discrete focal consolidation, effusion, or pneumothorax. Skeletal structures demonstrate osteopenia and degenerative changes. Impression: Limited examination cannot exclude pulmonary vascular congestion and interstitial edema. Signed by Teddy Jean Baptiste MD 05/13/2016 12:05 P
[2016-05-13 12:14] LABS: ABG BASE EXCESS -3.3 (-2.0-2.0); ABG DEVICE NASAL CANN; ABG HCO3 19.5 MEQ/L (22.0-26.0); ABG PARTIAL PRESSURE CO2 28.1 mmHg (35.0-45.0); ABG PARTIAL PRESSURE O2 65.3 mmHg (75.0-100.0); ABG STANDARD HCO3 21.7 MEQ/L (22.0-26.0); ABG TOTAL CO2 20.4 MEQ/L (23.0-31.0)
[2016-05-13] MEDS ORDERED: MAGNESIUM SULFATE 1 GM/100 ML D5W BAG (10MG/ML) (J3475) As Ordered ONE (12:20)
[2016-05-13] MEDS ORDERED: NS 1,000 ML IV SCH (14:53)
[2016-05-13] MEDS ORDERED: ACETAMINOPHEN 650MG ER TAB (TYLENOL ARTHRITIS) PO PRN (15:30)
--- NOTE | 2016-05-13 17:37 | EDDOCDS ---
Nurse's Notes [facility] Name: Pierre Rivera Age: 89 yrs Sex: Male : 1925 Arrival Date: 05/13/2016 Time: 11:17 Bed 1 Private MD: Fabricio Chao P. Diagnosis: Bradycardia, unspecified Presentation: 05/13 11:19 Presenting complaint: EMS states: low heart rate and low blood pressure at home per ttb INFORMATICIST. Pt at baseline mentality. Awake and alert. NAD noted. SB on monitor. Suicide/Homicide risk assessment- the patient denies having any suicidal and/or homicidal ideations and does not present with any other emotional, behavioral or mental health complaints. Status: Patient is not a senior service technician or dependent. Transition of care: patient was not received from another setting of care. 11:19 Acuity: MICHELLE Level 2 ttb 11:19 Method Of Arrival: Ambulance ttb 11:26 Adult Sepsis Screening: The patient does not have new or worsening altered mentation. ttb Patient's respiratory rate is less than 22. Systolic blood pressure is greater than 100. Patient has a qSOFA score of 0- Negative Sepsis Screen. Triage Assessment: 11:26 General: Appears in no apparent distress, slender, well nourished, well groomed, ttb Behavior is at baseline. Pain: Unable to use pain scale. Patient appears quiet. Neurological: Level of Consciousness is awake, alert, Oriented to none. Respiratory: Airway is patent Respiratory effort is even, unlabored, Respiratory pattern is regular, symmetrical. GI: Parent/caregiver reports the patient having diarrhea. : Moy in place Urine is concentrated. Derm: Skin is normal. Historical: - Allergies: No known drug Allergies; - Home Meds: 1. aspirin 81 mg Oral cpDR 1 tab once daily (Last dose: 05/13/2016) 2. allopurinol 100 mg Oral tab once daily (Last dose: 05/13/2016) 3. Protonix 40 mg Oral TbEC 1 tab once daily (Last dose: 05/13/2016 08:00) 4. Razadyne ER 8 mg oral TbER once daily (Last dose: 05/13/2016 08:00) 5. Flomax 0.4 mg Oral cp24 1 cap once daily (Last dose: 05/12/2016) 6. hydroxyzine HCl 10 mg Oral tab nightly (Last dose: 05/12/2016) 7. Namenda 10 mg oral tab 1 tab 2 times per day (Last dose: 05/13/2016 08:00) 8. Colace 100 mg oral cap 1 cap once daily (Last dose: Unknown) 9. acetaminophen 325 mg Oral tab 2 tabs every 4 hours as needed (Last dose: Unknown) 10. multivitamin Oral tab daily (Last dose: 05/13/2016 08:00) - PMHx: Acute Renal Failure; Alzheimers; AORTIC VALVE DISORDER; AV Block 1st Degree; GERD; Gout; Hypertension; - Social history: Smoking status: Patient states former smoker of tobacco. impaired d/t Alzheimer's . - Family history: Not pertinent. - : The pt / caregiver states he / she is not on anticoagulants. Home medication list is obtained from the caregiver. - Exposure Risk Screening:: None identified. - History obtained from: caregiver. Screenin:23 Infection Control. lbd 11:28 Screening information is obtained from the patient. Fall risk: At risk due to age, ttb apparent cognitive impairment, gait disturbance, immobility, The following interventions are performed due to a positive Fall Risk Screen: Fall Risk is added to Special Handling on the patient Summary Screen. A Fall Risk Bracelet was applied to the patient. Side Rails are placed in the up position. A Call Matos is given with instruction to call for help when getting out of bed. aide at bedside. Assistance ADL's: Requires assistance with meal preparation, this assistance is provided by bathing, assistance is provided by dressing, assistance is provided by toileting, assistance is provided by ambulation, assistance is provided by housework, assistance is provided by medication administration, assistance is provided by Public Health nurses. Abuse/DV Screen: The patient / caregiver reports he/she is: pt cannot be assessed for living situation at this time. Unable to Assess. Nutritional screening: The patient reports a change in bowel habits, diarrhea, The patient reports he / she has had 3 bowels movement in the past 24 hours. Advance Directives: There is an active DNR order and the pt has a copy here at this time. There is an active Power of [place] Management Specialist, Rosa Urban [phone]. home support is adequate. Assessment: 11:55 General: Appears in no apparent distress, well nourished, well groomed, Behavior is at ttb baseline, pleasant, content. Neurological: Level of Consciousness is awake, alert, Pupils are pinpoint. Cardiovascular: Heart tones S1 S2 present Rhythm is irregular. Respiratory: Airway is patent Respiratory effort is even, unlabored, Respiratory pattern is regular, symmetrical, Breath sounds are clear in right upper lobe and left upper lobe the patient has mild shortness of breath Parent/caregiver reports the patient having cough that is since 2 days ago. GI: Abdomen is non- distended Bowel sounds present X 4 quads. Abd is soft X 4 quads Abd is non tender X 4 quads Parent/caregiver reports the patient having diarrhea. : Moy in place to gravity drainage Urine is concentrated. Derm: Skin is normal, pale, fingertips dusky upon arrival to ED. Injury Description: No known injury. 12:25 Reassessment: Patient appears in no apparent distress at this time. pt continues to ttb rest on stretcher. NAD noted. Talkative -- although does not make sense. Baseline per INFORMATICIST. Meds infusing per orders. Rhythm remains intermittent between NS with 1st degree block and rhythm documented on EKG. MD aware. No change in patient condition. . Neurological: Level of Consciousness is awake, alert. Respiratory: Airway is patent Respiratory effort is even, unlabored. 13:00 Reassessment: Patient appears in no apparent distress at this time. aide at bedside.. ttb General: Appears in no apparent distress. Neurological: Level of Consciousness is awake, alert. Cardiovascular: Rhythm is irregular. Respiratory: Airway is patent Respiratory effort is even, unlabored. 14:00 Adult Sepsis Screening: The patient does not have new or worsening altered mentation. ttb Patient's respiratory rate is less than 22. Systolic blood pressure is less than or equal to 100 (1 point). Patient has a qSOFA score of 1- Negative Sepsis Screen. 14:00 Neurological: Level of Consciousness is awake, alert. ttb 14:00 General: Appears in no apparent distress. Pain: Denies pain. Neurological: Level of ttb Consciousness is awake, alert. Cardiovascular: Rhythm is irregular Chest pain is denied. Respiratory: Airway is patent. Derm: Skin is normal. 15:31 Reassessment: Patient appears in no apparent distress at this time. lunch ordered. Aide ttb at bedside. Pt speaking on phone with family. NAD noted.. 16:00 Reassessment: Patient appears in no apparent distress at this time. INFORMATICIST at bedside. NAD ttb noted. Irregular rhythm -- NAD noted. Awake and alert. [place]uff ordered. . 16:52 General: SBAR sent to floor, PETE Kirkpatrick to receive pt. INFORMATICIST remains with pt. NAD noted. . ttb Neurological: Level of Consciousness is awake, alert. Cardiovascular: Rhythm is with heart block as documented. Respiratory: Airway is patent Respiratory effort is even, unlabored. 17:00 General: sandwich again, ordered for pt..... ttb 17:32 General: moy adjusted to get adequate urine output. INFORMATICIST states pt usually pulls ttb balloon to impede flow and balloon has to be adjusted frequently. Bp improved. INFORMATICIST at bedside. Pt remains A&A. Denies pain. . General: PCU states they are ready to receive pt at this time. . Cardiovascular: Rhythm is irregular. Respiratory: Airway is patent Respiratory effort is even, unlabored. Vital Signs: 11:24 BP 101 / 68 (auto/); ttb 11:28 BP 101 / 68; Pulse 77; Resp 16; Temp 97.2(O); Pulse Ox 97% on R/A; Weight 54.43 kg (M); cmb 11:28 Pulse 77 MON; Resp 18 S; Pulse Ox 96% on R/A; Pain 0/10; ttb 11:40 BP 95 / 51 (auto/); ttb 11:40 Pulse 75 MON; Pulse Ox 96% ; ttb 12:14 BP 103 / 50 (auto/); ttb 12:15 Pulse 73 MON; Pulse Ox 95% ; ttb 13:04 Pulse 73 MON; Resp 18; Pulse Ox 98% on R/A; Pain 0/10; ttb 13:45 Pulse 69 MON; Pulse Ox 100% ; ttb 14:01 BP 99 / 66 (auto/); ttb 14:01 Pulse 85 MON; Pulse Ox 98% ; ttb 14:13 BP 102 / 70 (auto/); ttb 14:13 Pulse 77 MON; Resp 18; Pulse Ox 96% on R/A; Pain 0/10; ttb 14:15 Pulse 74 MON; Pulse Ox 99% ; ttb 14:42 Pulse 80 MON; Pulse Ox 98% ; ttb 15:22 BP 108 / 58 (auto/); ttb 15:23 Pulse 76 MON; ttb 16:55 Pulse 67 MON; ttb 16:57 BP 154 / 89 (auto/); Resp 18 S; Temp 100.5(TE); Pulse Ox 96% on R/A; Pain 0/10; ttb 17:10 BP 146 / 78 (auto/); ttb 17:17 Pulse 74 MON; Resp 18 S; Pulse Ox 98% on R/A; Pain 0/10; ttb Vitals: 11:26 Log In Time N/A - ambulance arrival. ttb ED Course: 11:18 Patient visited by Dorota Nichols, Lithographic Press Operator Apprentice. lbd 11:18 Sneha Torrez MD is Attending Physician. sd1 11:18 Patient moved to Waiting lbd 11:18 Patient moved to 1 ttb 11:19 Fabricio Chao is Private Physician. lbd 11:19 Triage Initiated ttb 11:25 Patient visited by Sneha Torrez MD. sd1 11:28 Patient visited by Vivien Coats. cmb 11:28 Pt greeted and oriented to ED. Patient advised of names of staff involved in care, cmb location of call matos, wait times and NPO status. Accompanied by Caregiver, Placed in gown. Bed in low position. Call light in reach. Side rails up X2. awake overnight monitor on. Pulse ox on. NIBP on. 11:28 The patient / caregiver is instructed regarding the plan of care and ED course. ttb 11:31 Patient visited by Ebony Guardado RN. ttb 11:54 MAGNESIUM LEVEL Sent. ttb 11:55 Urinalysis Sent. ttb 11:55 Urine Culture Sent. ttb 11:55 Maintain field IV. Dressing intact. Good blood return noted. Site clean & dry. Gauge & ttb site: 20G LAC. Labs drawn. (by ED staff). Urine collected. Specimen obtained from Moy. Portable x-ray done. 11:58 Patient visited by Ebony Guardado RN. ttb 12:02 EKG done. (by ED staff). Reviewed by Sneha Torrez MD. cmb 12:11 Patient visited by Vivien Coats. cmb 12:23 Chest, 1 View Returned. EDMS 13:05 Patient visited by Ebony Guardado RN. ttb 13:06 Patient visited by Ebony Guardado RN. ttb 13:49 Patient visited by Vivien Coats. cmb 14:15 [facility] [place] Agreement was scanned into [employer] and attached to record. mm15 14:19 Patient visited by Ebony Guardado RN. ttb 14:35 Jamshid Patel is Hospitalizing Provider. sd1 15:31 Patient visited by Ebony Guardado RN. ttb 16:54 Patient visited by Ebony Guardado RN. ttb 17:07 Patient visited by Ebony Guardado RN. ttb 17:17 Report given to PETE Kirkpatrick to receive pt. Property :Personal belongings accompany Pt. ttb 17:17 No procedures done that require assistance. ttb Administered Medications: 12:24 Drug: Magnesium Sulfate 1 grams [magnesium sulfate 1 gram/100 mL in dextrose 5 % ttb intravenous piggyback] {Co-Signature: hs1 (Sandra Steen RN).} Route: IVPB; Infused Over: 1 hrs; Site: left antecubital; 13:27 Follow up: IV Status: Completed infusion; Infusion discontinued kpj 12:25 Drug: NS 0.9% 500 ml [sodium chloride 0.9 % intravenous solution] Route: IV; Rate: ttb bolus; Site: left antecubital; 14:00 Follow up: IV Status: Completed infusion; IV Intake: 500ml ttb 14:43 Drug: NS 0.9% 500 ml [sodium chloride 0.9 % intravenous solution] Route: IV; Rate: ttb bolus; Site: left antecubital; 16:00 Follow up: IV Status: Completed infusion; IV Intake: 500ml ttb Intake: 13:28 IV: 100.00ml (NS); Total: 100.00ml. kpj 14:00 IV: 500.00ml; Total: 600.00ml. ttb 16:00 IV: 500.00ml; Total: 1100.00ml. ttb RT: 12:10 ABG's drawn from left radial artery allens test done and positive pressure held for 5 ac1 minutes no bleeding noted pressure bandage applied specimen sent pt. tolerated well. Order Results: Lab Order: -Arterial Blood Gas; [facility]05/[facility] 11:46 Test: ABG pH (ARTERIAL); Value: 7.460; Range: 7.350-7.450; Abnormal: Above high normal; Units: UNITS; Status: F Test: ABG PARTIAL PRESSURE CO2; Value: 28.1; Range: 35.0-45.0; Abnormal: Below low normal; Units: mmHg; Status: F Test: ABG PARTIAL PRESSURE O2; Value: 65.3; Range: 75.0-100.0; Abnormal: Below low normal; Units: mmHg; Status: F Test: ABG TOTAL CO2; Value: 20.4; Range: 23.0-31.0; Abnormal: Below low normal; Units: MEQ/L; Status: F Test: ABG HCO3; Value: 19.5; Range: 22.0-26.0; Abnormal: Below low normal; Units: MEQ/L; Status: F Test: ABG BASE EXCESS; Value: -3.3; Range: -2.0-2.0; Abnormal: Below low normal; Status: F Test: ABG STANDARD HCO3; Value: 21.7; Range: 22.0-26.0; Abnormal: Below low normal; Units: MEQ/L; Status: F Test: ABG O2 SATURATION; Value: 93.4; Range: 95.0-99.0; Abnormal: Below low normal; Units: %; Status: F Test: ABG DEVICE; Value: NASAL SABRINA; Status: F Lab Order: Amylase; [facility] 05/13/16 11:23 Test: AMYLASE; Value: 58; Range: 25-115; Units: U/L; Status: F Lab Order: C Reactive Protein; [facility]05/13/16 11:23 Test: C REACTIVE PROTEIN QUANTITATIV; Value: 2.74; Range: 0.00-0.30; Abnormal: Above high normal; Units: MG/DL; Status: F Lab Order: CBC with Diff; [facility]05/13/16 11:23 Test: WHITE BLOOD COUNT; Value: 7.1; Range: 4.0-10.0; Units: K/mm3; Status: F Test: RED BLOOD COUNT; Value: 3.29; Range: 4.30-6.10; Abnormal: Below low normal; Units: M/mm3; Status: F Test: HEMOGLOBIN; Value: 10.7; Range: 14.0-18.0; Abnormal: Below low normal; Units: g/dl; Status: F Test: HEMATOCRIT; Value: 33.7; Range: 42.0-52.0; Abnormal: Below low normal; Units: %; Status: F Test: MEAN CORPUSCULAR VOLUME; Value: 102.5; Range: 80.0-96.0; Abnormal: Above high normal; Units: fl; Status: F Test: MEAN CORPUSCULAR HEMOGLOBIN; Value: 32.6; Range: 27.0-33.0; Units: pg; Status: F Test: MEAN CORPUSCULAR HGB CONC; Value: 31.8; Range: 32.0-36.5; Abnormal: Below low normal; Units: g/dl; Status: F Test: RED CELL DISTRIBUTION WIDTH; Value: 13.8; Range: 11.5-14.5; Units: %; Status: F Test: PLATELET COUNT, AUTOMATED; Value: 211; Range: 150-450; Units: k/mm3; Status: F Test: NEUTROPHILS %; Value: 75.0; Range: 36.0-66.0; Abnormal: Above high normal; Units: %; Status: F Test: LYMPH %; Value: 15.1; Range: 24.0-44.0; Abnormal: Below low normal; Units: %; Status: F Test: MONO %; Value: 7.0; Range: 0.0-5.0; Abnormal: Above high normal; Units: %; Status: F Test: EOS %; Value: 1.4; Range: 0.0-3.0; Units: %; Status: F Test: BASO %; Value: 0.2; Range: 0.0-1.0; Units: %; Status: F Test: LARGE UNSTAINED CELL %; Value: 1.3; Range: 0.0-4.0; Units: %; Status: F Test: NEUTROPHILS #; Value: 5.3; Range: 1.8-7.7; Units: K/mm3; Status: F Test: LYMPH #; Value: 1.2; Range: 1.5-4.5; Abnormal: Below low normal; Units: K/mm3; Status: F Test: MONO #; Value: 0.5; Range: 0.0-0.8; Units: K/mm3; Status: F Test: EOS #; Value: 0.1; Range: 0.0-0.50; Units: K/mm3; Status: F Test: BASO #; Value: 0.0; Range: 0.0-0.2; Units: K/mm3; Status: F Test: LARGE UNSTAINED CELL #; Value: 0.1; Range: 0.0-0.4; Units: K/mm3; Status: F Lab Order: Lactic Acid (Plasencia tube on ice); [facility]' 05/13/16 11:47 Test: LACTIC ACID SEPSIS PROTOCOL; Value: 1.7; Range: 0.4-2.0; Units: MMOL/L; Status: F Lab Order: Liver Profile; [facility]' 05/13/16 11:23 Test: AST/SGOT; Value: 28; Range: 15-37; Units: U/L; Status: F Test: ALT/SGPT; Value: 20; Range: 12-78; Units: U/L; Status: F Test: ALKALINE PHOSPHATASE; Value: 95; Range: 45-117; Units: U/L; Status: F Test: BILIRUBIN,TOTAL; Value: 0.1; Range: 0.2-1.0; Abnormal: Below low normal; Units: MG/DL; Status: F Test: BILIRUBIN,DIRECT; Value: < 0.1; Range: 0.0-0.2; Units: MG/DL; Status: F Test: TOTAL PROTEIN; Value: 6.3; Range: 6.4-8.2; Abnormal: Below low normal; Units: GM/DL; Status: F Test: ALBUMIN; Value: 2.5; Range: 3.2-5.2; Abnormal: Below low normal; Units: GM/DL; Status: F Test: ALBUMIN/GLOBULIN RATIO; Value: 0.66; Range: 1.00-1.93; Abnormal: Below low normal; Status: F Lab Order: MED Profile; SPEC' 05/13/16 11:23 Test: GLUCOSE, FASTING; Value: 104; Range: 83-110; Units: MG/DL; Status: F Test: BLOOD UREA NITROGEN; Value: 24; Range: 7-18; Abnormal: Above high normal; Units: MG/DL; Status: F Test: CREATININE FOR GFR; Value: 0.98; Range: 0.70-1.30; Units: MG/DL; Status: F Test: GLOMERULAR FILTRATION RATE; Value: > 60.0; Range: >35; Status: F Test: SODIUM LEVEL; Value: 147; Range: 136-145; Abnormal: Above high normal; Units: MEQ/L; Status: F Test: POTASSIUM SERUM; Value: 4.2; Range: 3.5-5.1; Units: MEQ/L; Status: F Test: CHLORIDE LEVEL; Value: 115; Range: 98-107; Abnormal: Above high normal; Units: MEQ/L; Status: F Test: CARBON DIOXIDE LEVEL; Value: 25; Range: 21-32; Units: MEQ/L; Status: F Test: ANION GAP; Value: 7; Range: 8-16; Abnormal: Below low normal; Units: MEQ/L; Status: F Test: CALCIUM LEVEL; Value: 8.2; Range: 8.8-10.2; Abnormal: Below low normal; Units: MG/DL; Status: F Test Note: ; Units are mL/min/1.73 m2 Chronic Kidney Disease Staging per NKF: Stage I & II GFR >=60 Normal to Mildly Decreased Stage III GFR 30-59 Moderately Decreased Stage IV GFR 15-29 Severely Decreased Stage V GFR <15 Very Little GFR Left ESRD GFR <15 on ALCOHOL LAW ENFORCEMENT AGENT Lab Order: PT/INR; SPEC'M 05/13/16 11:23 Test: PROTHROMBIN TIME; Value: 13.6; Range: 12.3-14.5; Units: SECONDS; Status: F Test: INR; Value: 1.03; Status: F Test Note: ; THERAPUTIC HUMAN INR VALUES INDICATIONS NORMAL RANGES PROPHYLAXIS/TREATMENT OF: VENOUS THROMBOSIS 2.0-3.0 PULMONARY EMBOLISM 2.0-3.0 PREVENTION OF SYSTEMIC EMBOLISM FROM: TISSUE HEART VALVES 2.0-3.0 ACUTE MYOCARDIAL INFARCTION 2.0-3.0 VALVULAR HEART DISEASE 2.0-3.0 ATRIAL FIBRILLATION 2.0-3.0 MECHANICAL VALVES(HIGH RISK) 2.5-3.5 RECURRENT MYOCARDIAL INFARCTION 2.5-3.5 Lab Order: Type & Screen; SPEC'M 05/13/16 11:23 Test: BLOOD TYPE; Value: A NEG; Status: F Test: AB SCREEN (INDIRECT JIN)VIS; Value: NEGATIVE; Status: F Lab Order: Urinalysis; SPEC'M 05/13/16 11:47 Test: APPEARANCE, URINE; Value: TURBID; Range: CLEAR; Abnormal: Above high normal; Status: F Test: COLOR, URINE; Value: BROWN; Range: YELLOW; Status: F Test: PH,URINE; Value: 5.0; Range: 5.0-9.0; Units: UNITS; Status: F Test: SPECIFIC GRAVITY URINE AUTO; Value: 1.021; Range: 1.002-1.035; Status: F Test: PROTEIN, URINE AUTO; Value: 2+; Range: NEGATIVE; Abnormal: Above high normal; Units: mg/dL; Status: F Test: GLUCOSE, URINE (UA) AUTO; Value: NEGATIVE; Range: NEGATIVE; Units: mg/dL; Status: F Test: KETONE, URINE AUTO; Value: NEGATIVE; Range: NEGATIVE; Units: mg/dL; Status: F Test: UROBILINOGEN, URINE AUTO; Value: 0.2; Range: 0.0-2.0; Units: mg/dL; Status: F Test: BILIRUBIN, URINE AUTO; Value: NEGATIVE; Range: NEGATIVE; Status: F Test: NITRITE, URINE AUTO; Value: NEGATIVE; Range: NEGATIVE; Status: F Test: LEUKOCYTE ESTERASE, URINE AUTO; Value: 2+; Range: NEGATIVE; Abnormal: Above high normal; Status: F Test: BLOOD, URINE BLOOD; Value: 3+; Range: NEGATIVE; Abnormal: Above high normal; Status: F Test: WBC, URINE AUTO; Value: TNTC; Range: 0-3; Abnormal: Above high normal; Units: /HPF; Status: F Test: RBC, URINE AUTO; Value: TNTC; Range: 0-3; Abnormal: Above high normal; Units: /HPF; Status: F Test: BACTERIA, URINE AUTO; Value: NEGATIVE; Range: NEGATIVE; Status: F Test: SQUAMOUS EPITHELIAL CELL UR AU; Value: 3; Range: 0-6; Units: /HPF; Status: F Test: MUCUS, URINE; Value: MODERATE; Range: NEGATIVE; Status: F Test: HYALINE CAST, URINE AUTO; Value: 0; Range: 0-1; Units: /LPF; Status: F Test: AMORPHOUS SEDIMENT; Value: MODERATE; Range: NEGATIVE; Abnormal: Above high normal; Status: F Test Note: ; --- 05/13/16 1228 --- COLOR previously reported as: YELLOW Lab Order: MAGNESIUM LEVEL; SPEC'M 05/13/16 11:23 Test: MAGNESIUM LEVEL; Value: 1.6; Range: 1.8-2.4; Abnormal: Below low normal; Units: MG/DL; Status: F Radiology Order: Chest, 1 View Test: Chest, 1 View REASON FOR EXAMINATION: HYPOTENSION; Clinical: Chest pain. Hypotension.; ; Comparison: 04/09/2016.; ; Findings:; Examination is limited by portable technique, underpenetration, and poor; inspiratory effort. Mediastinum and cardiac silhouette stable. Lung diggs; demonstrate pulmonary vascular congestion and possible basilar atelectasis. No; discrete focal consolidation, effusion, or pneumothorax. Skeletal structures; demonstrate osteopenia and degenerative changes.; ; Impression:; Limited examination cannot exclude pulmonary vascular congestion and interstitial; edema.; ; ; Signed by; Teddy Jean Baptiste MD 05/13/2016 12:05 P; Outcome: 14:35 Decision to Hospitalize by Provider. sd1 17:00 No special radiology studies were completed. ttb 17:17 Discharge Assessment: Patient awake, alert and oriented x 3. No cognitive and/or ttb functional deficits noted. Patient verbalized understanding of disposition instructions. Patient awake and alert. patient administered narcotics - no. The following High Risk Discharge criteria are identified: Yes, PCU admit. Admitted to PCU accompanied by nurse, accompanied by tech, family with patient, via stretcher, on monitor, with chart. Condition: stable. Instructed on admission process. Admission hand-off: Report called to PETE Kirkpatrick received SBAR. Property :Personal belongings accompany Pt. 17:36 Patient left the ED. ttb Signatures: Dispatcher [employer] EDMS Sneha Torrez MD MD sd1 Dorota Nichols, Lithographic Press Operator Apprentice Unit lbd Arabella Hicks RN RN kpj Cowles, Amy,RT RT ac1 Vivien Coats cmb Ebony Guardado RN RN ttb Alexa Mansfield [id number] Sandra Steen RN hs1 Corrections: (The following items were deleted from the chart) 11:26 11:19 Adult Sepsis Screening: The patient does not have new or worsening altered ttb mentation. Patient's respiratory rate is less than 22. Systolic blood pressure is less than or equal to 100 (1 point). Patient has a qSOFA score of 1- Negative Sepsis Screen. ttb MTDD
--- NOTE | 2016-05-13 17:37 | EDDOCDS ---
Physician Documentation [facility] Name: Pierre Rivera Age: 89 yrs Sex: Male : 1925 Arrival Date: 05/13/2016 Time: 11:17 Bed 1 Private MD: Fabricio Chao P. Disposition: 05/13/16 14:35 Hospitalization ordered by Jamshid Patel for Inpatient Admission. Preliminary diagnosis is Bradycardia, unspecified. - Bed requested for PCU. - Status is Inpatient Admission. ttb - Condition is Stable. - Problem is new. - Symptoms are unchanged. Historical: - Allergies: No known drug Allergies; - Home Meds: 1. aspirin 81 mg Oral cpDR 1 tab once daily (Last dose: 05/13/2016) 2. allopurinol 100 mg Oral tab once daily (Last dose: 05/13/2016) 3. Protonix 40 mg Oral TbEC 1 tab once daily (Last dose: 05/13/2016 08:00) 4. Razadyne ER 8 mg oral TbER once daily (Last dose: 05/13/2016 08:00) 5. Flomax 0.4 mg Oral cp24 1 cap once daily (Last dose: 05/12/2016) 6. hydroxyzine HCl 10 mg Oral tab nightly (Last dose: 05/12/2016) 7. Namenda 10 mg oral tab 1 tab 2 times per day (Last dose: 05/13/2016 08:00) 8. Colace 100 mg oral cap 1 cap once daily (Last dose: Unknown) 9. acetaminophen 325 mg Oral tab 2 tabs every 4 hours as needed (Last dose: Unknown) 10. multivitamin Oral tab daily (Last dose: 05/13/2016 08:00) - PMHx: Acute Renal Failure; Alzheimers; AORTIC VALVE DISORDER; AV Block 1st Degree; GERD; Gout; Hypertension; - Social history: Smoking status: Patient states former smoker of tobacco. impaired d/t Alzheimer's . - Family history: Not pertinent. - : The pt / caregiver states he / she is not on anticoagulants. Home medication list is obtained from the caregiver. - Exposure Risk Screening:: None identified. - History obtained from: caregiver. Vital Signs: 05/13 11:24 BP 101 / 68 (auto/); ttb 11:28 BP 101 / 68; Pulse 77; Resp 16; Temp 97.2(O); Pulse Ox 97% on R/A; Weight 54.43 kg / cmb 120 lbs (M); 11:28 Pulse 77 MON; Resp 18 S; Pulse Ox 96% on R/A; Pain 0/10; ttb 11:40 BP 95 / 51 (auto/); ttb 11:40 Pulse 75 MON; Pulse Ox 96% ; ttb 12:14 BP 103 / 50 (auto/); ttb 12:15 Pulse 73 MON; Pulse Ox 95% ; ttb 13:04 Pulse 73 MON; Resp 18; Pulse Ox 98% on R/A; Pain 0/10; ttb 13:45 Pulse 69 MON; Pulse Ox 100% ; ttb 14:01 BP 99 / 66 (auto/); ttb 14:01 Pulse 85 MON; Pulse Ox 98% ; ttb 14:13 BP 102 / 70 (auto/); ttb 14:13 Pulse 77 MON; Resp 18; Pulse Ox 96% on R/A; Pain 0/10; ttb 14:15 Pulse 74 MON; Pulse Ox 99% ; ttb 14:42 Pulse 80 MON; Pulse Ox 98% ; ttb 15:22 BP 108 / 58 (auto/); ttb 15:23 Pulse 76 MON; ttb 16:55 Pulse 67 MON; ttb 16:57 BP 154 / 89 (auto/); Resp 18 S; Temp 100.5(TE); Pulse Ox 96% on R/A; Pain 0/10; ttb 17:10 BP 146 / 78 (auto/); ttb 17:17 Pulse 74 MON; Resp 18 S; Pulse Ox 98% on R/A; Pain 0/10; ttb MDM: 11:32 -Blood Culture (Adults Only), peripheral from different site, or from device/port/PICC sd1 etc. if present ordered. 11:32 Community Services Officer/Pulse Ox/q 15 min VS ordered. sd1 11:33 Chest, 1 View Ordered. EDMS 11:33 -Arterial Blood Gas Ordered. EDMS 11:33 -Blood Culture Ordered. EDMS 11:33 Amylase Ordered. EDMS 11:33 C Reactive Protein Ordered. EDMS 11:33 CBC with Diff Ordered. EDMS 11:33 Lactic Acid (Plasencia tube on ice) Ordered. EDMS 11:33 Liver Profile Ordered. EDMS 11:33 MED Profile Ordered. EDMS 11:33 PT/INR Ordered. EDMS 11:33 Type & Screen Ordered. EDMS 11:33 Urinalysis Ordered. EDMS 11:33 Urine Culture Ordered. EDMS 11:33 ECG WITH READING ER PHYS+CARDIAG ordered. EDMS 11:38 BED REQUEST+ADM ordered. EDMS 11:43 MAGNESIUM LEVEL Ordered. EDMS 11:44 -Blood Culture (Adults Only), peripheral from different site, or from device/port/PICC lbd etc. if present complete. 11:47 BLOOD CULTURES Ordered. EDMS 12:13 C Reactive Protein Reviewed. sd1 12:13 CBC with Diff Reviewed. sd1 12:13 Liver Profile Reviewed. sd1 12:13 MED Profile Reviewed. sd1 12:13 MAGNESIUM LEVEL Reviewed. sd1 12:13 Amylase Reviewed. sd1 12:13 PT/INR Reviewed. sd1 12:18 NS 0.9% 500 ml IV at bolus once ordered. sd1 12:18 Magnesium Sulfate 1 grams IVPB once over 1 hrs; administer over at least 1 hour ordered.sd1 12:39 -Arterial Blood Gas Reviewed. sd1 12:39 Urinalysis Reviewed. sd1 12:39 Lactic Acid (Plasencia tube on ice) Reviewed. sd1 12:39 Type & Screen Reviewed. sd1 12:39 Chest, 1 View Reviewed. sd1 12:40 C Diff Toxins A&b Ordered. EDMS 13:45 Financial registration complete. mm15 14:09 NS 0.9% 500 ml IV at bolus once ordered. sd1 14:15 [facility] Payment Agreement was scanned into [employer] and attached to record. mm15 14:56 Admission / Observation Status ordered. EDMS 14:56 2 GRAM SODIUM DIET ordered. EDMS Administered Medications: 12:24 Drug: Magnesium Sulfate 1 grams [magnesium sulfate 1 gram/100 mL in dextrose 5 % ttb intravenous piggyback] {Co-Signature: hs1 (Sandra Steen RN).} Route: IVPB; Infused Over: 1 hrs; Site: left antecubital; 13:27 Follow up: IV Status: Completed infusion; Infusion discontinued [facility] 12:25 Drug: NS 0.9% 500 ml [sodium chloride 0.9 % intravenous solution] Route: IV; Rate: ttb bolus; Site: left antecubital; 14:00 Follow up: IV Status: Completed infusion; IV Intake: 500ml ttb 14:43 Drug: NS 0.9% 500 ml [sodium chloride 0.9 % intravenous solution] Route: IV; Rate: ttb bolus; Site: left antecubital; 16:00 Follow up: IV Status: Completed infusion; IV Intake: 500ml ttb Signatures: Dispatcher [employer] EDMS Sneha Torrez MD MD sd1 Dorota Nichols, Capacity Planning Engineer Unit [facility] Ebony Guardado RN RN ttb Alexa Mansfield mm15 Melany Trotter RN RN sls2 Arabella Hicks RN kpj Sandra Steen RN hs1 The chart was reviewed and I authenticate all verbal orders and agree with the evaluation and treatment provided.Corrections: (The following items were deleted from the chart) 11:43 11:39 MAGNESIUM LEVEL+LAB ordered. EDMS EDMS Attachments: 14:15 [facility] Payment Agreement mm15 MTDD
[2016-05-13 18:15] VITALS: BP 170/92
[2016-05-13] MEDS: NS 1,000 ML IV SCH (18:23)
[2016-05-13 20:07] VITALS: BP 118/62
[2016-05-13] MEDS: TAMSULOSIN 0.4 MG CAP PO SCH (20:16)
[2016-05-13] MEDS: MEMANTINE 5MG TABLET (NAMENDA) PO SCH (20:16)
[2016-05-13] MEDS: CEPHALEXIN 500 MG CAP PO SCH (20:16)
--- NOTE | 2016-05-13 20:27 | HPE ---
DATE OF ADMISSION: 05/13/2016 PRIMARY CARE PROVIDER: Fabricio Chao REASON FOR ADMISSION: Hypotension. The patient is an 89-year-old male presented to the emergency room with his caregiver after he was noted to have low blood pressure at home and low heart rate. The patient was completely asymptomatic. He had no complaints. He is demented at baseline, unable to provide any history. Most of the history is obtained from the caregiver who lives with him 24 hours a day. In the emergency room the patient's EKG showed some first-degree block. The patient had low blood pressure on admission 95/51, he was started on fluids. He appeared to be mildly dehydrated making little urine. Caregiver stated that he was recently in the emergency room on Wednesday after he pulled out his Mane catheter and was brought in. He was thought to have a urinary tract infection. He was started on antibiotics and was sent home. Over the last few days he has been having diarrhea and he again pulled out his Mane catheter yesterday which was reinserted in the emergency room. Urine appears to be dark likely due to dehydration. The patient was admitted under hospitalist service. Review of systems unable to obtain at this time due to the patient's baseline dementia. PAST MEDICAL HISTORY: Significant for aortic valve disorder AV block, first-degree history of gastroesophageal reflux disease, history of gout, history of Alzheimer's dementia. ALLERGIES: No known drug allergies. HOME MEDICATIONS: Include Namenda 10 mg by mouth twice a day multivitamin 1 tablet by mouth daily pantoprazole 40 mg by mouth daily Flomax 0.4 mg at bedtime aspirin 81 mg by mouth daily allopurinol 100 mg by mouth daily Colace 100 mg by mouth at bedtime hydroxyzine of 10 mg by mouth twice a day as needed anxiety. SOCIAL HISTORY: The patient does not smoke or drink. Lives at home with a 24/7 caregiver. His only other relatives is a cousin who lives in [place] FAMILY HISTORY: Noncontributory. PAST SURGICAL HISTORY: None. PHYSICAL FINDINGS: Blood pressure initially was 95/51, pulse 75, respiratory rate 16, temperature 97.2, pulse ox 97% on room air. HEENT: Pupils equal round reactive to light accommodation. NECK: Is supple. No jugular venous distention LUNGS: Clear bilaterally. ABDOMEN: Soft, nontender, nondistended. EXTREMITIES: No clubbing, cyanosis or edema. LABORATORY FINDINGS: WBC 7.1, hemoglobin 10.7, hematocrit 33.7, platelet count 211, sodium 47, potassium 4.2, chloride 115, BUN 24, creatinine 0.98, fasting glucose 104, lactic acid 1.7, magnesium 1.6. INR 1.803. Urinalysis too many to count WBCs and RBCs, negative for bacteria. Urine and blood cultures are pending. Chest x-ray was done in the emergency room which showed limited exam, cannot exclude a pulmonary vascular congestion or interstitial edema. ASSESSMENT/PLAN: 1. Hypotension which has resolved. The patient received normal saline in the emergency room which was continued at 70 mL an hour. Repeat blood pressure once he was on the floor was more elevated at 170/92. We will continue to check blood pressure using manual cuff only. 2. Abnormal urinalysis. The patient was recently diagnosed with a urinary tract infection in the emergency room. Urine was positive for yeast like organism and Staphylococcus epididymis which may have been a contaminant on April 21. Was diagnosed with Methicillin-resistant Staphylococcus aureus (MRSA) in the urine. We will continue the patient's Keflex for now until cultures back. The patient does not appears to be septic at this time. No fevers documented. No leukocytosis. Patient is awake not alert or oriented. Has baseline dementia. Lactic acid was only 1.7. No evidence to suggest sepsis at this time. We will continue oral Keflex for now. 3. First degree AV block. We will continue to monitor the patient on telemetry overnight. The patient is completely asymptomatic. Caregiver denies any syncopal episodes and no complaints per the patient. We will continue to monitor. The patient is a DO NOT RESUSCITATE, DO NOT INTUBATE. 4. BPH. The patient is on Flomax. We will continue will continue Mane catheter. 5. History of dementia. Continue the patient's Namenda. 6. Gastroesophageal reflux disease. Continue the patient's Protonix. 7. DVT prophylaxis. Sequential compression devices (SCDs) while in bed.
[2016-05-13 23:59] VITALS: BP 128/64
[2016-05-14 05:18] VITALS: BP 146/82
[2016-05-14] MEDS: CEPHALEXIN 500 MG CAP PO SCH (05:29)
[2016-05-14 05:41] LABS: BASO % 0.1 % (0.0-1.0); EOS # 0.1 K/mm3 (0.0-0.50); EOS % 2.5 % (0.0-3.0); LARGE UNSTAINED CELL # 0.1 K/mm3 (0.0-0.4); LARGE UNSTAINED CELL % 1.9 % (0.0-4.0); LYMPH # 1.4 K/mm3 (1.5-4.5); LYMPH % 23.6 % (24.0-44.0); MEAN CORPUSCULAR HEMOGLOBIN 32.5 pg (27.0-33.0); MEAN CORPUSCULAR HGB CONC 32.6 g/dl (32.0-36.5); MEAN CORPUSCULAR VOLUME 99.6 fl (80.0-96.0); MONO # 0.4 K/mm3 (0.0-0.8); MONO % 7.1 % (0.0-5.0); NEUTROPHILS # 3.5 K/mm3 (1.8-7.7); NEUTROPHILS % 64.8 % (36.0-66.0); PLATELET COUNT, AUTOMATED 200 k/mm3 (150-450); RED CELL DISTRIBUTION WIDTH 13.7 % (11.5-14.5); WHITE BLOOD COUNT 5.5 K/mm3 (4.0-10.0)
[2016-05-14 06:06] LABS: ALBUMIN 2.3 GM/DL (3.2-5.2); ALBUMIN/GLOBULIN RATIO 0.64 (1.00-1.93); ALKALINE PHOSPHATASE 90 U/L (45-117); ALT/SGPT 18 U/L (12-78); ANION GAP 6 MEQ/L (8-16); AST/SGOT 31 U/L (15-37); BILIRUBIN,TOTAL 0.2 MG/DL (0.2-1.0); BLOOD UREA NITROGEN 17 MG/DL (7-18); CALCIUM LEVEL 7.8 MG/DL (8.8-10.2); CARBON DIOXIDE LEVEL 25 MEQ/L (21-32); CHLORIDE LEVEL 112 MEQ/L (98-107); CREATININE FOR GFR 0.83 MG/DL (0.70-1.30); GLOMERULAR FILTRATION RATE > 60.0 (>35); GLUCOSE, FASTING 84 MG/DL (83-110); MAGNESIUM LEVEL 1.6 MG/DL (1.8-2.4); POTASSIUM SERUM 4.2 MEQ/L (3.5-5.1); SODIUM LEVEL 143 MEQ/L (136-145); TOTAL PROTEIN 5.9 GM/DL (6.4-8.2)
[2016-05-14 07:30] VITALS: BP 114/56
[2016-05-14] MEDS: NS 1,000 ML IV SCH (08:22)
[2016-05-14] MEDS: MULTIVITAMINS/MINERALS THERAP 1 TAB PO SCH (08:23)
[2016-05-14] MEDS: ASPIRIN 81 MG ENTERIC TAB PO SCH (08:23)
[2016-05-14] MEDS: MAG SULF 1GM/100ML (MAG RUN) 1 GM in APPROPRIATE DILUENT 1 EA IV SCH ×2 (08:23→10:25)
[2016-05-14] MEDS: MEMANTINE 5MG TABLET (NAMENDA) PO SCH (08:23)
[2016-05-14] MEDS: PANTOPRAZOLE 40MG TAB (PROTONIX) PO SCH (08:23)
--- NOTE | 2016-05-14 10:21 | IPNPDOC ---
Text Note Date of Service The patient was seen on 05/14/16. NOTE Subjective: Patient is a 89-year-old male admitted due to a hypotensive episode at home, seen for hospitalist follow up. Patient has severe dementia, and is unable to answer any questions. Patient's caregiver was in the room with patient who says that he has been perfect. Caregiver mentions the patient was never symptomatic during his episode of hypotension yesterday. He is currently being treated for urinary tract infection. She mentions that he had a little diarrhea the day before admission but this has since resolved. She denies having any fevers, chills, chest pain, shortness of breath, difficulty breathing, abdominal pain, nausea or vomiting. She does not have any concerns today. Objective: Vital signs: Temperature 97.0, pulse 57, respiratory rate 20, blood pressure 114 /56 pulse ox 95% on room air Gen.: Patient sleeping in bed, he does not appear to be in any acute distress Heart: Regular rate and rhythm, normal S1-S2. A soft 2/6 systolic murmur. No rubs, clicks or gallops Lungs: Clear to auscultation bilaterally. No wheezes, rales or rhonchi Abdomen: Active bowel sounds, soft, nontender, no masses to palpation Extremities: No swelling in either lower extremity Laboratory data: CBC: White blood cells 5.5, hemoglobin and hematocrit 10.3/31.5, platelets 200 Chemistry: Sodium 143, potassium 4.2, chloride 112, Index of 25, BUN 17, creatinine 0.83, glucose 84, calcium 7.8, magnesium 1.6 Liver profile: AST 31, ALT 18, alkaline phosphatase 90, total protein 5.9, albumin 2.3, total bilirubin 0.2 Microbiology: Blood culture 2 pending Urine culture: Preliminary: Yeast like organism Assessment: Patient is a 89-year-old male with asymptomatic hypotensive episode at home. Caregiver reports that he is doing well today and does not have any acute concerns. Plan: #1: Hypotension: Resolved, patient currently normotensive. Continue normal saline at rate of 70 mL/hr #2: Urinary tract infection: Patient currently being treated for urinary tract infection which was diagnosed as an outpatient. Due to patient having diarrhea from Cephelexin, patient will be switched to Zosyn 3.375g IV every 6 hours. Continue Tylenol 650 mg by mouth every 8 hours when necessary for pain #3: Bradycardia: Patient with bradycardia on monitor, sinus bradycardia cardia with first-degree AV block on EKG. Consult for Dr. Yoo from a cardiology. #4: Dementia: Continue Namenda 10 mg by mouth twice a day #5: GERD: Continue Protonix 40 mg by mouth daily #6: BPH: Continue Flomax 0.4 mg by mouth daily at bedtime #7: DVT prophylaxis: Continue teds and sequentials My preceptor for this patient encounter was physically present in the building during the encounter and was fully available. As needed, all aspects of the patient interview, examination, medical decision making process, and medical care plan development were reviewed and approved by the preceptor. Preceptor is aware and concurs with the plan as stated in the body of this note and will attest to such by his/her cosignature VSMindi, I+O VS, Mindi, I+O Laboratory Tests 05/13/16 11:23 Red Blood Count 3.29 L, Mean Corpuscular Volume 102.5 H, Mean Corpuscular Hemoglobin 32.6, Mean Corpuscular Hemoglobin Concent 31.8 L, Red Cell Distribution Width 13.8, Neutrophils (%) (Auto) 75.0 H, Lymphocytes (%) (Auto) 15.1 L, Monocytes (%) (Auto) 7.0 H, Eosinophils (%) (Auto) 1.4, Basophils (%) ( Auto) 0.2, Neutrophils # (Auto) 5.3, Lymphocytes # (Auto) 1.2 L, Monocytes # ( Auto) 0.5, Eosinophils # (Auto) 0.1, Basophils # (Auto) 0.0 05/14/16 05:17 Red Blood Count 3.17 L, Mean Corpuscular Volume 99.6 H, Mean Corpuscular Hemoglobin 32.5, Mean Corpuscular Hemoglobin Concent 32.6, Red Cell Distribution Width 13.7, Neutrophils (%) (Auto) 64.8, Lymphocytes (%) (Auto) 23.6 L, Monocytes (%) (Auto) 7.1 H, Eosinophils (%) (Auto) 2.5, Basophils (%) ( Auto) 0.1, Neutrophils # (Auto) 3.5, Lymphocytes # (Auto) 1.4 L, Monocytes # ( Auto) 0.4, Eosinophils # (Auto) 0.1, Basophils # (Auto) 0.0, Calcium Level 7.8 L , Aspartate Amino Transf (AST/SGOT) 31, Alanine Aminotransferase (ALT/SGPT) 18, Alkaline Phosphatase 90, Total Bilirubin 0.2 #, Total Protein 5.9 L, Albumin 2.3 L Vital Signs Date Time Temp Pulse Resp B/P Pulse Ox O2 Delivery O2 Flow Rate FiO2 05/14/16 07:30 97.0 57 20 114/56 95 Room Air I&O- Last 24 Hours up to 6 AM 05/14/16 05:59 Intake Total 1740 ml Output Total 1450 ml Balance 290 ml LENA MONTELONGO DO May 14, 2016 10:21
[2016-05-14] MEDS: PIPERACILLIN/TAZOBACTAM SOD 3.375 GM in D5W MINI-BAG PLUS 50 ML IV SCH ×3 (10:25→21:58)
--- NOTE | 2016-05-14 14:45 | ECGEPIP ---
Stationary ECG Study [facility] Test Date: 2016-05-14 Pat Name: ISAAC RODRÍGUEZ Department: Room: [place] [address] Gender: M Director Education: RAFI : 1925 Requested By: ZEHRA TUCKER Order Number: [id number] Reading MD: Paul Ivy Measurements Intervals [place] Rate: 53 P: 71 PA: 208 QRS: 270 QRSD: 152 T: -69 QT: 505 QTc: 474 Interpretive Statements SINUS BRADYCARDIA WITH OCCASIONAL SUPRAVENTRICULAR PREMATURE COMPLEXES MARKED RIGHT AXIS DEVIATION RIGHT BUNDLE BRANCH BLOCK OLD INFERIOR MYOCARDIAL INFARCTION, MODERATE T-WAVE ABNORMALITY, CONSIDER LATERAL ISCHEMIA Repolarization abnormalities more prominent compared with 04/10/2016. Electronically Signed On 05-14-2016 14:44:39 EST by Paul Ivy
[2016-05-14 16:00] VITALS: BP 135/69
--- NOTE | 2016-05-14 19:05 | ECGEPIP ---
Stationary ECG Study [facility] - ED Test Date: 2016-05-13 Pat Name: ISAAC RODRÍGUEZ Department: Room: - Gender: M Document Reviewer: david : 1925 Requested By: Sneha Torrez Order Number: [id number] Reading MD: Sneha Torrez Measurements Intervals [place] Rate: 71 P: 48 PA: 184 QRS: -89 QRSD: 148 T: -60 QT: 376 QTc: 410 Interpretive Statements SINUS RHYTHM WITH FREQUENT SUPRAVENTRICULAR PREMATURE COMPLEXES IN A BIGEMINAL PATTERN MARKED LEFT AXIS DEVIATION RIGHT BUNDLE BRANCH BLOCK Electronically Signed On 05-14-2016 19:04:55 EST by Sneha Torrez
[2016-05-14 21:00] VITALS: BP 132/67
[2016-05-14] MEDS: TAMSULOSIN 0.4 MG CAP PO SCH (21:58)
--- NOTE | 2016-05-14 22:20 | CR ---
DATE OF CONSULTATION: 05/14/2016 REFERRING PROVIDER: Dr. Marquise Pathak REASON FOR THE CONSULTATION: Abnormal EKG. HISTORY OF PRESENT ILLNESS: 89-year-old male living at home with a 24 hour service, was brought to the emergency room by his home health/caregiver with low blood pressure. He was admitted for further management and monitoring. While on telemetry, he was found to have an abnormal EKG with bradycardia and first degree AV block. Cardiology consultation was called. Mr. Pierre Rivera is unable to give any history at this present time and most of the information was taken from the nursing staff. It seems that he was recently treated and evaluated in the emergency room with a urinary tract infection (UTI) and then discharged home on antibiotic. He was brought because he was found to be hypotensive and has been on the floor since yesterday. He was treated in the emergency room. He was treated upon arrival with IV fluids and his blood pressure improved up to 170/92. He has a past medical history positive for valvular heart disease, abnormal EKG, arthritis, gout, benign prostatic hypertrophy (BPH) , anxiety disorder/depression, and dementia. He also has a history of kidney disease. MEDICATIONS: At home: - aspirin 81 mg by mouth daily - allopurinol 100 mg by mouth daily - Protonix 40 mg by mouth daily - Flomax 0.4 mg by mouth daily - hydroxyzine 10 mg by mouth at hour of sleep - Namenda 10 mg by mouth twice a day - Colace 100 mg by mouth daily - Tylenol 650 mg every four hours as needed for pain or fever - multivitamin one tablet by mouth daily CURRENT MEDICATIONS: - aspirin 81 mg by mouth daily - multivitamin one tablet by mouth daily - pantoprazole 40 mg by mouth daily - piperacillin 3.375 grams intravenous every 6 hours - Namenda 10 mg by mouth twice a day - tamsulosin 0.5 mg by mouth at hour of sleep - Tylenol 650 mg every 8 hours as needed for mild pain or fever - normal saline at 70 mL an hour He also received 1 gram of magnesium early today, and he was on cephalexin/ Keflex that was stopped today. FAMILY HISTORY: Noncontributory. SOCIAL HISTORY: The patient lives at home. He has a caregiver for 24 hours. There is no report of smoking. He has no known drug allergies. He has a DO NOT RESUSCITATE and DO NOT INTUBATE status. PHYSICAL EXAMINATION: The patient is alert and awake, in no acute distress at rest, and his last vital signs revealed a blood pressure of 135/69 with a pulse of 62, respirations 20, and his maximum temperature is 96.8 degrees Fahrenheit with an oxygen saturation of 96% on room air. HEAD: Normocephalic, atraumatic. NECK: Supple. LUNGS: The lungs do not reveal any wheezing or crackles. HEART: Examination revealed normal S1, S2. The PMI is not displaced. There is no rub. ABDOMEN: Unremarkable. EXTREMITIES: No pedal edema. NEUROLOGIC: Examination was limited but the patient was able to move all of his upper extremities. Complete blood count (CBC) revealed a WBC of 5.5, hemoglobin 10.3, hematocrit 31.5, and platelets 200,000. Basic metabolic panel (BMP) revealed a sodium of 143, potassium 4.2, chloride 112, CO2 of 25, BUN 17, creatinine 0.83, GFR more than 60, fasting glucose 84, calcium 7.8. Magnesium was 1.6. Liver enzymes revealed a total bilirubin of 0.2, AST 31, ALT 18, alkaline phosphatase 90, total protein 5.9, albumin 2.3. PT is 13.6 with an INR of 1.03. Urinalysis revealed numerous WBCs and RBCs and leukocyte esterase was positive, as well as protein. Sediment is also noted. Urine culture revealed yeast-like organism. Blood cultures negative after 24 hours. EKG on admission revealed sinus rhythm with left axis deviation, right bundle branch block, first degree AV block and isolated PVCs and isolated PACs and bigeminy. Electrocardiogram done today on 05/14/2016 revealed sinus bradycardia at 53 beats per minute, right bundle branch block, undetermined axis and there may be findings of prior inferior wall myocardial infarction, but this may be related to the right bundle branch block. There is nonspecific ST-T abnormalities. There is a first degree AV block. No PACs are noted. Chest x-ray on 05/13/2016 revealed a limited study. There were increased vascular markings. IMPRESSION: 1. Abnormal EKG consistent with sinus bradycardia and first degree AV block, right bundle branch block, undetermined axis in this 89-year-old male being treated for presumed urosepsis and on current medications. His blood pressure now has improved and remained stable. His medications were reviewed and I will continue the same, but I believe we may stop the Namenda, this at times can be a contributor of sinus bradycardia and AV block. We will continue telemetry. I have reviewed his prior EKG. No remarkable changes. It was a pleasure to participate in the care of Mr. Pierre Rivera for his underlying cardiac condition. I will continue to monitor along with you. Please do not hesitate to call if any questions. BENJAMÍN
[2016-05-14 23:59] VITALS: BP 125/89
[2016-05-15] MEDS: PIPERACILLIN/TAZOBACTAM SOD 3.375 GM in D5W MINI-BAG PLUS 50 ML IV SCH ×4 (03:56→20:25)
[2016-05-15] MEDS: NS 1,000 ML IV SCH ×3 (03:56→22:05)
[2016-05-15 04:00] VITALS: BP 123/56
[2016-05-15 05:39] LABS: BASO % 0.3 % (0.0-1.0); EOS # 0.2 K/mm3 (0.0-0.50); EOS % 4.3 % (0.0-3.0); LARGE UNSTAINED CELL # 0.1 K/mm3 (0.0-0.4); LARGE UNSTAINED CELL % 1.7 % (0.0-4.0); MEAN CORPUSCULAR HEMOGLOBIN 31.5 pg (27.0-33.0); MEAN CORPUSCULAR HGB CONC 32.3 g/dl (32.0-36.5); MEAN CORPUSCULAR VOLUME 97.5 fl (80.0-96.0); MONO # 0.3 K/mm3 (0.0-0.8); MONO % 6.5 % (0.0-5.0); NEUTROPHILS # 2.7 K/mm3 (1.8-7.7); NEUTROPHILS % 64.2 % (36.0-66.0); PLATELET COUNT, AUTOMATED 200 k/mm3 (150-450); RED CELL DISTRIBUTION WIDTH 13.6 % (11.5-14.5); WHITE BLOOD COUNT 4.1 K/mm3 (4.0-10.0)
[2016-05-15 05:59] LABS: ALBUMIN 2.1 GM/DL (3.2-5.2); ALKALINE PHOSPHATASE 83 U/L (45-117); ALT/SGPT 19 U/L (12-78); ANION GAP 6 MEQ/L (8-16); AST/SGOT 27 U/L (15-37); BILIRUBIN,TOTAL 0.3 MG/DL (0.2-1.0); BLOOD UREA NITROGEN 14 MG/DL (7-18); CALCIUM LEVEL 7.9 MG/DL (8.8-10.2); CARBON DIOXIDE LEVEL 23 MEQ/L (21-32); CHLORIDE LEVEL 110 MEQ/L (98-107); GLOMERULAR FILTRATION RATE > 60.0 (>35); GLUCOSE, FASTING 88 MG/DL (83-110); MAGNESIUM LEVEL 1.7 MG/DL (1.8-2.4); SODIUM LEVEL 139 MEQ/L (136-145); TOTAL PROTEIN 5.6 GM/DL (6.4-8.2)
[2016-05-15 08:00] VITALS: BP 114/63
[2016-05-15] MEDS ORDERED: MAG SULF 1GM/100ML (MAG RUN) 1 GM in APPROPRIATE DILUENT 1 EA IV ONE (08:00)
[2016-05-15] MEDS: MULTIVITAMINS/MINERALS THERAP 1 TAB PO SCH (08:04)
[2016-05-15] MEDS: PANTOPRAZOLE 40MG TAB (PROTONIX) PO SCH (08:04)
[2016-05-15] MEDS: ASPIRIN 81 MG ENTERIC TAB PO SCH (08:04)
[2016-05-15] MEDS ORDERED: GASTROGRAFIN SOLUTION 30ML PO ONE (11:00)
[2016-05-15] MEDS ORDERED: GASTROGRAFIN SOLUTION 30ML (Q9963) PO ONE (11:30)
[2016-05-15 12:00] VITALS: BP 114/53
[2016-05-15] MEDS ORDERED: ISOVUE-370 76% 100ML VIAL (Q9967) As Ordered ONE (12:43)
--- NOTE | 2016-05-15 13:18 | REP ---
Clinical: Abdominal pain. Technique: Axial contrast enhanced images from the lung bases to the pubic symphysis using 100 ml Isovue 370 intravenous contrast material with coronal and sagittal re-formations. Comparison: 04/09/2016. Findings: Lung bases demonstrate chronic changes along with atherosclerotic changes of the coronary arteries and thoracic aorta. Liver, spleen, pancreas, gallbladder, bilateral adrenal glands are normal. Kidneys demonstrate chronic cortical scarring and atrophic changes. The enteric system demonstrates moderate fecal stasis along with diverticulosis, but no evidence for bowel obstruction or acute inflammatory process. Mane catheter is identified in collapsed bladder which demonstrates significant irregular mural thickening and suggestions for small bladder diverticulum as well as small bladder calculi. The prostate gland is enlarged and demonstrates mass effect on the base of the bladder. No ascites. No free air. No obvious adenopathy. Infrarenal abdominal aortic aneurysm with significant mural thrombus measures up to approximately 5.5 cm maximal diameter (patent lumen measuring up to 3 cm diameter) . Musculoskeletal structures demonstrate diffuse degenerative changes without focal osseous abnormality. Chronic compression deformities at L1 and L2 are unchanged compared to prior examinations. Impression: 1. Fecal stasis and scattered diverticula without evidence for bowel obstruction or acute diverticulitis. 2. Enlarged prostate gland and abnormal bladder wall thickening with scattered bladder diverticulum bladder calcifications. Urology consultation is recommended to evaluate for further pathology. 3. Infrarenal abdominal aortic aneurysm with considerable circumferential mural thrombus measures up to 5.5 cm maximal diameter . 4. Further chronic changes as described above. Signed by Teddy Jean Baptiste MD 05/15/2016 01:09 P
--- NOTE | 2016-05-15 15:18 | IPNPDOC ---
Text Note Date of Service The patient was seen on 05/15/16. NOTE Subjective: Alert and awake. Baseline advanced dementia. Objective: Vitals: (see below) General: No acute distress, laying comfortably in bed. Alert and awake. HEENT: Moist mucous membranes. Neck: No JVD or lymphadenopathy Cardiac: RRR, No murmurs Pulm: Clear to auscultation b/l. No wheezing, rhonchi Abd: Minimal non specific wincing on palpation. No rebound/guarding/rigidity. ND + BS. Ext: No edema or cyanosis Labs (see below) Images: CT Abd/pelvis 05/15/16 Findings: Lung bases demonstrate chronic changes along with atherosclerotic changes of the coronary arteries and thoracic aorta. Liver, spleen, pancreas, gallbladder, bilateral adrenal glands are normal. Kidneys demonstrate chronic cortical scarring and atrophic changes. The enteric system demonstrates moderate fecal stasis along with diverticulosis, but no evidence for bowel obstruction or acute inflammatory process. Mane catheter is identified in collapsed bladder which demonstrates significant irregular mural thickening and suggestions for small bladder diverticulum as well as small bladder calculi. The prostate gland is enlarged and demonstrates mass effect on the base of the bladder. No ascites. No free air. No obvious adenopathy. Infrarenal abdominal aortic aneurysm with significant mural thrombus measures up to approximately 5.5 cm maximal diameter (patent lumen measuring up to 3 cm diameter) . Musculoskeletal structures demonstrate diffuse degenerative changes without focal osseous abnormality. Chronic compression deformities at L1 and L2 are unchanged compared to prior examinations. Impression: 1. Fecal stasis and scattered diverticula without evidence for bowel obstruction or acute diverticulitis. 2. Enlarged prostate gland and abnormal bladder wall thickening with scattered bladder diverticulum bladder calcifications. Urology consultation is recommended to evaluate for further pathology. 3. Infrarenal abdominal aortic aneurysm with considerable circumferential mural thrombus measures up to 5.5 cm maximal diameter . 4. Further chronic changes as described above. Assessment/Plan 1. Hypotension on presentation, likely 2/2 Dehydration - pt was having profuse BM while on keflex outpt. BP stable now. Afebrile. On Abx pending final urine cx,. 2. Bradycardia- asymptomatic. Appreciate Dr. Yoo's input. Namenda d/c. 3. Advanced dementia- off namenda 4. CT abd/pelvis findings were discussed with POCarolyn and cousin Madelin Urban, especially the enlarged prostate and bladder wall thickening with bladder diverticulum bladder calcifications. Madelin Urban stated that she prefers if we hold off on urology intervention and continue conservative methods. Also discussed Infrarenal abdominal aortic aneurysm with considerable circumferential mural thrombus measures up to 5.5 cm maximal diameter, and Madelin Urban prefers that we hold off on any intervention of this, including anticoagulation/surg intervention. She prefers if we focus on conservative management as this is what the patient would have wanted. 5. GERD - on PPI 6. BPH on flomax DVT prophy: SCDs Dispo: Plan to d/c in the next 24 hrs pending urine cx results. VS,Fishbone, I+O VS, Fishbone, I+O Laboratory Tests 05/15/16 05:15 Calcium Level 7.9 L, Aspartate Amino Transf (AST/SGOT) 27, Alanine Aminotransferase (ALT/SGPT) 19, Alkaline Phosphatase 83, Total Bilirubin 0.3, Total Protein 5.6 L, Albumin 2.1 L, Red Blood Count 3.14 L, Mean Corpuscular Volume 97.5 H, Mean Corpuscular Hemoglobin 31.5, Mean Corpuscular Hemoglobin Concent 32.3, Red Cell Distribution Width 13.6, Neutrophils (%) (Auto) 64.2, Lymphocytes (%) (Auto) 23.0 L, Monocytes (%) (Auto) 6.5 H, Eosinophils (%) (Auto ) 4.3 H, Basophils (%) (Auto) 0.3, Neutrophils # (Auto) 2.7, Lymphocytes # (Auto ) 1.0 L, Monocytes # (Auto) 0.3, Eosinophils # (Auto) 0.2, Basophils # (Auto) 0.0 Vital Signs Date Time Temp Pulse Resp B/P Pulse Ox O2 Delivery O2 Flow Rate FiO2 05/15/16 12:00 95.8 51 18 114/53 98 Room Air I&O- Last 24 Hours up to 6 AM 05/15/16 06:00 Intake Total 2250 ml Output Total 1025 ml Balance 1225 ml ZEHRA TUCKER MD May 15, 2016 15:18
[2016-05-15 16:00] VITALS: BP 115/69
--- NOTE | 2016-05-15 18:37 | EDDOCDS ---
Nurse's Notes [facility] Name: Pierre Rivera Age: 89 yrs Sex: Male : 1925 Arrival Date: 05/13/2016 Time: 11:17 Bed 1 Private MD: Fabricio Chao P. Diagnosis: Bradycardia, unspecified Presentation: 05/13 11:19 Presenting complaint: EMS states: low heart rate and low blood pressure at home per ttb AUTO BODY PAINTER. Pt at baseline mentality. Awake and alert. NAD noted. SB on monitor. Suicide/Homicide risk assessment- the patient denies having any suicidal and/or homicidal ideations and does not present with any other emotional, behavioral or mental health complaints. Status: Patient is not a conference services manager or dependent. Transition of care: patient was not received from another setting of care. 11:19 Acuity: MICHELLE Level 2 ttb 11:19 Method Of Arrival: Ambulance ttb 11:26 Adult Sepsis Screening: The patient does not have new or worsening altered mentation. ttb Patient's respiratory rate is less than 22. Systolic blood pressure is greater than 100. Patient has a qSOFA score of 0- Negative Sepsis Screen. Triage Assessment: 11:26 General: Appears in no apparent distress, slender, well nourished, well groomed, ttb Behavior is at baseline. Pain: Unable to use pain scale. Patient appears quiet. Neurological: Level of Consciousness is awake, alert, Oriented to none. Respiratory: Airway is patent Respiratory effort is even, unlabored, Respiratory pattern is regular, symmetrical. GI: Parent/caregiver reports the patient having diarrhea. : Moy in place Urine is concentrated. Derm: Skin is normal. Historical: - Allergies: No known drug Allergies; - Home Meds: 1. aspirin 81 mg Oral cpDR 1 tab once daily (Last dose: 05/13/2016) 2. allopurinol 100 mg Oral tab once daily (Last dose: 05/13/2016) 3. Protonix 40 mg Oral TbEC 1 tab once daily (Last dose: 05/13/2016 08:00) 4. Razadyne ER 8 mg oral TbER once daily (Last dose: 05/13/2016 08:00) 5. Flomax 0.4 mg Oral cp24 1 cap once daily (Last dose: 05/12/2016) 6. hydroxyzine HCl 10 mg Oral tab nightly (Last dose: 05/12/2016) 7. Namenda 10 mg oral tab 1 tab 2 times per day (Last dose: 05/13/2016 08:00) 8. Colace 100 mg oral cap 1 cap once daily (Last dose: Unknown) 9. acetaminophen 325 mg Oral tab 2 tabs every 4 hours as needed (Last dose: Unknown) 10. multivitamin Oral tab daily (Last dose: 05/13/2016 08:00) - PMHx: Acute Renal Failure; Alzheimers; AORTIC VALVE DISORDER; AV Block 1st Degree; GERD; Gout; Hypertension; - Social history: Smoking status: Patient states former smoker of tobacco. impaired d/t Alzheimer's . - Family history: Not pertinent. - : The pt / caregiver states he / she is not on anticoagulants. Home medication list is obtained from the caregiver. - Exposure Risk Screening:: None identified. - History obtained from: caregiver. Screenin:23 Infection Control. lbd 11:28 Screening information is obtained from the patient. Fall risk: At risk due to age, ttb apparent cognitive impairment, gait disturbance, immobility, The following interventions are performed due to a positive Fall Risk Screen: Fall Risk is added to Special Handling on the patient Summary Screen. A Fall Risk Bracelet was applied to the patient. Side Rails are placed in the up position. A Call Matos is given with instruction to call for help when getting out of bed. aide at bedside. Assistance ADL's: Requires assistance with meal preparation, this assistance is provided by bathing, assistance is provided by dressing, assistance is provided by toileting, assistance is provided by ambulation, assistance is provided by housework, assistance is provided by medication administration, assistance is provided by Public Health nurses. Abuse/DV Screen: The patient / caregiver reports he/she is: pt cannot be assessed for living situation at this time. Unable to Assess. Nutritional screening: The patient reports a change in bowel habits, diarrhea, The patient reports he / she has had 3 bowels movement in the past 24 hours. Advance Directives: There is an active DNR order and the pt has a copy here at this time. There is an active Power of Crimping Machine Operator For Metal, Rosa Urban [phone]. home support is adequate. Assessment: 11:55 General: Appears in no apparent distress, well nourished, well groomed, Behavior is at ttb baseline, pleasant, content. Neurological: Level of Consciousness is awake, alert, Pupils are pinpoint. Cardiovascular: Heart tones S1 S2 present Rhythm is irregular. Respiratory: Airway is patent Respiratory effort is even, unlabored, Respiratory pattern is regular, symmetrical, Breath sounds are clear in right upper lobe and left upper lobe the patient has mild shortness of breath Parent/caregiver reports the patient having cough that is since 2 days ago. GI: Abdomen is non- distended Bowel sounds present X 4 quads. Abd is soft X 4 quads Abd is non tender X 4 quads Parent/caregiver reports the patient having diarrhea. : Moy in place to gravity drainage Urine is concentrated. Derm: Skin is normal, pale, fingertips dusky upon arrival to ED. Injury Description: No known injury. 12:25 Reassessment: Patient appears in no apparent distress at this time. pt continues to ttb rest on stretcher. NAD noted. Talkative -- although does not make sense. Baseline per AUTO BODY PAINTER. Meds infusing per orders. Rhythm remains intermittent between NS with 1st degree block and rhythm documented on EKG. MD aware. No change in patient condition. . Neurological: Level of Consciousness is awake, alert. Respiratory: Airway is patent Respiratory effort is even, unlabored. 13:00 Reassessment: Patient appears in no apparent distress at this time. aide at bedside.. ttb General: Appears in no apparent distress. Neurological: Level of Consciousness is awake, alert. Cardiovascular: Rhythm is irregular. Respiratory: Airway is patent Respiratory effort is even, unlabored. 14:00 Adult Sepsis Screening: The patient does not have new or worsening altered mentation. ttb Patient's respiratory rate is less than 22. Systolic blood pressure is less than or equal to 100 (1 point). Patient has a qSOFA score of 1- Negative Sepsis Screen. 14:00 Neurological: Level of Consciousness is awake, alert. ttb 14:00 General: Appears in no apparent distress. Pain: Denies pain. Neurological: Level of ttb Consciousness is awake, alert. Cardiovascular: Rhythm is irregular Chest pain is denied. Respiratory: Airway is patent. Derm: Skin is normal. 15:31 Reassessment: Patient appears in no apparent distress at this time. lunch ordered. Aide ttb at bedside. Pt speaking on phone with family. NAD noted.. 16:00 Reassessment: Patient appears in no apparent distress at this time. AUTO BODY PAINTER at bedside. NAD ttb noted. Irregular rhythm -- NAD noted. Awake and alert. Barton ordered. . 16:52 General: SBAR sent to floor, PETE Kirkpatrick to receive pt. AUTO BODY PAINTER remains with pt. NAD noted. . ttb Neurological: Level of Consciousness is awake, alert. Cardiovascular: Rhythm is with heart block as documented. Respiratory: Airway is patent Respiratory effort is even, unlabored. 17:00 General: sandwich again, ordered for pt..... ttb 17:32 General: moy adjusted to get adequate urine output. AUTO BODY PAINTER states pt usually pulls ttb balloon to impede flow and balloon has to be adjusted frequently. Bp improved. AUTO BODY PAINTER at bedside. Pt remains A&A. Denies pain. . General: PCU states they are ready to receive pt at this time. . Cardiovascular: Rhythm is irregular. Respiratory: Airway is patent Respiratory effort is even, unlabored. Vital Signs: 11:24 BP 101 / 68 (auto/); ttb 11:28 BP 101 / 68; Pulse 77; Resp 16; Temp 97.2(O); Pulse Ox 97% on R/A; Weight 54.43 kg (M); cmb 11:28 Pulse 77 MON; Resp 18 S; Pulse Ox 96% on R/A; Pain 0/10; ttb 11:40 BP 95 / 51 (auto/); ttb 11:40 Pulse 75 MON; Pulse Ox 96% ; ttb 12:14 BP 103 / 50 (auto/); ttb 12:15 Pulse 73 MON; Pulse Ox 95% ; ttb 13:04 Pulse 73 MON; Resp 18; Pulse Ox 98% on R/A; Pain 0/10; ttb 13:45 Pulse 69 MON; Pulse Ox 100% ; ttb 14:01 BP 99 / 66 (auto/); ttb 14:01 Pulse 85 MON; Pulse Ox 98% ; ttb 14:13 BP 102 / 70 (auto/); ttb 14:13 Pulse 77 MON; Resp 18; Pulse Ox 96% on R/A; Pain 0/10; ttb 14:15 Pulse 74 MON; Pulse Ox 99% ; ttb 14:42 Pulse 80 MON; Pulse Ox 98% ; ttb 15:22 BP 108 / 58 (auto/); ttb 15:23 Pulse 76 MON; ttb 16:55 Pulse 67 MON; ttb 16:57 BP 154 / 89 (auto/); Resp 18 S; Temp 100.5(TE); Pulse Ox 96% on R/A; Pain 0/10; ttb 17:10 BP 146 / 78 (auto/); ttb 17:17 Pulse 74 MON; Resp 18 S; Pulse Ox 98% on R/A; Pain 0/10; ttb Vitals: 11:26 Log In Time N/A - ambulance arrival. ttb ED Course: 11:18 Patient visited by Dorota Nichols, Steward/Stewardess Tourist Class. lbd 11:18 Sneha Torrez MD is Attending Physician. sd1 11:18 Patient moved to Waiting lbd 11:18 Patient moved to 1 ttb 11:19 Fabricio Chao is Private Physician. lbd 11:19 Triage Initiated ttb 11:25 Patient visited by Sneha Torrez MD. sd1 11:28 Patient visited by Vivien Coats. cmb 11:28 Pt greeted and oriented to ED. Patient advised of names of staff involved in care, cmb location of call matos, wait times and NPO status. Accompanied by Caregiver, Placed in gown. Bed in low position. Call light in reach. Side rails up X2. night monitor on. Pulse ox on. NIBP on. 11:28 The patient / caregiver is instructed regarding the plan of care and ED course. ttb 11:31 Patient visited by Ebony Guardado RN. ttb 11:54 MAGNESIUM LEVEL Sent. ttb 11:55 Urinalysis Sent. ttb 11:55 Urine Culture Sent. ttb 11:55 Maintain field IV. Dressing intact. Good blood return noted. Site clean & dry. Gauge & ttb site: 20G LAC. Labs drawn. (by ED staff). Urine collected. Specimen obtained from Moy. Portable x-ray done. 11:58 Patient visited by Ebony Guardado RN. ttb 12:02 EKG done. (by ED staff). Reviewed by Sneha Torrez MD. cmb 12:11 Patient visited by Vivien Coats. cmb 12:23 Chest, 1 View Returned. EDMS 13:05 Patient visited by Ebony Guardado RN. ttb 13:06 Patient visited by Ebony Guardado RN. ttb 13:49 Patient visited by Vivien Coats. cmb 14:15 [facility] Payment Agreement was scanned into [employer] and attached to record. mm15 14:19 Patient visited by Ebony Guardado RN. ttb 14:35 Jamshid Patel is Hospitalizing Provider. sd1 15:31 Patient visited by Ebony Guardado RN. ttb 16:54 Patient visited by Ebony Guardado RN. ttb 17:07 Patient visited by Ebony Guardado RN. ttb 17:17 Report given to PETE Kirkpatrick to receive pt. Property :Personal belongings accompany Pt. ttb 17:17 No procedures done that require assistance. ttb 05/15 08:21 T-Sheet-- Draft Copy was scanned into [employer] and attached to record. lg 08:22 PCR was scanned into [employer] and attached to record. lg Administered Medications: 05/13 12:24 Drug: Magnesium Sulfate 1 grams [magnesium sulfate 1 gram/100 mL in dextrose 5 % ttb intravenous piggyback] {Co-Signature: hs1 (Sandra Steen RN).} Route: IVPB; Infused Over: 1 hrs; Site: left antecubital; 13:27 Follow up: IV Status: Completed infusion; Infusion discontinued kpj 12:25 Drug: NS 0.9% 500 ml [sodium chloride 0.9 % intravenous solution] Route: IV; Rate: ttb bolus; Site: left antecubital; 14:00 Follow up: IV Status: Completed infusion; IV Intake: 500ml ttb 14:43 Drug: NS 0.9% 500 ml [sodium chloride 0.9 % intravenous solution] Route: IV; Rate: ttb bolus; Site: left antecubital; 16:00 Follow up: IV Status: Completed infusion; IV Intake: 500ml ttb Intake: 13:28 IV: 100.00ml (NS); Total: 100.00ml. kpj 14:00 IV: 500.00ml; Total: 600.00ml. ttb 16:00 IV: 500.00ml; Total: 1100.00ml. ttb RT: 12:10 ABG's drawn from left radial artery allens test done and positive pressure held for 5 ac1 minutes no bleeding noted pressure bandage applied specimen sent pt. tolerated well. Order Results: Lab Order: -Arterial Blood Gas; [facility]05/13/16 11:46 Test: ABG pH (ARTERIAL); Value: 7.460; Range: 7.350-7.450; Abnormal: Above high normal; Units: UNITS; Status: F Test: ABG PARTIAL PRESSURE CO2; Value: 28.1; Range: 35.0-45.0; Abnormal: Below low normal; Units: mmHg; Status: F Test: ABG PARTIAL PRESSURE O2; Value: 65.3; Range: 75.0-100.0; Abnormal: Below low normal; Units: mmHg; Status: F Test: ABG TOTAL CO2; Value: 20.4; Range: 23.0-31.0; Abnormal: Below low normal; Units: MEQ/L; Status: F Test: ABG HCO3; Value: 19.5; Range: 22.0-26.0; Abnormal: Below low normal; Units: MEQ/L; Status: F Test: ABG BASE EXCESS; Value: -3.3; Range: -2.0-2.0; Abnormal: Below low normal; Status: F Test: ABG STANDARD HCO3; Value: 21.7; Range: 22.0-26.0; Abnormal: Below low normal; Units: MEQ/L; Status: F Test: ABG O2 SATURATION; Value: 93.4; Range: 95.0-99.0; Abnormal: Below low normal; Units: %; Status: F Test: ABG DEVICE; Value: NASAL SABRINA; Status: F Lab Order: Amylase; [facility] 05/13/16 11:23 Test: AMYLASE; Value: 58; Range: 25-115; Units: U/L; Status: F Lab Order: C Reactive Protein; [facility]05/13/16 11:23 Test: C REACTIVE PROTEIN QUANTITATIV; Value: 2.74; Range: 0.00-0.30; Abnormal: Above high normal; Units: MG/DL; Status: F Lab Order: CBC with Diff; [facility]05/13/16 11:23 Test: WHITE BLOOD COUNT; Value: 7.1; Range: 4.0-10.0; Units: K/mm3; Status: F Test: RED BLOOD COUNT; Value: 3.29; Range: 4.30-6.10; Abnormal: Below low normal; Units: M/mm3; Status: F Test: HEMOGLOBIN; Value: 10.7; Range: 14.0-18.0; Abnormal: Below low normal; Units: g/dl; Status: F Test: HEMATOCRIT; Value: 33.7; Range: 42.0-52.0; Abnormal: Below low normal; Units: %; Status: F Test: MEAN CORPUSCULAR VOLUME; Value: 102.5; Range: 80.0-96.0; Abnormal: Above high normal; Units: fl; Status: F Test: MEAN CORPUSCULAR HEMOGLOBIN; Value: 32.6; Range: 27.0-33.0; Units: pg; Status: F Test: MEAN CORPUSCULAR HGB CONC; Value: 31.8; Range: 32.0-36.5; Abnormal: Below low normal; Units: g/dl; Status: F Test: RED CELL DISTRIBUTION WIDTH; Value: 13.8; Range: 11.5-14.5; Units: %; Status: F Test: PLATELET COUNT, AUTOMATED; Value: 211; Range: 150-450; Units: k/mm3; Status: F Test: NEUTROPHILS %; Value: 75.0; Range: 36.0-66.0; Abnormal: Above high normal; Units: %; Status: F Test: LYMPH %; Value: 15.1; Range: 24.0-44.0; Abnormal: Below low normal; Units: %; Status: F Test: MONO %; Value: 7.0; Range: 0.0-5.0; Abnormal: Above high normal; Units: %; Status: F Test: EOS %; Value: 1.4; Range: 0.0-3.0; Units: %; Status: F Test: BASO %; Value: 0.2; Range: 0.0-1.0; Units: %; Status: F Test: LARGE UNSTAINED CELL %; Value: 1.3; Range: 0.0-4.0; Units: %; Status: F Test: NEUTROPHILS #; Value: 5.3; Range: 1.8-7.7; Units: K/mm3; Status: F Test: LYMPH #; Value: 1.2; Range: 1.5-4.5; Abnormal: Below low normal; Units: K/mm3; Status: F Test: MONO #; Value: 0.5; Range: 0.0-0.8; Units: K/mm3; Status: F Test: EOS #; Value: 0.1; Range: 0.0-0.50; Units: K/mm3; Status: F Test: BASO #; Value: 0.0; Range: 0.0-0.2; Units: K/mm3; Status: F Test: LARGE UNSTAINED CELL #; Value: 0.1; Range: 0.0-0.4; Units: K/mm3; Status: F Lab Order: Lactic Acid (Plasencia tube on ice); [facility] 05/13/16 11:47 Test: LACTIC ACID SEPSIS PROTOCOL; Value: 1.7; Range: 0.4-2.0; Units: MMOL/L; Status: F Lab Order: Liver Profile; [facility] 05/13/16 11:23 Test: AST/SGOT; Value: 28; Range: 15-37; Units: U/L; Status: F Test: ALT/SGPT; Value: 20; Range: 12-78; Units: U/L; Status: F Test: ALKALINE PHOSPHATASE; Value: 95; Range: 45-117; Units: U/L; Status: F Test: BILIRUBIN,TOTAL; Value: 0.1; Range: 0.2-1.0; Abnormal: Below low normal; Units: MG/DL; Status: F Test: BILIRUBIN,DIRECT; Value: < 0.1; Range: 0.0-0.2; Units: MG/DL; Status: F Test: TOTAL PROTEIN; Value: 6.3; Range: 6.4-8.2; Abnormal: Below low normal; Units: GM/DL; Status: F Test: ALBUMIN; Value: 2.5; Range: 3.2-5.2; Abnormal: Below low normal; Units: GM/DL; Status: F Test: ALBUMIN/GLOBULIN RATIO; Value: 0.66; Range: 1.00-1.93; Abnormal: Below low normal; Status: F Lab Order: MED Profile; [facility]05/13/16 11:23 Test: GLUCOSE, FASTING; Value: 104; Range: 83-110; Units: MG/DL; Status: F Test: BLOOD UREA NITROGEN; Value: 24; Range: 7-18; Abnormal: Above high normal; Units: MG/DL; Status: F Test: CREATININE FOR GFR; Value: 0.98; Range: 0.70-1.30; Units: MG/DL; Status: F Test: GLOMERULAR FILTRATION RATE; Value: > 60.0; Range: >35; Status: F Test: SODIUM LEVEL; Value: 147; Range: 136-145; Abnormal: Above high normal; Units: MEQ/L; Status: F Test: POTASSIUM SERUM; Value: 4.2; Range: 3.5-5.1; Units: MEQ/L; Status: F Test: CHLORIDE LEVEL; Value: 115; Range: 98-107; Abnormal: Above high normal; Units: MEQ/L; Status: F Test: CARBON DIOXIDE LEVEL; Value: 25; Range: 21-32; Units: MEQ/L; Status: F Test: ANION GAP; Value: 7; Range: 8-16; Abnormal: Below low normal; Units: MEQ/L; Status: F Test: CALCIUM LEVEL; Value: 8.2; Range: 8.8-10.2; Abnormal: Below low normal; Units: MG/DL; Status: F Test Note: ; Units are mL/min/1.73 m2 Chronic Kidney Disease Staging per NKF: Stage I & II GFR >=60 Normal to Mildly Decreased Stage III GFR 30-59 Moderately Decreased Stage IV GFR 15-29 Severely Decreased Stage V GFR <15 Very Little GFR Left ESRD GFR <15 on CANDY VENDOR Lab Order: PT/INR; SPEC'05/13/16 11:23 Test: PROTHROMBIN TIME; Value: 13.6; Range: 12.3-14.5; Units: SECONDS; Status: F Test: INR; Value: 1.03; Status: F Test Note: ; THERAPUTIC HUMAN INR VALUES INDICATIONS NORMAL RANGES PROPHYLAXIS/TREATMENT OF: VENOUS THROMBOSIS 2.0-3.0 PULMONARY EMBOLISM 2.0-3.0 PREVENTION OF SYSTEMIC EMBOLISM FROM: TISSUE HEART VALVES 2.0-3.0 ACUTE MYOCARDIAL INFARCTION 2.0-3.0 VALVULAR HEART DISEASE 2.0-3.0 ATRIAL FIBRILLATION 2.0-3.0 MECHANICAL VALVES(HIGH RISK) 2.5-3.5 RECURRENT MYOCARDIAL INFARCTION 2.5-3.5 Lab Order: Type & Screen; [facility] 05/13/16 11:23 Test: BLOOD TYPE; Value: A NEG; Status: F Test: AB SCREEN (INDIRECT JIN)VIS; Value: NEGATIVE; Status: F Lab Order: Urinalysis; [facility] 05/13/16 11:47 Test: APPEARANCE, URINE; Value: TURBID; Range: CLEAR; Abnormal: Above high normal; Status: F Test: COLOR, URINE; Value: BROWN; Range: YELLOW; Status: F Test: PH,URINE; Value: 5.0; Range: 5.0-9.0; Units: UNITS; Status: F Test: SPECIFIC GRAVITY URINE AUTO; Value: 1.021; Range: 1.002-1.035; Status: F Test: PROTEIN, URINE AUTO; Value: 2+; Range: NEGATIVE; Abnormal: Above high normal; Units: mg/dL; Status: F Test: GLUCOSE, URINE (UA) AUTO; Value: NEGATIVE; Range: NEGATIVE; Units: mg/dL; Status: F Test: KETONE, URINE AUTO; Value: NEGATIVE; Range: NEGATIVE; Units: mg/dL; Status: F Test: UROBILINOGEN, URINE AUTO; Value: 0.2; Range: 0.0-2.0; Units: mg/dL; Status: F Test: BILIRUBIN, URINE AUTO; Value: NEGATIVE; Range: NEGATIVE; Status: F Test: NITRITE, URINE AUTO; Value: NEGATIVE; Range: NEGATIVE; Status: F Test: LEUKOCYTE ESTERASE, URINE AUTO; Value: 2+; Range: NEGATIVE; Abnormal: Above high normal; Status: F Test: BLOOD, URINE BLOOD; Value: 3+; Range: NEGATIVE; Abnormal: Above high normal; Status: F Test: WBC, URINE AUTO; Value: TNTC; Range: 0-3; Abnormal: Above high normal; Units: /HPF; Status: F Test: RBC, URINE AUTO; Value: TNTC; Range: 0-3; Abnormal: Above high normal; Units: /HPF; Status: F Test: BACTERIA, URINE AUTO; Value: NEGATIVE; Range: NEGATIVE; Status: F Test: SQUAMOUS EPITHELIAL CELL UR AU; Value: 3; Range: 0-6; Units: /HPF; Status: F Test: MUCUS, URINE; Value: MODERATE; Range: NEGATIVE; Status: F Test: HYALINE CAST, URINE AUTO; Value: 0; Range: 0-1; Units: /LPF; Status: F Test: AMORPHOUS SEDIMENT; Value: MODERATE; Range: NEGATIVE; Abnormal: Above high normal; Status: F Test Note: ; --- 05/13/16 1228 --- COLOR previously reported as: YELLOW Lab Order: MAGNESIUM LEVEL; SPEC'M 05/13/16 11:23 Test: MAGNESIUM LEVEL; Value: 1.6; Range: 1.8-2.4; Abnormal: Below low normal; Units: MG/DL; Status: F Radiology Order: Chest, 1 View Test: Chest, 1 View REASON FOR EXAMINATION: HYPOTENSION; Clinical: Chest pain. Hypotension.; ; Comparison: 04/09/2016.; ; Findings:; Examination is limited by portable technique, underpenetration, and poor; inspiratory effort. Mediastinum and cardiac silhouette stable. Lung diggs; demonstrate pulmonary vascular congestion and possible basilar atelectasis. No; discrete focal consolidation, effusion, or pneumothorax. Skeletal structures; demonstrate osteopenia and degenerative changes.; ; Impression:; Limited examination cannot exclude pulmonary vascular congestion and interstitial; edema.; ; ; Signed by; Teddy Jean Baptiste MD 05/13/2016 12:05 P; Outcome: 14:35 Decision to Hospitalize by Provider. sd1 17:00 No special radiology studies were completed. ttb 17:17 Discharge Assessment: Patient awake, alert and oriented x 3. No cognitive and/or ttb functional deficits noted. Patient verbalized understanding of disposition instructions. Patient awake and alert. patient administered narcotics - no. The following High Risk Discharge criteria are identified: Yes, PCU admit. Admitted to PCU accompanied by nurse, accompanied by tech, family with patient, via stretcher, on monitor, with chart. Condition: stable. Instructed on admission process. Admission hand-off: Report called to PETE Kirkpatrick received SBAR. Property :Personal belongings accompany Pt. 17:36 Patient left the ED. ttb Signatures: Dispatcher [employer] EDFL Sneha Torrez MD MD sd1 Dorota Nichols, Steward/Stewardess Tourist Class Unit lbd Arabella Hicks RN RN kpj Ganter, LoriLee, Reg Reg lg Imelda,Becky,RT RT ac1 Vivien Coats cmb Ebony Guardado RN RN ttb Alexa Mansfield mm15 Sandra Steen RN hs1 Corrections: (The following items were deleted from the chart) 11:26 11:19 Adult Sepsis Screening: The patient does not have new or worsening altered ttb mentation. Patient's respiratory rate is less than 22. Systolic blood pressure is less than or equal to 100 (1 point). Patient has a qSOFA score of 1- Negative Sepsis Screen. ttb Chart Complete MTDD
--- NOTE | 2016-05-15 18:37 | EDDOCDS ---
Physician Documentation [facility] Name: Pierre Rivera Age: 89 yrs Sex: Male : 1925 Arrival Date: 05/13/2016 Time: 11:17 Bed 1 Private MD: Fabricio Chao P. Disposition: 05/13/16 14:35 Hospitalization ordered by Jamshid Patel for Inpatient Admission. Preliminary diagnosis is Bradycardia, unspecified. - Bed requested for PCU. - Status is Inpatient Admission. ttb - Condition is Stable. - Problem is new. - Symptoms are unchanged. Historical: - Allergies: No known drug Allergies; - Home Meds: 1. aspirin 81 mg Oral cpDR 1 tab once daily (Last dose: 05/13/2016) 2. allopurinol 100 mg Oral tab once daily (Last dose: 05/13/2016) 3. Protonix 40 mg Oral TbEC 1 tab once daily (Last dose: 05/13/2016 08:00) 4. Razadyne ER 8 mg oral TbER once daily (Last dose: 05/13/2016 08:00) 5. Flomax 0.4 mg Oral cp24 1 cap once daily (Last dose: 05/12/2016) 6. hydroxyzine HCl 10 mg Oral tab nightly (Last dose: 05/12/2016) 7. Namenda 10 mg oral tab 1 tab 2 times per day (Last dose: 05/13/2016 08:00) 8. Colace 100 mg oral cap 1 cap once daily (Last dose: Unknown) 9. acetaminophen 325 mg Oral tab 2 tabs every 4 hours as needed (Last dose: Unknown) 10. multivitamin Oral tab daily (Last dose: 05/13/2016 08:00) - PMHx: Acute Renal Failure; Alzheimers; AORTIC VALVE DISORDER; AV Block 1st Degree; GERD; Gout; Hypertension; - Social history: Smoking status: Patient states former smoker of tobacco. impaired d/t Alzheimer's . - Family history: Not pertinent. - : The pt / caregiver states he / she is not on anticoagulants. Home medication list is obtained from the caregiver. - Exposure Risk Screening:: None identified. - History obtained from: caregiver. Vital Signs: 05/13 11:24 BP 101 / 68 (auto/); ttb 11:28 BP 101 / 68; Pulse 77; Resp 16; Temp 97.2(O); Pulse Ox 97% on R/A; Weight 54.43 kg / cmb 120 lbs (M); 11:28 Pulse 77 MON; Resp 18 S; Pulse Ox 96% on R/A; Pain 0/10; ttb 11:40 BP 95 / 51 (auto/); ttb 11:40 Pulse 75 MON; Pulse Ox 96% ; ttb 12:14 BP 103 / 50 (auto/); ttb 12:15 Pulse 73 MON; Pulse Ox 95% ; ttb 13:04 Pulse 73 MON; Resp 18; Pulse Ox 98% on R/A; Pain 0/10; ttb 13:45 Pulse 69 MON; Pulse Ox 100% ; ttb 14:01 BP 99 / 66 (auto/); ttb 14:01 Pulse 85 MON; Pulse Ox 98% ; ttb 14:13 BP 102 / 70 (auto/); ttb 14:13 Pulse 77 MON; Resp 18; Pulse Ox 96% on R/A; Pain 0/10; ttb 14:15 Pulse 74 MON; Pulse Ox 99% ; ttb 14:42 Pulse 80 MON; Pulse Ox 98% ; ttb 15:22 BP 108 / 58 (auto/); ttb 15:23 Pulse 76 MON; ttb 16:55 Pulse 67 MON; ttb 16:57 BP 154 / 89 (auto/); Resp 18 S; Temp 100.5(TE); Pulse Ox 96% on R/A; Pain 0/10; ttb 17:10 BP 146 / 78 (auto/); ttb 17:17 Pulse 74 MON; Resp 18 S; Pulse Ox 98% on R/A; Pain 0/10; ttb MDM: 11:32 -Blood Culture (Adults Only), peripheral from different site, or from device/port/PICC sd1 etc. if present ordered. 11:32 Freelance Copywriter/Pulse Ox/q 15 min VS ordered. sd1 11:33 Chest, 1 View Ordered. EDMS 11:33 -Arterial Blood Gas Ordered. EDMS 11:33 -Blood Culture Ordered. EDMS 11:33 Amylase Ordered. EDMS 11:33 C Reactive Protein Ordered. EDMS 11:33 CBC with Diff Ordered. EDMS 11:33 Lactic Acid (Plasencia tube on ice) Ordered. EDMS 11:33 Liver Profile Ordered. EDMS 11:33 MED Profile Ordered. EDMS 11:33 PT/INR Ordered. EDMS 11:33 Type & Screen Ordered. EDMS 11:33 Urinalysis Ordered. EDMS 11:33 Urine Culture Ordered. EDMS 11:33 ECG WITH READING ER PHYS+CARDIAG ordered. EDMS 11:38 BED REQUEST+ADM ordered. EDMS 11:43 MAGNESIUM LEVEL Ordered. EDMS 11:44 -Blood Culture (Adults Only), peripheral from different site, or from device/port/PICC lbd etc. if present complete. 11:47 BLOOD CULTURES Ordered. EDMS 12:13 C Reactive Protein Reviewed. sd1 12:13 CBC with Diff Reviewed. sd1 12:13 Liver Profile Reviewed. sd1 12:13 MED Profile Reviewed. sd1 12:13 MAGNESIUM LEVEL Reviewed. sd1 12:13 Amylase Reviewed. sd1 12:13 PT/INR Reviewed. sd1 12:18 NS 0.9% 500 ml IV at bolus once ordered. sd1 12:18 Magnesium Sulfate 1 grams IVPB once over 1 hrs; administer over at least 1 hour ordered.sd1 12:39 -Arterial Blood Gas Reviewed. sd1 12:39 Urinalysis Reviewed. sd1 12:39 Lactic Acid (Plasencia tube on ice) Reviewed. sd1 12:39 Type & Screen Reviewed. sd1 12:39 Chest, 1 View Reviewed. sd1 12:40 C Diff Toxins A&b Ordered. EDMS 13:45 Financial registration complete. mm15 14:09 NS 0.9% 500 ml IV at bolus once ordered. sd1 14:15 [facility] [place] was scanned into [employer] and attached to record. mm15 14:56 Admission / Observation Status ordered. EDMS 14:56 2 GRAM SODIUM DIET ordered. EDMS 02 08:21 T-Sheet-- Draft Copy was scanned into [employer] and attached to record. lg 08: PCR was scanned into [employer] and attached to record. lg Administered Medications: 05/13 12:24 Drug: Magnesium Sulfate 1 grams [magnesium sulfate 1 gram/100 mL in dextrose 5 % ttb intravenous piggyback] {Co-Signature: hs1 (Sandra Steen RN).} Route: IVPB; Infused Over: 1 hrs; Site: left antecubital; 13:27 Follow up: IV Status: Completed infusion; Infusion [facility] 12:25 Drug: NS 0.9% 500 ml [sodium chloride 0.9 % intravenous solution] Route: IV; Rate: ttb bolus; Site: left antecubital; 14:00 Follow up: IV Status: Completed infusion; IV Intake: 500ml ttb 14:43 Drug: NS 0.9% 500 ml [sodium chloride 0.9 % intravenous solution] Route: IV; Rate: ttb bolus; Site: left antecubital; 16:00 Follow up: IV Status: Completed infusion; IV Intake: 500ml ttb Signatures: Dispatcher [employer] EDMS Sneha Torrez MD MD sd1 Dorota Nichols, Box Strapper Unit lbd Michel Salmeron, Mahamed Reg Ebony Pardo RN RN ttb Alexa Mansfield mm15 Melany Trotter RN RN sls2 Arabella Hicks RN kpj Sandra Steen RN hs1 The chart was reviewed and I authenticate all verbal orders and agree with the evaluation and treatment provided.Corrections: (The following items were deleted from the chart) 11:43 11:39 MAGNESIUM LEVEL+LAB ordered. EDWY EDMS Attachments: 14:15 [facility] Payment Agreement mm15 05/15 08:21 T-Sheet-- Draft Copy lg Chart Complete MTDD
--- NOTE | 2016-05-15 18:37 | EDDOCDS ---
Physician Documentation [facility] Name: Pierre Rivera Age: 89 yrs Sex: Male : 1925 Arrival Date: 05/13/2016 Time: 11:17 Bed 1 Private MD: Fabricio Chao P. Disposition: 05/13/16 14:35 Hospitalization ordered by Jamshid Patel for Inpatient Admission. Preliminary diagnosis is Bradycardia, unspecified. - Bed requested for PCU. - Status is Inpatient Admission. ttb - Condition is Stable. - Problem is new. - Symptoms are unchanged. Historical: - Allergies: No known drug Allergies; - Home Meds: 1. aspirin 81 mg Oral cpDR 1 tab once daily (Last dose: 05/13/2016) 2. allopurinol 100 mg Oral tab once daily (Last dose: 05/13/2016) 3. Protonix 40 mg Oral TbEC 1 tab once daily (Last dose: 05/13/2016 08:00) 4. Razadyne ER 8 mg oral TbER once daily (Last dose: 05/13/2016 08:00) 5. Flomax 0.4 mg Oral cp24 1 cap once daily (Last dose: 05/12/2016) 6. hydroxyzine HCl 10 mg Oral tab nightly (Last dose: 05/12/2016) 7. Namenda 10 mg oral tab 1 tab 2 times per day (Last dose: 05/13/2016 08:00) 8. Colace 100 mg oral cap 1 cap once daily (Last dose: Unknown) 9. acetaminophen 325 mg Oral tab 2 tabs every 4 hours as needed (Last dose: Unknown) 10. multivitamin Oral tab daily (Last dose: 05/13/2016 08:00) - PMHx: Acute Renal Failure; Alzheimers; AORTIC VALVE DISORDER; AV Block 1st Degree; GERD; Gout; Hypertension; - Social history: Smoking status: Patient states former smoker of tobacco. impaired d/t Alzheimer's . - Family history: Not pertinent. - : The pt / caregiver states he / she is not on anticoagulants. Home medication list is obtained from the caregiver. - Exposure Risk Screening:: None identified. - History obtained from: caregiver. Vital Signs: 05/13 11:24 BP 101 / 68 (auto/); ttb 11:28 BP 101 / 68; Pulse 77; Resp 16; Temp 97.2(O); Pulse Ox 97% on R/A; Weight 54.43 kg / cmb 120 lbs (M); 11:28 Pulse 77 MON; Resp 18 S; Pulse Ox 96% on R/A; Pain 0/10; ttb 11:40 BP 95 / 51 (auto/); ttb 11:40 Pulse 75 MON; Pulse Ox 96% ; ttb 12:14 BP 103 / 50 (auto/); ttb 12:15 Pulse 73 MON; Pulse Ox 95% ; ttb 13:04 Pulse 73 MON; Resp 18; Pulse Ox 98% on R/A; Pain 0/10; ttb 13:45 Pulse 69 MON; Pulse Ox 100% ; ttb 14:01 BP 99 / 66 (auto/); ttb 14:01 Pulse 85 MON; Pulse Ox 98% ; ttb 14:13 BP 102 / 70 (auto/); ttb 14:13 Pulse 77 MON; Resp 18; Pulse Ox 96% on R/A; Pain 0/10; ttb 14:15 Pulse 74 MON; Pulse Ox 99% ; ttb 14:42 Pulse 80 MON; Pulse Ox 98% ; ttb 15:22 BP 108 / 58 (auto/); ttb 15:23 Pulse 76 MON; ttb 16:55 Pulse 67 MON; ttb 16:57 BP 154 / 89 (auto/); Resp 18 S; Temp 100.5(TE); Pulse Ox 96% on R/A; Pain 0/10; ttb 17:10 BP 146 / 78 (auto/); ttb 17:17 Pulse 74 MON; Resp 18 S; Pulse Ox 98% on R/A; Pain 0/10; ttb MDM: 11:32 -Blood Culture (Adults Only), peripheral from different site, or from device/port/PICC sd1 etc. if present ordered. 11:32 Burr Filer/Pulse Ox/q 15 min VS ordered. sd1 11:33 Chest, 1 View Ordered. EDMS 11:33 -Arterial Blood Gas Ordered. EDMS 11:33 -Blood Culture Ordered. EDMS 11:33 Amylase Ordered. EDMS 11:33 C Reactive Protein Ordered. EDMS 11:33 CBC with Diff Ordered. EDMS 11:33 Lactic Acid (Plasencia tube on ice) Ordered. EDMS 11:33 Liver Profile Ordered. EDMS 11:33 MED Profile Ordered. EDMS 11:33 PT/INR Ordered. EDMS 11:33 Type & Screen Ordered. EDMS 11:33 Urinalysis Ordered. EDMS 11:33 Urine Culture Ordered. EDMS 11:33 ECG WITH READING ER PHYS+CARDIAG ordered. EDMS 11:38 BED REQUEST+ADM ordered. EDMS 11:43 MAGNESIUM LEVEL Ordered. EDMS 11:44 -Blood Culture (Adults Only), peripheral from different site, or from device/port/PICC lbd etc. if present complete. 11:47 BLOOD CULTURES Ordered. EDMS 12:13 C Reactive Protein Reviewed. sd1 12:13 CBC with Diff Reviewed. sd1 12:13 Liver Profile Reviewed. sd1 12:13 MED Profile Reviewed. sd1 12:13 MAGNESIUM LEVEL Reviewed. sd1 12:13 Amylase Reviewed. sd1 12:13 PT/INR Reviewed. sd1 12:18 NS 0.9% 500 ml IV at bolus once ordered. sd1 12:18 Magnesium Sulfate 1 grams IVPB once over 1 hrs; administer over at least 1 hour ordered.sd1 12:39 -Arterial Blood Gas Reviewed. sd1 12:39 Urinalysis Reviewed. sd1 12:39 Lactic Acid (Plasencia tube on ice) Reviewed. sd1 12:39 Type & Screen Reviewed. sd1 12:39 Chest, 1 View Reviewed. sd1 12:40 C Diff Toxins A&b Ordered. EDMS 13:45 Financial registration complete. mm15 14:09 NS 0.9% 500 ml IV at bolus once ordered. sd1 14:15 [facility] [place] was scanned into [employer] and attached to record. mm15 14:56 Admission / Observation Status ordered. EDMS 14:56 2 GRAM SODIUM DIET ordered. EDMS 02 08:21 T-Sheet-- Draft Copy was scanned into [employer] and attached to record. lg 08: PCR was scanned into [employer] and attached to record. lg Administered Medications: 05/13 12:24 Drug: Magnesium Sulfate 1 grams [magnesium sulfate 1 gram/100 mL in dextrose 5 % ttb intravenous piggyback] {Co-Signature: hs1 (Sandra Steen RN).} Route: IVPB; Infused Over: 1 hrs; Site: left antecubital; 13:27 Follow up: IV Status: Completed infusion; Infusion discontinued [facility] 12:25 Drug: NS 0.9% 500 ml [sodium chloride 0.9 % intravenous solution] Route: IV; Rate: ttb bolus; Site: left antecubital; 14:00 Follow up: IV Status: Completed infusion; IV Intake: 500ml ttb 14:43 Drug: NS 0.9% 500 ml [sodium chloride 0.9 % intravenous solution] Route: IV; Rate: ttb bolus; Site: left antecubital; 16:00 Follow up: IV Status: Completed infusion; IV Intake: 500ml ttb Signatures: Dispatcher [employer] EDMS Sneha Torrez MD MD sd1 Dorota Nichols, Tile Decorator Unit lbd Michel Salmeron, Mahamed Reg Ebony Pardo RN RN ttb Alexa Mansfield mm15 Melany Trotter RN RN sls2 Arabella Hicks RN kpj Sandra Steen RN hs1 The chart was reviewed and I authenticate all verbal orders and agree with the evaluation and treatment provided.Corrections: (The following items were deleted from the chart) 11:43 11:39 MAGNESIUM LEVEL+LAB ordered. EDWA EDMS Attachments: 14:15 [facility] Payment Agreement mm15 05/15 08:21 T-Sheet-- Draft Copy lg Chart Complete MTDD
[2016-05-15 19:59] VITALS: BP 140/69
[2016-05-15] MEDS: TAMSULOSIN 0.4 MG CAP PO SCH (20:24)
[2016-05-16] VITALS: BP 122/65
[2016-05-16] MEDS: PIPERACILLIN/TAZOBACTAM SOD 3.375 GM in D5W MINI-BAG PLUS 50 ML IV SCH ×2 (03:51→08:28)
[2016-05-16 03:54] VITALS: BP 127/60
[2016-05-16 04:00] VITALS: BP 133/73
[2016-05-16 05:16] LABS: BASO % 0.1 % (0.0-1.0); EOS # 0.3 K/mm3 (0.0-0.50); EOS % 6.6 % (0.0-3.0); LARGE UNSTAINED CELL # 0.1 K/mm3 (0.0-0.4); LARGE UNSTAINED CELL % 2.6 % (0.0-4.0); LYMPH # 1.3 K/mm3 (1.5-4.5); LYMPH % 32.3 % (24.0-44.0); MEAN CORPUSCULAR HEMOGLOBIN 31.6 pg (27.0-33.0); MEAN CORPUSCULAR HGB CONC 32.8 g/dl (32.0-36.5); MEAN CORPUSCULAR VOLUME 96.4 fl (80.0-96.0); MONO # 0.3 K/mm3 (0.0-0.8); MONO % 6.1 % (0.0-5.0); NEUTROPHILS # 2.2 K/mm3 (1.8-7.7); NEUTROPHILS % 52.3 % (36.0-66.0); PLATELET COUNT, AUTOMATED 199 k/mm3 (150-450); RED CELL DISTRIBUTION WIDTH 13.4 % (11.5-14.5); WHITE BLOOD COUNT 4.1 K/mm3 (4.0-10.0)
[2016-05-16 05:30] LABS: ALBUMIN 2.4 GM/DL (3.2-5.2); ALBUMIN/GLOBULIN RATIO 0.62 (1.00-1.93); ALKALINE PHOSPHATASE 86 U/L (45-117); ALT/SGPT 21 U/L (12-78); ANION GAP 7 MEQ/L (8-16); AST/SGOT 32 U/L (15-37); BILIRUBIN,TOTAL 0.3 MG/DL (0.2-1.0); BLOOD UREA NITROGEN 13 MG/DL (7-18); CARBON DIOXIDE LEVEL 27 MEQ/L (21-32); CHLORIDE LEVEL 108 MEQ/L (98-107); GLOMERULAR FILTRATION RATE > 60.0 (>35); GLUCOSE, FASTING 87 MG/DL (83-110); MAGNESIUM LEVEL 1.7 MG/DL (1.8-2.4); POTASSIUM SERUM 3.8 MEQ/L (3.5-5.1); SODIUM LEVEL 142 MEQ/L (136-145); TOTAL PROTEIN 6.3 GM/DL (6.4-8.2)
[2016-05-16] MEDS ORDERED: MAG SULF 1GM/100ML (MAG RUN) 1 GM in APPROPRIATE DILUENT 1 EA IV ONE (07:30)
[2016-05-16] MEDS ORDERED: DOXY-278 PO (07:41)
[2016-05-16 08:00] VITALS: BP 98/58
[2016-05-16] MEDS: ASPIRIN 81 MG ENTERIC TAB PO SCH ×2 (08:29→09:00)
[2016-05-16] MEDS: PANTOPRAZOLE 40MG TAB (PROTONIX) PO SCH (09:00)
[2016-05-16] MEDS: MULTIVITAMINS/MINERALS THERAP 1 TAB PO SCH (09:00)
--- NOTE | 2016-05-16 10:22 | DS.PDOC ---
Discharge Summary General Date of Admission May 13, 2016 at 14:35 Date of Discharge 05/16/16 Discharge Summary Consults: Dr. Yoo (cardiology) Discharge diagnosis: Hypotension Secondary diagnosis: Bradycardia, advanced dementia. CT of abdomen showing enlarged prostate, bladder calcifications, infrarenal abdominal aortic aneurysm Hospital course: Patient was admitted on 05/13/16 after an episode of hypotension at home. In the emergency department patient had a blood pressure of 95/51 and was started on IV fluids, patient was mildly dehydrated on initial presentation. Of note patient had been diagnosed with a recent urinary tract infection and was being treated with cephalexin. Patient was found to be in first-degree AV block, bradycardic. Cardiology was consulted for further evaluation. Cardiology recommended discontinuing Namenda due to potential bradycardia as a side effect. On 05/15 patient appeared to show facial discomfort to abdominal palpation, abdominal CT was obtained. CT showed scattered diverticula without bowel obstruction or acute diverticulitis, enlarged prostate gland, abnormal bladder wall thickening, scattered bladder diverticula, bladder calcifications, infrarenal abdominal aortic aneurysm. Case was discussed with patient's power of employee benefits attorney and patient's cousin. They decided at this time to hold off on urologic intervention, anticoagulation, surgical intervention. Remainder of patient's hospitalization was uncomplicated. Progress note on date of discharge: Subjective: Patient seen and examined at bedside. Patient resting comfortably, does not appear to be in any acute distress. Nursing does not report any acute events overnight. Patient unable to answer any questions (this appears to be patient's baseline). Objective: Vitals: Temperature 96.1, pulse 50, respiratory rate 18, blood pressure 98/58, pulse ox 93% on room air Gen.: Patient resting comfortably in bed, patient unable to answer any questions which appears to be his baseline. He does not appear to be in any acute distress Heart: Bradycardic, normal S1-S2. Soft 2/6 systolic murmur. No rubs, clicks or gallops Lungs: Clear to auscultation bilaterally. No wheezes, rales or rhonchi Abdomen: Active bowel sounds, soft, no masses to palpation Labs: CBC: White blood cells 4.1, hemoglobin and hematocrit 10.4/31.8, platelets 199 Chemistry: Sodium 142, potassium 3.8, chloride 108, Carbon dioxide 27, BUN 7, creatinine 0.80, calcium 8.0, magnesium 1.7 A liver profile: AST 32, ALT 21, alkaline phosphatase 86, total protein 6.3, albumin 2.4, total bilirubin 0.3 Microbiology: Blood cultures 2: No growth after 48 hours Urine culture 10,000 colony-forming units of Staphylococcus epidermidis, 40,000 colony-forming units of yeastlike organism Assessment: Patient is a 89-year-old male admitted for episode of hypotension at home. Patient has remained normotensive throughout hospitalization. Patient to be discharged home today. Disposition: Discharge patient to home Follow-up: With Dr. Chao in 5-7 days Activity: As tolerated Diet: 2 g sodium diet Medications on discharge: Doxycycline 100 mg by mouth twice a day 5 days Tylenol 650 mg by mouth every 8 hours when necessary for pain Tylenol PM 500/25 mg one tablet by mouth daily at bedtime when necessary for sleep Allopurinol 100 mg by mouth daily Aspirin 81 mg by mouth daily Docusate 100 mg by mouth daily at bedtime Galantamine 8 mg by mouth daily Hydroxyzine 10 mg by mouth twice a day when necessary for anxiety Multivitamin 1 tablet by mouth daily Protonix 40 mg by mouth daily Flomax 0.4 mg one capsule by mouth daily at bedtime Cc: Dr. Chao Time spent on discharge: Greater than 30 minutes Medications Scheduled Allopurinol (Allopurinol) 100 Mg Tab 100 MG PO DAILY (Reported) Aspirin (Aspirin 81) 81 Mg Tab 81 MG PO DAILY (Reported) Docusate Sodium (Colace) 100 Mg Cap 100 MG PO QHS (Reported) Doxycycline Hyclate (Doxycycline) 100 Mg Cap 100 MG PO Q12H Galantamine Hydrobromide (Razadyne ER) 8 Mg Cap 8 MG PO DAILY (Reported) Multivitamins *[facility]OCK[facility]* (Thera M Plus *[facility]OCK[facility]*) 1 Tab Tab 1 TAB PO DAILY (Reported) Pantoprazole Sodium (Pantoprazole Sodium) 40 Mg Tab 40 MG PO DAILY (Reported) Tamsulosin Hydrochloride (Flomax) 0.4 Mg Cap 1 CAP PO QHS (Reported) Scheduled PRN (Acetaminophen Pm Extra St 500-25 mg) 1 Tab Tab 1 TAB PO QHS PRN PRN SLEEP ( Reported) Acetaminophen (Acetaminophen ER) 650 Mg Tab 650 MG PO Q8H PRN PRN PAIN (Reported ) Hydroxyzine HCl (Hydroxyzine HCl) 10 Mg Tab 10 MG PO BID PRN PRN ANXIETY ( Reported) Allergies Coded Allergies: No Known Drug Allergy (Verified Allergy, Unknown, 06/23/12) LENA MONTELONGO DO May 16, 2016 10:22
[2016-05-16] MEDS ORDERED: SODIUM CHLORIDE 0.9% 1000 ML IV ONE (10:45)
[2016-05-16] MEDS ORDERED: DOXYCYCLINE HYCLATE 100 MG in D5W MINI-BAG PLUS 100 ML IV ONE (11:00)
[2016-05-16 12:00] VITALS: BP 138/67
--- NOTE | 2016-05-16 20:41 | EDDOCDS ---
Physician Documentation [facility] Name: Pierre Rivera Age: 89 yrs Sex: Male : 1925 Arrival Date: 05/13/2016 Time: 11:17 Bed 1 Private MD: Fabricio Chao P. Disposition: 05/13/16 14:35 Hospitalization ordered by Jamshid Patel for Inpatient Admission. Preliminary diagnosis is Bradycardia, unspecified. - Bed requested for PCU. - Status is Inpatient Admission. ttb - Condition is Stable. - Problem is new. - Symptoms are unchanged. Historical: - Allergies: No known drug Allergies; - Home Meds: 1. aspirin 81 mg Oral cpDR 1 tab once daily (Last dose: 05/13/2016) 2. allopurinol 100 mg Oral tab once daily (Last dose: 05/13/2016) 3. Protonix 40 mg Oral TbEC 1 tab once daily (Last dose: 05/13/2016 08:00) 4. Razadyne ER 8 mg oral TbER once daily (Last dose: 05/13/2016 08:00) 5. Flomax 0.4 mg Oral cp24 1 cap once daily (Last dose: 05/12/2016) 6. hydroxyzine HCl 10 mg Oral tab nightly (Last dose: 05/12/2016) 7. Namenda 10 mg oral tab 1 tab 2 times per day (Last dose: 05/13/2016 08:00) 8. Colace 100 mg oral cap 1 cap once daily (Last dose: Unknown) 9. acetaminophen 325 mg Oral tab 2 tabs every 4 hours as needed (Last dose: Unknown) 10. multivitamin Oral tab daily (Last dose: 05/13/2016 08:00) - PMHx: Acute Renal Failure; Alzheimers; AORTIC VALVE DISORDER; AV Block 1st Degree; GERD; Gout; Hypertension; - Social history: Smoking status: Patient states former smoker of tobacco. impaired d/t Alzheimer's . - Family history: Not pertinent. - : The pt / caregiver states he / she is not on anticoagulants. Home medication list is obtained from the caregiver. - Exposure Risk Screening:: None identified. - History obtained from: caregiver. Vital Signs: 05/13 11:24 BP 101 / 68 (auto/); ttb 11:28 BP 101 / 68; Pulse 77; Resp 16; Temp 97.2(O); Pulse Ox 97% on R/A; Weight 54.43 kg / cmb 120 lbs (M); 11:28 Pulse 77 MON; Resp 18 S; Pulse Ox 96% on R/A; Pain 0/10; ttb 11:40 BP 95 / 51 (auto/); ttb 11:40 Pulse 75 MON; Pulse Ox 96% ; ttb 12:14 BP 103 / 50 (auto/); ttb 12:15 Pulse 73 MON; Pulse Ox 95% ; ttb 13:04 Pulse 73 MON; Resp 18; Pulse Ox 98% on R/A; Pain 0/10; ttb 13:45 Pulse 69 MON; Pulse Ox 100% ; ttb 14:01 BP 99 / 66 (auto/); ttb 14:01 Pulse 85 MON; Pulse Ox 98% ; ttb 14:13 BP 102 / 70 (auto/); ttb 14:13 Pulse 77 MON; Resp 18; Pulse Ox 96% on R/A; Pain 0/10; ttb 14:15 Pulse 74 MON; Pulse Ox 99% ; ttb 14:42 Pulse 80 MON; Pulse Ox 98% ; ttb 15:22 BP 108 / 58 (auto/); ttb 15:23 Pulse 76 MON; ttb 16:55 Pulse 67 MON; ttb 16:57 BP 154 / 89 (auto/); Resp 18 S; Temp 100.5(TE); Pulse Ox 96% on R/A; Pain 0/10; ttb 17:10 BP 146 / 78 (auto/); ttb 17:17 Pulse 74 MON; Resp 18 S; Pulse Ox 98% on R/A; Pain 0/10; ttb MDM: 11:32 -Blood Culture (Adults Only), peripheral from different site, or from device/port/PICC sd1 etc. if present ordered. 11:32 White Lead Filterer/Pulse Ox/q 15 min VS ordered. sd1 11:33 Chest, 1 View Ordered. EDMS 11:33 -Arterial Blood Gas Ordered. EDMS 11:33 -Blood Culture Ordered. EDMS 11:33 Amylase Ordered. EDMS 11:33 C Reactive Protein Ordered. EDMS 11:33 CBC with Diff Ordered. EDMS 11:33 Lactic Acid (Plasencia tube on ice) Ordered. EDMS 11:33 Liver Profile Ordered. EDMS 11:33 MED Profile Ordered. EDMS 11:33 PT/INR Ordered. EDMS 11:33 Type & Screen Ordered. EDMS 11:33 Urinalysis Ordered. EDMS 11:33 Urine Culture Ordered. EDMS 11:33 ECG WITH READING ER PHYS+CARDIAG ordered. EDMS 11:38 BED REQUEST+ADM ordered. EDMS 11:43 MAGNESIUM LEVEL Ordered. EDMS 11:44 -Blood Culture (Adults Only), peripheral from different site, or from device/port/PICC lbd etc. if present complete. 11:47 BLOOD CULTURES Ordered. EDMS 12:13 C Reactive Protein Reviewed. sd1 12:13 CBC with Diff Reviewed. sd1 12:13 Liver Profile Reviewed. sd1 12:13 MED Profile Reviewed. sd1 12:13 MAGNESIUM LEVEL Reviewed. sd1 12:13 Amylase Reviewed. sd1 12:13 PT/INR Reviewed. sd1 12:18 NS 0.9% 500 ml IV at bolus once ordered. sd1 12:18 Magnesium Sulfate 1 grams IVPB once over 1 hrs; administer over at least 1 hour ordered.sd1 12:39 -Arterial Blood Gas Reviewed. sd1 12:39 Urinalysis Reviewed. sd1 12:39 Lactic Acid (Plasencia tube on ice) Reviewed. sd1 12:39 Type & Screen Reviewed. sd1 12:39 Chest, 1 View Reviewed. sd1 12:40 C Diff Toxins A&b Ordered. EDMS 13:45 Financial registration complete. mm15 14:09 NS 0.9% 500 ml IV at bolus once ordered. sd1 14:15 [facility] [place] Agreement was scanned into [employer] and attached to record. mm15 14:56 Admission / Observation Status ordered. EDMS 14:56 2 GRAM SODIUM DIET ordered. EDMS 02 08:21 T-Sheet-- Draft Copy was scanned into [employer] and attached to record. lg 08: PCR was scanned into [employer] and attached to record. lg Administered Medications: 05/13 12:24 Drug: Magnesium Sulfate 1 grams [magnesium sulfate 1 gram/100 mL in dextrose 5 % ttb intravenous piggyback] {Co-Signature: hs1 (Sandra Steen RN).} Route: IVPB; Infused Over: 1 hrs; Site: left antecubital; 13:27 Follow up: IV Status: Completed infusion; Infusion discontinued [facility] 12:25 Drug: NS 0.9% 500 ml [sodium chloride 0.9 % intravenous solution] Route: IV; Rate: ttb bolus; Site: left antecubital; 14:00 Follow up: IV Status: Completed infusion; IV Intake: 500ml ttb 14:43 Drug: NS 0.9% 500 ml [sodium chloride 0.9 % intravenous solution] Route: IV; Rate: ttb bolus; Site: left antecubital; 16:00 Follow up: IV Status: Completed infusion; IV Intake: 500ml ttb Signatures: Dispatcher [employer] EDMS Sneha Torrez MD MD sd1 Dorota Nichols, Maintenance And Operations Supervisor Unit lbd Michel Salmeron, Mahamed Reg Ebony Pardo RN RN ttb Alexa Mansfield mm15 Melany Trotter RN RN sls2 Arabella Hicks RN kpj Sandra Steen RN hs1 The chart was reviewed and I authenticate all verbal orders and agree with the evaluation and treatment provided.Corrections: (The following items were deleted from the chart) 11:43 11:39 MAGNESIUM LEVEL+LAB ordered. EDLA EDMS Attachments: 14:15 [facility] Payment Agreement mm15 05/15 08:21 T-Sheet-- Draft Copy lg Chart Complete MTDD
--- NOTE | 2016-05-16 20:41 | EDDOCDS ---
Physician Documentation [facility] Name: Pierre Rivera Age: 89 yrs Sex: Male : 1925 Arrival Date: 05/13/2016 Time: 11:17 Bed 1 Private MD: Fabricio Chao P. Disposition: 05/13/16 14:35 Hospitalization ordered by Jamshid Patel for Inpatient Admission. Preliminary diagnosis is Bradycardia, unspecified. - Bed requested for PCU. - Status is Inpatient Admission. ttb - Condition is Stable. - Problem is new. - Symptoms are unchanged. Historical: - Allergies: No known drug Allergies; - Home Meds: 1. aspirin 81 mg Oral cpDR 1 tab once daily (Last dose: 05/13/2016) 2. allopurinol 100 mg Oral tab once daily (Last dose: 05/13/2016) 3. Protonix 40 mg Oral TbEC 1 tab once daily (Last dose: 05/13/2016 08:00) 4. Razadyne ER 8 mg oral TbER once daily (Last dose: 05/13/2016 08:00) 5. Flomax 0.4 mg Oral cp24 1 cap once daily (Last dose: 05/12/2016) 6. hydroxyzine HCl 10 mg Oral tab nightly (Last dose: 05/12/2016) 7. Namenda 10 mg oral tab 1 tab 2 times per day (Last dose: 05/13/2016 08:00) 8. Colace 100 mg oral cap 1 cap once daily (Last dose: Unknown) 9. acetaminophen 325 mg Oral tab 2 tabs every 4 hours as needed (Last dose: Unknown) 10. multivitamin Oral tab daily (Last dose: 05/13/2016 08:00) - PMHx: Acute Renal Failure; Alzheimers; AORTIC VALVE DISORDER; AV Block 1st Degree; GERD; Gout; Hypertension; - Social history: Smoking status: Patient states former smoker of tobacco. impaired d/t Alzheimer's . - Family history: Not pertinent. - : The pt / caregiver states he / she is not on anticoagulants. Home medication list is obtained from the caregiver. - Exposure Risk Screening:: None identified. - History obtained from: caregiver. Vital Signs: 05/13 11:24 BP 101 / 68 (auto/); ttb 11:28 BP 101 / 68; Pulse 77; Resp 16; Temp 97.2(O); Pulse Ox 97% on R/A; Weight 54.43 kg / cmb 120 lbs (M); 11:28 Pulse 77 MON; Resp 18 S; Pulse Ox 96% on R/A; Pain 0/10; ttb 11:40 BP 95 / 51 (auto/); ttb 11:40 Pulse 75 MON; Pulse Ox 96% ; ttb 12:14 BP 103 / 50 (auto/); ttb 12:15 Pulse 73 MON; Pulse Ox 95% ; ttb 13:04 Pulse 73 MON; Resp 18; Pulse Ox 98% on R/A; Pain 0/10; ttb 13:45 Pulse 69 MON; Pulse Ox 100% ; ttb 14:01 BP 99 / 66 (auto/); ttb 14:01 Pulse 85 MON; Pulse Ox 98% ; ttb 14:13 BP 102 / 70 (auto/); ttb 14:13 Pulse 77 MON; Resp 18; Pulse Ox 96% on R/A; Pain 0/10; ttb 14:15 Pulse 74 MON; Pulse Ox 99% ; ttb 14:42 Pulse 80 MON; Pulse Ox 98% ; ttb 15:22 BP 108 / 58 (auto/); ttb 15:23 Pulse 76 MON; ttb 16:55 Pulse 67 MON; ttb 16:57 BP 154 / 89 (auto/); Resp 18 S; Temp 100.5(TE); Pulse Ox 96% on R/A; Pain 0/10; ttb 17:10 BP 146 / 78 (auto/); ttb 17:17 Pulse 74 MON; Resp 18 S; Pulse Ox 98% on R/A; Pain 0/10; ttb MDM: 11:32 -Blood Culture (Adults Only), peripheral from different site, or from device/port/PICC sd1 etc. if present ordered. 11:32 House Principal/Pulse Ox/q 15 min VS ordered. sd1 11:33 Chest, 1 View Ordered. EDMS 11:33 -Arterial Blood Gas Ordered. EDMS 11:33 -Blood Culture Ordered. EDMS 11:33 Amylase Ordered. EDMS 11:33 C Reactive Protein Ordered. EDMS 11:33 CBC with Diff Ordered. EDMS 11:33 Lactic Acid (Plasencia tube on ice) Ordered. EDMS 11:33 Liver Profile Ordered. EDMS 11:33 MED Profile Ordered. EDMS 11:33 PT/INR Ordered. EDMS 11:33 Type & Screen Ordered. EDMS 11:33 Urinalysis Ordered. EDMS 11:33 Urine Culture Ordered. EDMS 11:33 ECG WITH READING ER PHYS+CARDIAG ordered. EDMS 11:38 BED REQUEST+ADM ordered. EDMS 11:43 MAGNESIUM LEVEL Ordered. EDMS 11:44 -Blood Culture (Adults Only), peripheral from different site, or from device/port/PICC lbd etc. if present complete. 11:47 BLOOD CULTURES Ordered. EDMS 12:13 C Reactive Protein Reviewed. sd1 12:13 CBC with Diff Reviewed. sd1 12:13 Liver Profile Reviewed. sd1 12:13 MED Profile Reviewed. sd1 12:13 MAGNESIUM LEVEL Reviewed. sd1 12:13 Amylase Reviewed. sd1 12:13 PT/INR Reviewed. sd1 12:18 NS 0.9% 500 ml IV at bolus once ordered. sd1 12:18 Magnesium Sulfate 1 grams IVPB once over 1 hrs; administer over at least 1 hour ordered.sd1 12:39 -Arterial Blood Gas Reviewed. sd1 12:39 Urinalysis Reviewed. sd1 12:39 Lactic Acid (Plasencia tube on ice) Reviewed. sd1 12:39 Type & Screen Reviewed. sd1 12:39 Chest, 1 View Reviewed. sd1 12:40 C Diff Toxins A&b Ordered. EDMS 13:45 Financial registration complete. mm15 14:09 NS 0.9% 500 ml IV at bolus once ordered. sd1 14:15 [facility] Payment Agreement was scanned into [employer] and attached to record. mm15 14:56 Admission / Observation Status ordered. EDMS 14:56 2 GRAM SODIUM DIET ordered. EDMS 02 08:21 T-Sheet-- Draft Copy was scanned into [employer] and attached to record. lg 08: PCR was scanned into [employer] and attached to record. lg Administered Medications: 05/13 12:24 Drug: Magnesium Sulfate 1 grams [magnesium sulfate 1 gram/100 mL in dextrose 5 % ttb intravenous piggyback] {Co-Signature: hs1 (Sandra Steen RN).} Route: IVPB; Infused Over: 1 hrs; Site: left antecubital; 13:27 Follow up: IV Status: Completed infusion; Infusion discontinued [facility] 12:25 Drug: NS 0.9% 500 ml [sodium chloride 0.9 % intravenous solution] Route: IV; Rate: ttb bolus; Site: left antecubital; 14:00 Follow up: IV Status: Completed infusion; IV Intake: 500ml ttb 14:43 Drug: NS 0.9% 500 ml [sodium chloride 0.9 % intravenous solution] Route: IV; Rate: ttb bolus; Site: left antecubital; 16:00 Follow up: IV Status: Completed infusion; IV Intake: 500ml ttb Signatures: Dispatcher [employer] EDMS Sneha Torrez MD MD sd1 Dorota Nichols, [employer] lbd Michel Salmeron, Mahamed Reg Ebony Pardo RN RN ttb Alexa Mansfield mm15 Melany Trotter RN RN sls2 Arabella Hicks RN kpj Sandra Steen RN hs1 The chart was reviewed and I authenticate all verbal orders and agree with the evaluation and treatment provided.Corrections: (The following items were deleted from the chart) 11:43 11:39 MAGNESIUM LEVEL+LAB ordered. EDAR EDMS Attachments: 14:15 [facility] Payment Agreement mm15 05/15 08:21 T-Sheet-- Draft Copy lg Chart Complete MTDD
--- NOTE | 2016-05-16 20:41 | EDDOCDS ---
Nurse's Notes [facility] Name: Pierre Rivera Age: 89 yrs Sex: Male : 1925 Arrival Date: 05/13/2016 Time: 11:17 Bed 1 Private MD: Fabricio Chao P. Diagnosis: Bradycardia, unspecified Presentation: 05/13 11:19 Presenting complaint: EMS states: low heart rate and low blood pressure at home per ttb INSTRUMENT REPAIRER HELPER. Pt at baseline mentality. Awake and alert. NAD noted. SB on monitor. Suicide/Homicide risk assessment- the patient denies having any suicidal and/or homicidal ideations and does not present with any other emotional, behavioral or mental health complaints. Status: Patient is not a director service or dependent. Transition of care: patient was not received from another setting of care. 11:19 Acuity: MICHELLE Level 2 ttb 11:19 Method Of Arrival: Ambulance ttb 11:26 Adult Sepsis Screening: The patient does not have new or worsening altered mentation. ttb Patient's respiratory rate is less than 22. Systolic blood pressure is greater than 100. Patient has a qSOFA score of 0- Negative Sepsis Screen. Triage Assessment: 11:26 General: Appears in no apparent distress, slender, well nourished, well groomed, ttb Behavior is at baseline. Pain: Unable to use pain scale. Patient appears quiet. Neurological: Level of Consciousness is awake, alert, Oriented to none. Respiratory: Airway is patent Respiratory effort is even, unlabored, Respiratory pattern is regular, symmetrical. GI: Parent/caregiver reports the patient having diarrhea. : Moy in place Urine is concentrated. Derm: Skin is normal. Historical: - Allergies: No known drug Allergies; - Home Meds: 1. aspirin 81 mg Oral cpDR 1 tab once daily (Last dose: 05/13/2016) 2. allopurinol 100 mg Oral tab once daily (Last dose: 05/13/2016) 3. Protonix 40 mg Oral TbEC 1 tab once daily (Last dose: 05/13/2016 08:00) 4. Razadyne ER 8 mg oral TbER once daily (Last dose: 05/13/2016 08:00) 5. Flomax 0.4 mg Oral cp24 1 cap once daily (Last dose: 05/12/2016) 6. hydroxyzine HCl 10 mg Oral tab nightly (Last dose: 05/12/2016) 7. Namenda 10 mg oral tab 1 tab 2 times per day (Last dose: 05/13/2016 08:00) 8. Colace 100 mg oral cap 1 cap once daily (Last dose: Unknown) 9. acetaminophen 325 mg Oral tab 2 tabs every 4 hours as needed (Last dose: Unknown) 10. multivitamin Oral tab daily (Last dose: 05/13/2016 08:00) - PMHx: Acute Renal Failure; Alzheimers; AORTIC VALVE DISORDER; AV Block 1st Degree; GERD; Gout; Hypertension; - Social history: Smoking status: Patient states former smoker of tobacco. impaired d/t Alzheimer's . - Family history: Not pertinent. - : The pt / caregiver states he / she is not on anticoagulants. Home medication list is obtained from the caregiver. - Exposure Risk Screening:: None identified. - History obtained from: caregiver. Screenin:23 Infection Control. lbd 11:28 Screening information is obtained from the patient. Fall risk: At risk due to age, ttb apparent cognitive impairment, gait disturbance, immobility, The following interventions are performed due to a positive Fall Risk Screen: Fall Risk is added to Special Handling on the patient Summary Screen. A Fall Risk Bracelet was applied to the patient. Side Rails are placed in the up position. A Call Matos is given with instruction to call for help when getting out of bed. aide at bedside. Assistance ADL's: Requires assistance with meal preparation, this assistance is provided by bathing, assistance is provided by dressing, assistance is provided by toileting, assistance is provided by ambulation, assistance is provided by housework, assistance is provided by medication administration, assistance is provided by Public Health nurses. Abuse/DV Screen: The patient / caregiver reports he/she is: pt cannot be assessed for living situation at this time. Unable to Assess. Nutritional screening: The patient reports a change in bowel habits, diarrhea, The patient reports he / she has had 3 bowels movement in the past 24 hours. Advance Directives: There is an active DNR order and the pt has a copy here at this time. There is an active Power of Venetian Blind Tape Cutter, Rosa Urban [phone]. home support is adequate. Assessment: 11:55 General: Appears in no apparent distress, well nourished, well groomed, Behavior is at ttb baseline, pleasant, content. Neurological: Level of Consciousness is awake, alert, Pupils are pinpoint. Cardiovascular: Heart tones S1 S2 present Rhythm is irregular. Respiratory: Airway is patent Respiratory effort is even, unlabored, Respiratory pattern is regular, symmetrical, Breath sounds are clear in right upper lobe and left upper lobe the patient has mild shortness of breath Parent/caregiver reports the patient having cough that is since 2 days ago. GI: Abdomen is non- distended Bowel sounds present X 4 quads. Abd is soft X 4 quads Abd is non tender X 4 quads Parent/caregiver reports the patient having diarrhea. : Moy in place to gravity drainage Urine is concentrated. Derm: Skin is normal, pale, fingertips dusky upon arrival to ED. Injury Description: No known injury. 12:25 Reassessment: Patient appears in no apparent distress at this time. pt continues to ttb rest on stretcher. NAD noted. Talkative -- although does not make sense. Baseline per INSTRUMENT REPAIRER HELPER. Meds infusing per orders. Rhythm remains intermittent between NS with 1st degree block and rhythm documented on EKG. MD aware. No change in patient condition. . Neurological: Level of Consciousness is awake, alert. Respiratory: Airway is patent Respiratory effort is even, unlabored. 13:00 Reassessment: Patient appears in no apparent distress at this time. aide at bedside.. ttb General: Appears in no apparent distress. Neurological: Level of Consciousness is awake, alert. Cardiovascular: Rhythm is irregular. Respiratory: Airway is patent Respiratory effort is even, unlabored. 14:00 Adult Sepsis Screening: The patient does not have new or worsening altered mentation. ttb Patient's respiratory rate is less than 22. Systolic blood pressure is less than or equal to 100 (1 point). Patient has a qSOFA score of 1- Negative Sepsis Screen. 14:00 Neurological: Level of Consciousness is awake, alert. ttb 14:00 General: Appears in no apparent distress. Pain: Denies pain. Neurological: Level of ttb Consciousness is awake, alert. Cardiovascular: Rhythm is irregular Chest pain is denied. Respiratory: Airway is patent. Derm: Skin is normal. 15:31 Reassessment: Patient appears in no apparent distress at this time. lunch ordered. Aide ttb at bedside. Pt speaking on phone with family. NAD noted.. 16:00 Reassessment: Patient appears in no apparent distress at this time. INSTRUMENT REPAIRER HELPER at bedside. NAD ttb noted. Irregular rhythm -- NAD noted. Awake and alert. Roy ordered. . 16:52 General: SBAR sent to floor, PETE Kirkpatrick to receive pt. INSTRUMENT REPAIRER HELPER remains with pt. NAD noted. . ttb Neurological: Level of Consciousness is awake, alert. Cardiovascular: Rhythm is with heart block as documented. Respiratory: Airway is patent Respiratory effort is even, unlabored. 17:00 General: sandwich again, ordered for pt..... ttb 17:32 General: moy adjusted to get adequate urine output. INSTRUMENT REPAIRER HELPER states pt usually pulls ttb balloon to impede flow and balloon has to be adjusted frequently. Bp improved. INSTRUMENT REPAIRER HELPER at bedside. Pt remains A&A. Denies pain. . General: PCU states they are ready to receive pt at this time. . Cardiovascular: Rhythm is irregular. Respiratory: Airway is patent Respiratory effort is even, unlabored. Vital Signs: 11:24 BP 101 / 68 (auto/); ttb 11:28 BP 101 / 68; Pulse 77; Resp 16; Temp 97.2(O); Pulse Ox 97% on R/A; Weight 54.43 kg (M); cmb 11:28 Pulse 77 MON; Resp 18 S; Pulse Ox 96% on R/A; Pain 0/10; ttb 11:40 BP 95 / 51 (auto/); ttb 11:40 Pulse 75 MON; Pulse Ox 96% ; ttb 12:14 BP 103 / 50 (auto/); ttb 12:15 Pulse 73 MON; Pulse Ox 95% ; ttb 13:04 Pulse 73 MON; Resp 18; Pulse Ox 98% on R/A; Pain 0/10; ttb 13:45 Pulse 69 MON; Pulse Ox 100% ; ttb 14:01 BP 99 / 66 (auto/); ttb 14:01 Pulse 85 MON; Pulse Ox 98% ; ttb 14:13 BP 102 / 70 (auto/); ttb 14:13 Pulse 77 MON; Resp 18; Pulse Ox 96% on R/A; Pain 0/10; ttb 14:15 Pulse 74 MON; Pulse Ox 99% ; ttb 14:42 Pulse 80 MON; Pulse Ox 98% ; ttb 15:22 BP 108 / 58 (auto/); ttb 15:23 Pulse 76 MON; ttb 16:55 Pulse 67 MON; ttb 16:57 BP 154 / 89 (auto/); Resp 18 S; Temp 100.5(TE); Pulse Ox 96% on R/A; Pain 0/10; ttb 17:10 BP 146 / 78 (auto/); ttb 17:17 Pulse 74 MON; Resp 18 S; Pulse Ox 98% on R/A; Pain 0/10; ttb Vitals: 11:26 Log In Time N/A - ambulance arrival. ttb ED Course: 11:18 Patient visited by Dorota Nichols, Steel Rigger. lbd 11:18 Sneha Torrez MD is Attending Physician. sd1 11:18 Patient moved to Waiting lbd 11:18 Patient moved to 1 ttb 11:19 Fabricio Chao is Private Physician. lbd 11:19 Triage Initiated ttb 11:25 Patient visited by Sneha Torrez MD. sd1 11:28 Patient visited by Vivien Coats. cmb 11:28 Pt greeted and oriented to ED. Patient advised of names of staff involved in care, cmb location of call matos, wait times and NPO status. Accompanied by Caregiver, Placed in gown. Bed in low position. Call light in reach. Side rails up X2. radiographer technologist on. Pulse ox on. NIBP on. 11:28 The patient / caregiver is instructed regarding the plan of care and ED course. ttb 11:31 Patient visited by Ebony Guardado RN. ttb 11:54 MAGNESIUM LEVEL Sent. ttb 11:55 Urinalysis Sent. ttb 11:55 Urine Culture Sent. ttb 11:55 Maintain field IV. Dressing intact. Good blood return noted. Site clean & dry. Gauge & ttb site: 20G LAC. Labs drawn. (by ED staff). Urine collected. Specimen obtained from Moy. Portable x-ray done. 11:58 Patient visited by Ebony Guardado RN. ttb 12:02 EKG done. (by ED staff). Reviewed by Sneha Torrez MD. cmb 12:11 Patient visited by Vivien Coats. cmb 12:23 Chest, 1 View Returned. EDMS 13:05 Patient visited by Ebony Guardado RN. ttb 13:06 Patient visited by Ebony Guardado RN. ttb 13:49 Patient visited by Vivien Coats. cmb 14:15 [facility] [place] Payment Agreement was scanned into [employer] and attached to record. mm15 14:19 Patient visited by Ebony Guardado RN. ttb 14:35 Jamshid Patel is Hospitalizing Provider. sd1 15:31 Patient visited by Ebony Guardado RN. ttb 16:54 Patient visited by Ebony Guardado RN. ttb 17:07 Patient visited by Ebony Guardado RN. ttb 17:17 Report given to PETE Kirkpatrick to receive pt. Property :Personal belongings accompany Pt. ttb 17:17 No procedures done that require assistance. ttb 05/15 08:21 T-Sheet-- Draft Copy was scanned into [employer] and attached to record. lg 08:22 PCR was scanned into [employer] and attached to record. lg Administered Medications: 05/13 12:24 Drug: Magnesium Sulfate 1 grams [magnesium sulfate 1 gram/100 mL in dextrose 5 % ttb intravenous piggyback] {Co-Signature: hs1 (Sandra Steen RN).} Route: IVPB; Infused Over: 1 hrs; Site: left antecubital; 13:27 Follow up: IV Status: Completed infusion; Infusion discontinued kpj 12:25 Drug: NS 0.9% 500 ml [sodium chloride 0.9 % intravenous solution] Route: IV; Rate: ttb bolus; Site: left antecubital; 14:00 Follow up: IV Status: Completed infusion; IV Intake: 500ml ttb 14:43 Drug: NS 0.9% 500 ml [sodium chloride 0.9 % intravenous solution] Route: IV; Rate: ttb bolus; Site: left antecubital; 16:00 Follow up: IV Status: Completed infusion; IV Intake: 500ml ttb Intake: 13:28 IV: 100.00ml (NS); Total: 100.00ml. kpj 14:00 IV: 500.00ml; Total: 600.00ml. ttb 16:00 IV: 500.00ml; Total: 1100.00ml. ttb RT: 12:10 ABG's drawn from left radial artery allens test done and positive pressure held for 5 ac1 minutes no bleeding noted pressure bandage applied specimen sent pt. tolerated well. Order Results: Lab Order: -Arterial Blood Gas; [facility]05/13/16 11:46 Test: ABG pH (ARTERIAL); Value: 7.460; Range: 7.350-7.450; Abnormal: Above high normal; Units: UNITS; Status: F Test: ABG PARTIAL PRESSURE CO2; Value: 28.1; Range: 35.0-45.0; Abnormal: Below low normal; Units: mmHg; Status: F Test: ABG PARTIAL PRESSURE O2; Value: 65.3; Range: 75.0-100.0; Abnormal: Below low normal; Units: mmHg; Status: F Test: ABG TOTAL CO2; Value: 20.4; Range: 23.0-31.0; Abnormal: Below low normal; Units: MEQ/L; Status: F Test: ABG HCO3; Value: 19.5; Range: 22.0-26.0; Abnormal: Below low normal; Units: MEQ/L; Status: F Test: ABG BASE EXCESS; Value: -3.3; Range: -2.0-2.0; Abnormal: Below low normal; Status: F Test: ABG STANDARD HCO3; Value: 21.7; Range: 22.0-26.0; Abnormal: Below low normal; Units: MEQ/L; Status: F Test: ABG O2 SATURATION; Value: 93.4; Range: 95.0-99.0; Abnormal: Below low normal; Units: %; Status: F Test: ABG DEVICE; Value: NASAL SABRINA; Status: F Lab Order: Amylase; [facility] 05/13/16 11:23 Test: AMYLASE; Value: 58; Range: 25-115; Units: U/L; Status: F Lab Order: C Reactive Protein; [facility]05/13/16 11:23 Test: C REACTIVE PROTEIN QUANTITATIV; Value: 2.74; Range: 0.00-0.30; Abnormal: Above high normal; Units: MG/DL; Status: F Lab Order: CBC with Diff; [facility]05/13/16 11:23 Test: WHITE BLOOD COUNT; Value: 7.1; Range: 4.0-10.0; Units: K/mm3; Status: F Test: RED BLOOD COUNT; Value: 3.29; Range: 4.30-6.10; Abnormal: Below low normal; Units: M/mm3; Status: F Test: HEMOGLOBIN; Value: 10.7; Range: 14.0-18.0; Abnormal: Below low normal; Units: g/dl; Status: F Test: HEMATOCRIT; Value: 33.7; Range: 42.0-52.0; Abnormal: Below low normal; Units: %; Status: F Test: MEAN CORPUSCULAR VOLUME; Value: 102.5; Range: 80.0-96.0; Abnormal: Above high normal; Units: fl; Status: F Test: MEAN CORPUSCULAR HEMOGLOBIN; Value: 32.6; Range: 27.0-33.0; Units: pg; Status: F Test: MEAN CORPUSCULAR HGB CONC; Value: 31.8; Range: 32.0-36.5; Abnormal: Below low normal; Units: g/dl; Status: F Test: RED CELL DISTRIBUTION WIDTH; Value: 13.8; Range: 11.5-14.5; Units: %; Status: F Test: PLATELET COUNT, AUTOMATED; Value: 211; Range: 150-450; Units: k/mm3; Status: F Test: NEUTROPHILS %; Value: 75.0; Range: 36.0-66.0; Abnormal: Above high normal; Units: %; Status: F Test: LYMPH %; Value: 15.1; Range: 24.0-44.0; Abnormal: Below low normal; Units: %; Status: F Test: MONO %; Value: 7.0; Range: 0.0-5.0; Abnormal: Above high normal; Units: %; Status: F Test: EOS %; Value: 1.4; Range: 0.0-3.0; Units: %; Status: F Test: BASO %; Value: 0.2; Range: 0.0-1.0; Units: %; Status: F Test: LARGE UNSTAINED CELL %; Value: 1.3; Range: 0.0-4.0; Units: %; Status: F Test: NEUTROPHILS #; Value: 5.3; Range: 1.8-7.7; Units: K/mm3; Status: F Test: LYMPH #; Value: 1.2; Range: 1.5-4.5; Abnormal: Below low normal; Units: K/mm3; Status: F Test: MONO #; Value: 0.5; Range: 0.0-0.8; Units: K/mm3; Status: F Test: EOS #; Value: 0.1; Range: 0.0-0.50; Units: K/mm3; Status: F Test: BASO #; Value: 0.0; Range: 0.0-0.2; Units: K/mm3; Status: F Test: LARGE UNSTAINED CELL #; Value: 0.1; Range: 0.0-0.4; Units: K/mm3; Status: F Lab Order: Lactic Acid (Plasencia tube on ice); [facility] 05/13/16 11:47 Test: LACTIC ACID SEPSIS PROTOCOL; Value: 1.7; Range: 0.4-2.0; Units: MMOL/L; Status: F Lab Order: Liver Profile; [facility] 05/13/16 11:23 Test: AST/SGOT; Value: 28; Range: 15-37; Units: U/L; Status: F Test: ALT/SGPT; Value: 20; Range: 12-78; Units: U/L; Status: F Test: ALKALINE PHOSPHATASE; Value: 95; Range: 45-117; Units: U/L; Status: F Test: BILIRUBIN,TOTAL; Value: 0.1; Range: 0.2-1.0; Abnormal: Below low normal; Units: MG/DL; Status: F Test: BILIRUBIN,DIRECT; Value: < 0.1; Range: 0.0-0.2; Units: MG/DL; Status: F Test: TOTAL PROTEIN; Value: 6.3; Range: 6.4-8.2; Abnormal: Below low normal; Units: GM/DL; Status: F Test: ALBUMIN; Value: 2.5; Range: 3.2-5.2; Abnormal: Below low normal; Units: GM/DL; Status: F Test: ALBUMIN/GLOBULIN RATIO; Value: 0.66; Range: 1.00-1.93; Abnormal: Below low normal; Status: F Lab Order: MED Profile; [facility]05/13/16 11:23 Test: GLUCOSE, FASTING; Value: 104; Range: 83-110; Units: MG/DL; Status: F Test: BLOOD UREA NITROGEN; Value: 24; Range: 7-18; Abnormal: Above high normal; Units: MG/DL; Status: F Test: CREATININE FOR GFR; Value: 0.98; Range: 0.70-1.30; Units: MG/DL; Status: F Test: GLOMERULAR FILTRATION RATE; Value: > 60.0; Range: >35; Status: F Test: SODIUM LEVEL; Value: 147; Range: 136-145; Abnormal: Above high normal; Units: MEQ/L; Status: F Test: POTASSIUM SERUM; Value: 4.2; Range: 3.5-5.1; Units: MEQ/L; Status: F Test: CHLORIDE LEVEL; Value: 115; Range: 98-107; Abnormal: Above high normal; Units: MEQ/L; Status: F Test: CARBON DIOXIDE LEVEL; Value: 25; Range: 21-32; Units: MEQ/L; Status: F Test: ANION GAP; Value: 7; Range: 8-16; Abnormal: Below low normal; Units: MEQ/L; Status: F Test: CALCIUM LEVEL; Value: 8.2; Range: 8.8-10.2; Abnormal: Below low normal; Units: MG/DL; Status: F Test Note: ; Units are mL/min/1.73 m2 Chronic Kidney Disease Staging per NKF: Stage I & II GFR >=60 Normal to Mildly Decreased Stage III GFR 30-59 Moderately Decreased Stage IV GFR 15-29 Severely Decreased Stage V GFR <15 Very Little GFR Left ESRD GFR <15 on PASTING INSPECTOR Lab Order: PT/INR; SPEC'05/13/16 11:23 Test: PROTHROMBIN TIME; Value: 13.6; Range: 12.3-14.5; Units: SECONDS; Status: F Test: INR; Value: 1.03; Status: F Test Note: ; THERAPUTIC HUMAN INR VALUES INDICATIONS NORMAL RANGES PROPHYLAXIS/TREATMENT OF: VENOUS THROMBOSIS 2.0-3.0 PULMONARY EMBOLISM 2.0-3.0 PREVENTION OF SYSTEMIC EMBOLISM FROM: TISSUE HEART VALVES 2.0-3.0 ACUTE MYOCARDIAL INFARCTION 2.0-3.0 VALVULAR HEART DISEASE 2.0-3.0 ATRIAL FIBRILLATION 2.0-3.0 MECHANICAL VALVES(HIGH RISK) 2.5-3.5 RECURRENT MYOCARDIAL INFARCTION 2.5-3.5 Lab Order: Type & Screen; [facility] 05/13/16 11:23 Test: BLOOD TYPE; Value: A NEG; Status: F Test: AB SCREEN (INDIRECT JIN)VIS; Value: NEGATIVE; Status: F Lab Order: Urinalysis; [facility] 05/13/16 11:47 Test: APPEARANCE, URINE; Value: TURBID; Range: CLEAR; Abnormal: Above high normal; Status: F Test: COLOR, URINE; Value: BROWN; Range: YELLOW; Status: F Test: PH,URINE; Value: 5.0; Range: 5.0-9.0; Units: UNITS; Status: F Test: SPECIFIC GRAVITY URINE AUTO; Value: 1.021; Range: 1.002-1.035; Status: F Test: PROTEIN, URINE AUTO; Value: 2+; Range: NEGATIVE; Abnormal: Above high normal; Units: mg/dL; Status: F Test: GLUCOSE, URINE (UA) AUTO; Value: NEGATIVE; Range: NEGATIVE; Units: mg/dL; Status: F Test: KETONE, URINE AUTO; Value: NEGATIVE; Range: NEGATIVE; Units: mg/dL; Status: F Test: UROBILINOGEN, URINE AUTO; Value: 0.2; Range: 0.0-2.0; Units: mg/dL; Status: F Test: BILIRUBIN, URINE AUTO; Value: NEGATIVE; Range: NEGATIVE; Status: F Test: NITRITE, URINE AUTO; Value: NEGATIVE; Range: NEGATIVE; Status: F Test: LEUKOCYTE ESTERASE, URINE AUTO; Value: 2+; Range: NEGATIVE; Abnormal: Above high normal; Status: F Test: BLOOD, URINE BLOOD; Value: 3+; Range: NEGATIVE; Abnormal: Above high normal; Status: F Test: WBC, URINE AUTO; Value: TNTC; Range: 0-3; Abnormal: Above high normal; Units: /HPF; Status: F Test: RBC, URINE AUTO; Value: TNTC; Range: 0-3; Abnormal: Above high normal; Units: /HPF; Status: F Test: BACTERIA, URINE AUTO; Value: NEGATIVE; Range: NEGATIVE; Status: F Test: SQUAMOUS EPITHELIAL CELL UR AU; Value: 3; Range: 0-6; Units: /HPF; Status: F Test: MUCUS, URINE; Value: MODERATE; Range: NEGATIVE; Status: F Test: HYALINE CAST, URINE AUTO; Value: 0; Range: 0-1; Units: /LPF; Status: F Test: AMORPHOUS SEDIMENT; Value: MODERATE; Range: NEGATIVE; Abnormal: Above high normal; Status: F Test Note: ; --- 05/13/16 1228 --- COLOR previously reported as: YELLOW Lab Order: MAGNESIUM LEVEL; SPEC'M 05/13/16 11:23 Test: MAGNESIUM LEVEL; Value: 1.6; Range: 1.8-2.4; Abnormal: Below low normal; Units: MG/DL; Status: F Radiology Order: Chest, 1 View Test: Chest, 1 View REASON FOR EXAMINATION: HYPOTENSION; Clinical: Chest pain. Hypotension.; ; Comparison: 04/09/2016.; ; Findings:; Examination is limited by portable technique, underpenetration, and poor; inspiratory effort. Mediastinum and cardiac silhouette stable. Lung diggs; demonstrate pulmonary vascular congestion and possible basilar atelectasis. No; discrete focal consolidation, effusion, or pneumothorax. Skeletal structures; demonstrate osteopenia and degenerative changes.; ; Impression:; Limited examination cannot exclude pulmonary vascular congestion and interstitial; edema.; ; ; Signed by; Teddy Jean Baptiste MD 05/13/2016 12:05 P; Outcome: 14:35 Decision to Hospitalize by Provider. sd1 17:00 No special radiology studies were completed. ttb 17:17 Discharge Assessment: Patient awake, alert and oriented x 3. No cognitive and/or ttb functional deficits noted. Patient verbalized understanding of disposition instructions. Patient awake and alert. patient administered narcotics - no. The following High Risk Discharge criteria are identified: Yes, PCU admit. Admitted to PCU accompanied by nurse, accompanied by tech, family with patient, via stretcher, on monitor, with chart. Condition: stable. Instructed on admission process. Admission hand-off: Report called to PETE Kirkpatrick received SBAR. Property :Personal belongings accompany Pt. 17:36 Patient left the ED. ttb Signatures: Dispatcher [employer] EDNE Sneha Torrez MD MD sd1 Dorota Nichols, Steel Rigger Unit lbd Arabella Hicks RN RN kpj Ganter, LoriLee, Reg Reg lg Imelda,Becky,RT RT ac1 Vivien Coats cmb Ebony Guardado RN RN ttb Alexa Mansfield mm15 Sandra Steen RN hs1 Corrections: (The following items were deleted from the chart) 11:26 11:19 Adult Sepsis Screening: The patient does not have new or worsening altered ttb mentation. Patient's respiratory rate is less than 22. Systolic blood pressure is less than or equal to 100 (1 point). Patient has a qSOFA score of 1- Negative Sepsis Screen. ttb Chart Complete MTDD
--- NOTE | 2016-05-16 20:42 | EDDOCDS ---
Physician Documentation [facility] Name: Pierre Rivrea Age: 89 yrs Sex: Male : 1925 Arrival Date: 05/13/2016 Time: 11:17 Bed 1 Private MD: Fabricio Chao P. Disposition: 05/13/16 14:35 Hospitalization ordered by Jamshid Patel for Inpatient Admission. Preliminary diagnosis is Bradycardia, unspecified. - Bed requested for PCU. - Status is Inpatient Admission. ttb - Condition is Stable. - Problem is new. - Symptoms are unchanged. Historical: - Allergies: No known drug Allergies; - Home Meds: 1. aspirin 81 mg Oral cpDR 1 tab once daily (Last dose: 05/13/2016) 2. allopurinol 100 mg Oral tab once daily (Last dose: 05/13/2016) 3. Protonix 40 mg Oral TbEC 1 tab once daily (Last dose: 05/13/2016 08:00) 4. Razadyne ER 8 mg oral TbER once daily (Last dose: 05/13/2016 08:00) 5. Flomax 0.4 mg Oral cp24 1 cap once daily (Last dose: 05/12/2016) 6. hydroxyzine HCl 10 mg Oral tab nightly (Last dose: 05/12/2016) 7. Namenda 10 mg oral tab 1 tab 2 times per day (Last dose: 05/13/2016 08:00) 8. Colace 100 mg oral cap 1 cap once daily (Last dose: Unknown) 9. acetaminophen 325 mg Oral tab 2 tabs every 4 hours as needed (Last dose: Unknown) 10. multivitamin Oral tab daily (Last dose: 05/13/2016 08:00) - PMHx: Acute Renal Failure; Alzheimers; AORTIC VALVE DISORDER; AV Block 1st Degree; GERD; Gout; Hypertension; - Social history: Smoking status: Patient states former smoker of tobacco. impaired d/t Alzheimer's . - Family history: Not pertinent. - : The pt / caregiver states he / she is not on anticoagulants. Home medication list is obtained from the caregiver. - Exposure Risk Screening:: None identified. - History obtained from: caregiver. Vital Signs: 05/13 11:24 BP 101 / 68 (auto/); ttb 11:28 BP 101 / 68; Pulse 77; Resp 16; Temp 97.2(O); Pulse Ox 97% on R/A; Weight 54.43 kg / cmb 120 lbs (M); 11:28 Pulse 77 MON; Resp 18 S; Pulse Ox 96% on R/A; Pain 0/10; ttb 11:40 BP 95 / 51 (auto/); ttb 11:40 Pulse 75 MON; Pulse Ox 96% ; ttb 12:14 BP 103 / 50 (auto/); ttb 12:15 Pulse 73 MON; Pulse Ox 95% ; ttb 13:04 Pulse 73 MON; Resp 18; Pulse Ox 98% on R/A; Pain 0/10; ttb 13:45 Pulse 69 MON; Pulse Ox 100% ; ttb 14:01 BP 99 / 66 (auto/); ttb 14:01 Pulse 85 MON; Pulse Ox 98% ; ttb 14:13 BP 102 / 70 (auto/); ttb 14:13 Pulse 77 MON; Resp 18; Pulse Ox 96% on R/A; Pain 0/10; ttb 14:15 Pulse 74 MON; Pulse Ox 99% ; ttb 14:42 Pulse 80 MON; Pulse Ox 98% ; ttb 15:22 BP 108 / 58 (auto/); ttb 15:23 Pulse 76 MON; ttb 16:55 Pulse 67 MON; ttb 16:57 BP 154 / 89 (auto/); Resp 18 S; Temp 100.5(TE); Pulse Ox 96% on R/A; Pain 0/10; ttb 17:10 BP 146 / 78 (auto/); ttb 17:17 Pulse 74 MON; Resp 18 S; Pulse Ox 98% on R/A; Pain 0/10; ttb MDM: 11:32 -Blood Culture (Adults Only), peripheral from different site, or from device/port/PICC sd1 etc. if present ordered. 11:32 Concessions Manager/Pulse Ox/q 15 min VS ordered. sd1 11:33 Chest, 1 View Ordered. EDMS 11:33 -Arterial Blood Gas Ordered. EDMS 11:33 -Blood Culture Ordered. EDMS 11:33 Amylase Ordered. EDMS 11:33 C Reactive Protein Ordered. EDMS 11:33 CBC with Diff Ordered. EDMS 11:33 Lactic Acid (Plasencia tube on ice) Ordered. EDMS 11:33 Liver Profile Ordered. EDMS 11:33 MED Profile Ordered. EDMS 11:33 PT/INR Ordered. EDMS 11:33 Type & Screen Ordered. EDMS 11:33 Urinalysis Ordered. EDMS 11:33 Urine Culture Ordered. EDMS 11:33 ECG WITH READING ER PHYS+CARDIAG ordered. EDMS 11:38 BED REQUEST+ADM ordered. EDMS 11:43 MAGNESIUM LEVEL Ordered. EDMS 11:44 -Blood Culture (Adults Only), peripheral from different site, or from device/port/PICC lbd etc. if present complete. 11:47 BLOOD CULTURES Ordered. EDMS 12:13 C Reactive Protein Reviewed. sd1 12:13 CBC with Diff Reviewed. sd1 12:13 Liver Profile Reviewed. sd1 12:13 MED Profile Reviewed. sd1 12:13 MAGNESIUM LEVEL Reviewed. sd1 12:13 Amylase Reviewed. sd1 12:13 PT/INR Reviewed. sd1 12:18 NS 0.9% 500 ml IV at bolus once ordered. sd1 12:18 Magnesium Sulfate 1 grams IVPB once over 1 hrs; administer over at least 1 hour ordered.sd1 12:39 -Arterial Blood Gas Reviewed. sd1 12:39 Urinalysis Reviewed. sd1 12:39 Lactic Acid (Plasencia tube on ice) Reviewed. sd1 12:39 Type & Screen Reviewed. sd1 12:39 Chest, 1 View Reviewed. sd1 12:40 C Diff Toxins A&b Ordered. EDMS 13:45 Financial registration complete. mm15 14:09 NS 0.9% 500 ml IV at bolus once ordered. sd1 14:15 [facility] [facility] [place] Agreement was scanned into [employer] and attached to record. mm15 14:56 Admission / Observation Status ordered. EDMS 14:56 2 GRAM SODIUM DIET ordered. EDMS 02 08:21 T-Sheet-- Draft Copy was scanned into [employer] and attached to record. lg 08: PCR was scanned into [employer] and attached to record. lg Administered Medications: 05/13 12:24 Drug: Magnesium Sulfate 1 grams [magnesium sulfate 1 gram/100 mL in dextrose 5 % ttb intravenous piggyback] {Co-Signature: hs1 (Sandra Steen RN).} Route: IVPB; Infused Over: 1 hrs; Site: left antecubital; 13:27 Follow up: IV Status: Completed infusion; Infusion discontinued [facility] 12:25 Drug: NS 0.9% 500 ml [sodium chloride 0.9 % intravenous solution] Route: IV; Rate: ttb bolus; Site: left antecubital; 14:00 Follow up: IV Status: Completed infusion; IV Intake: 500ml ttb 14:43 Drug: NS 0.9% 500 ml [sodium chloride 0.9 % intravenous solution] Route: IV; Rate: ttb bolus; Site: left antecubital; 16:00 Follow up: IV Status: Completed infusion; IV Intake: 500ml ttb Signatures: Dispatcher [employer] EDMS Sneha Torrez MD MD sd1 Dorota Nichols, Corporate Legal Manager Unit lbd Michel Salmeron, Mahamed Reg Ebony Pardo RN RN ttb Alexa Mansfiled mm15 Melany Trotter RN RN sls2 Arabella Hicks RN kpj Sandra Steen RN hs1 The chart was reviewed and I authenticate all verbal orders and agree with the evaluation and treatment provided.Corrections: (The following items were deleted from the chart) 11:43 11:39 MAGNESIUM LEVEL+LAB ordered. EDNJ EDMS Attachments: 14:15 [facility] Payment Agreement mm15 05/15 08:21 T-Sheet-- Draft Copy lg Chart Complete MTDD
--- NOTE | 2016-05-16 20:42 | EDDOCDS ---
Physician Documentation [facility] Name: Pierre Rivera Age: 89 yrs Sex: Male : 1925 Arrival Date: 05/13/2016 Time: 11:17 Bed 1 Private MD: Fabricio Chao P. Disposition: 05/13/16 14:35 Hospitalization ordered by Jamshid Patel for Inpatient Admission. Preliminary diagnosis is Bradycardia, unspecified. - Bed requested for PCU. - Status is Inpatient Admission. ttb - Condition is Stable. - Problem is new. - Symptoms are unchanged. Historical: - Allergies: No known drug Allergies; - Home Meds: 1. aspirin 81 mg Oral cpDR 1 tab once daily (Last dose: 05/13/2016) 2. allopurinol 100 mg Oral tab once daily (Last dose: 05/13/2016) 3. Protonix 40 mg Oral TbEC 1 tab once daily (Last dose: 05/13/2016 08:00) 4. Razadyne ER 8 mg oral TbER once daily (Last dose: 05/13/2016 08:00) 5. Flomax 0.4 mg Oral cp24 1 cap once daily (Last dose: 05/12/2016) 6. hydroxyzine HCl 10 mg Oral tab nightly (Last dose: 05/12/2016) 7. Namenda 10 mg oral tab 1 tab 2 times per day (Last dose: 05/13/2016 08:00) 8. Colace 100 mg oral cap 1 cap once daily (Last dose: Unknown) 9. acetaminophen 325 mg Oral tab 2 tabs every 4 hours as needed (Last dose: Unknown) 10. multivitamin Oral tab daily (Last dose: 05/13/2016 08:00) - PMHx: Acute Renal Failure; Alzheimers; AORTIC VALVE DISORDER; AV Block 1st Degree; GERD; Gout; Hypertension; - Social history: Smoking status: Patient states former smoker of tobacco. impaired d/t Alzheimer's . - Family history: Not pertinent. - : The pt / caregiver states he / she is not on anticoagulants. Home medication list is obtained from the caregiver. - Exposure Risk Screening:: None identified. - History obtained from: caregiver. Vital Signs: 05/13 11:24 BP 101 / 68 (auto/); ttb 11:28 BP 101 / 68; Pulse 77; Resp 16; Temp 97.2(O); Pulse Ox 97% on R/A; Weight 54.43 kg / cmb 120 lbs (M); 11:28 Pulse 77 MON; Resp 18 S; Pulse Ox 96% on R/A; Pain 0/10; ttb 11:40 BP 95 / 51 (auto/); ttb 11:40 Pulse 75 MON; Pulse Ox 96% ; ttb 12:14 BP 103 / 50 (auto/); ttb 12:15 Pulse 73 MON; Pulse Ox 95% ; ttb 13:04 Pulse 73 MON; Resp 18; Pulse Ox 98% on R/A; Pain 0/10; ttb 13:45 Pulse 69 MON; Pulse Ox 100% ; ttb 14:01 BP 99 / 66 (auto/); ttb 14:01 Pulse 85 MON; Pulse Ox 98% ; ttb 14:13 BP 102 / 70 (auto/); ttb 14:13 Pulse 77 MON; Resp 18; Pulse Ox 96% on R/A; Pain 0/10; ttb 14:15 Pulse 74 MON; Pulse Ox 99% ; ttb 14:42 Pulse 80 MON; Pulse Ox 98% ; ttb 15:22 BP 108 / 58 (auto/); ttb 15:23 Pulse 76 MON; ttb 16:55 Pulse 67 MON; ttb 16:57 BP 154 / 89 (auto/); Resp 18 S; Temp 100.5(TE); Pulse Ox 96% on R/A; Pain 0/10; ttb 17:10 BP 146 / 78 (auto/); ttb 17:17 Pulse 74 MON; Resp 18 S; Pulse Ox 98% on R/A; Pain 0/10; ttb MDM: 11:32 -Blood Culture (Adults Only), peripheral from different site, or from device/port/PICC sd1 etc. if present ordered. 11:32 Welder Setter Electron Beam Machine/Pulse Ox/q 15 min VS ordered. sd1 11:33 Chest, 1 View Ordered. EDMS 11:33 -Arterial Blood Gas Ordered. EDMS 11:33 -Blood Culture Ordered. EDMS 11:33 Amylase Ordered. EDMS 11:33 C Reactive Protein Ordered. EDMS 11:33 CBC with Diff Ordered. EDMS 11:33 Lactic Acid (Plasencia tube on ice) Ordered. EDMS 11:33 Liver Profile Ordered. EDMS 11:33 MED Profile Ordered. EDMS 11:33 PT/INR Ordered. EDMS 11:33 Type & Screen Ordered. EDMS 11:33 Urinalysis Ordered. EDMS 11:33 Urine Culture Ordered. EDMS 11:33 ECG WITH READING ER PHYS+CARDIAG ordered. EDMS 11:38 BED REQUEST+ADM ordered. EDMS 11:43 MAGNESIUM LEVEL Ordered. EDMS 11:44 -Blood Culture (Adults Only), peripheral from different site, or from device/port/PICC lbd etc. if present complete. 11:47 BLOOD CULTURES Ordered. EDMS 12:13 C Reactive Protein Reviewed. sd1 12:13 CBC with Diff Reviewed. sd1 12:13 Liver Profile Reviewed. sd1 12:13 MED Profile Reviewed. sd1 12:13 MAGNESIUM LEVEL Reviewed. sd1 12:13 Amylase Reviewed. sd1 12:13 PT/INR Reviewed. sd1 12:18 NS 0.9% 500 ml IV at bolus once ordered. sd1 12:18 Magnesium Sulfate 1 grams IVPB once over 1 hrs; administer over at least 1 hour ordered.sd1 12:39 -Arterial Blood Gas Reviewed. sd1 12:39 Urinalysis Reviewed. sd1 12:39 Lactic Acid (Plasencia tube on ice) Reviewed. sd1 12:39 Type & Screen Reviewed. sd1 12:39 Chest, 1 View Reviewed. sd1 12:40 C Diff Toxins A&b Ordered. EDMS 13:45 Financial registration complete. mm15 14:09 NS 0.9% 500 ml IV at bolus once ordered. sd1 14:15 [facility] [place] Payment Agreement was scanned into [employer] and attached to record. mm15 14:56 Admission / Observation Status ordered. EDMS 14:56 2 GRAM SODIUM DIET ordered. EDMS 02 08:21 T-Sheet-- Draft Copy was scanned into [employer] and attached to record. lg 08: PCR was scanned into [employer] and attached to record. lg Administered Medications: 05/13 12:24 Drug: Magnesium Sulfate 1 grams [magnesium sulfate 1 gram/100 mL in dextrose 5 % ttb intravenous piggyback] {Co-Signature: hs1 (Sandra Steen RN).} Route: IVPB; Infused Over: 1 hrs; Site: left antecubital; 13:27 Follow up: IV Status: Completed infusion; Infusion discontinued [facility] 12:25 Drug: NS 0.9% 500 ml [sodium chloride 0.9 % intravenous solution] Route: IV; Rate: ttb bolus; Site: left antecubital; 14:00 Follow up: IV Status: Completed infusion; IV Intake: 500ml ttb 14:43 Drug: NS 0.9% 500 ml [sodium chloride 0.9 % intravenous solution] Route: IV; Rate: ttb bolus; Site: left antecubital; 16:00 Follow up: IV Status: Completed infusion; IV Intake: 500ml ttb Signatures: Dispatcher [employer] EDMS Sneha Torrez MD MD sd1 Dorota Nichols, World History Teacher Unit lbd Michel Salmeron, Mahamed Reg Ebony Pardo RN RN ttb Alexa Mansfield mm15 Melany Trotter RN RN sls2 Arabella Hicks RN kpj Sandra Steen RN hs1 The chart was reviewed and I authenticate all verbal orders and agree with the evaluation and treatment provided.Corrections: (The following items were deleted from the chart) 11:43 11:39 MAGNESIUM LEVEL+LAB ordered. EDCO EDMS Attachments: 14:15 [facility] Payment Agreement mm15 05/15 08:21 T-Sheet-- Draft Copy lg Chart Complete MTDD
--- NOTE | 2016-05-16 20:43 | EDDOCDS ---
Nurse's Notes [facility] Name: Pierre Rivera Age: 89 yrs Sex: Male : 1925 Arrival Date: 05/13/2016 Time: 11:17 Bed 1 Private MD: Fabricio Chao P. Diagnosis: Bradycardia, unspecified Presentation: 05/13 11:19 Presenting complaint: EMS states: low heart rate and low blood pressure at home per ttb FRACTIONATION SUPERVISOR. Pt at baseline mentality. Awake and alert. NAD noted. SB on monitor. Suicide/Homicide risk assessment- the patient denies having any suicidal and/or homicidal ideations and does not present with any other emotional, behavioral or mental health complaints. Status: Patient is not a service clerk or dependent. Transition of care: patient was not received from another setting of care. 11:19 Acuity: MICHELLE Level 2 ttb 11:19 Method Of Arrival: Ambulance ttb 11:26 Adult Sepsis Screening: The patient does not have new or worsening altered mentation. ttb Patient's respiratory rate is less than 22. Systolic blood pressure is greater than 100. Patient has a qSOFA score of 0- Negative Sepsis Screen. Triage Assessment: 11:26 General: Appears in no apparent distress, slender, well nourished, well groomed, ttb Behavior is at baseline. Pain: Unable to use pain scale. Patient appears quiet. Neurological: Level of Consciousness is awake, alert, Oriented to none. Respiratory: Airway is patent Respiratory effort is even, unlabored, Respiratory pattern is regular, symmetrical. GI: Parent/caregiver reports the patient having diarrhea. : Moy in place Urine is concentrated. Derm: Skin is normal. Historical: - Allergies: No known drug Allergies; - Home Meds: 1. aspirin 81 mg Oral cpDR 1 tab once daily (Last dose: 05/13/2016) 2. allopurinol 100 mg Oral tab once daily (Last dose: 05/13/2016) 3. Protonix 40 mg Oral TbEC 1 tab once daily (Last dose: 05/13/2016 08:00) 4. Razadyne ER 8 mg oral TbER once daily (Last dose: 05/13/2016 08:00) 5. Flomax 0.4 mg Oral cp24 1 cap once daily (Last dose: 05/12/2016) 6. hydroxyzine HCl 10 mg Oral tab nightly (Last dose: 05/12/2016) 7. Namenda 10 mg oral tab 1 tab 2 times per day (Last dose: 05/13/2016 08:00) 8. Colace 100 mg oral cap 1 cap once daily (Last dose: Unknown) 9. acetaminophen 325 mg Oral tab 2 tabs every 4 hours as needed (Last dose: Unknown) 10. multivitamin Oral tab daily (Last dose: 05/13/2016 08:00) - PMHx: Acute Renal Failure; Alzheimers; AORTIC VALVE DISORDER; AV Block 1st Degree; GERD; Gout; Hypertension; - Social history: Smoking status: Patient states former smoker of tobacco. impaired d/t Alzheimer's . - Family history: Not pertinent. - : The pt / caregiver states he / she is not on anticoagulants. Home medication list is obtained from the caregiver. - Exposure Risk Screening:: None identified. - History obtained from: caregiver. Screenin:23 Infection Control. lbd 11:28 Screening information is obtained from the patient. Fall risk: At risk due to age, ttb apparent cognitive impairment, gait disturbance, immobility, The following interventions are performed due to a positive Fall Risk Screen: Fall Risk is added to Special Handling on the patient Summary Screen. A Fall Risk Bracelet was applied to the patient. Side Rails are placed in the up position. A Call Matos is given with instruction to call for help when getting out of bed. aide at bedside. Assistance ADL's: Requires assistance with meal preparation, this assistance is provided by bathing, assistance is provided by dressing, assistance is provided by toileting, assistance is provided by ambulation, assistance is provided by housework, assistance is provided by medication administration, assistance is provided by Public Health nurses. Abuse/DV Screen: The patient / caregiver reports he/she is: pt cannot be assessed for living situation at this time. Unable to Assess. Nutritional screening: The patient reports a change in bowel habits, diarrhea, The patient reports he / she has had 3 bowels movement in the past 24 hours. Advance Directives: There is an active DNR order and the pt has a copy here at this time. There is an active Power of Wafer Cleaner, Rosa Urban [phone]. home support is adequate. Assessment: 11:55 General: Appears in no apparent distress, well nourished, well groomed, Behavior is at ttb baseline, pleasant, content. Neurological: Level of Consciousness is awake, alert, Pupils are pinpoint. Cardiovascular: Heart tones S1 S2 present Rhythm is irregular. Respiratory: Airway is patent Respiratory effort is even, unlabored, Respiratory pattern is regular, symmetrical, Breath sounds are clear in right upper lobe and left upper lobe the patient has mild shortness of breath Parent/caregiver reports the patient having cough that is since 2 days ago. GI: Abdomen is non- distended Bowel sounds present X 4 quads. Abd is soft X 4 quads Abd is non tender X 4 quads Parent/caregiver reports the patient having diarrhea. : Moy in place to gravity drainage Urine is concentrated. Derm: Skin is normal, pale, fingertips dusky upon arrival to ED. Injury Description: No known injury. 12:25 Reassessment: Patient appears in no apparent distress at this time. pt continues to ttb rest on stretcher. NAD noted. Talkative -- although does not make sense. Baseline per FRACTIONATION SUPERVISOR. Meds infusing per orders. Rhythm remains intermittent between NS with 1st degree block and rhythm documented on EKG. MD aware. No change in patient condition. . Neurological: Level of Consciousness is awake, alert. Respiratory: Airway is patent Respiratory effort is even, unlabored. 13:00 Reassessment: Patient appears in no apparent distress at this time. aide at bedside.. ttb General: Appears in no apparent distress. Neurological: Level of Consciousness is awake, alert. Cardiovascular: Rhythm is irregular. Respiratory: Airway is patent Respiratory effort is even, unlabored. 14:00 Adult Sepsis Screening: The patient does not have new or worsening altered mentation. ttb Patient's respiratory rate is less than 22. Systolic blood pressure is less than or equal to 100 (1 point). Patient has a qSOFA score of 1- Negative Sepsis Screen. 14:00 Neurological: Level of Consciousness is awake, alert. ttb 14:00 General: Appears in no apparent distress. Pain: Denies pain. Neurological: Level of ttb Consciousness is awake, alert. Cardiovascular: Rhythm is irregular Chest pain is denied. Respiratory: Airway is patent. Derm: Skin is normal. 15:31 Reassessment: Patient appears in no apparent distress at this time. lunch ordered. Aide ttb at bedside. Pt speaking on phone with family. NAD noted.. 16:00 Reassessment: Patient appears in no apparent distress at this time. FRACTIONATION SUPERVISOR at bedside. NAD ttb noted. Irregular rhythm -- NAD noted. Awake and alert. [place] ordered. . 16:52 General: SBAR sent to floor, PETE Kirkpatrick to receive pt. FRACTIONATION SUPERVISOR remains with pt. NAD noted. . ttb Neurological: Level of Consciousness is awake, alert. Cardiovascular: Rhythm is with heart block as documented. Respiratory: Airway is patent Respiratory effort is even, unlabored. 17:00 General: sandwich again, ordered for pt..... ttb 17:32 General: moy adjusted to get adequate urine output. FRACTIONATION SUPERVISOR states pt usually pulls ttb balloon to impede flow and balloon has to be adjusted frequently. Bp improved. FRACTIONATION SUPERVISOR at bedside. Pt remains A&A. Denies pain. . General: PCU states they are ready to receive pt at this time. . Cardiovascular: Rhythm is irregular. Respiratory: Airway is patent Respiratory effort is even, unlabored. Vital Signs: 11:24 BP 101 / 68 (auto/); ttb 11:28 BP 101 / 68; Pulse 77; Resp 16; Temp 97.2(O); Pulse Ox 97% on R/A; Weight 54.43 kg (M); cmb 11:28 Pulse 77 MON; Resp 18 S; Pulse Ox 96% on R/A; Pain 0/10; ttb 11:40 BP 95 / 51 (auto/); ttb 11:40 Pulse 75 MON; Pulse Ox 96% ; ttb 12:14 BP 103 / 50 (auto/); ttb 12:15 Pulse 73 MON; Pulse Ox 95% ; ttb 13:04 Pulse 73 MON; Resp 18; Pulse Ox 98% on R/A; Pain 0/10; ttb 13:45 Pulse 69 MON; Pulse Ox 100% ; ttb 14:01 BP 99 / 66 (auto/); ttb 14:01 Pulse 85 MON; Pulse Ox 98% ; ttb 14:13 BP 102 / 70 (auto/); ttb 14:13 Pulse 77 MON; Resp 18; Pulse Ox 96% on R/A; Pain 0/10; ttb 14:15 Pulse 74 MON; Pulse Ox 99% ; ttb 14:42 Pulse 80 MON; Pulse Ox 98% ; ttb 15:22 BP 108 / 58 (auto/); ttb 15:23 Pulse 76 MON; ttb 16:55 Pulse 67 MON; ttb 16:57 BP 154 / 89 (auto/); Resp 18 S; Temp 100.5(TE); Pulse Ox 96% on R/A; Pain 0/10; ttb 17:10 BP 146 / 78 (auto/); ttb 17:17 Pulse 74 MON; Resp 18 S; Pulse Ox 98% on R/A; Pain 0/10; ttb Vitals: 11:26 Log In Time N/A - ambulance arrival. ttb ED Course: 11:18 Patient visited by Dorota Nichols, Dry Box Operator. lbd 11:18 Sneha Torrez MD is Attending Physician. sd1 11:18 Patient moved to Waiting lbd 11:18 Patient moved to 1 ttb 11:19 Fabricio Chao is Private Physician. lbd 11:19 Triage Initiated ttb 11:25 Patient visited by Sneha Torrze MD. sd1 11:28 Patient visited by Vivien Coats. cmb 11:28 Pt greeted and oriented to ED. Patient advised of names of staff involved in care, cmb location of call matos, wait times and NPO status. Accompanied by Caregiver, Placed in gown. Bed in low position. Call light in reach. Side rails up X2. shelter monitor on. Pulse ox on. NIBP on. 11:28 The patient / caregiver is instructed regarding the plan of care and ED course. ttb 11:31 Patient visited by Ebony Guardado RN. ttb 11:54 MAGNESIUM LEVEL Sent. ttb 11:55 Urinalysis Sent. ttb 11:55 Urine Culture Sent. ttb 11:55 Maintain field IV. Dressing intact. Good blood return noted. Site clean & dry. Gauge & ttb site: 20G LAC. Labs drawn. (by ED staff). Urine collected. Specimen obtained from Moy. Portable x-ray done. 11:58 Patient visited by Ebony Guardado RN. ttb 12:02 EKG done. (by ED staff). Reviewed by Sneha Torrez MD. cmb 12:11 Patient visited by Vivien Coats. cmb 12:23 Chest, 1 View Returned. EDMS 13:05 Patient visited by Ebony Guaraddo RN. ttb 13:06 Patient visited by Ebony Guardado RN. ttb 13:49 Patient visited by Vivien Coats. cmb 14:15 [facility] [place] was scanned into Perfect and attached to record. mm15 14:19 Patient visited by Ebony Guardado RN. ttb 14:35 Jamshid Patel is Hospitalizing Provider. sd1 15:31 Patient visited by Ebony Guardado RN. ttb 16:54 Patient visited by Ebony Guardado RN. ttb 17:07 Patient visited by Ebony Guardado RN. ttb 17:17 Report given to PETE Kirkpatrick to receive pt. Property :Personal belongings accompany Pt. ttb 17:17 No procedures done that require assistance. ttb 05/15 08:21 T-Sheet-- Draft Copy was scanned into Perfect and attached to record. lg 08:22 PCR was scanned into Perfect and attached to record. lg Administered Medications: 05/13 12:24 Drug: Magnesium Sulfate 1 grams [magnesium sulfate 1 gram/100 mL in dextrose 5 % ttb intravenous piggyback] {Co-Signature: hs1 (Sandra Steen RN).} Route: IVPB; Infused Over: 1 hrs; Site: left antecubital; 13:27 Follow up: IV Status: Completed infusion; Infusion discontinued kpj 12:25 Drug: NS 0.9% 500 ml [sodium chloride 0.9 % intravenous solution] Route: IV; Rate: ttb bolus; Site: left antecubital; 14:00 Follow up: IV Status: Completed infusion; IV Intake: 500ml ttb 14:43 Drug: NS 0.9% 500 ml [sodium chloride 0.9 % intravenous solution] Route: IV; Rate: ttb bolus; Site: left antecubital; 16:00 Follow up: IV Status: Completed infusion; IV Intake: 500ml ttb Intake: 13:28 IV: 100.00ml (NS); Total: 100.00ml. kpj 14:00 IV: 500.00ml; Total: 600.00ml. ttb 16:00 IV: 500.00ml; Total: 1100.00ml. ttb RT: 12:10 ABG's drawn from left radial artery allens test done and positive pressure held for 5 ac1 minutes no bleeding noted pressure bandage applied specimen sent pt. tolerated well. Order Results: Lab Order: -Arterial Blood Gas; [facility]05/13/16 11:46 Test: ABG pH (ARTERIAL); Value: 7.460; Range: 7.350-7.450; Abnormal: Above high normal; Units: UNITS; Status: F Test: ABG PARTIAL PRESSURE CO2; Value: 28.1; Range: 35.0-45.0; Abnormal: Below low normal; Units: mmHg; Status: F Test: ABG PARTIAL PRESSURE O2; Value: 65.3; Range: 75.0-100.0; Abnormal: Below low normal; Units: mmHg; Status: F Test: ABG TOTAL CO2; Value: 20.4; Range: 23.0-31.0; Abnormal: Below low normal; Units: MEQ/L; Status: F Test: ABG HCO3; Value: 19.5; Range: 22.0-26.0; Abnormal: Below low normal; Units: MEQ/L; Status: F Test: ABG BASE EXCESS; Value: -3.3; Range: -2.0-2.0; Abnormal: Below low normal; Status: F Test: ABG STANDARD HCO3; Value: 21.7; Range: 22.0-26.0; Abnormal: Below low normal; Units: MEQ/L; Status: F Test: ABG O2 SATURATION; Value: 93.4; Range: 95.0-99.0; Abnormal: Below low normal; Units: %; Status: F Test: ABG DEVICE; Value: NASAL SABRINA; Status: F Lab Order: Amylase; [facility] 05/13/16 11:23 Test: AMYLASE; Value: 58; Range: 25-115; Units: U/L; Status: F Lab Order: C Reactive Protein; [facility]05/13/16 11:23 Test: C REACTIVE PROTEIN QUANTITATIV; Value: 2.74; Range: 0.00-0.30; Abnormal: Above high normal; Units: MG/DL; Status: F Lab Order: CBC with Diff; [facility]05/13/16 11:23 Test: WHITE BLOOD COUNT; Value: 7.1; Range: 4.0-10.0; Units: K/mm3; Status: F Test: RED BLOOD COUNT; Value: 3.29; Range: 4.30-6.10; Abnormal: Below low normal; Units: M/mm3; Status: F Test: HEMOGLOBIN; Value: 10.7; Range: 14.0-18.0; Abnormal: Below low normal; Units: g/dl; Status: F Test: HEMATOCRIT; Value: 33.7; Range: 42.0-52.0; Abnormal: Below low normal; Units: %; Status: F Test: MEAN CORPUSCULAR VOLUME; Value: 102.5; Range: 80.0-96.0; Abnormal: Above high normal; Units: fl; Status: F Test: MEAN CORPUSCULAR HEMOGLOBIN; Value: 32.6; Range: 27.0-33.0; Units: pg; Status: F Test: MEAN CORPUSCULAR HGB CONC; Value: 31.8; Range: 32.0-36.5; Abnormal: Below low normal; Units: g/dl; Status: F Test: RED CELL DISTRIBUTION WIDTH; Value: 13.8; Range: 11.5-14.5; Units: %; Status: F Test: PLATELET COUNT, AUTOMATED; Value: 211; Range: 150-450; Units: k/mm3; Status: F Test: NEUTROPHILS %; Value: 75.0; Range: 36.0-66.0; Abnormal: Above high normal; Units: %; Status: F Test: LYMPH %; Value: 15.1; Range: 24.0-44.0; Abnormal: Below low normal; Units: %; Status: F Test: MONO %; Value: 7.0; Range: 0.0-5.0; Abnormal: Above high normal; Units: %; Status: F Test: EOS %; Value: 1.4; Range: 0.0-3.0; Units: %; Status: F Test: BASO %; Value: 0.2; Range: 0.0-1.0; Units: %; Status: F Test: LARGE UNSTAINED CELL %; Value: 1.3; Range: 0.0-4.0; Units: %; Status: F Test: NEUTROPHILS #; Value: 5.3; Range: 1.8-7.7; Units: K/mm3; Status: F Test: LYMPH #; Value: 1.2; Range: 1.5-4.5; Abnormal: Below low normal; Units: K/mm3; Status: F Test: MONO #; Value: 0.5; Range: 0.0-0.8; Units: K/mm3; Status: F Test: EOS #; Value: 0.1; Range: 0.0-0.50; Units: K/mm3; Status: F Test: BASO #; Value: 0.0; Range: 0.0-0.2; Units: K/mm3; Status: F Test: LARGE UNSTAINED CELL #; Value: 0.1; Range: 0.0-0.4; Units: K/mm3; Status: F Lab Order: Lactic Acid (Plasencia tube on ice); [facility]' 05/13/16 11:47 Test: LACTIC ACID SEPSIS PROTOCOL; Value: 1.7; Range: 0.4-2.0; Units: MMOL/L; Status: F Lab Order: Liver Profile; [facility]' 05/13/16 11:23 Test: AST/SGOT; Value: 28; Range: 15-37; Units: U/L; Status: F Test: ALT/SGPT; Value: 20; Range: 12-78; Units: U/L; Status: F Test: ALKALINE PHOSPHATASE; Value: 95; Range: 45-117; Units: U/L; Status: F Test: BILIRUBIN,TOTAL; Value: 0.1; Range: 0.2-1.0; Abnormal: Below low normal; Units: MG/DL; Status: F Test: BILIRUBIN,DIRECT; Value: < 0.1; Range: 0.0-0.2; Units: MG/DL; Status: F Test: TOTAL PROTEIN; Value: 6.3; Range: 6.4-8.2; Abnormal: Below low normal; Units: GM/DL; Status: F Test: ALBUMIN; Value: 2.5; Range: 3.2-5.2; Abnormal: Below low normal; Units: GM/DL; Status: F Test: ALBUMIN/GLOBULIN RATIO; Value: 0.66; Range: 1.00-1.93; Abnormal: Below low normal; Status: F Lab Order: MED Profile; [facility]'05/13/16 11:23 Test: GLUCOSE, FASTING; Value: 104; Range: 83-110; Units: MG/DL; Status: F Test: BLOOD UREA NITROGEN; Value: 24; Range: 7-18; Abnormal: Above high normal; Units: MG/DL; Status: F Test: CREATININE FOR GFR; Value: 0.98; Range: 0.70-1.30; Units: MG/DL; Status: F Test: GLOMERULAR FILTRATION RATE; Value: > 60.0; Range: >35; Status: F Test: SODIUM LEVEL; Value: 147; Range: 136-145; Abnormal: Above high normal; Units: MEQ/L; Status: F Test: POTASSIUM SERUM; Value: 4.2; Range: 3.5-5.1; Units: MEQ/L; Status: F Test: CHLORIDE LEVEL; Value: 115; Range: 98-107; Abnormal: Above high normal; Units: MEQ/L; Status: F Test: CARBON DIOXIDE LEVEL; Value: 25; Range: 21-32; Units: MEQ/L; Status: F Test: ANION GAP; Value: 7; Range: 8-16; Abnormal: Below low normal; Units: MEQ/L; Status: F Test: CALCIUM LEVEL; Value: 8.2; Range: 8.8-10.2; Abnormal: Below low normal; Units: MG/DL; Status: F Test Note: ; Units are mL/min/1.73 m2 Chronic Kidney Disease Staging per NKF: Stage I & II GFR >=60 Normal to Mildly Decreased Stage III GFR 30-59 Moderately Decreased Stage IV GFR 15-29 Severely Decreased Stage V GFR <15 Very Little GFR Left ESRD GFR <15 on OPTICAL ADVISOR Lab Order: PT/INR; SPEC'05/13/16 11:23 Test: PROTHROMBIN TIME; Value: 13.6; Range: 12.3-14.5; Units: SECONDS; Status: F Test: INR; Value: 1.03; Status: F Test Note: ; THERAPUTIC HUMAN INR VALUES INDICATIONS NORMAL RANGES PROPHYLAXIS/TREATMENT OF: VENOUS THROMBOSIS 2.0-3.0 PULMONARY EMBOLISM 2.0-3.0 PREVENTION OF SYSTEMIC EMBOLISM FROM: TISSUE HEART VALVES 2.0-3.0 ACUTE MYOCARDIAL INFARCTION 2.0-3.0 VALVULAR HEART DISEASE 2.0-3.0 ATRIAL FIBRILLATION 2.0-3.0 MECHANICAL VALVES(HIGH RISK) 2.5-3.5 RECURRENT MYOCARDIAL INFARCTION 2.5-3.5 Lab Order: Type & Screen; [facility] 05/13/16 11:23 Test: BLOOD TYPE; Value: A NEG; Status: F Test: AB SCREEN (INDIRECT JIN)VIS; Value: NEGATIVE; Status: F Lab Order: Urinalysis; [facility] 05/13/16 11:47 Test: APPEARANCE, URINE; Value: TURBID; Range: CLEAR; Abnormal: Above high normal; Status: F Test: COLOR, URINE; Value: BROWN; Range: YELLOW; Status: F Test: PH,URINE; Value: 5.0; Range: 5.0-9.0; Units: UNITS; Status: F Test: SPECIFIC GRAVITY URINE AUTO; Value: 1.021; Range: 1.002-1.035; Status: F Test: PROTEIN, URINE AUTO; Value: 2+; Range: NEGATIVE; Abnormal: Above high normal; Units: mg/dL; Status: F Test: GLUCOSE, URINE (UA) AUTO; Value: NEGATIVE; Range: NEGATIVE; Units: mg/dL; Status: F Test: KETONE, URINE AUTO; Value: NEGATIVE; Range: NEGATIVE; Units: mg/dL; Status: F Test: UROBILINOGEN, URINE AUTO; Value: 0.2; Range: 0.0-2.0; Units: mg/dL; Status: F Test: BILIRUBIN, URINE AUTO; Value: NEGATIVE; Range: NEGATIVE; Status: F Test: NITRITE, URINE AUTO; Value: NEGATIVE; Range: NEGATIVE; Status: F Test: LEUKOCYTE ESTERASE, URINE AUTO; Value: 2+; Range: NEGATIVE; Abnormal: Above high normal; Status: F Test: BLOOD, URINE BLOOD; Value: 3+; Range: NEGATIVE; Abnormal: Above high normal; Status: F Test: WBC, URINE AUTO; Value: TNTC; Range: 0-3; Abnormal: Above high normal; Units: /HPF; Status: F Test: RBC, URINE AUTO; Value: TNTC; Range: 0-3; Abnormal: Above high normal; Units: /HPF; Status: F Test: BACTERIA, URINE AUTO; Value: NEGATIVE; Range: NEGATIVE; Status: F Test: SQUAMOUS EPITHELIAL CELL UR AU; Value: 3; Range: 0-6; Units: /HPF; Status: F Test: MUCUS, URINE; Value: MODERATE; Range: NEGATIVE; Status: F Test: HYALINE CAST, URINE AUTO; Value: 0; Range: 0-1; Units: /LPF; Status: F Test: AMORPHOUS SEDIMENT; Value: MODERATE; Range: NEGATIVE; Abnormal: Above high normal; Status: F Test Note: ; --- 05/13/16 1228 --- COLOR previously reported as: YELLOW Lab Order: MAGNESIUM LEVEL; SPEC'M 05/13/16 11:23 Test: MAGNESIUM LEVEL; Value: 1.6; Range: 1.8-2.4; Abnormal: Below low normal; Units: MG/DL; Status: F Radiology Order: Chest, 1 View Test: Chest, 1 View REASON FOR EXAMINATION: HYPOTENSION; Clinical: Chest pain. Hypotension.; ; Comparison: 04/09/2016.; ; Findings:; Examination is limited by portable technique, underpenetration, and poor; inspiratory effort. Mediastinum and cardiac silhouette stable. Lung diggs; demonstrate pulmonary vascular congestion and possible basilar atelectasis. No; discrete focal consolidation, effusion, or pneumothorax. Skeletal structures; demonstrate osteopenia and degenerative changes.; ; Impression:; Limited examination cannot exclude pulmonary vascular congestion and interstitial; edema.; ; ; Signed by; Teddy Jean Baptiste MD 05/13/2016 12:05 P; Outcome: 14:35 Decision to Hospitalize by Provider. sd1 17:00 No special radiology studies were completed. ttb 17:17 Discharge Assessment: Patient awake, alert and oriented x 3. No cognitive and/or ttb functional deficits noted. Patient verbalized understanding of disposition instructions. Patient awake and alert. patient administered narcotics - no. The following High Risk Discharge criteria are identified: Yes, PCU admit. Admitted to PCU accompanied by nurse, accompanied by tech, family with patient, via stretcher, on monitor, with chart. Condition: stable. Instructed on admission process. Admission hand-off: Report called to PETE Kirkpatrick received SBAR. Property :Personal belongings accompany Pt. 17:36 Patient left the ED. ttb Signatures: Dispatcher [employer] EDPA Sneha Torrez MD MD sd1 Dorota Nichols, Dry Box Operator Unit lbd Arabella Hicks RN RN kpj Ganter, LoriLee, Reg Reg lg Imelda,Becky,RT RT ac1 Vivien Coats cmb Ebony Guardado RN RN ttb Alexa Mansfield mm15 Sandra Steen RN hs1 Corrections: (The following items were deleted from the chart) 11:26 11:19 Adult Sepsis Screening: The patient does not have new or worsening altered ttb mentation. Patient's respiratory rate is less than 22. Systolic blood pressure is less than or equal to 100 (1 point). Patient has a qSOFA score of 1- Negative Sepsis Screen. ttb Chart Complete MTDD
--- NOTE | 2016-05-16 20:44 | EDDOCDS ---
Nurse's Notes [facility] Name: Pierre Rivera Age: 89 yrs Sex: Male : 1925 Arrival Date: 05/13/2016 Time: 11:17 Bed 1 Private MD: Fabricio Chao P. Diagnosis: Bradycardia, unspecified Presentation: 05/13 11:19 Presenting complaint: EMS states: low heart rate and low blood pressure at home per ttb GAMBLING CASHIER. Pt at baseline mentality. Awake and alert. NAD noted. SB on monitor. Suicide/Homicide risk assessment- the patient denies having any suicidal and/or homicidal ideations and does not present with any other emotional, behavioral or mental health complaints. Status: Patient is not a business services analyst or dependent. Transition of care: patient was not received from another setting of care. 11:19 Acuity: MICHELLE Level 2 ttb 11:19 Method Of Arrival: Ambulance ttb 11:26 Adult Sepsis Screening: The patient does not have new or worsening altered mentation. ttb Patient's respiratory rate is less than 22. Systolic blood pressure is greater than 100. Patient has a qSOFA score of 0- Negative Sepsis Screen. Triage Assessment: 11:26 General: Appears in no apparent distress, slender, well nourished, well groomed, ttb Behavior is at baseline. Pain: Unable to use pain scale. Patient appears quiet. Neurological: Level of Consciousness is awake, alert, Oriented to none. Respiratory: Airway is patent Respiratory effort is even, unlabored, Respiratory pattern is regular, symmetrical. GI: Parent/caregiver reports the patient having diarrhea. : Moy in place Urine is concentrated. Derm: Skin is normal. Historical: - Allergies: No known drug Allergies; - Home Meds: 1. aspirin 81 mg Oral cpDR 1 tab once daily (Last dose: 05/13/2016) 2. allopurinol 100 mg Oral tab once daily (Last dose: 05/13/2016) 3. Protonix 40 mg Oral TbEC 1 tab once daily (Last dose: 05/13/2016 08:00) 4. Razadyne ER 8 mg oral TbER once daily (Last dose: 05/13/2016 08:00) 5. Flomax 0.4 mg Oral cp24 1 cap once daily (Last dose: 05/12/2016) 6. hydroxyzine HCl 10 mg Oral tab nightly (Last dose: 05/12/2016) 7. Namenda 10 mg oral tab 1 tab 2 times per day (Last dose: 05/13/2016 08:00) 8. Colace 100 mg oral cap 1 cap once daily (Last dose: Unknown) 9. acetaminophen 325 mg Oral tab 2 tabs every 4 hours as needed (Last dose: Unknown) 10. multivitamin Oral tab daily (Last dose: 05/13/2016 08:00) - PMHx: Acute Renal Failure; Alzheimers; AORTIC VALVE DISORDER; AV Block 1st Degree; GERD; Gout; Hypertension; - Social history: Smoking status: Patient states former smoker of tobacco. impaired d/t Alzheimer's . - Family history: Not pertinent. - : The pt / caregiver states he / she is not on anticoagulants. Home medication list is obtained from the caregiver. - Exposure Risk Screening:: None identified. - History obtained from: caregiver. Screenin:23 Infection Control. lbd 11:28 Screening information is obtained from the patient. Fall risk: At risk due to age, ttb apparent cognitive impairment, gait disturbance, immobility, The following interventions are performed due to a positive Fall Risk Screen: Fall Risk is added to Special Handling on the patient Summary Screen. A Fall Risk Bracelet was applied to the patient. Side Rails are placed in the up position. A Call Matos is given with instruction to call for help when getting out of bed. aide at bedside. Assistance ADL's: Requires assistance with meal preparation, this assistance is provided by bathing, assistance is provided by dressing, assistance is provided by toileting, assistance is provided by ambulation, assistance is provided by housework, assistance is provided by medication administration, assistance is provided by Public Health nurses. Abuse/DV Screen: The patient / caregiver reports he/she is: pt cannot be assessed for living situation at this time. Unable to Assess. Nutritional screening: The patient reports a change in bowel habits, diarrhea, The patient reports he / she has had 3 bowels movement in the past 24 hours. Advance Directives: There is an active DNR order and the pt has a copy here at this time. There is an active Power of Liner Reroll Tender, Rosa Urban [phone]. home support is adequate. Assessment: 11:55 General: Appears in no apparent distress, well nourished, well groomed, Behavior is at ttb baseline, pleasant, content. Neurological: Level of Consciousness is awake, alert, Pupils are pinpoint. Cardiovascular: Heart tones S1 S2 present Rhythm is irregular. Respiratory: Airway is patent Respiratory effort is even, unlabored, Respiratory pattern is regular, symmetrical, Breath sounds are clear in right upper lobe and left upper lobe the patient has mild shortness of breath Parent/caregiver reports the patient having cough that is since 2 days ago. GI: Abdomen is non- distended Bowel sounds present X 4 quads. Abd is soft X 4 quads Abd is non tender X 4 quads Parent/caregiver reports the patient having diarrhea. : Moy in place to gravity drainage Urine is concentrated. Derm: Skin is normal, pale, fingertips dusky upon arrival to ED. Injury Description: No known injury. 12:25 Reassessment: Patient appears in no apparent distress at this time. pt continues to ttb rest on stretcher. NAD noted. Talkative -- although does not make sense. Baseline per GAMBLING CASHIER. Meds infusing per orders. Rhythm remains intermittent between NS with 1st degree block and rhythm documented on EKG. MD aware. No change in patient condition. . Neurological: Level of Consciousness is awake, alert. Respiratory: Airway is patent Respiratory effort is even, unlabored. 13:00 Reassessment: Patient appears in no apparent distress at this time. aide at bedside.. ttb General: Appears in no apparent distress. Neurological: Level of Consciousness is awake, alert. Cardiovascular: Rhythm is irregular. Respiratory: Airway is patent Respiratory effort is even, unlabored. 14:00 Adult Sepsis Screening: The patient does not have new or worsening altered mentation. ttb Patient's respiratory rate is less than 22. Systolic blood pressure is less than or equal to 100 (1 point). Patient has a qSOFA score of 1- Negative Sepsis Screen. 14:00 Neurological: Level of Consciousness is awake, alert. ttb 14:00 General: Appears in no apparent distress. Pain: Denies pain. Neurological: Level of ttb Consciousness is awake, alert. Cardiovascular: Rhythm is irregular Chest pain is denied. Respiratory: Airway is patent. Derm: Skin is normal. 15:31 Reassessment: Patient appears in no apparent distress at this time. lunch ordered. Aide ttb at bedside. Pt speaking on phone with family. NAD noted.. 16:00 Reassessment: Patient appears in no apparent distress at this time. GAMBLING CASHIER at bedside. NAD ttb noted. Irregular rhythm -- NAD noted. Awake and alert. [place] ordered. . 16:52 General: SBAR sent to floor, PETE Kirkpatrick to receive pt. GAMBLING CASHIER remains with pt. NAD noted. . ttb Neurological: Level of Consciousness is awake, alert. Cardiovascular: Rhythm is with heart block as documented. Respiratory: Airway is patent Respiratory effort is even, unlabored. 17:00 General: sandwich again, ordered for pt..... ttb 17:32 General: moy adjusted to get adequate urine output. GAMBLING CASHIER states pt usually pulls ttb balloon to impede flow and balloon has to be adjusted frequently. Bp improved. GAMBLING CASHIER at bedside. Pt remains A&A. Denies pain. . General: PCU states they are ready to receive pt at this time. . Cardiovascular: Rhythm is irregular. Respiratory: Airway is patent Respiratory effort is even, unlabored. Vital Signs: 11:24 BP 101 / 68 (auto/); ttb 11:28 BP 101 / 68; Pulse 77; Resp 16; Temp 97.2(O); Pulse Ox 97% on R/A; Weight 54.43 kg (M); cmb 11:28 Pulse 77 MON; Resp 18 S; Pulse Ox 96% on R/A; Pain 0/10; ttb 11:40 BP 95 / 51 (auto/); ttb 11:40 Pulse 75 MON; Pulse Ox 96% ; ttb 12:14 BP 103 / 50 (auto/); ttb 12:15 Pulse 73 MON; Pulse Ox 95% ; ttb 13:04 Pulse 73 MON; Resp 18; Pulse Ox 98% on R/A; Pain 0/10; ttb 13:45 Pulse 69 MON; Pulse Ox 100% ; ttb 14:01 BP 99 / 66 (auto/); ttb 14:01 Pulse 85 MON; Pulse Ox 98% ; ttb 14:13 BP 102 / 70 (auto/); ttb 14:13 Pulse 77 MON; Resp 18; Pulse Ox 96% on R/A; Pain 0/10; ttb 14:15 Pulse 74 MON; Pulse Ox 99% ; ttb 14:42 Pulse 80 MON; Pulse Ox 98% ; ttb 15:22 BP 108 / 58 (auto/); ttb 15:23 Pulse 76 MON; ttb 16:55 Pulse 67 MON; ttb 16:57 BP 154 / 89 (auto/); Resp 18 S; Temp 100.5(TE); Pulse Ox 96% on R/A; Pain 0/10; ttb 17:10 BP 146 / 78 (auto/); ttb 17:17 Pulse 74 MON; Resp 18 S; Pulse Ox 98% on R/A; Pain 0/10; ttb Vitals: 11:26 Log In Time N/A - ambulance arrival. ttb ED Course: 11:18 Patient visited by Dorota Nichols, Resource Director. lbd 11:18 Sneha Torrez MD is Attending Physician. sd1 11:18 Patient moved to Waiting lbd 11:18 Patient moved to 1 ttb 11:19 Fabricio Chao is Private Physician. lbd 11:19 Triage Initiated ttb 11:25 Patient visited by Sneha Torrez MD. sd1 11:28 Patient visited by Vivien Coats. cmb 11:28 Pt greeted and oriented to ED. Patient advised of names of staff involved in care, cmb location of call matos, wait times and NPO status. Accompanied by Caregiver, Placed in gown. Bed in low position. Call light in reach. Side rails up X2. ekg monitor tech on. Pulse ox on. NIBP on. 11:28 The patient / caregiver is instructed regarding the plan of care and ED course. ttb 11:31 Patient visited by Ebony Guardado RN. ttb 11:54 MAGNESIUM LEVEL Sent. ttb 11:55 Urinalysis Sent. ttb 11:55 Urine Culture Sent. ttb 11:55 Maintain field IV. Dressing intact. Good blood return noted. Site clean & dry. Gauge & ttb site: 20G LAC. Labs drawn. (by ED staff). Urine collected. Specimen obtained from Moy. Portable x-ray done. 11:58 Patient visited by Ebony Guardado RN. ttb 12:02 EKG done. (by ED staff). Reviewed by Sneha Torrez MD. cmb 12:11 Patient visited by Vivien Coats. cmb 12:23 Chest, 1 View Returned. EDMS 13:05 Patient visited by Ebony Guardado RN. ttb 13:06 Patient visited by Ebony Guardado RN. ttb 13:49 Patient visited by Vivien Coats. cmb 14:15 [facility] [place] was scanned into deltamethod and attached to record. mm15 14:19 Patient visited by Ebony Guardado RN. ttb 14:35 Jamshid Patel is Hospitalizing Provider. sd1 15:31 Patient visited by Ebony Guardado RN. ttb 16:54 Patient visited by Ebony Guardado RN. ttb 17:07 Patient visited by Ebony Guardado RN. ttb 17:17 Report given to PETE Kirkpatrick to receive pt. Property :Personal belongings accompany Pt. ttb 17:17 No procedures done that require assistance. ttb 05/15 08:21 T-Sheet-- Draft Copy was scanned into deltamethod and attached to record. lg 08:22 PCR was scanned into deltamethod and attached to record. lg Administered Medications: 05/13 12:24 Drug: Magnesium Sulfate 1 grams [magnesium sulfate 1 gram/100 mL in dextrose 5 % ttb intravenous piggyback] {Co-Signature: hs1 (Sandra Steen RN).} Route: IVPB; Infused Over: 1 hrs; Site: left antecubital; 13:27 Follow up: IV Status: Completed infusion; Infusion discontinued kpj 12:25 Drug: NS 0.9% 500 ml [sodium chloride 0.9 % intravenous solution] Route: IV; Rate: ttb bolus; Site: left antecubital; 14:00 Follow up: IV Status: Completed infusion; IV Intake: 500ml ttb 14:43 Drug: NS 0.9% 500 ml [sodium chloride 0.9 % intravenous solution] Route: IV; Rate: ttb bolus; Site: left antecubital; 16:00 Follow up: IV Status: Completed infusion; IV Intake: 500ml ttb Intake: 13:28 IV: 100.00ml (NS); Total: 100.00ml. kpj 14:00 IV: 500.00ml; Total: 600.00ml. ttb 16:00 IV: 500.00ml; Total: 1100.00ml. ttb RT: 12:10 ABG's drawn from left radial artery allens test done and positive pressure held for 5 ac1 minutes no bleeding noted pressure bandage applied specimen sent pt. tolerated well. Order Results: Lab Order: -Arterial Blood Gas; [facility]05/13/16 11:46 Test: ABG pH (ARTERIAL); Value: 7.460; Range: 7.350-7.450; Abnormal: Above high normal; Units: UNITS; Status: F Test: ABG PARTIAL PRESSURE CO2; Value: 28.1; Range: 35.0-45.0; Abnormal: Below low normal; Units: mmHg; Status: F Test: ABG PARTIAL PRESSURE O2; Value: 65.3; Range: 75.0-100.0; Abnormal: Below low normal; Units: mmHg; Status: F Test: ABG TOTAL CO2; Value: 20.4; Range: 23.0-31.0; Abnormal: Below low normal; Units: MEQ/L; Status: F Test: ABG HCO3; Value: 19.5; Range: 22.0-26.0; Abnormal: Below low normal; Units: MEQ/L; Status: F Test: ABG BASE EXCESS; Value: -3.3; Range: -2.0-2.0; Abnormal: Below low normal; Status: F Test: ABG STANDARD HCO3; Value: 21.7; Range: 22.0-26.0; Abnormal: Below low normal; Units: MEQ/L; Status: F Test: ABG O2 SATURATION; Value: 93.4; Range: 95.0-99.0; Abnormal: Below low normal; Units: %; Status: F Test: ABG DEVICE; Value: NASAL SABRINA; Status: F Lab Order: Amylase; [facility] 05/13/16 11:23 Test: AMYLASE; Value: 58; Range: 25-115; Units: U/L; Status: F Lab Order: C Reactive Protein; [facility]05/13/16 11:23 Test: C REACTIVE PROTEIN QUANTITATIV; Value: 2.74; Range: 0.00-0.30; Abnormal: Above high normal; Units: MG/DL; Status: F Lab Order: CBC with Diff; [facility]05/13/16 11:23 Test: WHITE BLOOD COUNT; Value: 7.1; Range: 4.0-10.0; Units: K/mm3; Status: F Test: RED BLOOD COUNT; Value: 3.29; Range: 4.30-6.10; Abnormal: Below low normal; Units: M/mm3; Status: F Test: HEMOGLOBIN; Value: 10.7; Range: 14.0-18.0; Abnormal: Below low normal; Units: g/dl; Status: F Test: HEMATOCRIT; Value: 33.7; Range: 42.0-52.0; Abnormal: Below low normal; Units: %; Status: F Test: MEAN CORPUSCULAR VOLUME; Value: 102.5; Range: 80.0-96.0; Abnormal: Above high normal; Units: fl; Status: F Test: MEAN CORPUSCULAR HEMOGLOBIN; Value: 32.6; Range: 27.0-33.0; Units: pg; Status: F Test: MEAN CORPUSCULAR HGB CONC; Value: 31.8; Range: 32.0-36.5; Abnormal: Below low normal; Units: g/dl; Status: F Test: RED CELL DISTRIBUTION WIDTH; Value: 13.8; Range: 11.5-14.5; Units: %; Status: F Test: PLATELET COUNT, AUTOMATED; Value: 211; Range: 150-450; Units: k/mm3; Status: F Test: NEUTROPHILS %; Value: 75.0; Range: 36.0-66.0; Abnormal: Above high normal; Units: %; Status: F Test: LYMPH %; Value: 15.1; Range: 24.0-44.0; Abnormal: Below low normal; Units: %; Status: F Test: MONO %; Value: 7.0; Range: 0.0-5.0; Abnormal: Above high normal; Units: %; Status: F Test: EOS %; Value: 1.4; Range: 0.0-3.0; Units: %; Status: F Test: BASO %; Value: 0.2; Range: 0.0-1.0; Units: %; Status: F Test: LARGE UNSTAINED CELL %; Value: 1.3; Range: 0.0-4.0; Units: %; Status: F Test: NEUTROPHILS #; Value: 5.3; Range: 1.8-7.7; Units: K/mm3; Status: F Test: LYMPH #; Value: 1.2; Range: 1.5-4.5; Abnormal: Below low normal; Units: K/mm3; Status: F Test: MONO #; Value: 0.5; Range: 0.0-0.8; Units: K/mm3; Status: F Test: EOS #; Value: 0.1; Range: 0.0-0.50; Units: K/mm3; Status: F Test: BASO #; Value: 0.0; Range: 0.0-0.2; Units: K/mm3; Status: F Test: LARGE UNSTAINED CELL #; Value: 0.1; Range: 0.0-0.4; Units: K/mm3; Status: F Lab Order: Lactic Acid (Plasencia tube on ice); [facility]' 05/13/16 11:47 Test: LACTIC ACID SEPSIS PROTOCOL; Value: 1.7; Range: 0.4-2.0; Units: MMOL/L; Status: F Lab Order: Liver Profile; [facility]' 05/13/16 11:23 Test: AST/SGOT; Value: 28; Range: 15-37; Units: U/L; Status: F Test: ALT/SGPT; Value: 20; Range: 12-78; Units: U/L; Status: F Test: ALKALINE PHOSPHATASE; Value: 95; Range: 45-117; Units: U/L; Status: F Test: BILIRUBIN,TOTAL; Value: 0.1; Range: 0.2-1.0; Abnormal: Below low normal; Units: MG/DL; Status: F Test: BILIRUBIN,DIRECT; Value: < 0.1; Range: 0.0-0.2; Units: MG/DL; Status: F Test: TOTAL PROTEIN; Value: 6.3; Range: 6.4-8.2; Abnormal: Below low normal; Units: GM/DL; Status: F Test: ALBUMIN; Value: 2.5; Range: 3.2-5.2; Abnormal: Below low normal; Units: GM/DL; Status: F Test: ALBUMIN/GLOBULIN RATIO; Value: 0.66; Range: 1.00-1.93; Abnormal: Below low normal; Status: F Lab Order: MED Profile; [facility]'05/13/16 11:23 Test: GLUCOSE, FASTING; Value: 104; Range: 83-110; Units: MG/DL; Status: F Test: BLOOD UREA NITROGEN; Value: 24; Range: 7-18; Abnormal: Above high normal; Units: MG/DL; Status: F Test: CREATININE FOR GFR; Value: 0.98; Range: 0.70-1.30; Units: MG/DL; Status: F Test: GLOMERULAR FILTRATION RATE; Value: > 60.0; Range: >35; Status: F Test: SODIUM LEVEL; Value: 147; Range: 136-145; Abnormal: Above high normal; Units: MEQ/L; Status: F Test: POTASSIUM SERUM; Value: 4.2; Range: 3.5-5.1; Units: MEQ/L; Status: F Test: CHLORIDE LEVEL; Value: 115; Range: 98-107; Abnormal: Above high normal; Units: MEQ/L; Status: F Test: CARBON DIOXIDE LEVEL; Value: 25; Range: 21-32; Units: MEQ/L; Status: F Test: ANION GAP; Value: 7; Range: 8-16; Abnormal: Below low normal; Units: MEQ/L; Status: F Test: CALCIUM LEVEL; Value: 8.2; Range: 8.8-10.2; Abnormal: Below low normal; Units: MG/DL; Status: F Test Note: ; Units are mL/min/1.73 m2 Chronic Kidney Disease Staging per NKF: Stage I & II GFR >=60 Normal to Mildly Decreased Stage III GFR 30-59 Moderately Decreased Stage IV GFR 15-29 Severely Decreased Stage V GFR <15 Very Little GFR Left ESRD GFR <15 on SALESFORCE SPECIALIST Lab Order: PT/INR; SPEC'05/13/16 11:23 Test: PROTHROMBIN TIME; Value: 13.6; Range: 12.3-14.5; Units: SECONDS; Status: F Test: INR; Value: 1.03; Status: F Test Note: ; THERAPUTIC HUMAN INR VALUES INDICATIONS NORMAL RANGES PROPHYLAXIS/TREATMENT OF: VENOUS THROMBOSIS 2.0-3.0 PULMONARY EMBOLISM 2.0-3.0 PREVENTION OF SYSTEMIC EMBOLISM FROM: TISSUE HEART VALVES 2.0-3.0 ACUTE MYOCARDIAL INFARCTION 2.0-3.0 VALVULAR HEART DISEASE 2.0-3.0 ATRIAL FIBRILLATION 2.0-3.0 MECHANICAL VALVES(HIGH RISK) 2.5-3.5 RECURRENT MYOCARDIAL INFARCTION 2.5-3.5 Lab Order: Type & Screen; [facility] 05/13/16 11:23 Test: BLOOD TYPE; Value: A NEG; Status: F Test: AB SCREEN (INDIRECT JIN)VIS; Value: NEGATIVE; Status: F Lab Order: Urinalysis; [facility] 05/13/16 11:47 Test: APPEARANCE, URINE; Value: TURBID; Range: CLEAR; Abnormal: Above high normal; Status: F Test: COLOR, URINE; Value: BROWN; Range: YELLOW; Status: F Test: PH,URINE; Value: 5.0; Range: 5.0-9.0; Units: UNITS; Status: F Test: SPECIFIC GRAVITY URINE AUTO; Value: 1.021; Range: 1.002-1.035; Status: F Test: PROTEIN, URINE AUTO; Value: 2+; Range: NEGATIVE; Abnormal: Above high normal; Units: mg/dL; Status: F Test: GLUCOSE, URINE (UA) AUTO; Value: NEGATIVE; Range: NEGATIVE; Units: mg/dL; Status: F Test: KETONE, URINE AUTO; Value: NEGATIVE; Range: NEGATIVE; Units: mg/dL; Status: F Test: UROBILINOGEN, URINE AUTO; Value: 0.2; Range: 0.0-2.0; Units: mg/dL; Status: F Test: BILIRUBIN, URINE AUTO; Value: NEGATIVE; Range: NEGATIVE; Status: F Test: NITRITE, URINE AUTO; Value: NEGATIVE; Range: NEGATIVE; Status: F Test: LEUKOCYTE ESTERASE, URINE AUTO; Value: 2+; Range: NEGATIVE; Abnormal: Above high normal; Status: F Test: BLOOD, URINE BLOOD; Value: 3+; Range: NEGATIVE; Abnormal: Above high normal; Status: F Test: WBC, URINE AUTO; Value: TNTC; Range: 0-3; Abnormal: Above high normal; Units: /HPF; Status: F Test: RBC, URINE AUTO; Value: TNTC; Range: 0-3; Abnormal: Above high normal; Units: /HPF; Status: F Test: BACTERIA, URINE AUTO; Value: NEGATIVE; Range: NEGATIVE; Status: F Test: SQUAMOUS EPITHELIAL CELL UR AU; Value: 3; Range: 0-6; Units: /HPF; Status: F Test: MUCUS, URINE; Value: MODERATE; Range: NEGATIVE; Status: F Test: HYALINE CAST, URINE AUTO; Value: 0; Range: 0-1; Units: /LPF; Status: F Test: AMORPHOUS SEDIMENT; Value: MODERATE; Range: NEGATIVE; Abnormal: Above high normal; Status: F Test Note: ; --- 05/13/16 1228 --- COLOR previously reported as: YELLOW Lab Order: MAGNESIUM LEVEL; SPEC'M 05/13/16 11:23 Test: MAGNESIUM LEVEL; Value: 1.6; Range: 1.8-2.4; Abnormal: Below low normal; Units: MG/DL; Status: F Radiology Order: Chest, 1 View Test: Chest, 1 View REASON FOR EXAMINATION: HYPOTENSION; Clinical: Chest pain. Hypotension.; ; Comparison: 04/09/2016.; ; Findings:; Examination is limited by portable technique, underpenetration, and poor; inspiratory effort. Mediastinum and cardiac silhouette stable. Lung digsg; demonstrate pulmonary vascular congestion and possible basilar atelectasis. No; discrete focal consolidation, effusion, or pneumothorax. Skeletal structures; demonstrate osteopenia and degenerative changes.; ; Impression:; Limited examination cannot exclude pulmonary vascular congestion and interstitial; edema.; ; ; Signed by; Teddy Jean Baptiste MD 05/13/2016 12:05 P; Outcome: 14:35 Decision to Hospitalize by Provider. sd1 17:00 No special radiology studies were completed. ttb 17:17 Discharge Assessment: Patient awake, alert and oriented x 3. No cognitive and/or ttb functional deficits noted. Patient verbalized understanding of disposition instructions. Patient awake and alert. patient administered narcotics - no. The following High Risk Discharge criteria are identified: Yes, PCU admit. Admitted to PCU accompanied by nurse, accompanied by tech, family with patient, via stretcher, on monitor, with chart. Condition: stable. Instructed on admission process. Admission hand-off: Report called to PETE iKrkpatrick received SBAR. Property :Personal belongings accompany Pt. 17:36 Patient left the ED. ttb Signatures: Dispatcher [employer] EDTX Sneha Torrez MD MD sd1 Dorota Nichols, Resource Director Unit lbd Arabella Hicks RN RN kpj Ganter, LoriLee, Reg Reg lg Imelda,Becky,RT RT ac1 Vivien Coats cmb Ebony Guardado RN RN ttb Alexa Mansfield mm15 Sandra Steen RN hs1 Corrections: (The following items were deleted from the chart) 11:26 11:19 Adult Sepsis Screening: The patient does not have new or worsening altered ttb mentation. Patient's respiratory rate is less than 22. Systolic blood pressure is less than or equal to 100 (1 point). Patient has a qSOFA score of 1- Negative Sepsis Screen. ttb Chart Complete MTDD
--- NOTE | 2016-05-16 20:44 | EDDOCDS ---
Physician Documentation [facility] Name: Pierre Rivera Age: 89 yrs Sex: Male : 1925 Arrival Date: 05/13/2016 Time: 11:17 Bed 1 Private MD: Fabricio Chao P. Disposition: 05/13/16 14:35 Hospitalization ordered by Jamshid Patel for Inpatient Admission. Preliminary diagnosis is Bradycardia, unspecified. - Bed requested for PCU. - Status is Inpatient Admission. ttb - Condition is Stable. - Problem is new. - Symptoms are unchanged. Historical: - Allergies: No known drug Allergies; - Home Meds: 1. aspirin 81 mg Oral cpDR 1 tab once daily (Last dose: 05/13/2016) 2. allopurinol 100 mg Oral tab once daily (Last dose: 05/13/2016) 3. Protonix 40 mg Oral TbEC 1 tab once daily (Last dose: 05/13/2016 08:00) 4. Razadyne ER 8 mg oral TbER once daily (Last dose: 05/13/2016 08:00) 5. Flomax 0.4 mg Oral cp24 1 cap once daily (Last dose: 05/12/2016) 6. hydroxyzine HCl 10 mg Oral tab nightly (Last dose: 05/12/2016) 7. Namenda 10 mg oral tab 1 tab 2 times per day (Last dose: 05/13/2016 08:00) 8. Colace 100 mg oral cap 1 cap once daily (Last dose: Unknown) 9. acetaminophen 325 mg Oral tab 2 tabs every 4 hours as needed (Last dose: Unknown) 10. multivitamin Oral tab daily (Last dose: 05/13/2016 08:00) - PMHx: Acute Renal Failure; Alzheimers; AORTIC VALVE DISORDER; AV Block 1st Degree; GERD; Gout; Hypertension; - Social history: Smoking status: Patient states former smoker of tobacco. impaired d/t Alzheimer's . - Family history: Not pertinent. - : The pt / caregiver states he / she is not on anticoagulants. Home medication list is obtained from the caregiver. - Exposure Risk Screening:: None identified. - History obtained from: caregiver. Vital Signs: 05/13 11:24 BP 101 / 68 (auto/); ttb 11:28 BP 101 / 68; Pulse 77; Resp 16; Temp 97.2(O); Pulse Ox 97% on R/A; Weight 54.43 kg / cmb 120 lbs (M); 11:28 Pulse 77 MON; Resp 18 S; Pulse Ox 96% on R/A; Pain 0/10; ttb 11:40 BP 95 / 51 (auto/); ttb 11:40 Pulse 75 MON; Pulse Ox 96% ; ttb 12:14 BP 103 / 50 (auto/); ttb 12:15 Pulse 73 MON; Pulse Ox 95% ; ttb 13:04 Pulse 73 MON; Resp 18; Pulse Ox 98% on R/A; Pain 0/10; ttb 13:45 Pulse 69 MON; Pulse Ox 100% ; ttb 14:01 BP 99 / 66 (auto/); ttb 14:01 Pulse 85 MON; Pulse Ox 98% ; ttb 14:13 BP 102 / 70 (auto/); ttb 14:13 Pulse 77 MON; Resp 18; Pulse Ox 96% on R/A; Pain 0/10; ttb 14:15 Pulse 74 MON; Pulse Ox 99% ; ttb 14:42 Pulse 80 MON; Pulse Ox 98% ; ttb 15:22 BP 108 / 58 (auto/); ttb 15:23 Pulse 76 MON; ttb 16:55 Pulse 67 MON; ttb 16:57 BP 154 / 89 (auto/); Resp 18 S; Temp 100.5(TE); Pulse Ox 96% on R/A; Pain 0/10; ttb 17:10 BP 146 / 78 (auto/); ttb 17:17 Pulse 74 MON; Resp 18 S; Pulse Ox 98% on R/A; Pain 0/10; ttb MDM: 11:32 -Blood Culture (Adults Only), peripheral from different site, or from device/port/PICC sd1 etc. if present ordered. 11:32 Plug Grower/Pulse Ox/q 15 min VS ordered. sd1 11:33 Chest, 1 View Ordered. EDMS 11:33 -Arterial Blood Gas Ordered. EDMS 11:33 -Blood Culture Ordered. EDMS 11:33 Amylase Ordered. EDMS 11:33 C Reactive Protein Ordered. EDMS 11:33 CBC with Diff Ordered. EDMS 11:33 Lactic Acid (Plasencia tube on ice) Ordered. EDMS 11:33 Liver Profile Ordered. EDMS 11:33 MED Profile Ordered. EDMS 11:33 PT/INR Ordered. EDMS 11:33 Type & Screen Ordered. EDMS 11:33 Urinalysis Ordered. EDMS 11:33 Urine Culture Ordered. EDMS 11:33 ECG WITH READING ER PHYS+CARDIAG ordered. EDMS 11:38 BED REQUEST+ADM ordered. EDMS 11:43 MAGNESIUM LEVEL Ordered. EDMS 11:44 -Blood Culture (Adults Only), peripheral from different site, or from device/port/PICC lbd etc. if present complete. 11:47 BLOOD CULTURES Ordered. EDMS 12:13 C Reactive Protein Reviewed. sd1 12:13 CBC with Diff Reviewed. sd1 12:13 Liver Profile Reviewed. sd1 12:13 MED Profile Reviewed. sd1 12:13 MAGNESIUM LEVEL Reviewed. sd1 12:13 Amylase Reviewed. sd1 12:13 PT/INR Reviewed. sd1 12:18 NS 0.9% 500 ml IV at bolus once ordered. sd1 12:18 Magnesium Sulfate 1 grams IVPB once over 1 hrs; administer over at least 1 hour ordered.sd1 12:39 -Arterial Blood Gas Reviewed. sd1 12:39 Urinalysis Reviewed. sd1 12:39 Lactic Acid (Plasencia tube on ice) Reviewed. sd1 12:39 Type & Screen Reviewed. sd1 12:39 Chest, 1 View Reviewed. sd1 12:40 C Diff Toxins A&b Ordered. EDMS 13:45 Financial registration complete. mm15 14:09 NS 0.9% 500 ml IV at bolus once ordered. sd1 14:15 [facility] Payment Agreement was scanned into [employer] and attached to record. mm15 14:56 Admission / Observation Status ordered. EDMS 14:56 2 GRAM SODIUM DIET ordered. EDMS 02 08:21 T-Sheet-- Draft Copy was scanned into [employer] and attached to record. lg 08: PCR was scanned into [employer] and attached to record. lg Administered Medications: 05/13 12:24 Drug: Magnesium Sulfate 1 grams [magnesium sulfate 1 gram/100 mL in dextrose 5 % ttb intravenous piggyback] {Co-Signature: hs1 (Sandra Steen RN).} Route: IVPB; Infused Over: 1 hrs; Site: left antecubital; 13:27 Follow up: IV Status: Completed infusion; Infusion discontinued [facility] 12:25 Drug: NS 0.9% 500 ml [sodium chloride 0.9 % intravenous solution] Route: IV; Rate: ttb bolus; Site: left antecubital; 14:00 Follow up: IV Status: Completed infusion; IV Intake: 500ml ttb 14:43 Drug: NS 0.9% 500 ml [sodium chloride 0.9 % intravenous solution] Route: IV; Rate: ttb bolus; Site: left antecubital; 16:00 Follow up: IV Status: Completed infusion; IV Intake: 500ml ttb Signatures: Dispatcher [employer] EDMS Sneha Torrez MD MD sd1 Dorota Nichols, Control Tower Operator Unit lbd Michel Salmeron, Mahamed Reg Ebony Pardo RN RN ttb Alexa Mansfield mm15 Melany Trotter RN RN sls2 Arabella Hicks RN kpj Sandra Steen RN hs1 The chart was reviewed and I authenticate all verbal orders and agree with the evaluation and treatment provided.Corrections: (The following items were deleted from the chart) 11:43 11:39 MAGNESIUM LEVEL+LAB ordered. EDVT EDMS Attachments: 14:15 [facility] Payment Agreement mm15 05/15 08:21 T-Sheet-- Draft Copy lg Chart Complete MTDD
--- NOTE | 2016-05-16 20:44 | EDDOCDS ---
Physician Documentation [facility] Name: Pierre Rivera Age: 89 yrs Sex: Male : 1925 Arrival Date: 05/13/2016 Time: 11:17 Bed 1 Private MD: Fabricio Chao P. Disposition: 05/13/16 14:35 Hospitalization ordered by Jamshid Patel for Inpatient Admission. Preliminary diagnosis is Bradycardia, unspecified. - Bed requested for PCU. - Status is Inpatient Admission. ttb - Condition is Stable. - Problem is new. - Symptoms are unchanged. Historical: - Allergies: No known drug Allergies; - Home Meds: 1. aspirin 81 mg Oral cpDR 1 tab once daily (Last dose: 05/13/2016) 2. allopurinol 100 mg Oral tab once daily (Last dose: 05/13/2016) 3. Protonix 40 mg Oral TbEC 1 tab once daily (Last dose: 05/13/2016 08:00) 4. Razadyne ER 8 mg oral TbER once daily (Last dose: 05/13/2016 08:00) 5. Flomax 0.4 mg Oral cp24 1 cap once daily (Last dose: 05/12/2016) 6. hydroxyzine HCl 10 mg Oral tab nightly (Last dose: 05/12/2016) 7. Namenda 10 mg oral tab 1 tab 2 times per day (Last dose: 05/13/2016 08:00) 8. Colace 100 mg oral cap 1 cap once daily (Last dose: Unknown) 9. acetaminophen 325 mg Oral tab 2 tabs every 4 hours as needed (Last dose: Unknown) 10. multivitamin Oral tab daily (Last dose: 05/13/2016 08:00) - PMHx: Acute Renal Failure; Alzheimers; AORTIC VALVE DISORDER; AV Block 1st Degree; GERD; Gout; Hypertension; - Social history: Smoking status: Patient states former smoker of tobacco. impaired d/t Alzheimer's . - Family history: Not pertinent. - : The pt / caregiver states he / she is not on anticoagulants. Home medication list is obtained from the caregiver. - Exposure Risk Screening:: None identified. - History obtained from: caregiver. Vital Signs: 05/13 11:24 BP 101 / 68 (auto/); ttb 11:28 BP 101 / 68; Pulse 77; Resp 16; Temp 97.2(O); Pulse Ox 97% on R/A; Weight 54.43 kg / cmb 120 lbs (M); 11:28 Pulse 77 MON; Resp 18 S; Pulse Ox 96% on R/A; Pain 0/10; ttb 11:40 BP 95 / 51 (auto/); ttb 11:40 Pulse 75 MON; Pulse Ox 96% ; ttb 12:14 BP 103 / 50 (auto/); ttb 12:15 Pulse 73 MON; Pulse Ox 95% ; ttb 13:04 Pulse 73 MON; Resp 18; Pulse Ox 98% on R/A; Pain 0/10; ttb 13:45 Pulse 69 MON; Pulse Ox 100% ; ttb 14:01 BP 99 / 66 (auto/); ttb 14:01 Pulse 85 MON; Pulse Ox 98% ; ttb 14:13 BP 102 / 70 (auto/); ttb 14:13 Pulse 77 MON; Resp 18; Pulse Ox 96% on R/A; Pain 0/10; ttb 14:15 Pulse 74 MON; Pulse Ox 99% ; ttb 14:42 Pulse 80 MON; Pulse Ox 98% ; ttb 15:22 BP 108 / 58 (auto/); ttb 15:23 Pulse 76 MON; ttb 16:55 Pulse 67 MON; ttb 16:57 BP 154 / 89 (auto/); Resp 18 S; Temp 100.5(TE); Pulse Ox 96% on R/A; Pain 0/10; ttb 17:10 BP 146 / 78 (auto/); ttb 17:17 Pulse 74 MON; Resp 18 S; Pulse Ox 98% on R/A; Pain 0/10; ttb MDM: 11:32 -Blood Culture (Adults Only), peripheral from different site, or from device/port/PICC sd1 etc. if present ordered. 11:32 Emotional Support Teacher/Pulse Ox/q 15 min VS ordered. sd1 11:33 Chest, 1 View Ordered. EDMS 11:33 -Arterial Blood Gas Ordered. EDMS 11:33 -Blood Culture Ordered. EDMS 11:33 Amylase Ordered. EDMS 11:33 C Reactive Protein Ordered. EDMS 11:33 CBC with Diff Ordered. EDMS 11:33 Lactic Acid (Plasencia tube on ice) Ordered. EDMS 11:33 Liver Profile Ordered. EDMS 11:33 MED Profile Ordered. EDMS 11:33 PT/INR Ordered. EDMS 11:33 Type & Screen Ordered. EDMS 11:33 Urinalysis Ordered. EDMS 11:33 Urine Culture Ordered. EDMS 11:33 ECG WITH READING ER PHYS+CARDIAG ordered. EDMS 11:38 BED REQUEST+ADM ordered. EDMS 11:43 MAGNESIUM LEVEL Ordered. EDMS 11:44 -Blood Culture (Adults Only), peripheral from different site, or from device/port/PICC lbd etc. if present complete. 11:47 BLOOD CULTURES Ordered. EDMS 12:13 C Reactive Protein Reviewed. sd1 12:13 CBC with Diff Reviewed. sd1 12:13 Liver Profile Reviewed. sd1 12:13 MED Profile Reviewed. sd1 12:13 MAGNESIUM LEVEL Reviewed. sd1 12:13 Amylase Reviewed. sd1 12:13 PT/INR Reviewed. sd1 12:18 NS 0.9% 500 ml IV at bolus once ordered. sd1 12:18 Magnesium Sulfate 1 grams IVPB once over 1 hrs; administer over at least 1 hour ordered.sd1 12:39 -Arterial Blood Gas Reviewed. sd1 12:39 Urinalysis Reviewed. sd1 12:39 Lactic Acid (Plasencia tube on ice) Reviewed. sd1 12:39 Type & Screen Reviewed. sd1 12:39 Chest, 1 View Reviewed. sd1 12:40 C Diff Toxins A&b Ordered. EDMS 13:45 Financial registration complete. mm15 14:09 NS 0.9% 500 ml IV at bolus once ordered. sd1 14:15 [facility] Agreement was scanned into [employer] and attached to record. mm15 14:56 Admission / Observation Status ordered. EDMS 14:56 2 GRAM SODIUM DIET ordered. EDMS 02 08:21 T-Sheet-- Draft Copy was scanned into [employer] and attached to record. lg 08: PCR was scanned into [employer] and attached to record. lg Administered Medications: 05/13 12:24 Drug: Magnesium Sulfate 1 grams [magnesium sulfate 1 gram/100 mL in dextrose 5 % ttb intravenous piggyback] {Co-Signature: hs1 (Sandra Steen RN).} Route: IVPB; Infused Over: 1 hrs; Site: left antecubital; 13:27 Follow up: IV Status: Completed infusion; Infusion discontinued [facility] 12:25 Drug: NS 0.9% 500 ml [sodium chloride 0.9 % intravenous solution] Route: IV; Rate: ttb bolus; Site: left antecubital; 14:00 Follow up: IV Status: Completed infusion; IV Intake: 500ml ttb 14:43 Drug: NS 0.9% 500 ml [sodium chloride 0.9 % intravenous solution] Route: IV; Rate: ttb bolus; Site: left antecubital; 16:00 Follow up: IV Status: Completed infusion; IV Intake: 500ml ttb Signatures: Dispatcher [employer] EDMS Sneha Torrez MD MD sd1 Dorota Nichols, Manager Cash Unit lbd Michel Salmeron, Mahamed Reg Ebony Pardo RN RN ttb Alexa Mansfield mm15 Melany Trotter RN RN sls2 Arabella Hicks RN kpj Sandra Steen RN hs1 The chart was reviewed and I authenticate all verbal orders and agree with the evaluation and treatment provided.Corrections: (The following items were deleted from the chart) 11:43 11:39 MAGNESIUM LEVEL+LAB ordered. EDDC EDMS Attachments: 14:15 [facility] Payment Agreement mm15 05/15 08:21 T-Sheet-- Draft Copy lg Chart Complete MTDD
== END 2016-05-16 14:20 | disposition home or self-care (01) | DRG 315 ==
LOC: M ED 11:17 → M ED INP 14:35 → M PCU 17:49
PROVIDERS: ADMIT Internal Medicine; ATTEND Internal Medicine
DX: I95.9 Hypotension, unspecified (principal); N39.0 Urinary tract infection, site not specified; I44.0 Atrioventricular block, first degree; K21.9 Gastro-esophageal reflux disease without esophagitis; Z66 Do not resuscitate; M10.9 Gout, unspecified; G30.9 Alzheimer's disease, unspecified; F02.80 Dementia in other diseases classified elsewhere, unspecified severity, without behavioral disturbance, psychotic disturbance, mood disturbance, and anxiety; S32.018D Other fracture of first lumbar vertebra, subsequent encounter for fracture with routine healing; S32.028D Other fracture of second lumbar vertebra, subsequent encounter for fracture with routine healing; K59.00 Constipation, unspecified; I71.4 Abdominal aortic aneurysm, without rupture; N32.3 Diverticulum of bladder; N32.89 Other specified disorders of bladder; Z79.82 Long term (current) use of aspirin; Z79.899 Other long term (current) drug therapy; I45.10 Unspecified right bundle-branch block; X58.XXXD Exposure to other specified factors, subsequent encounter; Y99.9 Unspecified external cause status

== ENCOUNTER 2016-05-20 23:45 | Emergency (ER) | payer MEDICARE, OTHER ==
[~2016-05-20] VITALS: Ht 165.1 cm; Wt 59.0 kg
[~2016-05-20 23:45] MED LIST changes: +ACET25TA5 PO; +CEPH500C PO; +DOXY-278 PO; +FLOM5CAP PO; +HYDR10T PO
[2016-05-21] MEDS ORDERED: LIDOCAINE 2% JELLY 30 ML As Ordered ONE (01:55)
[2016-05-21 03:51] VITALS: BP 102/57
[2016-05-21] MEDS ORDERED: ALPRAZolam 0.25 MG TAB PO ONE (04:00)
== END 2016-05-21 04:07 | disposition home or self-care (01) ==
LOC: EDBD 23:45 → M ED 05-21 00:36
DX: N99.518 Other cystostomy complication (principal); I20.9 Angina pectoris, unspecified; I10 Essential (primary) hypertension; E03.9 Hypothyroidism, unspecified; R00.1 Bradycardia, unspecified; I35.9 Nonrheumatic aortic valve disorder, unspecified; K44.9 Diaphragmatic hernia without obstruction or gangrene; K90.0 Celiac disease; M54.9 Dorsalgia, unspecified; M10.9 Gout, unspecified; F41.9 Anxiety disorder, unspecified; Z79.82 Long term (current) use of aspirin; Z79.899 Other long term (current) drug therapy

== ENCOUNTER → 2016-08-22 | Outpatient (REF) | payer MEDICARE, OTHER ==
[~2016-08-22] MED LIST changes: -COLA100C PO; +COLA100C3 PO
[2016-08-22 12:49] LABS: CALCIUM OXALATE CRYSTALS SMALL
== END ==
LOC: M LAB REF 12:06
PROVIDERS: ATTEND Nurse Practitioner Family
DX: R82.90 Unspecified abnormal findings in urine (principal)

== ENCOUNTER → 2016-10-06 | Outpatient (REF) | payer MEDICARE, OTHER ==
[~2016-10-06] MED LIST changes: +ACET25TA12 PO; -ACET25TA5 PO; -ACET650T2 PO; +ACET650T3 PO; -COLA100C3 PO; +COLA100C5 PO; +HYDR-643 PO; -HYDR10T PO; -LEVA750T PO; +LEVA750T7 PO
== END ==
LOC: M LAB REF 17:32
PROVIDERS: ATTEND Urology
DX: N39.0 Urinary tract infection, site not specified (principal)

== ENCOUNTER → 2016-10-21 | Outpatient (REF) | payer MEDICARE, OTHER | LOC: M SMT 14:49 | PROVIDERS: ATTEND Urology | DX: N39.0 Urinary tract infection, site not specified (principal) ==